=== PATIENT | female | born 1930 | race Caucasian/White ===

== ENCOUNTER 2016-09-03 00:30 | Emergency (ER) | payer MEDICARE, BC ==
[2016-09-03 00:40] VITALS: BP 158/54
--- NOTE | 2016-09-03 00:44 | EDM.PDOC ---
ED HPI GENERAL MEDICAL PROBLEM - General Chief Complaint: Gastrointestinal Problem Stated Complaint: [facility] Time Seen by Provider: 09/03/16 00:34 Source of Information: Reports: Patient History Limitations: Reports: No Limitations - History of Present Illness INITIAL COMMENTS - FREE TEXT/NARRATIVE: 86-year-old female brought to the ED per ambulance. She resides at [facility]. She does receive minimal help from nursing and per nursing staff. Chief complaint is rectal pain with rectal bleeding with bowel movement suture usually twice daily. Lately she's been having more diarrhea which seems to have flared up things. She also complains of pain burning hot prickly pain in both feet that is gradually getting worse over the last several months compatible with peripheral neuropathy. States the pain at present on the perianal areas keeping her awake as well as the leg pain. She states that all bowel movements are painful and often drip splint to the toilet afterwards. Of note her med list suggest that she is on MiraLAX powder daily to maintain bowel function. Perhaps is getting too much of this and is contributing to diarrhea. Onset: Unknown/Unsure (Problem some been going on for many months.) Duration: Week(s):, Waxing/Waning Location: Reports: Other (Perianal area.) Quality: Reports: Burning, Sharp, Stabbing, Throbbing Severity: Moderate Improves with: Reports: None (She reports she's been putting salve on the area for months and without any relief.) Worsens with: Reports: Other Context: Denies: Activity, Exercise, Lifting, Sick Contact, Trauma, Other Associated Symptoms: Denies: No Other Symptoms, Confusion, Chest Pain, Cough, cough w sputum, Diaphoresis, Fever/Chills, Headaches, Loss of Appetite, Malaise , Nausea/Vomiting, Rash, Seizure, Shortness of Breath, Syncope, Weakness Treatments 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: Reports: Other (see below) (None.) Rectal Pain Score (Numeric/FACES): 7 - Related Data Allergies Allergy/AdvReac Type Severity Reaction Status Date / Time niacin Allergy Hives Verified 09/03/16 00:40 Home Meds: Home Meds Atenolol 50 mg PO BID 01/01/15 [History] Folic Acid 1 mg PO DAILY 01/01/15 [History] Isosorbide Mononitrate [Isosorbide Mononitrate ER] 30 mg PO DAILY 01/01/15 [ History] Methotrexate 20 mg PO WEEKLY 01/01/15 [History] Nitroglycerin [Nitrostat] 0.4 mg PO ASDIRECTED PRN 01/01/15 [History] Losartan/Hydrochlorothiazide [Losartan-HCTZ 100-12.5 MG] 1 tab PO DAILY [History] Triamterene/Hydrochlorothiazid [Dyazide 37.5-25] 1 cap PO DAILY 01/13/16 [ History] Pravastatin [Pravachol] 20 mg PO BEDTIME #30 tablet 04/13/16 [Rx] Gabapentin [Neurontin] 100 mg PO BEDTIME #30 cap 09/03/16 [Rx] Hydrocortisone [Hydrocortisone 2.5% Crm] 1 dose TOP TID 09/03/16 [History] Hydrocortisone [Proctozone-HC 2.5% Crm] 1 dose RECTAL TID 09/03/16 [History] Pantoprazole Sodium [Protonix] 40 mg PO DAILY 09/03/16 [History] Polyethylene Glycol 3350 [MiraLAX] 17 gm PO BID PRN 09/03/16 [History] Terbinafine [LamISIL AT] 36 gm TP DAILY #1 tube 09/03/16 [Rx] Past Medical History HEENT History: Reports: Impaired Vision Other HEENT History: wears glasses Cardiovascular History: Reports: High Cholesterol, Hypertension Respiratory History: Reports: SOB Gastrointestinal History: Reports: Hemorrhoids 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: Musculoskeletal History: Reports: RA Other Musculoskeletal History: spondylosis Psychiatric History: Reports: Depression - Past Surgical History Female Surgical History: Reports: Section, Hysterectomy Social & Family History - Family History Family Medical History: Noncontributory Cardiac: Reports: [place] - Tobacco Use Smoking Status *Q: Former Smoker Years of Tobacco use: 60 Packs/Tins Daily: 0.5 Used Tobacco, but Quit: No Month Tobacco Last Used: 1979 Second Hand Smoke Exposure: No - Caffeine Use Caffeine Use: Reports: Coffee, Soda Other Caffeine Use: but states very little of it Caffeine Use Comment: drinks tea a couple times or less a week - Recreational Drug Use Recreational Drug Use: No - Living Situation & Occupation Living situation: Reports: , Alone Occupation: Retired ED ROS GENERAL - Review of Systems Review Of Systems: See Below Constitutional: Reports: Weakness, Fatigue, Decreased Appetite. Denies: Fever, Chills, Malaise, Weight Loss HEENT: Reports: Glasses, Other (Vision is poor) Respiratory: Denies: Shortness of Breath, Wheezing, Pleuritic Chest Pain Cardiovascular: Reports: Blood Pressure Problem, Dyspnea on Exertion. Denies: Chest Pain, Claudication, Lightheadedness, Orthopnea (Chronic hypertension well controlled with medication), Palpitations Endocrine: Reports: Fatigue GI/Abdominal: Reports: Abdominal Pain (Feels bloated with a lot of extra gas and cramping.), Diarrhea (Usually 2-3 times per day.), Hematochezia : Reports: Frequency (Both urge and stress components), Incontinence Musculoskeletal: Reports: Neck Pain, Shoulder Pain, Back Pain, Leg Pain, Foot Pain Skin: Reports: Other (Skin breakdown in the marah-anal area and between the nuchal clefts.) Neurological: Reports: Paresthesia (Burning pain in both feet particular a worse at night. Gradually getting worse.) Psychiatric: Reports: Anxiety ED EXAM, GI/ABD - Physical Exam Exam: See Below Exam Limited By: No Limitations General Appearance: Alert, WD/WN, Anxious, Mild Distress Cardiovascular: Regular Rate, Rhythm, No Edema, No Gallop, No Murmur, No Rub. No: Normal Peripheral Pulses GI/Abdominal: Soft, Non-Tender, No Organomegaly, Hyperactive Bowel Sounds, Tympanic Bowel Sounds (Tympany in all 4 quadrants compatible with little extra air on board.) Back Exam: Normal Inspection, Vertebral Tenderness (Lumbar spine). No: Full Range of Motion, CVA Tenderness (L), CVA Tenderness (R) Extremities: Normal Inspection, Normal Range of Motion, Non-Tender, No Pedal Edema Neurological: Alert, Oriented, CN II-XII Intact, Normal Cognition, Normal Gait, Other Psychiatric: Anxious (Mild) Skin Exam: Warm, Dry, Other (The rash is confined to the perianal area. She has breakdown of the skin superficially across each other in the mid nuchal cleft. Areas erythematous but not infected. This is a contact dermatitis from a combination of urine feces and likely soaps being applied to the area. May also be due to other creams being applied to this area as she may be developing an allergy to the stabilizing agents in the steroid creams. The perianal tissue itself shows an old hemorrhoidal tag at the 12:00 to 6 o'clock position. There is an anal fissure at the 6 o'clock position that is very tenderness touch. There is no signs of perianal abscess formation. Most of her pain I believe is coming from the skin breakdown in the perianal area.) Course - Vital Signs Last Recorded V/S: Last Vital Signs Temp 36.6 C 09/03/16 00:35 Pulse 61 09/03/16 00:35 Resp 20 09/03/16 00:35 BP 158/54 H 09/03/16 00:35 Pulse Ox 100 09/03/16 00:35 - Orders/Labs/Meds Orders: Active Orders 24 hr Category Date Time Status Jonnie Carbajal [Tucks] Med 09/03/16 00:54 Active 1 pad TOP ASDIRECTED PRN Medication Orders Jonnie Carbajal (Tucks) 1 pad TOP ASDIRECTED PRN PRN Reason: anal pain Last Admin: 09/03/16 01:24 Dose: 1 pad Meds: Medications Generic Name Dose Route Start Last Admin Trade Name Freq PRN Reason Stop Dose Admin Jonnie Carbajal 1 pad 09/03/16 00:54 09/03/16 01:24 Tucks TOP 1 pad ASDIRECTED PRN Administration anal pain Discontinued Medications Generic Name Dose Route Start Last Admin Trade Name Freq PRN Reason Stop Dose Admin Gabapentin 100 mg 09/03/16 00:53 09/03/16 01:16 Neurontin PO 09/03/16 00:54 100 mg ONETIME ONE Administration Lidocaine HCl 10 ml 09/03/16 00:52 09/03/16 01:02 Xylocaine 2% Jelly MUCMEM 09/03/16 00:53 10 ml ONETIME ONE Administration Lidocaine HCl Confirm 09/03/16 01:02 09/03/16 01:08 Xylocaine 2% Jelly Administered 09/03/16 01:03 Not Given Dose 10 ml .ROUTE .STK-MED ONE Oxycodone/Acetaminophen 1 tab 09/03/16 00:53 09/03/16 01:03 Percocet 325-5 Mg PO 09/03/16 00:54 1 tab ONETIME ONE Administration - Radiology Interpretation Free Text/Narrative:: 86-year-old female presents to the ED at 1:00 in the morning due to perianal pain and burning pain in both of her feet. She reports perianal pain is been going on for a lengthy period of time and often has blood per rectum with bowel movements. She tends to be on the diarrhea side and is on MiraLAX powder perhaps too much or needs to take it on alternating days. Examination reveals contact dermatitis of the perianal tissue involving [facility] up the nuchal cleft with superficial skin ulceration and breakdown. This is a combination of urine and her depends needs to be changed more often. Also advised no soaps to this area at all just water to cleanse her to prevent further contact breakdown of the skin. If soap is required suggest Doppler Ivory hypoallergenic soaps only. Recommend Lamisil cream to be applied to the perianal tissues she'll use nifedipine ointment 0.2% into the anal canal twice daily for the next 20 days to allow the anal fissure to heal. Also prescribed gabapentin 100 mg about an hour before bedtime every night to help with her peripheral neuropathy pain in her feet and improve her sleep habit. 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 Hemorrhoidal tag has been present for many months and years. Reported bleeding per rectum with diarrhea stools the last several days. Examination reveals an anal fissure at the 6 o'clock position. This needs to be treated with nifedipine 0.2% ointment into the anal canal twice daily for the next 20 days to allow this area to heal. Should be done first thing in the morning or after first bowel movement and then at bedtime. The perianal tissues are very inflamed and raw and skin is breaking down in the nuchal cleft on both sides. This is from being right to long. It is important that the perianal tissues be protected with a barrier cream such as camoseptine usually once daily at bedtime should suffice. No soaps should be utilized to this area unless absolutely necessary to cleanse the area and if needed should only be Dove or Ivory hypoallergenic soaps. Hydrocortisone creams that are being applied to this area should be discontinued. Suggest Lamisil cream to the area once daily in the morning to help soothe the skin and reduce the inflammation and clear up low-grade candidiasis. The second problem identified was performed around 3 involving her feet primarily at bedtime. Suggest use of Neurontin 100 mg about an hour before going to bed nightly to reduce the pain in the feet so that she might be able to sleep better. Suggest cutting back on her MiraLAX powder to 17 g every other day to prevent diarrhea from occurring. - My Orders Last 24 Hours: My Active Orders 09/03/16 00:54 Jonnie Carbajal [Razia] 1 pad TOP ASDIRECTED PRN - Assessment/Plan Last 24 Hours: My Active Orders 09/03/16 00:54 Jonnie Carbajal [Razia] 1 pad TOP ASDIRECTED PRN
[2016-09-03] MEDS ORDERED: Lidocaine 2% Jelly 10 ML Urojet MUCMEM ONE (00:52)
[2016-09-03] MEDS ORDERED: Acetaminophen/oxyCODONE 325-5 MG Tab PO ONE (00:53)
[2016-09-03] MEDS ORDERED: Gabapentin 100 MG Cap PO ONE (00:53)
[2016-09-03] MEDS ORDERED: Witch Hazel Medicated Pads 100/Jar TOP PRN (00:54)
[2016-09-03] MEDS ORDERED: Lidocaine 2% Jelly 10 ML Urojet ONE (01:02)
== END 2016-09-03 02:00 | disposition home or self-care (01) ==
LOC: JD.ED 00:30
DX: K60.2 Anal fissure, unspecified (principal); L24.0 Irritant contact dermatitis due to detergents; G60.3 Idiopathic progressive neuropathy; I10 Essential (primary) hypertension; E78.00 Pure hypercholesterolemia, unspecified; F32.9 Major depressive disorder, single episode, unspecified; Z90.710 Acquired absence of both cervix and uterus; Z87.891 Personal history of nicotine dependence; Z79.899 Other long term (current) drug therapy; Z88.8 Allergy status to other drugs, medicaments and biological substances
CPT/HCPCS: 99284; A9270; 99283

== ENCOUNTER 2017-08-03 11:57 | Emergency (ER) | payer MEDICARE, BC ==
[2017-08-03 12:13] VITALS: BP 129/61
--- NOTE | 2017-08-03 12:43 | EDM.PDOC ---
ED HPI GENERAL MEDICAL PROBLEM - General Chief Complaint: Gastrointestinal Problem Stated Complaint: VOMITING AND DIARRHEA/WEAKNESS Time Seen by Provider: 08/03/17 12:30 Source of Information: Reports: Patient - History of Present Illness INITIAL COMMENTS - FREE TEXT/NARRATIVE: Patient is brought here today by her son for evaluation of diarrhea and an episode of vomiting. This apparently started around 1 AM, persisted until about 3 AM. Patient states at that time she was able to fall asleep and slept until around 10:30 or 11 this morning. She states that when she awoke she felt significantly better. She did eat toast and some imelda clemencia without difficulty. It was recommended by the nurse at [facility]'s point that she be evaluated in the emergency room. Patient states that she has had no further episodes of vomiting or diarrhea since awakening. She denies any pain whatsoever. She states that overall she is feeling well. - Related Data Allergies Allergy/AdvReac Type Severity Reaction Status Date / Time niacin Allergy Hives Verified 08/03/17 12:13 Home Meds: Home Meds Atenolol 50 mg PO BID 01/01/15 [History] Folic Acid 1 mg PO DAILY 01/01/15 [History] Isosorbide Mononitrate [Isosorbide Mononitrate ER] 30 mg PO DAILY 01/01/15 [ History] Methotrexate 20 mg PO WEEKLY 01/01/15 [History] Nitroglycerin [Nitrostat] 0.4 mg PO ASDIRECTED PRN 01/01/15 [History] Losartan/Hydrochlorothiazide [Losartan-HCTZ 100-12.5 MG] 1 tab PO DAILY [History] Triamterene/Hydrochlorothiazid [Dyazide 37.5-25] 1 cap PO DAILY 01/13/16 [ History] Pravastatin [Pravachol] 20 mg PO BEDTIME #30 tablet 04/13/16 [Rx] Gabapentin [Neurontin] 100 mg PO BEDTIME #30 cap 09/03/16 [Rx] Hydrocortisone [Hydrocortisone 2.5% Crm] 1 dose TOP TID 09/03/16 [History] Hydrocortisone [Proctozone-HC 2.5% Crm] 1 dose RECTAL TID 09/03/16 [History] Pantoprazole Sodium [Protonix] 40 mg PO DAILY 09/03/16 [History] Polyethylene Glycol 3350 [MiraLAX] 17 gm PO BID PRN 09/03/16 [History] Terbinafine [LamISIL AT] 36 gm TP DAILY #1 tube 09/03/16 [Rx] Past Medical History HEENT History: Reports: Impaired Vision Other HEENT History: wears glasses Cardiovascular History: Reports: High Cholesterol, Hypertension Respiratory History: Reports: SOB Gastrointestinal History: Reports: Hemorrhoids 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: Musculoskeletal History: Reports: RA Other Musculoskeletal History: spondylosis Psychiatric History: Reports: Depression - Past Surgical History Female Surgical History: Reports: Section, Hysterectomy Social & Family History - Family History Family Medical History: Noncontributory Cardiac: Reports: [place] - Tobacco Use Smoking Status *Q: Former Smoker Used Tobacco, but Quit: Yes Month/Year Tobacco Last Used: 1989 - Caffeine Use Caffeine Use: Reports: Coffee, Soda Other Caffeine Use: but states very little of it Caffeine Use Comment: drinks tea a couple times or less a week - Recreational Drug Use Recreational Drug Use: No - Living Situation & Occupation Living situation: Reports: , Alone Occupation: Retired ED ROS GENERAL - Review of Systems Review Of Systems: See Below Constitutional: Denies: Fever, Chills, Malaise, Weakness, Fatigue, Decreased Appetite HEENT: Reports: No Symptoms Respiratory: Reports: No Symptoms Cardiovascular: Reports: No Symptoms GI/Abdominal: Reports: Diarrhea, Nausea, Vomiting. Denies: Abdominal Pain, Decreased Appetite : Reports: No Symptoms Musculoskeletal: Reports: No Symptoms Skin: Reports: No Symptoms Neurological: Reports: No Symptoms ED EXAM, GI/ABD - Physical Exam Exam: See Below Exam Limited By: No Limitations General Appearance: Alert, WD/WN, No Apparent Distress Ears: Normal External Exam, Normal Canal, Normal TMs Throat/Mouth: Normal Inspection, Normal Oropharynx Head: Atraumatic, Normocephalic Neck: Normal Inspection, Supple, Non-Tender Respiratory/Chest: No Respiratory Distress, Lungs Clear Cardiovascular: Regular Rate, Rhythm, No Murmur GI/Abdominal Exam: Normal Bowel Sounds, Soft, Non-Tender. No: Guarding, Rebound Neurological: Alert, Oriented, Normal Cognition, Other Psychiatric: Normal Affect, Normal Mood Skin Exam: Warm, Dry, Intact Course - Vital Signs Last Recorded V/S: Last Vital Signs Temp 98.2 F 08/03/17 12:09 Pulse 60 08/03/17 12:09 Resp 16 08/03/17 12:09 BP 129/61 08/03/17 12:09 Pulse Ox 98 08/03/17 12:09 - Orders/Labs/Meds Meds: Medications Discontinued Medications Generic Name Dose Route Start Last Admin Trade Name Jackie PRN Reason Stop Dose Admin Loperamide HCl 2 mg 08/03/17 12:42 08/03/17 13:13 Imodium PO 08/03/17 12:43 2 mg ONETIME ONE Administration - Re-Assessments/Exams Free Text/Narrative Re-Assessment/Exam: Exam in the emergency room was completely normal. She is well in appearance and has no abdominal tenderness whatsoever. She did eat a piece of toast and drink water without difficulty here in the emergency room. Patient was given 2 mg loperamide. May repeat this if needed, though caution rebound constipation. Patient states that she is feeling better, declines lab work a full workup as symptoms significantly improved. Blood pressures had reportedly been low this morning but are within normal limits here in the clinic. She is drinking fluids well. Moist mucous membranes. Will discharge home on a bland diet and have her increase fluid intake. She'll follow up with primary PCP if symptoms not completely resolved over the next 24-48 hours. Return to the emergency room if needed. 08/03/17 13:26 Departure - Departure Time of Disposition: 13:21 Disposition: Home, Self-Care 01 Condition: Good Clinical Impression: Diarrhea - Discharge Information Instructions: Food Choices to Help Relieve Diarrhea, Adult, Diarrhea, Adult, [id number] Referrals: Robson Cardoza Jr, MD [Primary Care Provider] - Forms: ED Department Discharge Additional Instructions: You were evaluated in the emergency room for diarrhea and vomiting. Exam was normal and as you are feeling better and eating and drinking labwork was not performed. I recommend that you take it easy today and tomorrow. Continue to drink lots of fluids. I recommend bland diet, no sugar/spice/dairy until symptoms completely gone for 24 hours. If not completely better in the next 1-2 days then I recommend that you follow up with your primary provider. If any worsening, you may certainly return to the emergency room.
[2017-08-03] MEDS: Loperamide 2 MG Cap PO ONE (13:13)
== END 2017-08-03 13:45 | disposition home or self-care (01) ==
LOC: JD.ED 11:57
DX: R19.7 Diarrhea, unspecified (principal); E78.00 Pure hypercholesterolemia, unspecified; I10 Essential (primary) hypertension; F32.9 Major depressive disorder, single episode, unspecified; Z87.891 Personal history of nicotine dependence; Z88.5 Allergy status to narcotic agent; Z79.899 Other long term (current) drug therapy
CPT/HCPCS: 99284; A9270

== ENCOUNTER 2018-05-28 14:28 | Emergency (ER) | payer MEDICARE, BC ==
[2018-05-28 14:38] VITALS: BP 142/62
--- NOTE | 2018-05-28 15:16 | EDM.PDOC ---
ED HPI GENERAL MEDICAL PROBLEM - General Chief Complaint: Gastrointestinal Problem Stated Complaint: [facility] Time Seen by Provider: 05/28/18 14:34 Source of Information: Reports: Patient, RN Notes Reviewed History Limitations: Reports: No Limitations - History of Present Illness INITIAL COMMENTS - FREE TEXT/NARRATIVE: Patient is an 88-year-old female who presents to the ED today via [facility] for the evaluation of blood per rectum. The patient states that she has hemorrhoids and these have been bleeding since yesterday. Patient notes this to be bright red to maroon in color. The patient notes that she does take iron pills or her stool is normally black as well. She notes that her hemorrhoids normally leave a little bleeding on her pads but this has increased over the last day. She states that she had a normal BM this morning. She notes that a nurse did look at her stools and became worried that she may be bleeding more than she thinks she is. She denies any headache, dizziness/ weakness, chest pain, shortness of breath, abdominal pain or cramping. She denies any other issues with blood pressures. She is not on any blood thinners. Her primary care provider is Robson Cardoza. She is a resident at [facility]. She also notes that she has a small amount of diarrhea on Tuesday, and she took some Pepto bismol for this. - Related Data Allergies Allergy/AdvReac Type Severity Reaction Status Date / Time niacin Allergy Hives Verified 05/28/18 14:38 Home Meds: Home Meds Atenolol 50 mg PO BID 01/01/15 [History] Folic Acid 1 mg PO DAILY 01/01/15 [History] Isosorbide Mononitrate [Isosorbide Mononitrate ER] 30 mg PO DAILY 01/01/15 [ History] Nitroglycerin [Nitrostat] 0.4 mg PO ASDIRECTED PRN 01/01/15 [History] Losartan/Hydrochlorothiazide [Losartan-HCTZ 100-12.5 MG] 1 tab PO DAILY [History] Triamterene/Hydrochlorothiazid [Dyazide 37.5-25] 1 cap PO DAILY 01/13/16 [ History] Gabapentin [Neurontin] 100 mg PO BEDTIME #30 cap 09/03/16 [Rx] Hydrocortisone [Proctozone-HC 2.5% Crm] 1 dose RECTAL TID 09/03/16 [History] Pantoprazole Sodium [Protonix] 40 mg PO DAILY 09/03/16 [History] Benzonatate [Tessalon Perle] 200 mg PO ASDIRECTED PRN 11/10/17 [History] Bismuth Subsalicylate [Pepto Bismol] 2 tab PO Q8H PRN 11/10/17 [History] Menthol/Zinc Oxide [Calmoseptine] 1 gm TOP BID 11/10/17 [History] Simethicone [Gas Relief] 80 mg PO BID 11/10/17 [History] Simvastatin [Zocor] 40 mg PO BEDTIME 11/10/17 [History] Terbinafine [LamISIL AT] 1 percent TP DAILY 11/10/17 [History] Triamcinolone Acetonide [Kenalog 0.1% Crm] 1 dose PO ASDIRECTED PRN 11/10/17 [ History] Past Medical History HEENT History: Reports: Impaired Vision Other HEENT History: wears glasses Cardiovascular History: Reports: Blood Clots/VTE/DVT, High Cholesterol, Hypertension Respiratory History: Reports: SOB Gastrointestinal History: Reports: Hemorrhoids 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: Musculoskeletal History: Reports: RA Other Musculoskeletal History: spondylosis Psychiatric History: Reports: Depression Hematologic History: Reports: Anemia, Iron Deficiency Dermatologic History: Reports: Other (See Below) Other Dermatologic History: hemorrhoids, rashes - Infectious Disease History Infectious Disease History: Reports: Chicken Pox, Measles, Mumps - Past Surgical History GI Surgical History: Reports: Appendectomy Female Surgical History: Reports: Section, Hysterectomy Social & Family History - Family History Family Medical History: Noncontributory Cardiac: Reports: [place] - Tobacco Use Smoking Status *Q: Former Smoker Used Tobacco, but Quit: Yes Month/Year Tobacco Last Used: 10 - Caffeine Use Caffeine Use: Reports: Soda Other Caffeine Use: but states very little of it Caffeine Use Comment: drinks tea a couple times or less a week - Recreational Drug Use Recreational Drug Use: No - Living Situation & Occupation Living situation: Reports: , Alone Occupation: Retired ED ROS GENERAL - Review of Systems Review Of Systems: See Below Constitutional: Reports: No Symptoms HEENT: Reports: No Symptoms Respiratory: Reports: No Symptoms Cardiovascular: Reports: No Symptoms Endocrine: Reports: No Symptoms GI/Abdominal: Reports: Black Stool (taking iron supplements, and did use pepto on tuesday for diarrhea.), Bloody Stool. Denies: Constipation, Diarrhea, Nausea , Vomiting : Reports: No Symptoms Musculoskeletal: Reports: No Symptoms Skin: Reports: No Symptoms Neurological: Denies: Confusion, Dizziness, Headache, Syncope Psychiatric: Reports: No Symptoms Hematologic/Lymphatic: Reports: Anemia. Denies: Easy Bleeding, Easy Bruising Immunologic: Reports: No Symptoms ED EXAM, GI/ABD - Physical Exam Exam: See Below Exam Limited By: No Limitations General Appearance: Alert, WD/WN, No Apparent Distress Eyes: Bilateral: Normal Appearance Ears: Normal External Exam Nose: Normal Inspection Throat/Mouth: Normal Inspection, Normal Lips, Normal Teeth, Normal Gums, Normal Oropharynx, Normal Voice, No Airway Compromise Head: Atraumatic, Normocephalic Neck: Normal Inspection Respiratory/Chest: No Respiratory Distress, Lungs Clear, Normal Breath Sounds, No Accessory Muscle Use, Chest Non-Tender Cardiovascular: Normal Peripheral Pulses, Regular Rate, Rhythm, No Murmur GI/Abdominal Exam: Normal Bowel Sounds, Soft, Non-Tender, No Distention, No Mass Rectal (Female) Exam: Normal Exam, Heme + Stool, Hemorrhoids (external, with red blood visible around rectum.) Back Exam: Normal Inspection, Full Range of Motion Extremities: Normal Inspection, Normal Capillary Refill Neurological: Alert, Oriented, Normal Cognition, No Motor/Sensory Deficits Psychiatric: Normal Affect, Normal Mood Skin Exam: Warm, Dry, Intact, Normal Color, No Rash Course - Vital Signs Last Recorded V/S: Last Vital Signs Temp 96.7 F 05/28/18 14:35 Pulse 64 05/28/18 14:35 Resp 18 05/28/18 14:35 BP 142/62 H 05/28/18 14:35 Pulse Ox 95 05/28/18 14:35 - Orders/Labs/Meds Orders: Active Orders 24 hr Category Date Time Status TYPE AND SCREEN [BBK] Stat Lab 05/28/18 15:23 Received Labs: Laboratory Tests 05/28/18 05/28/18 05/28/18 Range/Units 15:23 15:23 15:23 WBC 5.70 (3.98-10.04) K/mm3 RBC 3.32 L (3.98-5.22) M/mm3 Hgb 10.6 L (11.2-15.7) gm/L Hct 33.3 L (34.1-44.9) % MCV 100.3 H (79.4-94.8) fl MCH 31.9 (25.6-32.2) pg MCHC 31.8 L (32.2-35.5) g/dl RDW Std Deviation 51.1 H (36.4-46.3) fL Plt Count 140 L (182-369) K/mm3 MPV 11.3 (9.4-12.3) fl Neutrophils % (Manual) 79 H (40-60) % Band Neutrophils % 0 (0-10) % Lymphocytes % (Manual) 17 L (20-40) % Atypical Lymphs % 0 % Monocytes % (Manual) 3 (2-10) % Eosinophils % (Manual) 1 (0.7-5.8) % Basophils % (Manual) 0 L (0.1-1.2) Platelet Estimate Decreased Plt Morphology Comment Normal Polychromasia 1+ slight Anisocytosis 1+ slight Macrocytosis 1+ slight RBC Morph Comment Not Reportable PT 11.2 (9.5-12.1) SECONDS INR 1.03 APTT 30 (24-31) SECONDS Sodium 138 (136-145) mEq/L Potassium 5.0 (3.5-5.1) mEq/L Chloride 104 (98-107) mEq/L Carbon Dioxide 25 (21-32) mEq/L Anion Gap 14.0 (5-15) BUN 43 H (7-18) mg/dL Creatinine 2.3 H (0.55-1.02) mg/dL Est Cr Clr Drug Dosing 12.38 mL/min Estimated GFR (MDRD) 20 (>60) mL/min BUN/Creatinine Ratio 18.7 H (14-18) Glucose 100 (83-115) mg/dL Calcium 9.2 (8.5-10.1) mg/dL Total Bilirubin 0.3 (0.2-1.0) mg/dL AST 20 (15-37) U/L ALT 18 (14-59) U/L Alkaline Phosphatase 140 H (46-116) U/L Total Protein 7.4 (6.4-8.2) g/dl Albumin 3.3 L (3.4-5.0) g/dl Globulin 4.1 gm/dL Albumin/Globulin Ratio 0.8 L (1-2) - Re-Assessments/Exams Free Text/Narrative Re-Assessment/Exam: 05/28/18 15:17 Patient presents to the ED for the evaluation of bleeding per rectum. There is obvious blood at the rectum. Have ordered a CBC, CMP, PT, PTT, INR, and a type and screen for further evaluation of this. I believe this may be a lower GI bleed in etiology. There was a little bit too much blood to suspect bleeding from hemorrhoids. However she is not actively bleeding per rectum at this ED visit. 05/28/18 17:05 Patient's labs have returned and her hemoglobin is at 10.7, this is low but review of her old records show that she was even more anemic at 7.9 in December; with a similar presentation. She was safely discharged home at that time with no further workup besides a clinic follow-up. I did ask the patient how aggressive she would like to be with the possibility of a lower GI bleed. She states she would rather not have surgery if needed. At this time I feel it is safe to discharge her home with general recommendations and that she follow up with her primary care doctor midweek for a recheck of her hemoglobin and the possibility of blood in the stools. The patient is hemodynamically stable at this time. Departure - Departure Time of Disposition: 17:07 Disposition: Home, Self-Care 01 Condition: Fair Clinical Impression: Rectal bleeding Hemorrhoid Qualifiers: Hemorrhoid type: unspecified Qualified Code(s): K64.9 - Unspecified hemorrhoids - Discharge Information *PRESCRIPTION DRUG MONITORING PROGRAM REVIEWED*: No *COPY OF PRESCRIPTION DRUG MONITORING REPORT IN PATIENT RUTH: No Instructions: Rectal Bleeding, [id number], Gastrointestinal Bleeding, Easy-to -Read, High-Fiber Diet Referrals: Robson Cardoza Jr, MD [Primary Care Provider] - Forms: ED Department Discharge Additional Instructions: You have been evaluated in the ED tonight for your rectal bleeding. Your labs were essentially within normal limits. Her hemoglobin concentration was a tad decreased, but this may be due to your chronic anemia. Please continue all medications you have been taking as previously directed. Recommend that you follow up with your primary care provider, Dr. Cardoza, sometime this week for a recheck of your CBC and to see if there is any more blood in your stool. Worrisome symptoms would be increased bleeding per rectum, lightheadedness, dizziness, low blood pressure, etc. Please return to the ED if your symptoms change or worsen. - My Orders Last 24 Hours: My Active Orders 05/28/18 15:23 TYPE AND SCREEN [BBK] Stat - Assessment/Plan Last 24 Hours: My Active Orders 05/28/18 15:23 TYPE AND SCREEN [BBK] Stat
== END 2018-05-28 18:11 | disposition home or self-care (01) ==
LOC: JD.ED 14:28
DX: K64.9 Unspecified hemorrhoids (principal); I10 Essential (primary) hypertension; E78.00 Pure hypercholesterolemia, unspecified; F32.9 Major depressive disorder, single episode, unspecified; Z87.891 Personal history of nicotine dependence; Z79.899 Other long term (current) drug therapy; Z88.8 Allergy status to other drugs, medicaments and biological substances
CPT/HCPCS: 36415; 80053; 85007; 85027; 85610; 85730; 86850; 86900; 86901; 99283

== ENCOUNTER 2019-04-13 10:04 | Emergency (ER) | payer MEDICARE, BC ==
[2019-04-13 10:16] VITALS: PULSE 86
[2019-04-13] MEDS ORDERED: Sodium Chloride 0.9% 1,000 ML IV STA (10:21)
[2019-04-13] MEDS ORDERED: Ondansetron 4 MG/2 ML SDV IVPUSH ONE (10:21)
[2019-04-13] MEDS ORDERED: Sodium Chloride 0.9% 10 ML Syringe FLUSH PRN (10:21)
[2019-04-13] MEDS ORDERED: Aspirin 81 MG Tab.Chew PO ONE (12:58)
--- NOTE | 2019-04-13 13:05 | EDM.PDOC ---
ED HPI GENERAL MEDICAL PROBLEM - General Chief Complaint: Neurological Problem Stated Complaint: [facility] Time Seen by Provider: 04/13/19 10:15 Source of Information: Reports: Patient, Family History Limitations: Reports: No Limitations - History of Present Illness INITIAL COMMENTS - FREE TEXT/NARRATIVE: The patient presents with her daughter for confusion, generalized weakness and some nausea and vomiting. The patient was seen by Dr Cardoza yesterday and all her labs looked good. She says a couple days ago she did have some chest pain but none now. She does not have a fever, chills, cough, congestion, runny nose , or abdominal pain. She has no appetite. She did vomit one time. She has no dysuria or diarrhea. She has never had an MA before. She has a history of A- fib in 2014. She is not on blood thinners now. Onset: Gradual Duration: Day(s): Location: Reports: Chest Quality: Reports: Sharp Severity: Moderate Improves with: Reports: None Worsens with: Reports: None Associated Symptoms: Reports: Chest Pain, Nausea/Vomiting. Denies: Cough, Fever /Chills, Headaches, Shortness of Breath - Related Data Allergies Allergy/AdvReac Type Severity Reaction Status Date / Time niacin Allergy Hives Verified 04/13/19 10:16 Home Meds: Home Meds Folic Acid 1 mg PO DAILY 01/01/15 [History] Isosorbide Mononitrate [Isosorbide Mononitrate ER] 30 mg PO DAILY 01/01/15 [ History] Nitroglycerin [Nitrostat] 0.4 mg PO ASDIRECTED PRN 01/01/15 [History] atenoloL [Atenolol] 50 mg PO BID 01/01/15 [History] Losartan/Hydrochlorothiazide [Losartan-HCTZ 100-12.5 MG] 1 tab PO DAILY [History] Triamterene/Hydrochlorothiazid [Dyazide 37.5-25] 1 cap PO DAILY 01/13/16 [ History] Gabapentin [Neurontin] 100 mg PO BEDTIME #30 cap 09/03/16 [Rx] Pantoprazole Sodium [Protonix] 40 mg PO DAILY 09/03/16 [History] Simvastatin [Zocor] 40 mg PO BEDTIME 11/10/17 [History] Loratadine 10 mg PO DAILY PRN 04/13/19 [History] Venlafaxine [Effexor] 75 mg PO BID 04/13/19 [History] Past Medical History HEENT History: Reports: Impaired Vision Other HEENT History: wears glasses Cardiovascular History: Reports: Afib, Angina, Blood Clots/VTE/DVT, CAD, High Cholesterol, Hypertension Respiratory History: Reports: SOB Gastrointestinal History: Reports: GI Bleed, 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: Musculoskeletal History: Reports: Osteoarthritis, RA Other Musculoskeletal History: spondylosis Psychiatric History: Reports: Depression Endocrine/Metabolic History: Reports: Osteopenia Hematologic History: Reports: Anemia, Iron Deficiency Dermatologic History: Reports: Other (See Below) Other Dermatologic History: hemorrhoids, rashes - Infectious Disease History Infectious Disease History: Reports: Chicken Pox, Measles, Mumps - Past Surgical History GI Surgical History: Reports: Appendectomy, Cholecystectomy Female Surgical History: Reports: Section, Hysterectomy Social & Family History - Family History Family Medical History: Noncontributory Cardiac: Reports: [place] - Tobacco Use Smoking Status *Q: Never Smoker - Caffeine Use Caffeine Use: Reports: None Other Caffeine Use: but states very little of it Caffeine Use Comment: drinks tea a couple times or less a week - Recreational Drug Use Recreational Drug Use: No - Living Situation & Occupation Living situation: Reports: , Alone Occupation: Retired ED ROS GENERAL - Review of Systems Review Of Systems: See Below Constitutional: Reports: Weakness HEENT: Reports: No Symptoms Respiratory: Reports: No Symptoms Cardiovascular: Reports: Chest Pain Endocrine: Reports: No Symptoms GI/Abdominal: Reports: Nausea, Vomiting. Denies: Abdominal Pain : Reports: No Symptoms Musculoskeletal: Reports: No Symptoms - Physical Exam Exam: See Below Exam Limited By: No Limitations General Appearance: Alert, No Apparent Distress Ears: Normal External Exam Throat/Mouth: Normal Inspection Head Exam: Atraumatic, Normocephalic Neck: Normal Inspection Respiratory/Chest: No Respiratory Distress, Lungs Clear, Normal Breath Sounds Cardiovascular: Regular Rate, Rhythm, No Edema, No Murmur GI/Abdominal: Soft, Non-Tender, No Organomegaly, No Mass EKG INTERPRETATION EKG Date: 04/13/19 Time: 10:33 Rhythm: A-Fib Rate (Beats/Min): 86 [place]: Normal QRS: Normal ST-T: Normal QT: Normal EKG Interpretation Comments: Q waves in the anterior leads Course - Vital Signs Last Recorded V/S: Last Vital Signs Temp 98 F 04/13/19 10:13 Pulse 86 04/13/19 10:13 Resp 16 04/13/19 10:13 BP 174/81 H 04/13/19 10:13 Pulse Ox 94 L 04/13/19 10:13 - Orders/Labs/Meds Orders: Active Orders 24 hr Category Date Time Status EKG Documentation Completion [RC] STAT Care 04/13/19 10:21 Active Peripheral IV Care [RC] . DIRECTED Care 04/13/19 10:22 Active CXR [Chest 1V Frontal] [CR] Stat Exams 04/13/19 11:07 Taken Sodium Chloride 0.9% [Saline Flush] Med 04/13/19 10:21 Active 10 ml FLUSH ASDIRECTED PRN ED Antiemetic Medication Reflex [OM.PC] Stat Oth 04/13/19 10:22 Ordered Peripheral IV Insertion Adult [OM.PC] Stat Oth 04/13/19 10:21 Ordered Medication Orders Sodium Chloride (Saline Flush) 10 ml FLUSH ASDIRECTED PRN PRN Reason: Keep Vein Open Last Admin: 04/13/19 10:35 Dose: 10 ml Labs: Laboratory Tests 04/13/19 04/13/19 04/13/19 Range/Units 10:40 10:49 10:49 WBC 5.74 (3.98-10.04) K/mm3 RBC 3.56 L (3.98-5.22) M/mm3 Hgb 10.4 L (11.2-15.7) gm/dl Hct 34.3 (34.1-44.9) % MCV 96.3 H D (79.4-94.8) fl MCH 29.2 (25.6-32.2) pg MCHC 30.3 L (32.2-35.5) g/dl RDW Std Deviation 50.4 H (36.4-46.3) fL Plt Count 164 L (182-369) K/mm3 MPV 10.0 (9.4-12.3) fl Neut % (Auto) 71.6 H (34.0-71.1) % Lymph % (Auto) 18.3 L (19.3-51.7) % [place] % (Auto) 9.1 (4.7-12.5) % Eos % (Auto) 0.7 (0.7-5.8) Baso % (Auto) 0.3 (0.1-1.2) % Neut # (Auto) 4.11 (1.56-6.13) K/mm3 Lymph # (Auto) 1.05 L (1.18-3.74) K/mm3 [place] # (Auto) 0.52 H (0.24-0.36) K/mm3 Eos # (Auto) 0.04 (0.04-0.36) K/mm3 Baso # (Auto) 0.02 (0.01-0.08) K/mm3 Sodium 142 (136-145) mEq/L Potassium 3.3 L D (3.5-5.1) mEq/L Chloride 103 (98-107) mEq/L Carbon Dioxide 29 (21-32) mEq/L Anion Gap 13.3 (5-15) BUN 21 H (7-18) mg/dL Creatinine 1.2 H (0.55-1.02) mg/dL Est Cr Clr Drug Dosing TNP Estimated GFR (MDRD) 42 (>60) mL/min BUN/Creatinine Ratio 17.5 (14-18) Glucose 102 (83-115) mg/dL Calcium 8.8 (8.5-10.1) mg/dL Total Bilirubin 0.5 (0.2-1.0) mg/dL AST 20 (15-37) U/L ALT 17 (14-59) U/L Alkaline Phosphatase 90 (46-116) U/L Troponin I 0.071 H* (0.00-0.056) ng/mL Total Protein 7.3 (6.4-8.2) g/dl Albumin 3.5 (3.4-5.0) g/dl Globulin 3.8 gm/dL Albumin/Globulin Ratio 0.9 L (1-2) Urine Color Yellow (Yellow) Urine Appearance Clear (Clear) Urine pH 7.0 (5.0-8.0) Ur Specific [place] > or = 1.030 (1.005-1.030) Urine Protein 2+ H (Negative) Urine Glucose (UA) Negative (Negative) Urine Ketones 2+ H (Negative) Urine Occult Blood 1+ H (Negative) Urine Nitrite Negative (Negative) Urine Bilirubin Negative (Negative) Urine Urobilinogen 0.2 (0.2-1.0) Ur Leukocyte Esterase Negative (Negative) Urine RBC 0-5 (0-5) /hpf Urine WBC 5-10 H (0-5) /hpf Ur Epithelial Cells 0-5 (0-5) /hpf Urine Bacteria Rare (FEW) /hpf Urine Mucus Rare (FEW) /hpf 04/13/19 Range/Units 14:00 WBC (3.98-10.04) K/mm3 RBC (3.98-5.22) M/mm3 Hgb (11.2-15.7) gm/dl Hct (34.1-44.9) % MCV (79.4-94.8) fl MCH (25.6-32.2) pg MCHC (32.2-35.5) g/dl RDW Std Deviation (36.4-46.3) fL Plt Count (182-369) K/mm3 MPV (9.4-12.3) fl Neut % (Auto) (34.0-71.1) % Lymph % (Auto) (19.3-51.7) % [place] % (Auto) (4.7-12.5) % Eos % (Auto) (0.7-5.8) Baso % (Auto) (0.1-1.2) % Neut # (Auto) (1.56-6.13) K/mm3 Lymph # (Auto) (1.18-3.74) K/mm3 [place] # (Auto) (0.24-0.36) K/mm3 Eos # (Auto) (0.04-0.36) K/mm3 Baso # (Auto) (0.01-0.08) K/mm3 Sodium (136-145) mEq/L Potassium (3.5-5.1) mEq/L Chloride (98-107) mEq/L Carbon Dioxide (21-32) mEq/L Anion Gap (5-15) BUN (7-18) mg/dL Creatinine (0.55-1.02) mg/dL Est Cr Clr Drug Dosing Estimated GFR (MDRD) (>60) mL/min BUN/Creatinine Ratio (14-18) Glucose (83-115) mg/dL Calcium (8.5-10.1) mg/dL Total Bilirubin (0.2-1.0) mg/dL AST (15-37) U/L ALT (14-59) U/L Alkaline Phosphatase (46-116) U/L Troponin I 0.126 H* (0.00-0.056) ng/mL Total Protein (6.4-8.2) g/dl Albumin (3.4-5.0) g/dl Globulin gm/dL Albumin/Globulin Ratio (1-2) Urine Color (Yellow) Urine Appearance (Clear) Urine pH (5.0-8.0) Ur Specific [place] (1.005-1.030) Urine Protein (Negative) Urine Glucose (UA) (Negative) Urine Ketones (Negative) Urine Occult Blood (Negative) Urine Nitrite (Negative) Urine Bilirubin (Negative) Urine Urobilinogen (0.2-1.0) Ur Leukocyte Esterase (Negative) Urine RBC (0-5) /hpf Urine WBC (0-5) /hpf Ur Epithelial Cells (0-5) /hpf Urine Bacteria (FEW) /hpf Urine Mucus (FEW) /hpf Meds: Medications Generic Name Dose Route Start Last Admin Trade Name Freq PRN Reason Stop Dose Admin Sodium Chloride 10 ml 04/13/19 10:21 04/13/19 10:35 Saline Flush FLUSH 10 ml ASDIRECTED PRN Administration Keep Vein Open Discontinued Medications Generic Name Dose Route Start Last Admin Trade Name Freq PRN Reason Stop Dose Admin Aspirin 324 mg 04/13/19 12:58 04/13/19 13:13 Aspirin PO 04/13/19 12:59 324 mg ONETIME ONE Administration Sodium Chloride 1,000 mls @ 1,000 mls/hr 04/13/19 10:21 04/13/19 10:34 Normal Saline IV 04/13/19 11:20 1,000 mls/hr .BOLUS STA Administration Ondansetron HCl 4 mg 04/13/19 10:21 04/13/19 10:35 Zofran IVPUSH 04/13/19 10:22 4 mg ONETIME ONE Administration - Re-Assessments/Exams Free Text/Narrative Re-Assessment/Exam: 04/13/19 14:48 I ordered an NV NS 1L bolus, zofran 4mg IV, labs, UA and an EKG. Her EKG shows atrial fibrillation. She was seen here in 2015 for A-fib but she has never been in it since. Her CXR looks good. Her Hgb was low at 10.4. Her K was low at 3.3. Her creatinine was slightly elevated at 1.2. Her troponin is elevated at 0.017. I ordered her aspirin 324mg PO. I am concerned she may have had an MA. I called [facility] in [place] and talked with the dowel pin man Dr Esparza and he wanted a repeat troponin. I did one and it was elevated at 0.126. I called [facility] again and I am waiting for them to call me back. 04/13/19 15:04 Dr Stephen at [facility] called me back and he accepted the patient. I gave the patient a heparin bolus and drip. 04/13/19 15:07 Departure - Departure Time of Disposition: 15:10 Disposition: DC/Tfer to Acute Hospital 02 Condition: Poor Clinical Impression: Non-STEMI (non-ST elevated myocardial infarction) - Discharge Information Referrals: Robson Cardoza Jr, MD [Primary Care Provider] - Forms: ED Department Discharge Sepsis Event Note - Evaluation Sepsis Screening Result: No Definite Risk - Focused Exam Vital Signs: Vital Signs Temp Pulse Resp BP Pulse Ox 04/13/19 10:13 98 F 86 16 174/81 H 94 L Date Exam was Performed: 04/13/19 Time Exam was Performed: 15:04 - My Orders Last 24 Hours: My Active Orders 04/13/19 10:21 EKG Documentation Completion [RC] STAT Sodium Chloride 0.9% [Saline Flush] 10 ml FLUSH ASDIRECTED PRN Peripheral IV Insertion Adult [OM.PC] Stat 04/13/19 10:22 Peripheral IV Care [RC] . DIRECTED ED Antiemetic Medication Reflex [OM.PC] Stat 04/13/19 11:07 CXR [Chest 1V Frontal] [CR] Stat - Assessment/Plan Last 24 Hours: My Active Orders 04/13/19 10:21 EKG Documentation Completion [RC] STAT Sodium Chloride 0.9% [Saline Flush] 10 ml FLUSH ASDIRECTED PRN Peripheral IV Insertion Adult [OM.PC] Stat 04/13/19 10:22 Peripheral IV Care [RC] . DIRECTED ED Antiemetic Medication Reflex [OM.PC] Stat 04/13/19 11:07 CXR [Chest 1V Frontal] [CR] Stat
[2019-04-13] MEDS ORDERED: Heparin Sodium 5,000 Units/ML Vial IVPUSH ONE (15:05)
[2019-04-13] MEDS ORDERED: Heparin Sodium/D5W 25,000 UNITS/500 ML BAG IV SCH (15:15)
[2019-04-13 15:51] VITALS: BP 174/72
--- NOTE | 2019-04-14 08:30 | CR ---
Chest: Portable view of the chest was obtained. Comparison: Prior chest x-ray of 01/12/16. Heart size within normal limits for portable technique. Atherosclerotic change and mild tortuosity of the thoracic aorta is seen. Lungs are clear with no acute parenchymal change. Scoliosis and degenerative change are partially visualized within the lumbar spine. Surgical clips are seen from prior cholecystectomy. Impression: 1. Findings as noted above. 2. Nothing acute is identified. Diagnostic code #2 This report was dictated in [place] Standard Time
== END 2019-04-13 15:35 ==
LOC: JD.ED 10:04
DX: I21.4 Non-ST elevation (NSTEMI) myocardial infarction (principal); I10 Essential (primary) hypertension; E78.00 Pure hypercholesterolemia, unspecified; F32.9 Major depressive disorder, single episode, unspecified; Z88.8 Allergy status to other drugs, medicaments and biological substances; Z79.899 Other long term (current) drug therapy
CPT/HCPCS: 36415; 71045; 80053; 81001; 84484; 85025; 93005; 96361; 96365; 96375; 99285; A9270; J1644; J2405; J7030; 93010; 99284

== ENCOUNTER 2019-05-27 11:31 | Inpatient (IN) | payer MEDICARE, BC, OTHER ==
[2019-05-27] MEDS ORDERED: Sodium Chloride 0.9% 10 ML Syringe FLUSH PRN (12:01)
[2019-05-27] MEDS ORDERED: cefTRIAXone 2 GM in Sodium Chloride 0.9% 100 ML IV ONE (13:44)
[2019-05-27] MEDS ORDERED: Furosemide 40 MG/4 ML VIAL IVPUSH ONE (14:07)
--- NOTE | 2019-05-27 14:09 | EDM.PDOC ---
ED HPI GENERAL MEDICAL PROBLEM - General Chief Complaint: Respiratory Problem Stated Complaint: [facility] Time Seen by Provider: 05/27/19 11:48 Source of Information: Reports: Patient, RN Notes Reviewed - History of Present Illness INITIAL COMMENTS - FREE TEXT/NARRATIVE: 89 year old female comes in with hx of chest pain during the night continuing this morning. Upon EMS arrival her sats were only 77 %. With O2 her sats came up into the 90's and her "chest pain went away." She does have hx of Htn, CAD. She lives at [facility]. She denies chest pain at time of my exam. No abd pain, nausea or vomiting. She has occasional cough but does not feel like she has been coughing any more than usual. also not aware of fever or chills. Chest Pain Score (Numeric/FACES): 1 - Related Data Allergies Allergy/AdvReac Type Severity Reaction Status Date / Time niacin Allergy Hives Verified 05/27/19 13:05 Home Meds: Home Meds Folic Acid 1 mg PO DAILY 01/01/15 [History] Isosorbide Mononitrate [Isosorbide Mononitrate ER] 30 mg PO DAILY 01/01/15 [ History] Nitroglycerin [Nitrostat] 0.4 mg PO ASDIRECTED PRN 01/01/15 [History] atenoloL [Atenolol] 50 mg PO BID 01/01/15 [History] Gabapentin [Neurontin] 100 mg PO BEDTIME #30 cap 09/03/16 [Rx] Pantoprazole Sodium [Protonix] 40 mg PO DAILY 09/03/16 [History] Simvastatin [Zocor] 40 mg PO BEDTIME 11/10/17 [History] Venlafaxine [Effexor] 75 mg PO BID 04/13/19 [History] Acetaminophen [Tylenol] 325 mg PO Q4H PRN 05/27/19 [History] Acetaminophen/Diphenhydramine [Tylenol Pm Ex-Strength Caplet] 1 tab PO BEDTIME 05/27/19 [History] Aspirin [Aspirin EC] 325 mg PO DAILY 05/27/19 [History] Bismuth Subsalicylate [Pepto Bismol] 1 applic PO ASDIRECTED PRN 05/27/19 [ History] Calcium Carbonate [Antacid] 1 tab PO ASDIRECTED PRN 05/27/19 [History] Hydrocortisone [Hydrocortisone 2.5% Crm] 1 applic TOP QID PRN 05/27/19 [History] Losartan [Cozaar] 50 mg PO DAILY 05/27/19 [History] Menthol/Zinc Oxide [Calmoseptine Ointment Packet] 1 applic TOP BID PRN 05/27/19 [History] Mupirocin Oint [Bactroban Oint] 1 applic TOP BID PRN 05/27/19 [History] Simethicone 80 mg PO BID PRN 05/27/19 [History] Past Medical History HEENT History: Reports: Impaired Vision Other HEENT History: wears glasses Cardiovascular History: Reports: Afib, Angina, Blood Clots/VTE/DVT, CAD, High Cholesterol, Hypertension, NV Respiratory History: Reports: SOB Gastrointestinal History: Reports: GI Bleed, Hemorrhoids, Other (See Below) Other Gastrointestinal History: colitis [employer] History: Reports: Musculoskeletal History: Reports: Osteoarthritis, RA Other Musculoskeletal History: spondylosis, generalized weakness Psychiatric History: Reports: Depression Endocrine/Metabolic History: Reports: Osteopenia Hematologic History: Reports: Anemia, Iron Deficiency Dermatologic History: Reports: Other (See Below) Other Dermatologic History: hemorrhoids, rashes - Infectious Disease History Infectious Disease History: Reports: Chicken Pox, Measles, Mumps - Past Surgical History GI Surgical History: Reports: Appendectomy, Cholecystectomy Female Surgical History: Reports: Section, Hysterectomy Social & Family History - Family History Family Medical History: Noncontributory Cardiac: Reports: NV - Tobacco Use Smoking Status *Q: Former Smoker Used Tobacco, but Quit: Yes Month/Year Tobacco Last Used: 10 years ago - Caffeine Use Caffeine Use: Reports: Coffee Other Caffeine Use: but states very little of it Caffeine Use Comment: drinks tea a couple times or less a week - Recreational Drug Use Recreational Drug Use: No - Living Situation & Occupation Living situation: Reports: , Alone Occupation: Retired ED ROS GENERAL - Review of Systems Review Of Systems: See Below Constitutional: Denies: Fever, Chills HEENT: Denies: Sinus Problem, Throat Pain Respiratory: Reports: Shortness of Breath, Cough. Denies: Wheezing, Sputum Cardiovascular: Reports: Chest Pain (gone), Lightheadedness GI/Abdominal: Denies: Abdominal Pain, Hematemesis, Hematochezia, Melena, Nausea , Vomiting Musculoskeletal: Denies: Shoulder Pain, Arm Pain Skin: Reports: Pallor. Denies: Diaphoresis Neurological: Reports: Dizziness, Weakness (generalized) ED EXAM, GENERAL - Physical Exam Exam: See Below General Appearance: Alert, No Apparent Distress Eye Exam: Bilateral Eye: PERRL Throat/Mouth: Normal Inspection, Normal Oropharynx Neck: Supple, Other (no JVD) Respiratory/Chest: Respiratory Distress (mild tachypnea), Rales, Rhonchi Cardiovascular: Regular Rate, Rhythm GI/Abdominal: Soft, Non-Tender. No: Guarding, Other (trace brn stool, very mildly heme pos. ) Extremities: Pedal Edema (very mild bilat) Neurological: Alert, Oriented, No Motor/Sensory Deficits Skin Exam: Warm, Dry, Pallor EKG INTERPRETATION EKG Date: 05/27/19 Rhythm: NSR [place]: Normal P-Wave: Present QRS: Normal ST-T: Normal Course - Vital Signs Last Recorded V/S: Last Vital Signs Temp 97 F 05/27/19 11:33 Pulse 76 05/27/19 11:33 Resp 18 05/27/19 11:33 BP 166/73 H 05/27/19 11:33 Pulse Ox 93 L 05/27/19 11:33 - Orders/Labs/Meds Orders: Active Orders 24 hr Category Date Time Status EKG 12 Lead [EKG Documentation Completion] [RC] STAT Care 05/27/19 11:42 Active EKG 12 Lead [EKG Documentation Completion] [RC] STAT Care 05/27/19 12:01 Inactive Hemoccult [Fecal Occult Blood Collection] [RC] Care 05/27/19 13:56 Active ASDIRECTED Oxygen Therapy [RC] ASDIRECTED Care 05/27/19 12:02 Active Peripheral IV Care [RC] . DIRECTED Care 05/27/19 12:02 Active Chest 1V Frontal [CR] Stat Exams 05/27/19 12:01 Taken CULTURE BLOOD [BC] Stat Lab 05/27/19 12:58 Received Sodium Chloride 0.9% [Saline Flush] Med 05/27/19 12:01 Active 10 ml FLUSH ASDIRECTED PRN cefTRIAXone [Rocephin] 2 gm Med 05/27/19 13:44 Active Sodium Chloride 0.9% [Normal Saline] 100 ml IV ONETIME Peripheral IV Insertion Adult [OM.PC] Stat Oth 05/27/19 12:02 Ordered Medication Orders Ceftriaxone Sodium 2 gm/ (Sodium Chloride) 100 mls @ 200 mls/hr IV ONETIME ONE Stop: 05/27/19 14:13 Last Admin: 05/27/19 14:03 Dose: 200 mls/hr Sodium Chloride (Saline Flush) 10 ml FLUSH ASDIRECTED PRN PRN Reason: Keep Vein Open Last Admin: 05/27/19 12:21 Dose: 10 ml Labs: Laboratory Tests 05/27/19 05/27/19 05/27/19 Range/Units 12:02 12:58 12:58 WBC 7.65 (3.98-10.04) K/mm3 RBC 2.81 L (3.98-5.22) M/mm3 Hgb 7.5 L D (11.2-15.7) gm/dl Hct 26.7 L (34.1-44.9) % MCV 95.0 H (79.4-94.8) fl MCH 26.7 (25.6-32.2) pg MCHC 28.1 L (32.2-35.5) g/dl RDW Std Deviation 50.3 H (36.4-46.3) fL Plt Count 217 (182-369) K/mm3 MPV 10.4 (9.4-12.3) fl Neut % (Auto) 79.1 H (34.0-71.1) % Lymph % (Auto) 12.5 L (19.3-51.7) % Hardy % (Auto) 7.1 (4.7-12.5) % Eos % (Auto) 0.9 (0.7-5.8) Baso % (Auto) 0.3 (0.1-1.2) % Neut # (Auto) 6.05 (1.56-6.13) K/mm3 Lymph # (Auto) 0.96 L (1.18-3.74) K/mm3 Hardy # (Auto) 0.54 H (0.24-0.36) K/mm3 Eos # (Auto) 0.07 (0.04-0.36) K/mm3 Baso # (Auto) 0.02 (0.01-0.08) K/mm3 Manual Slide Review Abnormal smear Sodium 144 (136-145) mEq/L Potassium 3.4 L (3.5-5.1) mEq/L Chloride 104 (98-107) mEq/L Carbon Dioxide 32 (21-32) mEq/L Anion Gap 11.4 (5-15) BUN 25 H (7-18) mg/dL Creatinine 1.3 H (0.55-1.02) mg/dL Est Cr Clr Drug Dosing 21.49 mL/min Estimated GFR (MDRD) 39 (>60) mL/min BUN/Creatinine Ratio 19.2 H (14-18) Glucose 115 (83-115) mg/dL Lactic Acid (0.4-2.0) mmol/L Calcium 8.7 (8.5-10.1) mg/dL Total Bilirubin 0.4 (0.2-1.0) mg/dL AST 16 (15-37) U/L ALT 15 (14-59) U/L Alkaline Phosphatase 95 (46-116) U/L Troponin I 0.025 (0.00-0.056) ng/mL NT-Pro-B Natriuret Pep 7487 H (0-450) pg/mL Total Protein 6.8 (6.4-8.2) g/dl Albumin 3.4 (3.4-5.0) g/dl Globulin 3.4 gm/dL Albumin/Globulin Ratio 1.0 (1-2) 05/26/20 Range/Units 12:58 WBC (3.98-10.04) K/mm3 RBC (3.98-5.22) M/mm3 Hgb (11.2-15.7) gm/dl Hct (34.1-44.9) % MCV (79.4-94.8) fl MCH (25.6-32.2) pg MCHC (32.2-35.5) g/dl RDW Std Deviation (36.4-46.3) fL Plt Count (182-369) K/mm3 MPV (9.4-12.3) fl Neut % (Auto) (34.0-71.1) % Lymph % (Auto) (19.3-51.7) % Hardy % (Auto) (4.7-12.5) % Eos % (Auto) (0.7-5.8) Baso % (Auto) (0.1-1.2) % Neut # (Auto) (1.56-6.13) K/mm3 Lymph # (Auto) (1.18-3.74) K/mm3 Hardy # (Auto) (0.24-0.36) K/mm3 Eos # (Auto) (0.04-0.36) K/mm3 Baso # (Auto) (0.01-0.08) K/mm3 Manual Slide Review Sodium (136-145) mEq/L Potassium (3.5-5.1) mEq/L Chloride (98-107) mEq/L Carbon Dioxide (21-32) mEq/L Anion Gap (5-15) BUN (7-18) mg/dL Creatinine (0.55-1.02) mg/dL Est Cr Clr Drug Dosing mL/min Estimated GFR (MDRD) (>60) mL/min BUN/Creatinine Ratio (14-18) Glucose (83-115) mg/dL Lactic Acid 0.6 (0.4-2.0) mmol/L Calcium (8.5-10.1) mg/dL Total Bilirubin (0.2-1.0) mg/dL AST (15-37) U/L ALT (14-59) U/L Alkaline Phosphatase (46-116) U/L Troponin I (0.00-0.056) ng/mL NT-Pro-B Natriuret Pep (0-450) pg/mL Total Protein (6.4-8.2) g/dl Albumin (3.4-5.0) g/dl Globulin gm/dL Albumin/Globulin Ratio (1-2) Meds: Medications Generic Name Dose Route Start Last Admin Trade Name Freq PRN Reason Stop Dose Admin Ceftriaxone Sodium 2 gm/ 100 mls @ 200 mls/hr 05/27/19 13:44 05/27/19 14:03 Sodium Chloride IV 05/27/19 14:13 200 mls/hr ONETIME ONE Administration Sodium Chloride 10 ml 05/27/19 12:01 05/27/19 12:21 Saline Flush FLUSH 10 ml ASDIRECTED PRN Administration Keep Vein Open - Re-Assessments/Exams Free Text/Narrative Re-Assessment/Exam: 05/27/19 14:17 CXR shows cardiomegally, bilat pul anson, infiltrate more visible RLL but also present to some degree LLL. BNP elevated. There was initial concern for pneumonia but with no fever, no elevated wbc, not actively coughing in the ED CHF the more favored pulmonary problem and anemia with hgb 7.5 her more major problem. Troponin .025. She does have known underlying heart disease so likely was having true anginal chest pain during the night with her hypoxia. 2 unts PRBC ordered. Lasix 40 mg IV ordered. Patient will be admitted for further eval and treatment. Departure - Departure Time of Disposition: 14:00 Disposition: Admitted As Inpatient 67 Condition: Serious Clinical Impression: Hypoxia Anemia Qualifiers: Anemia type: unspecified type Qualified Code(s): D64.9 - Anemia, unspecified CHF (congestive heart failure) Qualifiers: Heart failure type: combined systolic and diastolic Heart failure chronicity: acute Qualified Code(s): I50.41 - Acute combined systolic (congestive) and diastolic (congestive) heart failure - Discharge Information Referrals: Robson Cardoza Jr, MD [Primary Care Provider] - Sepsis Event Note - Evaluation Sepsis Screening Result: No Definite Risk - Focused Exam Vital Signs: Vital Signs Temp Pulse Resp BP Pulse Ox Pulse Ox 05/27/19 11:33 97 F 76 18 166/73 H 77 L 93 L Date Exam was Performed: 05/27/19 Time Exam was Performed: 14:04 ED Communication - Discussed Case With (1) Discussed Case With (1): Admitting Provider (Dr Maria, decision to admit at about 14:00.) - My Orders Last 24 Hours: My Active Orders 05/27/19 11:42 EKG 12 Lead [EKG Documentation Completion] [RC] STAT 05/27/19 12:01 EKG 12 Lead [EKG Documentation Completion] [RC] STAT Chest 1V Frontal [CR] Stat Sodium Chloride 0.9% [Saline Flush] 10 ml FLUSH ASDIRECTED PRN 05/27/19 12:02 Oxygen Therapy [RC] ASDIRECTED Peripheral IV Care [RC] . DIRECTED Peripheral IV Insertion Adult [OM.PC] Stat 05/27/19 12:58 CULTURE BLOOD [BC] Stat 05/27/19 13:44 cefTRIAXone [Rocephin] 2 gm Sodium Chloride 0.9% [Normal Saline] 100 ml IV ONETIME 05/27/19 13:56 Hemoccult [Fecal Occult Blood Collection] [RC] ASDIRECTED - Assessment/Plan Last 24 Hours: My Active Orders 05/27/19 11:42 EKG 12 Lead [EKG Documentation Completion] [RC] STAT 05/27/19 12:01 EKG 12 Lead [EKG Documentation Completion] [RC] STAT Chest 1V Frontal [CR] Stat Sodium Chloride 0.9% [Saline Flush] 10 ml FLUSH ASDIRECTED PRN 05/27/19 12:02 Oxygen Therapy [RC] ASDIRECTED Peripheral IV Care [RC] . DIRECTED Peripheral IV Insertion Adult [OM.PC] Stat 05/27/19 12:58 CULTURE BLOOD [BC] Stat 05/27/19 13:44 cefTRIAXone [Rocephin] 2 gm Sodium Chloride 0.9% [Normal Saline] 100 ml IV ONETIME 05/27/19 13:56 Hemoccult [Fecal Occult Blood Collection] [RC] ASDIRECTED
[2019-05-27] MEDS ORDERED: Sodium Chloride 0.9% 250 ML IV SCH (16:30)
[2019-05-27] MEDS ORDERED: Albuterol 0.083% 2.5 MG/3 ML Neb Soln NEB PRN (17:38)
[2019-05-27] MEDS ORDERED: Albuterol/Ipratropium 3.0-0.5 MG/3 ML Neb Soln NEB PRN (17:38)
[2019-05-27] MEDS ORDERED: Nitroglycerin 0.4 MG Tab.SL SL PRN (17:40)
--- NOTE | 2019-05-27 18:01 | PCM.HP.2 ---
H&P History of Present Illness - General Date of Service: 05/27/19 Admit Problem/Dx: Admission Diagnosis/Problem Admission Diagnosis/Problem Heart failure - History of Present Illness Initial Comments - Free Text/Narative: 89-year-old female with history of myocardial infarction 4 to 5 months ago treated medically, generalized weakness, anemia (progressive )with pancytopenia , juvenile seronegative polyarthritis, polyarthralgia rheumatica, history of colitis, history of GI bleed, paroxysmal atrial fibrillation, exertional angina , hyponatremia, coronary artery disease, depression presented to the emergency room with right lower chest pain. When EMS arrived she had oxygen saturations as 77% and when she was placed on oxygen her pain went away. Pain was similar to the last time she had an DC. She lives at [facility]. She states that she has had a cough but no fever, chills, night sweats, orthopnea, or PND. Patient is a poor historian. Pain occurred acutely this morning. Patient is currently without any chest pain. Initial labs in the emergency department: WBC 7.65, hemoglobin 7.5, platelet count 217, Sodium 144, potassium 3.4, BUN 25, creatinine 1.3, proBNP 7487, troponin I 0.025, lactic acid 0.6. Chest x-ray showed symmetric lower lobe consolidation most likely atelectasis and small pleural effusions. Patient was given 1 unit packed red blood cells and 40 mg IV Lasix. Emergency room physician performed a rectal exam which showed brown stool and a weakly guaiac positive stool. Patient states that she has never had a colonoscopy. She does admit to hemorrhoids and occasionally has bright red blood in the toilet. Last time was last week. She states that she has had bright red blood for approximately 3 years off and on. She does have a history of a GI bleed. Chest Pain Score (Numeric/FACES): 1 - Related Data Allergies/Adverse Reactions: Allergies Allergy/AdvReac Type Severity Reaction Status Date / Time niacin Allergy Hives Verified 05/27/19 13:05 Home Medications: Home Meds Folic Acid 1 mg PO DAILY 01/01/15 [History] Isosorbide Mononitrate [Isosorbide Mononitrate ER] 30 mg PO DAILY 01/01/15 [ History] Nitroglycerin [Nitrostat] 0.4 mg PO ASDIRECTED PRN 01/01/15 [History] atenoloL [Atenolol] 50 mg PO BID 01/01/15 [History] Gabapentin [Neurontin] 100 mg PO BEDTIME #30 cap 09/03/16 [Rx] Pantoprazole Sodium [Protonix] 40 mg PO DAILY 09/03/16 [History] Simvastatin [Zocor] 40 mg PO BEDTIME 11/10/17 [History] Venlafaxine [Effexor] 75 mg PO BID 04/13/19 [History] Acetaminophen [Tylenol] 325 mg PO Q4H PRN 05/27/19 [History] Acetaminophen/Diphenhydramine [Tylenol Pm Ex-Strength Caplet] 1 tab PO BEDTIME 05/27/19 [History] Aspirin [Aspirin EC] 325 mg PO DAILY 05/27/19 [History] Bismuth Subsalicylate [Pepto Bismol] 262 mg PO Q8H PRN 05/27/19 [History] Calcium Carbonate [Antacid] 1 tab PO Q2H PRN 05/27/19 [History] Hydrocortisone [Proctozone-HC 2.5% Crm] 1 dose RECTAL QID PRN 05/27/19 [History] Losartan [Cozaar] 50 mg PO DAILY 05/27/19 [History] Menthol/Zinc Oxide [Calmoseptine Ointment Packet] 1 applic TOP BID PRN 05/27/19 [History] Mupirocin Oint [Bactroban Oint] 1 applic TOP BID PRN 05/27/19 [History] Simethicone 80 mg PO BID PRN 05/27/19 [History] Past Medical History HEENT History: Reports: Impaired Vision Other HEENT History: wears glasses Cardiovascular History: Reports: Afib, Angina, Blood Clots/VTE/DVT, CAD, High Cholesterol, Hypertension, DC Respiratory History: Reports: SOB Gastrointestinal History: Reports: GI Bleed, Hemorrhoids, Other (See Below) Other Gastrointestinal History: colitis [employer] History: Reports: Musculoskeletal History: Reports: Osteoarthritis, RA Other Musculoskeletal History: spondylosis, generalized weakness Psychiatric History: Reports: Depression Endocrine/Metabolic History: Reports: Osteopenia Hematologic History: Reports: Anemia, Iron Deficiency Dermatologic History: Reports: Other (See Below) Other Dermatologic History: hemorrhoids, rashes - Infectious Disease History Infectious Disease History: Reports: Chicken Pox, Measles, Mumps - Past Surgical History HEENT Surgical History: Reports: None Cardiovascular Surgical History: Reports: None Respiratory Surgical History: Reports: None GI Surgical History: Reports: Appendectomy, Cholecystectomy Female Surgical History: Reports: Section, Hysterectomy Endocrine Surgical History: Reports: None Musculoskeletal Surgical History: Reports: None Social & Family History - Family History Family Medical History: Noncontributory Cardiac: Reports: DC - Tobacco Use Smoking Status *Q: Former Smoker Years of Tobacco use: 60 Packs/Tins Daily: 1 Used Tobacco, but Quit: Yes Month/Year Tobacco Last Used: 05/2009 Second Hand Smoke Exposure: No - Caffeine Use Caffeine Use: Reports: None Other Caffeine Use: but states very little of it Caffeine Use Comment: drinks tea a couple times or less a week - Recreational Drug Use Recreational Drug Use: No - Living Situation & Occupation Living situation: Reports: , Alone Occupation: Retired H&P Review of Systems - Review of Systems: Review Of Systems: Comprehensive ROS is negative, except as noted in HPI. Exam - Exam Exam: See Below - Vital Signs Vital Signs: Last Vital Signs Temp 98.1 F 05/27/19 16:12 Pulse 67 05/27/19 16:12 Resp 20 05/27/19 16:12 BP 134/65 05/27/19 16:12 Pulse Ox 96 05/27/19 15:18 Weight: 152 lb 6.4 oz - Exam Quality Assessment: Supplemental Oxygen General: Alert, Oriented, 4 HEENT: Conjunctiva Clear, Hearing Intact, Mucosa Moist & [place] Neck: Supple, Trachea Midline, 2 Lungs: Decreased Breath Sounds, Rales Cardiovascular: Regular Rate, Regular Rhythm GI/Abdominal Exam: Normal Bowel Sounds, Soft, Non-Tender, No Organomegaly, No Distention, No Abnormal Bruit, No Mass Back Exam: Normal Inspection, Full Range of Motion, NT Extremities: Normal Inspection, Normal Range of Motion, Non-Tender, Normal Capillary Refill, Pedal Edema Skin: Warm, Dry, Intact Neurological: Cranial Nerves Intact Psychiatric: Alert, Normal Affect, Normal Mood - Patient Data Lab Results Last 24 hrs: Laboratory Results - last 24 hr 05/27/19 05/27/19 05/27/19 Range/Units 12:02 12:58 12:58 WBC 7.65 (3.98-10.04) K/mm3 RBC 2.81 L (3.98-5.22) M/mm3 Hgb 7.5 L D (11.2-15.7) gm/dl Hct 26.7 L (34.1-44.9) % MCV 95.0 H (79.4-94.8) fl MCH 26.7 (25.6-32.2) pg MCHC 28.1 L (32.2-35.5) g/dl RDW Std Deviation 50.3 H (36.4-46.3) fL Plt Count 217 (182-369) K/mm3 MPV 10.4 (9.4-12.3) fl Neut % (Auto) 79.1 H (34.0-71.1) % Lymph % (Auto) 12.5 L (19.3-51.7) % [place] % (Auto) 7.1 (4.7-12.5) % Eos % (Auto) 0.9 (0.7-5.8) Baso % (Auto) 0.3 (0.1-1.2) % Neut # (Auto) 6.05 (1.56-6.13) K/mm3 Lymph # (Auto) 0.96 L (1.18-3.74) K/mm3 [place] # (Auto) 0.54 H (0.24-0.36) K/mm3 Eos # (Auto) 0.07 (0.04-0.36) K/mm3 Baso # (Auto) 0.02 (0.01-0.08) K/mm3 Manual Slide Review Abnormal smear Sodium 144 (136-145) mEq/L Potassium 3.4 L (3.5-5.1) mEq/L Chloride 104 (98-107) mEq/L Carbon Dioxide 32 (21-32) mEq/L Anion Gap 11.4 (5-15) BUN 25 H (7-18) mg/dL Creatinine 1.3 H (0.55-1.02) mg/dL Est Cr Clr Drug Dosing 21.49 mL/min Estimated GFR (MDRD) 39 (>60) mL/min BUN/Creatinine Ratio 19.2 H (14-18) Glucose 115 (83-115) mg/dL Lactic Acid (0.4-2.0) mmol/L Calcium 8.7 (8.5-10.1) mg/dL Total Bilirubin 0.4 (0.2-1.0) mg/dL AST 16 (15-37) U/L ALT 15 (14-59) U/L Alkaline Phosphatase 95 (46-116) U/L Troponin I 0.025 (0.00-0.056) ng/mL NT-Pro-B Natriuret Pep 7487 H (0-450) pg/mL Total Protein 6.8 (6.4-8.2) g/dl Albumin 3.4 (3.4-5.0) g/dl Globulin 3.4 gm/dL Albumin/Globulin Ratio 1.0 (1-2) Blood Type Gel Antibody Screen Crossmatch 05/27/19 05/27/19 Range/Units 12:58 12:58 WBC (3.98-10.04) K/mm3 RBC (3.98-5.22) M/mm3 Hgb (11.2-15.7) gm/dl Hct (34.1-44.9) % MCV (79.4-94.8) fl MCH (25.6-32.2) pg MCHC (32.2-35.5) g/dl RDW Std Deviation (36.4-46.3) fL Plt Count (182-369) K/mm3 MPV (9.4-12.3) fl Neut % (Auto) (34.0-71.1) % Lymph % (Auto) (19.3-51.7) % [place] % (Auto) (4.7-12.5) % Eos % (Auto) (0.7-5.8) Baso % (Auto) (0.1-1.2) % Neut # (Auto) (1.56-6.13) K/mm3 Lymph # (Auto) (1.18-3.74) K/mm3 [place] # (Auto) (0.24-0.36) K/mm3 Eos # (Auto) (0.04-0.36) K/mm3 Baso # (Auto) (0.01-0.08) K/mm3 Manual Slide Review Sodium (136-145) mEq/L Potassium (3.5-5.1) mEq/L Chloride (98-107) mEq/L Carbon Dioxide (21-32) mEq/L Anion Gap (5-15) BUN (7-18) mg/dL Creatinine (0.55-1.02) mg/dL Est Cr Clr Drug Dosing mL/min Estimated GFR (MDRD) (>60) mL/min BUN/Creatinine Ratio (14-18) Glucose (83-115) mg/dL Lactic Acid 0.6 (0.4-2.0) mmol/L Calcium (8.5-10.1) mg/dL Total Bilirubin (0.2-1.0) mg/dL AST (15-37) U/L ALT (14-59) U/L Alkaline Phosphatase (46-116) U/L Troponin I (0.00-0.056) ng/mL NT-Pro-B Natriuret Pep (0-450) pg/mL Total Protein (6.4-8.2) g/dl Albumin (3.4-5.0) g/dl Globulin gm/dL Albumin/Globulin Ratio (1-2) Blood Type O POSITIVE Gel Antibody Screen Negative Crossmatch See Detail Result Diagrams: 05/27/19 12:58 05/27/19 12:58 EKG INTERPRETATION EKG Date: 05/27/19 Rhythm: NSR Rate (Beats/Min): 72 [place]: Normal P-Wave: Present QRS: Normal IA/PQ Interval: First-degree AV block with PACs Comparison: NA - No Prior EKG Sepsis Event Note - Evaluation Sepsis Screening Result: No Definite Risk - Focused Exam Vital Signs: Vital Signs Temp Temp Pulse Resp BP Pulse Ox Pulse Ox 05/27/19 16:12 98.1 F 67 20 134/65 05/27/19 15:53 98.3 F 18 155/54 H 05/27/19 15:18 88 16 147/88 H 96 05/27/19 12:02 90 L 05/27/19 11:33 97 F 76 18 166/73 H 77 L 93 L Date Exam was Performed: 05/27/19 Time Exam was Performed: 21:12 Problem List Initiated/Reviewed/Updated: Yes Orders Last 24hrs: Active Orders 24 hr Category Date Time Status Patient Status [ADT] Stat ADT 05/27/19 14:36 Active Antiembolic Devices [RC] PER UNIT ROUTINE Care 05/27/19 17:40 Ordered Daily Weight [Height and Weight] [RC] DAILY Care 05/27/19 17:46 Ordered EKG 12 Lead [EKG Documentation Completion] [RC] STAT Care 05/27/19 11:42 Active EKG 12 Lead [EKG Documentation Completion] [RC] STAT Care 05/27/19 12:01 Inactive Hemoccult [Fecal Occult Blood Collection] [RC] Care 05/27/19 13:56 Active ASDIRECTED Influenza Vaccine Charge [RC] .DISCHARGE Care 05/27/19 15:17 Active Intake and Output Strict [RC] ASDIRECTED Care 05/27/19 17:46 Ordered Oxygen Therapy [RC] .PRN Care 05/27/19 12:02 Active Oxygen Therapy [RC] PRN Care 05/27/19 17:38 Ordered Peripheral IV Care [RC] . DIRECTED Care 05/27/19 12:02 Active RT Aerosol Therapy [RC] ASDIRECTED Care 05/27/19 17:40 Ordered Up With Assistance [RC] ASDIRECTED Care 05/27/19 17:38 Ordered VTE/DVT Education [RC] PER UNIT ROUTINE Care 05/27/19 17:38 Ordered Vital Signs [RC] ASDIRECTED Care 05/27/19 17:38 Ordered Heart Healthy Diet [DIET] Diet 05/27/19 Dinner Active Chest 1V Frontal [CR] Stat Exams 05/27/19 12:01 Taken CBC WITH AUTO DIFF [HEME] AM Lab 05/28/19 05:11 Ordered CBC WITH AUTO DIFF [HEME] AM Lab 05/29/19 05:11 Ordered CBC WITH AUTO DIFF [HEME] AM Lab 05/30/19 05:11 Ordered COMPREHENSIVE METABOLIC PN,CMP [CHEM] AM Lab 05/28/19 05:11 Ordered COMPREHENSIVE METABOLIC PN,CMP [CHEM] AM Lab 05/29/19 05:11 Ordered COMPREHENSIVE METABOLIC PN,CMP [CHEM] AM Lab 05/30/19 05:11 Ordered CULTURE BLOOD [BC] Stat Lab 05/27/19 12:58 Received MAGNESIUM [CHEM] AM Lab 05/28/19 05:11 Ordered MAGNESIUM [CHEM] AM Lab 05/29/19 05:11 Ordered MAGNESIUM [CHEM] AM Lab 05/30/19 05:11 Ordered METH-RESIST S.AUR,MRSA BY PCR [MOLEC] Routine Lab 05/27/19 16:00 Received PACKED CELLS [RED BLOOD CELLS LP] [BBK] Stat Lab 05/27/19 12:58 Results TYPE AND SCREEN [BBK] Stat Lab 05/27/19 12:58 Results Acetaminophen [Tylenol] Med 05/27/19 17:38 Ordered 650 mg PO Q4H PRN Albuterol [Proventil Neb Soln] Med 05/27/19 17:38 Ordered 2.5 mg NEB Q2H PRN Albuterol/Ipratropium [DuoNeb 3.0-0.5 MG/3 ML] Med 05/27/19 17:38 Ordered 3 ml NEB Q4H PRN Folic Acid Med 05/28/19 09:00 Ordered 1 mg PO DAILY Furosemide [Lasix] Med 05/28/19 06:00 Ordered 40 mg IVPUSH BIDDIURETIC Gabapentin [Neurontin] Med 05/27/19 21:00 Ordered 100 mg PO BEDTIME Isosorbide Mononitrate [Imdur] Med 05/28/19 09:00 Ordered 30 mg PO DAILY Losartan Med 05/28/19 09:00 Ordered 50 mg PO DAILY Nitroglycerin [Nitrostat] Med 05/27/19 17:40 Ordered 0.4 mg SL ASDIRECTED PRN Pantoprazole [ProTONIX IV] Med 05/27/19 17:45 Ordered 40 mg IVPUSH Q12H Simvastatin [Zocor] Med 05/27/19 21:00 Ordered 40 mg PO BEDTIME Sodium Chloride 0.9% [Normal Saline] 250 ml Med 05/27/19 16:30 Active IV ASDIRECTED Sodium Chloride 0.9% [Saline Flush] Med 05/27/19 12:01 Active 10 ml FLUSH ASDIRECTED PRN Venlafaxine Med 05/27/19 21:00 Ordered 75 mg PO BID atenoloL [Tenormin] Med 05/28/19 09:00 Ordered 50 mg PO DAILY Peripheral IV Insertion Adult [OM.PC] Stat Oth 05/27/19 12:02 Ordered Sequential Compression Device [OM.PC] Per Unit Routine Oth 05/27/19 17:38 Ordered Transfuse PRBC [Transfuse Red Blood Cells] [COMM] Stat Oth 05/27/19 14:09 Ordered Resuscitation Status Routine Resus Stat 05/27/19 16:32 Ordered Medication Orders Acetaminophen (Tylenol) 650 mg PO Q4H PRN PRN Reason: Pain (Mild 1-3)/fever Albuterol (Proventil Neb Soln) 2.5 mg NEB Q2H PRN PRN Reason: Shortness Of Breath/wheezing Albuterol/Ipratropium (Duoneb 3.0-0.5 Mg/3 Ml) 3 ml NEB Q4H PRN PRN Reason: Shortness Of Breath/wheezing Atenolol (Tenormin) 50 mg PO DAILY KOMAL Folic Acid (Folic Acid) 1 mg PO DAILY KOMAL Furosemide (Lasix) 40 mg IVPUSH BIDDIURETIC KOMAL Gabapentin (Neurontin) 100 mg PO BEDTIME KOMAL Sodium Chloride (Normal Saline) 250 mls @ 100 mls/hr IV ASDIRECTED KOMAL Isosorbide Mononitrate (Imdur) 30 mg PO DAILY KOMAL Nitroglycerin (Nitrostat) 0.4 mg SL ASDIRECTED PRN PRN Reason: Chest Pain Non-Formulary Medication (Losartan) 50 mg PO DAILY KOMAL Non-Formulary Medication (Venlafaxine) 75 mg PO BID KOMAL Pantoprazole Sodium (Protonix Iv) 40 mg IVPUSH Q12H KOMAL Simvastatin (Zocor) 40 mg PO BEDTIME KOMAL Sodium Chloride (Saline Flush) 10 ml FLUSH ASDIRECTED PRN PRN Reason: Keep Vein Open Last Admin: 05/27/19 12:21 Dose: 10 ml Assessment/Plan Comment:: Assessment 89-awud-jor-year-old female with history of coronary artery disease with new onset CHF * Significant anemia with hemoglobin of 7.5 * Troponin negative at 0.025 * proBNP 7487 * Chest x-ray with pleural effusions and atelectasis * No fever, white count, lactic acidosis or anion gap * On atenolol and isosorbide mononitrate Anemia, likely blood loss * History of GI bleed * History of anemia, progressive, with pancytopenia (currently normal white count and platelets) * guaiac positive stool * Confirms bright red blood per rectum, last episode 1 week ago * On full dose aspirin * Pantoprazole 40 mg p.o. daily-home dose Paroxysmal atrial fibrillation * Currently in sinus rhythm * Aspirin for stroke prophylaxis * Atenolol 50 mg twice daily-home dose History of seronegative arthritis, colitis, depression, generalized weakness, polymyalgia rheumatica Plan * Admit to medical floor on telemetry * Gentle diuresis; furosemide 40 mg IV twice daily * Pantoprazole 40 mg IV twice daily * 1 unit packed red blood cells * Follow hemoglobin * Decrease atenolol to 50 mg daily for CHF exacerbation. She would likely benefit to switch over to metoprolol succinate or carvedilol * Fluid restriction to 1500 mL/day * Strict I's and O's and daily weights * Echocardiogram * Have patient follow with surgery as outpatient after recovery from CHF. * VTE prophylaxis with SCDs. Anticoagulation contraindicated because of GI bleed * CODE STATUS: DNR/DNI - Mortality Measure Prognosis:: Poor
[2019-05-27] MEDS: Pantoprazole 40 MG Vial IVPUSH SCH (18:55)
[2019-05-27] MEDS ORDERED: Atenolol 50 MG Tab PO SCH (21:00)
[2019-05-27] MEDS: Gabapentin 100 MG Cap PO SCH (21:30)
[2019-05-27] MEDS: Simvastatin 40 MG Tab PO SCH (21:31)
[2019-05-27] MEDS: Venlafaxine 37.5 MG Tab PO SCH (21:31)
[2019-05-28] MEDS: Pantoprazole 40 MG Vial IVPUSH SCH (06:25)
[2019-05-28] MEDS: Furosemide 40 MG/4 ML VIAL IVPUSH SCH ×2 (06:26→13:19)
--- NOTE | 2019-05-28 07:34 | CR ---
Chest: Portable view of the chest was obtained. Comparison: Prior chest x-ray of 04/13/19. Small bilateral pleural effusions. Slight increased density within both lower lungs. Lungs otherwise are clear. Heart size at the upper limits of normal. Bony structures are grossly intact. Impression: 1. Small bilateral pleural effusions. 2. Increased density within both lung bases, difficult to exclude bibasilar pneumonia. Please correlate with the patient's symptoms. Diagnostic code #3 This report was dictated in MDT I agree with preliminary report from [email or web address], finalized on 05/27/19, 3:11 PM Central Time
[2019-05-28] MEDS ORDERED: Magnesium Sulfate/Water 4 GM in Premix Bag 1 BAG IV ONE (07:54)
[2019-05-28] MEDS: Magnesium Oxide 400 MG Tab PO SCH ×2 (08:33→20:16)
[2019-05-28] MEDS: Potassium Chloride 10 MEQ in Premix Bag 1 BAG IV SCH ×4 (08:33→13:10)
[2019-05-28] MEDS: Folic Acid 1 MG Tab PO SCH (08:33)
[2019-05-28] MEDS: Losartan 25 MG Tab PO SCH (08:33)
[2019-05-28] MEDS: Atenolol 50 MG Tab PO SCH (08:34)
[2019-05-28] MEDS: Venlafaxine 37.5 MG Tab PO SCH ×2 (08:34→20:15)
[2019-05-28] MEDS: Isosorbide Mononitrate 30 MG Tab.ER PO SCH (08:34)
[2019-05-28] MEDS ORDERED: Potassium Chloride 20 MEQ Tab.ER PO ONE ×2 (08:57→14:00)
[2019-05-28] MEDS ORDERED: Pantoprazole 40 MG Tab.CR PO SCH (10:50)
--- NOTE | 2019-05-28 14:16 | PCM.PN ---
- General Info Date of Service: 05/28/19 Admission Dx/Problem (Free Text): Admission Diagnosis/Problem Admission Diagnosis/Problem Heart failure Subjective Update: She is feeling better with less shortness of breath. She denies any fever or chills. - Review of Systems General: Reports: No Symptoms HEENT: Reports: No Symptoms Pulmonary: Reports: Shortness of Breath, Cough Cardiovascular: Reports: No Symptoms Gastrointestinal: Reports: No Symptoms Musculoskeletal: Reports: No Symptoms Neurological: Reports: No Symptoms - Patient Data Vitals - Most Recent: Last Vital Signs Temp 97.5 F 05/28/19 12:08 Pulse 78 05/28/19 12:08 Resp 20 05/28/19 12:08 BP 157/58 H 05/28/19 12:08 Pulse Ox 96 05/28/19 12:08 Weight - Most Recent: 150 lb 3.2 oz I&O - Last 24 Hours: Intake & Output 05/27/19 05/28/19 05/28/19 22:59 06:59 14:59 Intake Total 77 300 120 Output Total 1000 1700 Balance 77 -700 -1580 Lab Results Last 24 Hours: Laboratory Results - last 24 hr 05/27/19 05/27/19 05/28/19 Range/Units 12:58 16:00 05:45 WBC 8.79 (3.98-10.04) K/mm3 RBC 3.28 L (3.98-5.22) M/mm3 Hgb 9.0 L D (11.2-15.7) gm/dl Hct 30.6 L (34.1-44.9) % MCV 93.3 (79.4-94.8) fl MCH 27.4 (25.6-32.2) pg MCHC 29.4 L (32.2-35.5) g/dl RDW Std Deviation 50.3 H (36.4-46.3) fL Plt Count 193 (182-369) K/mm3 MPV 11.1 (9.4-12.3) fl Neut % (Auto) 72.9 H (34.0-71.1) % Lymph % (Auto) 15.9 L (19.3-51.7) % [place] % (Auto) 8.5 (4.7-12.5) % Eos % (Auto) 2.3 (0.7-5.8) Baso % (Auto) 0.3 (0.1-1.2) % Neut # (Auto) 6.40 H (1.56-6.13) K/mm3 Lymph # (Auto) 1.40 (1.18-3.74) K/mm3 [place] # (Auto) 0.75 H (0.24-0.36) K/mm3 Eos # (Auto) 0.20 (0.04-0.36) K/mm3 Baso # (Auto) 0.03 (0.01-0.08) K/mm3 Manual Slide Review Abnormal smear Sodium (136-145) mEq/L Potassium (3.5-5.1) mEq/L Chloride (98-107) mEq/L Carbon Dioxide (21-32) mEq/L Anion Gap (5-15) BUN (7-18) mg/dL Creatinine (0.55-1.02) mg/dL Est Cr Clr Drug Dosing mL/min Estimated GFR (MDRD) (>60) mL/min BUN/Creatinine Ratio (14-18) Glucose (83-115) mg/dL Calcium (8.5-10.1) mg/dL Magnesium (1.8-2.4) mg/dl Total Bilirubin (0.2-1.0) mg/dL AST (15-37) U/L ALT (14-59) U/L Alkaline Phosphatase (46-116) U/L Total Protein (6.4-8.2) g/dl Albumin (3.4-5.0) g/dl Globulin gm/dL Albumin/Globulin Ratio (1-2) MRSA (PCR) Negative Blood Type O POSITIVE Gel Antibody Screen Negative Crossmatch See Detail 05/28/19 Range/Units 05:45 WBC (3.98-10.04) K/mm3 RBC (3.98-5.22) M/mm3 Hgb (11.2-15.7) gm/dl Hct (34.1-44.9) % MCV (79.4-94.8) fl MCH (25.6-32.2) pg MCHC (32.2-35.5) g/dl RDW Std Deviation (36.4-46.3) fL Plt Count (182-369) K/mm3 MPV (9.4-12.3) fl Neut % (Auto) (34.0-71.1) % Lymph % (Auto) (19.3-51.7) % [place] % (Auto) (4.7-12.5) % Eos % (Auto) (0.7-5.8) Baso % (Auto) (0.1-1.2) % Neut # (Auto) (1.56-6.13) K/mm3 Lymph # (Auto) (1.18-3.74) K/mm3 [place] # (Auto) (0.24-0.36) K/mm3 Eos # (Auto) (0.04-0.36) K/mm3 Baso # (Auto) (0.01-0.08) K/mm3 Manual Slide Review Sodium 144 (136-145) mEq/L Potassium 2.9 L (3.5-5.1) mEq/L Chloride 102 (98-107) mEq/L Carbon Dioxide 34 H (21-32) mEq/L Anion Gap 10.9 (5-15) BUN 23 H (7-18) mg/dL Creatinine 1.3 H (0.55-1.02) mg/dL Est Cr Clr Drug Dosing 21.49 mL/min Estimated GFR (MDRD) 39 (>60) mL/min BUN/Creatinine Ratio 17.7 (14-18) Glucose 91 (83-115) mg/dL Calcium 8.7 (8.5-10.1) mg/dL Magnesium 1.4 L (1.8-2.4) mg/dl Total Bilirubin 0.5 (0.2-1.0) mg/dL AST 15 (15-37) U/L ALT 12 L (14-59) U/L Alkaline Phosphatase 89 (46-116) U/L Total Protein 6.9 (6.4-8.2) g/dl Albumin 3.4 (3.4-5.0) g/dl Globulin 3.5 gm/dL Albumin/Globulin Ratio 1.0 (1-2) MRSA (PCR) Blood Type Gel Antibody Screen Crossmatch Jaime Results Last 24 Hours: Microbiology 05/27/19 12:58 Aerobic Blood Culture - Preliminary Blood NO GROWTH AFTER 1 DAY Anaerobic Blood Culture - Preliminary NO GROWTH AFTER 1 DAY Med Orders - Current: Current Medications Acetaminophen (Tylenol) 650 mg PO Q4H PRN PRN Reason: Pain (Mild 1-3)/fever Albuterol (Proventil Neb Soln) 2.5 mg NEB Q2H PRN PRN Reason: Shortness Of Breath/wheezing Albuterol/Ipratropium (Duoneb 3.0-0.5 Mg/3 Ml) 3 ml NEB Q4H PRN PRN Reason: Shortness Of Breath/wheezing Atenolol (Tenormin) 50 mg PO DAILY [facility] Last Admin: 05/28/19 08:34 Dose: 50 mg Folic Acid (Folic Acid) 1 mg PO DAILY [facility] Last Admin: 05/28/19 08:33 Dose: 1 mg Furosemide (Lasix) 40 mg IVPUSH BIDDIURETIC [facility] Last Admin: 05/28/19 13:19 Dose: 40 mg Gabapentin (Neurontin) 100 mg PO BEDTIME [facility] Last Admin: 05/27/19 21:30 Dose: 100 mg Sodium Chloride (Normal Saline) 250 mls @ 100 mls/hr IV ASDIRECTED [facility] Last Admin: 05/28/19 08:33 Dose: 100 mls/hr Isosorbide Mononitrate (Imdur) 30 mg PO DAILY [facility] Last Admin: 05/28/19 08:34 Dose: 30 mg Losartan Potassium (Cozaar) 50 mg PO DAILY [facility] Last Admin: 05/28/19 08:33 Dose: 50 mg Magnesium Oxide (Magnesium Oxide) 400 mg PO BID [facility] Last Admin: 05/28/19 08:33 Dose: 400 mg Nitroglycerin (Nitrostat) 0.4 mg SL ASDIRECTED PRN PRN Reason: Chest Pain Pantoprazole Sodium (Protonix) 40 mg PO Q12H [facility] Last Admin: 05/28/19 11:03 Dose: 40 mg Simvastatin (Zocor) 40 mg PO BEDTIME [facility] Last Admin: 05/27/19 21:31 Dose: 40 mg Sodium Chloride (Saline Flush) 10 ml FLUSH ASDIRECTED PRN PRN Reason: Keep Vein Open Last Admin: 05/27/19 12:21 Dose: 10 ml Venlafaxine HCl (Effexor) 75 mg PO BID [facility] Last Admin: 05/28/19 08:34 Dose: 75 mg Discontinued Medications Atenolol (Tenormin) 50 mg PO BID [facility] Furosemide (Lasix) 40 mg IVPUSH NOW ONE Stop: 05/27/19 14:08 Last Admin: 05/27/19 14:28 Dose: 40 mg Ceftriaxone Sodium 2 gm/ (Sodium Chloride) 100 mls @ 200 mls/hr IV ONETIME ONE Stop: 05/27/19 14:13 Last Admin: 05/27/19 14:03 Dose: 200 mls/hr Potassium Chloride 10 meq/ (Premix) 100 mls @ 100 mls/hr IV Q1H [facility] Stop: 05/28/19 11:59 Last Admin: 05/28/19 13:10 Dose: 100 mls/hr Magnesium Sulfate 4 gm/ Premix 50 mls @ 12.5 mls/hr IV ONETIME ONE Stop: 05/28/19 11:53 Last Admin: 05/28/19 08:32 Dose: 12.5 mls/hr Influenza Virus Vaccine (Pharmacy To Dose - Influenza Vaccine) 1 each IM ONETIME ONE Stop: 05/27/19 15:18 Influenza Virus Vaccine (Fluzone High-Dose Syringe) 180 mcg IM .ONCE ONE Stop: 05/27/19 15:31 Pantoprazole Sodium (Protonix Iv) 40 mg IVPUSH Q12H [facility] Last Admin: 05/28/19 06:25 Dose: 40 mg Potassium Chloride (Klor-Con M20) 40 meq PO ONETIME ONE Stop: 05/28/19 14:01 Last Admin: 05/28/19 13:19 Dose: 40 meq Potassium Chloride (Klor-Con M20) 20 meq PO ONETIME ONE Stop: 05/28/19 08:58 Last Admin: 05/28/19 09:10 Dose: 20 meq - Exam Quality Assessment: Supplemental Oxygen General: Alert HEENT: Pupils Equal, Mucous Membr. Moist/[place] Neck: Supple Lungs: Rales. No: Normal Respiratory Effort (Increased respiratory rate without use of sensory muscles) Cardiovascular: Regular Rate, Regular Rhythm GI/Abdominal Exam: Normal Bowel Sounds, Soft, Non-Tender, No Distention Extremities: Normal Inspection, Normal Range of Motion, No Pedal Edema, Pedal Edema (1-2+) Skin: Warm, Dry, Intact Psy/Mental Status: Alert, Normal Affect, Normal Mood Sepsis Event Note - Evaluation Sepsis Screening Result: No Definite Risk - Focused Exam Vital Signs: Vital Signs Temp Pulse Resp BP Pulse Ox Pulse Ox 05/28/19 12:08 97.5 F 78 20 157/58 H 96 05/28/19 12:06 80 95 05/28/19 10:51 91 L 05/28/19 08:34 84 157/71 H 05/28/19 08:33 157/71 H 05/28/19 08:03 84 94 L 05/28/19 08:01 87 91 L 05/28/19 07:59 97.7 F 89 22 H 157/71 H 85 L 05/28/19 06:25 142/98 H 05/28/19 03:30 98.2 F 73 18 171/73 H 91 L Date Exam was Performed: 05/28/19 Time Exam was Performed: 14:10 - Problem List Review Problem List Initiated/Reviewed/Updated: Yes - My Orders Last 24 Hours: My Active Orders 05/27/19 15:17 Influenza Vaccine Charge [RC] .DISCHARGE 05/27/19 16:30 Sodium Chloride 0.9% [Normal Saline] 250 ml IV ASDIRECTED 05/27/19 16:32 Resuscitation Status Routine 05/27/19 17:38 Oxygen Therapy [RC] PRN Up With Assistance [RC] ASDIRECTED VTE/DVT Education [RC] PER UNIT ROUTINE Vital Signs [RC] ASDIRECTED Acetaminophen [Tylenol] 650 mg PO Q4H PRN Albuterol [Proventil Neb Soln] 2.5 mg NEB Q2H PRN Albuterol/Ipratropium [DuoNeb 3.0-0.5 MG/3 ML] 3 ml NEB Q4H PRN Sequential Compression Device [OM.PC] Per Unit Routine 05/27/19 17:40 Antiembolic Devices [RC] PER UNIT ROUTINE RT Aerosol Therapy [RC] ASDIRECTED Nitroglycerin [Nitrostat] 0.4 mg SL ASDIRECTED PRN 05/27/19 17:46 Daily Weight [Height and Weight] [RC] 04 Intake and Output Strict [RC] ASDIRECTED 05/27/19 21:00 Gabapentin [Neurontin] 100 mg PO BEDTIME Simvastatin [Zocor] 40 mg PO BEDTIME Venlafaxine [Effexor] 75 mg PO BID 05/27/19 Dinner Heart Healthy Diet [DIET] 05/28/19 06:00 Furosemide [Lasix] 40 mg IVPUSH BIDDIURETIC 05/28/19 09:00 Folic Acid 1 mg PO DAILY Isosorbide Mononitrate [Imdur] 30 mg PO DAILY Losartan [Cozaar] 50 mg PO DAILY Magnesium Oxide 400 mg PO BID atenoloL [Tenormin] 50 mg PO DAILY 05/28/19 09:58 EKG Documentation Completion [RC] ASDIRECTED EKG 12 Lead [EK] Routine 05/28/19 10:50 Pantoprazole [ProTONIX] 40 mg PO Q12H 05/28/19 Breakfast Fluid Restriction [DIET] 05/29/19 05:11 CBC WITH AUTO DIFF [HEME] AM COMPREHENSIVE METABOLIC PN,CMP [CHEM] AM MAGNESIUM [CHEM] AM 05/30/19 05:11 CBC WITH AUTO DIFF [HEME] AM COMPREHENSIVE METABOLIC PN,CMP [CHEM] AM MAGNESIUM [CHEM] AM - Plan Plan:: Assessment [id number]-year-old female with history of coronary artery disease with new onset CHF * Hemoglobin of 7.5-->9.0 (1 unit PRBC) * Admission troponin negative at 0.025 * Admission proBNP 7487 * Chest x-ray with pleural effusions and atelectasis * No fever, white count, lactic acidosis or anion gap * On atenolol and isosorbide mononitrate * Fluid restriction to 1500 mL/day * Strict I's and O's and daily weights Anemia, likely blood loss * History of GI bleed * History of anemia, progressive, with pancytopenia (currently normal white count and platelets) * Guaiac positive stool * Confirms bright red blood per rectum, last episode 1 week ago * On full dose aspirin * Pantoprazole 40 mg p.o. BID Paroxysmal atrial fibrillation * Currently in sinus rhythm * Aspirin for stroke prophylaxis * Atenolol 50 mg daily-decreased from home dose History of seronegative arthritis, colitis, depression, generalized weakness, polymyalgia rheumatica Plan * Admit to medical floor on telemetry * FiO2 to keep SpO2 > 90% * Gentle diuresis; furosemide 40 mg IV twice daily * Pantoprazole 40 mg IV twice daily * Follow hemoglobin * Decrease atenolol to 50 mg daily for CHF exacerbation. She would likely benefit to switch over to metoprolol succinate or carvedilol * Fluid restriction to 1500 mL/day * Strict I's and O's and daily weights * Echocardiogram * Have patient follow with surgery as outpatient after recovery from CHF. * VTE prophylaxis with SCDs. Anticoagulation contraindicated because of GI bleed * CODE STATUS: DNR/DNI
[2019-05-28] MEDS: Gabapentin 100 MG Cap PO SCH (20:16)
[2019-05-28] MEDS: Simvastatin 40 MG Tab PO SCH (20:16)
[2019-05-28] MEDS: Pantoprazole 40 MG Tab.CR PO SCH (20:16)
[2019-05-29] MEDS: Furosemide 40 MG/4 ML VIAL IVPUSH SCH ×2 (06:55→13:29)
--- NOTE | 2019-05-29 08:41 | PCM.PN ---
- General Info Date of Service: 05/29/19 Admission Dx/Problem (Free Text): Admission Diagnosis/Problem Admission Diagnosis/Problem Heart failure Subjective Update: Leigha Gaspar reports she feels good and wants to go home. She is still on 1L O2. We discussed how we are attempting to wean oxygen and are hopeful she will discharge tomorrow. Functional Status: Reports: Pain Controlled, Tolerating Diet, Ambulating, Urinating. Denies: New Symptoms - Review of Systems General: Reports: No Symptoms. Denies: Fever, Weakness, Fatigue, Malaise, Chills HEENT: Reports: No Symptoms. Denies: Headaches, Sore Throat Pulmonary: Reports: No Symptoms. Denies: Shortness of Breath, Pleuritic Chest Pain, Cough, Sputum Cardiovascular: Reports: Edema. Denies: Chest Pain, Palpitations, Dyspnea on Exertion Gastrointestinal: Reports: No Symptoms. Denies: Abdominal Pain, Constipation, Diarrhea, Nausea, Vomiting Genitourinary: Reports: Frequency (2/2 diuresis ). Denies: Pain Musculoskeletal: Reports: No Symptoms Skin: Reports: No Symptoms. Denies: Cyanosis Neurological: Reports: No Symptoms. Denies: Confusion Psychiatric: Reports: No Symptoms - Patient Data Vitals - Most Recent: Last Vital Signs Temp 97.2 F 05/29/19 04:53 Pulse 103 H 05/29/19 04:53 Resp 16 05/29/19 04:53 BP 156/90 H 05/29/19 04:53 Pulse Ox 97 05/29/19 04:53 Weight - Most Recent: 145 lb 6.4 oz I&O - Last 24 Hours: Intake & Output 05/28/19 05/29/19 05/29/19 22:59 06:59 14:59 Intake Total 200 200 Output Total 650 700 Balance -450 -500 Lab Results Last 24 Hours: Laboratory Results - last 24 hr 05/27/19 05/28/19 05/29/19 Range/Units 12:58 05:45 05:36 WBC 7.54 (3.98-10.04) K/mm3 RBC 3.36 L (3.98-5.22) M/mm3 Hgb 9.1 L (11.2-15.7) gm/dl Hct 31.1 L (34.1-44.9) % MCV 92.6 (79.4-94.8) fl MCH 27.1 (25.6-32.2) pg MCHC 29.3 L (32.2-35.5) g/dl RDW Std Deviation 48.8 H (36.4-46.3) fL Plt Count 191 (182-369) K/mm3 MPV 11.2 (9.4-12.3) fl Neut % (Auto) 67.7 (34.0-71.1) % Lymph % (Auto) 17.4 L (19.3-51.7) % [place] % (Auto) 11.4 (4.7-12.5) % Eos % (Auto) 3.1 (0.7-5.8) Baso % (Auto) 0.3 (0.1-1.2) % Neut # (Auto) 5.11 (1.56-6.13) K/mm3 Lymph # (Auto) 1.31 (1.18-3.74) K/mm3 [place] # (Auto) 0.86 H (0.24-0.36) K/mm3 Eos # (Auto) 0.23 (0.04-0.36) K/mm3 Baso # (Auto) 0.02 (0.01-0.08) K/mm3 Manual Slide Review Abnormal smear Abnormal smear Sodium (136-145) mEq/L Potassium (3.5-5.1) mEq/L Chloride (98-107) mEq/L Carbon Dioxide (21-32) mEq/L Anion Gap (5-15) BUN (7-18) mg/dL Creatinine (0.55-1.02) mg/dL Est Cr Clr Drug Dosing mL/min Estimated GFR (MDRD) (>60) mL/min BUN/Creatinine Ratio (14-18) Glucose (83-115) mg/dL Calcium (8.5-10.1) mg/dL Magnesium (1.8-2.4) mg/dl Total Bilirubin (0.2-1.0) mg/dL AST (15-37) U/L ALT (14-59) U/L Alkaline Phosphatase (46-116) U/L Total Protein (6.4-8.2) g/dl Albumin (3.4-5.0) g/dl Globulin gm/dL Albumin/Globulin Ratio (1-2) Blood Type O POSITIVE Gel Antibody Screen Negative Crossmatch See Detail 05/29/19 Range/Units 05:36 WBC (3.98-10.04) K/mm3 RBC (3.98-5.22) M/mm3 Hgb (11.2-15.7) gm/dl Hct (34.1-44.9) % MCV (79.4-94.8) fl MCH (25.6-32.2) pg MCHC (32.2-35.5) g/dl RDW Std Deviation (36.4-46.3) fL Plt Count (182-369) K/mm3 MPV (9.4-12.3) fl Neut % (Auto) (34.0-71.1) % Lymph % (Auto) (19.3-51.7) % [place] % (Auto) (4.7-12.5) % Eos % (Auto) (0.7-5.8) Baso % (Auto) (0.1-1.2) % Neut # (Auto) (1.56-6.13) K/mm3 Lymph # (Auto) (1.18-3.74) K/mm3 [place] # (Auto) (0.24-0.36) K/mm3 Eos # (Auto) (0.04-0.36) K/mm3 Baso # (Auto) (0.01-0.08) K/mm3 Manual Slide Review Sodium 139 (136-145) mEq/L Potassium 3.6 (3.5-5.1) mEq/L Chloride 98 (98-107) mEq/L Carbon Dioxide 33 H (21-32) mEq/L Anion Gap 11.6 (5-15) BUN 21 H (7-18) mg/dL Creatinine 1.3 H (0.55-1.02) mg/dL Est Cr Clr Drug Dosing 21.49 mL/min Estimated GFR (MDRD) 39 (>60) mL/min BUN/Creatinine Ratio 16.2 (14-18) Glucose 91 (83-115) mg/dL Calcium 8.8 (8.5-10.1) mg/dL Magnesium 2.1 (1.8-2.4) mg/dl Total Bilirubin 0.6 (0.2-1.0) mg/dL AST 18 (15-37) U/L ALT 12 L (14-59) U/L Alkaline Phosphatase 94 (46-116) U/L Total Protein 6.8 (6.4-8.2) g/dl Albumin 3.4 (3.4-5.0) g/dl Globulin 3.4 gm/dL Albumin/Globulin Ratio 1.0 (1-2) Blood Type Gel Antibody Screen Crossmatch Jaime Results Last 24 Hours: Microbiology 05/27/19 12:58 Aerobic Blood Culture - Preliminary Blood NO GROWTH AFTER 1 DAY Anaerobic Blood Culture - Preliminary NO GROWTH AFTER 1 DAY Med Orders - Current: Current Medications Acetaminophen (Tylenol) 650 mg PO Q4H PRN PRN Reason: Pain (Mild 1-3)/fever Albuterol (Proventil Neb Soln) 2.5 mg NEB Q2H PRN PRN Reason: Shortness Of Breath/wheezing Albuterol/Ipratropium (Duoneb 3.0-0.5 Mg/3 Ml) 3 ml NEB Q4H PRN PRN Reason: Shortness Of Breath/wheezing Last Admin: 05/28/19 19:52 Dose: 3 ml Atenolol (Tenormin) 50 mg PO DAILY [facility] Last Admin: 05/28/19 08:34 Dose: 50 mg Folic Acid (Folic Acid) 1 mg PO DAILY [facility] Last Admin: 05/28/19 08:33 Dose: 1 mg Furosemide (Lasix) 40 mg IVPUSH BIDDIURETIC [facility] Last Admin: 05/29/19 06:55 Dose: 40 mg Gabapentin (Neurontin) 100 mg PO BEDTIME [facility] Last Admin: 05/28/19 20:16 Dose: 100 mg Isosorbide Mononitrate (Imdur) 30 mg PO DAILY [facility] Last Admin: 05/28/19 08:34 Dose: 30 mg Losartan Potassium (Cozaar) 50 mg PO DAILY [facility] Last Admin: 05/28/19 08:33 Dose: 50 mg Magnesium Oxide (Magnesium Oxide) 400 mg PO BID [facility] Last Admin: 05/28/19 20:16 Dose: 400 mg Nitroglycerin (Nitrostat) 0.4 mg SL ASDIRECTED PRN PRN Reason: Chest Pain Pantoprazole Sodium (Protonix) 40 mg PO Q12H [facility] Last Admin: 05/28/19 20:16 Dose: 40 mg Simvastatin (Zocor) 40 mg PO BEDTIME [facility] Last Admin: 05/28/19 20:16 Dose: 40 mg Sodium Chloride (Saline Flush) 10 ml FLUSH ASDIRECTED PRN PRN Reason: Keep Vein Open Last Admin: 05/27/19 12:21 Dose: 10 ml Venlafaxine HCl (Effexor) 75 mg PO BID [facility] Last Admin: 05/28/19 20:15 Dose: 75 mg Discontinued Medications Atenolol (Tenormin) 50 mg PO BID [facility] Furosemide (Lasix) 40 mg IVPUSH NOW ONE Stop: 05/27/19 14:08 Last Admin: 05/27/19 14:28 Dose: 40 mg Ceftriaxone Sodium 2 gm/ (Sodium Chloride) 100 mls @ 200 mls/hr IV ONETIME ONE Stop: 05/27/19 14:13 Last Admin: 05/27/19 14:03 Dose: 200 mls/hr Sodium Chloride (Normal Saline) 250 mls @ 100 mls/hr IV ASDIRECTED [facility] Last Admin: 05/28/19 08:33 Dose: 100 mls/hr Potassium Chloride 10 meq/ (Premix) 100 mls @ 100 mls/hr IV Q1H [facility] Stop: 05/28/19 11:59 Last Admin: 05/28/19 13:10 Dose: 100 mls/hr Magnesium Sulfate 4 gm/ Premix 50 mls @ 12.5 mls/hr IV ONETIME ONE Stop: 05/28/19 11:53 Last Admin: 05/28/19 08:32 Dose: 12.5 mls/hr Influenza Virus Vaccine (Pharmacy To Dose - Influenza Vaccine) 1 each IM ONETIME ONE Stop: 05/27/19 15:18 Pantoprazole Sodium (Protonix Iv) 40 mg IVPUSH Q12H [facility] Last Admin: 05/28/19 06:25 Dose: 40 mg Pantoprazole Sodium (Protonix) 40 mg PO Q12H [facility] Last Admin: 05/28/19 11:03 Dose: 40 mg Potassium Chloride (Klor-Con M20) 40 meq PO ONETIME ONE Stop: 05/28/19 14:01 Last Admin: 05/28/19 13:19 Dose: 40 meq Potassium Chloride (Klor-Con M20) 20 meq PO ONETIME ONE Stop: 05/28/19 08:58 Last Admin: 05/28/19 09:10 Dose: 20 meq - Exam Quality Assessment: Supplemental Oxygen (1L), DVT Prophylaxis General: Alert, Oriented, Cooperative HEENT: Pupils Equal, Pupils Reactive, Mucous Membr. Moist/[place] Neck: Supple, Trachea Midline Lungs: Clear to Auscultation, Normal Respiratory Effort Cardiovascular: Regular Rate, Regular Rhythm GI/Abdominal Exam: Normal Bowel Sounds, Soft, Non-Tender, No Distention (Female) Exam: Deferred Back Exam: Normal Inspection, Full Range of Motion Extremities: Normal Inspection, Normal Range of Motion, Non-Tender, Normal Capillary Refill, Pedal Edema (trace ) Skin: Warm, Dry, Intact Neurological: No New Focal Deficit Psy/Mental Status: Alert, Normal Affect, Normal Mood Sepsis Event Note - Evaluation Sepsis Screening Result: No Definite Risk - Focused Exam Vital Signs: Vital Signs Temp Pulse Resp BP Pulse Ox 05/29/19 04:53 97.2 F 103 H 16 156/90 H 97 Date Exam was Performed: 05/29/19 Time Exam was Performed: 13:58 - Problem List & Annotations (1) CHF (congestive heart failure) SNOMED Code(s): 34011190 Code(s): I50.9 - HEART FAILURE, UNSPECIFIED Status: Acute Priority: High Current Visit: Yes Qualifiers: Heart failure type: combined systolic and diastolic Heart failure chronicity: acute Qualified Code(s): I50.41 - Acute combined systolic ( congestive) and diastolic (congestive) heart failure (2) Hypoxia SNOMED Code(s): 551035651 Code(s): R09.02 - HYPOXEMIA Status: Acute Priority: High Current Visit : Yes (3) Anemia SNOMED Code(s): 704811206 Code(s): D64.9 - ANEMIA, UNSPECIFIED Status: Acute Priority: High Current Visit: Yes Qualifiers: Anemia type: unspecified type Qualified Code(s): D64.9 - Anemia, unspecified (4) Chronic kidney disease SNOMED Code(s): 010701370 Code(s): N18.9 - CHRONIC KIDNEY DISEASE, UNSPECIFIED Status: Chronic Priority: Medium Current Visit: No Qualifiers: Chronic kidney disease stage: stage 3 (moderate) Qualified Code(s): N18.3 - Chronic kidney disease, stage 3 (moderate) (5) Hemorrhoids SNOMED Code(s): 02187829 Code(s): K64.9 - UNSPECIFIED HEMORRHOIDS Status: Chronic Priority: Medium Current Visit: No Qualifiers: Hemorrhoid type: unspecified Qualified Code(s): K64.9 - Unspecified hemorrhoids (6) Hypokalemia SNOMED Code(s): 22187514 Code(s): E87.6 - HYPOKALEMIA Status: Resolved Priority: High Current Visit: Yes (7) Hypomagnesemia SNOMED Code(s): 988996042 Code(s): E83.42 - HYPOMAGNESEMIA Status: Resolved Priority: High Current Visit: Yes (8) Elevated brain natriuretic peptide (BNP) level SNOMED Code(s): 382298538, 882855965 Code(s): R79.89 - OTHER SPECIFIED ABNORMAL FINDINGS OF BLOOD CHEMISTRY Status: Acute Priority: High Current Visit: Yes (9) Paroxysmal A-fib SNOMED Code(s): 889134911 Code(s): I48.0 - PAROXYSMAL ATRIAL FIBRILLATION Status: Chronic Priority : Medium Current Visit: No (10) Arthritis SNOMED Code(s): 4330568 Code(s): M19.90 - UNSPECIFIED OSTEOARTHRITIS, UNSPECIFIED SITE Status: Chronic Priority: Low Current Visit: No (11) Generalized weakness SNOMED Code(s): 61650374 Code(s): R53.1 - WEAKNESS Status: Chronic Priority: Medium Current Visit: No (12) History of colitis SNOMED Code(s): 750485989 Code(s): Z87.19 - PERSONAL HISTORY OF OTHER DISEASES OF THE DIGESTIVE SYSTEM Status: Chronic Priority: Medium Current Visit: No (13) H/O polymyalgia rheumatica SNOMED Code(s): 044934908 Code(s): Z87.39 - PERSONAL HISTORY OF DISEASES OF THE MS SYS AND CONN TISS Status: Chronic Priority: Medium Current Visit: No - Problem List Review Problem List Initiated/Reviewed/Updated: Yes - Plan Plan:: Assessment 36-ctfa-cyn-year-old female with history of coronary artery disease with new onset CHF * Hemoglobin of 7.5-->9.0 (1 unit PRBC)-->9.1 * Admission troponin negative at 0.025 * Admission proBNP 7487 * Chest x-ray with pleural effusions and atelectasis * No fever, white count, lactic acidosis or anion gap * On atenolol and isosorbide mononitrate * Fluid restriction to 1500 mL/day * Strict I's and O's and daily weights * Echocardiogram obtained 05/28/19 * 1. LVEF, by visual estimation, is 55-60% * 2. Mild concentric left ventricular hypertrophy * 3. Pseudonormal (Grade 2) pattern of LV diastolic filling * 4. Normal right ventricular systolic function * 5. There is moderate aortic valve sclerosis without stenosis * 6. Mild aortic valve regurgitation * 7. Mild to moderate mitral valve regurgiation * 8. Moderate tricuspid valve regurgitation * 9. The right ventricular systolic pressure is moderately elevated at 57.0 mmHg * 10. No regional wall motion abnormalities. Anemia, likely blood loss * History of GI bleed * History of anemia, progressive, with pancytopenia (currently normal white count and platelets) * Guaiac positive stool in ED * Confirms bright red blood per rectum, last episode 1 week ago * On full dose aspirin - hold * Pantoprazole 40 mg p.o. BID * No hematochezia or melena here * Hgb trend: 7.5 (given 1 unit) 9.0-->9.1 Paroxysmal atrial fibrillation * Currently in sinus rhythm * Aspirin for stroke prophylaxis * Atenolol 50 mg daily-decreased from home dose History of seronegative arthritis, colitis, depression, generalized weakness, polymyalgia rheumatica Plan * Admit to medical floor on telemetry * FiO2 to keep SpO2 > 90% * Gentle diuresis; furosemide 40 mg IV twice daily * Pantoprazole 40 mg IV twice daily * Follow hemoglobin * Decrease atenolol to 50 mg daily for CHF exacerbation. She would likely benefit to switch over to metoprolol succinate or carvedilol * Fluid restriction to 1500 mL/day * Strict I's and O's and daily weights * Have patient follow with surgery as outpatient after recovery from CHF for GI bleed. * VTE prophylaxis with SCDs. Anticoagulation contraindicated because of GI bleed * CODE STATUS: DNR/DNI
[2019-05-29] MEDS: Losartan 25 MG Tab PO SCH (09:08)
[2019-05-29] MEDS: Folic Acid 1 MG Tab PO SCH (09:09)
[2019-05-29] MEDS: Venlafaxine 37.5 MG Tab PO SCH ×2 (09:09→20:39)
[2019-05-29] MEDS: Pantoprazole 40 MG Tab.CR PO SCH ×2 (09:10→20:40)
[2019-05-29] MEDS: Magnesium Oxide 400 MG Tab PO SCH ×2 (09:10→20:39)
[2019-05-29] MEDS: Isosorbide Mononitrate 30 MG Tab.ER PO SCH (09:10)
[2019-05-29] MEDS: Atenolol 50 MG Tab PO SCH (09:11)
[2019-05-29] MEDS ORDERED: Magnesium Hydroxide 400 MG/5 ML Susp 30 ML Cup PO ONE (10:00)
[2019-05-29] MEDS: Simvastatin 40 MG Tab PO SCH (20:39)
[2019-05-29] MEDS: Gabapentin 100 MG Cap PO SCH (20:39)
[2019-05-29] MEDS ORDERED: Sodium Chloride 0.9% 500 ML IV ONE (21:01)
[2019-05-29] MEDS ORDERED: Diltiazem 50 MG/10 ML SDV IVPUSH ONE ×2 (21:02→22:01)
[2019-05-29] MEDS ORDERED: Sodium Chloride 0.9% 1,000 ML ONE (21:06)
--- NOTE | 2019-05-29 21:15 | PCM.SN ---
- Free Text/Narrative Note: Notified by nursing that patient was having heart rates in the 130s and systolic blood pressure in the 90s. Patient is asymptomatic without chest pain worsening shortness of breath. Telemetry shows heart rate in the 130s with irregular rhythm. EKG showed atrial fibrillation with a ventricular rate of 130. Voltage criteria for left ventricular hypertrophy. Bolus of 500 mL normal saline given. Chemistries: Sodium 138, potassium 3.9, chloride 95, bicarbonate 38, BUN 28, creatinine 1.6, estimated GFR 30, magnesium 2.3. Patient appears to be volume contracted. I will hold her furosemide dose in the morning and reevaluate at that time. Patient will be placed on a Cardizem drip in the ICU.
[2019-05-29] MEDS: Sodium Chloride 0.9% 1,000 ML IV SCH (21:30)
[2019-05-29] MEDS: Diltiazem 100 MG in Sodium Chloride 0.9% 100 ML IV SCH (21:51)
[2019-05-29] MEDS ORDERED: Sodium Chloride 0.9% 1,000 ML IV SCH (22:00)
[2019-05-29] MEDS ORDERED: Ondansetron 4 MG/2 ML SDV ONE (23:50)
[2019-05-29] MEDS: Ondansetron 4 MG/2 ML SDV IVPUSH PRN (23:52)
[2019-05-30] MEDS: Sodium Chloride 0.9% 1,000 ML IV SCH ×2 (02:39→22:56)
[2019-05-30] MEDS: Diltiazem 100 MG in Sodium Chloride 0.9% 100 ML IV SCH (06:31)
[2019-05-30] MEDS: Atenolol 50 MG Tab PO SCH (08:11)
[2019-05-30] MEDS: Magnesium Oxide 400 MG Tab PO SCH ×2 (08:23→20:16)
[2019-05-30] MEDS: Metoprolol Tartrate 50 MG Tab PO SCH ×2 (08:25→20:17)
[2019-05-30] MEDS: Pantoprazole 40 MG Tab.CR PO SCH ×2 (08:26→20:17)
[2019-05-30] MEDS: Folic Acid 1 MG Tab PO SCH (08:26)
[2019-05-30] MEDS: Venlafaxine 37.5 MG Tab PO SCH ×2 (08:26→20:16)
[2019-05-30] MEDS: Losartan 25 MG Tab PO SCH (09:14)
[2019-05-30] MEDS: Isosorbide Mononitrate 30 MG Tab.ER PO SCH (11:33)
[2019-05-30] MEDS: Gabapentin 100 MG Cap PO SCH (20:16)
[2019-05-30] MEDS: Simvastatin 40 MG Tab PO SCH (20:17)
--- NOTE | 2019-05-31 03:31 | PCM.PN ---
- General Info Date of Service: 05/30/19 Admission Dx/Problem (Free Text): Admission Diagnosis/Problem Admission Diagnosis/Problem Heart failure Subjective Update: Pt had an uneventful night. Cardizem drip at 10, but wean off today. On 2L NC. Lasix held. - Patient Data Vitals - Most Recent: Last Vital Signs Temp 97.5 F 05/31/19 00:00 Pulse 90 05/30/19 20:17 Resp 18 05/31/19 00:00 BP 120/66 05/31/19 00:00 Pulse Ox 94 L 05/31/19 00:00 Weight - Most Recent: 144 lb 1.6 oz I&O - Last 24 Hours: Intake & Output 05/30/19 05/30/19 05/31/19 14:59 22:59 06:59 Intake Total 1040 Output Total 200 100 Balance -200 940 Lab Results Last 24 Hours: Laboratory Results - last 24 hr 05/27/19 05/30/19 05/30/19 Range/Units 12:58 05:10 05:10 WBC 8.94 (3.98-10.04) K/mm3 RBC 3.29 L (3.98-5.22) M/mm3 Hgb 8.9 L (11.2-15.7) gm/dl Hct 31.0 L (34.1-44.9) % MCV 94.2 (79.4-94.8) fl MCH 27.1 (25.6-32.2) pg MCHC 28.7 L (32.2-35.5) g/dl RDW Std Deviation 49.9 H (36.4-46.3) fL Plt Count 212 (182-369) K/mm3 MPV 11.2 (9.4-12.3) fl Neut % (Auto) 71.6 H (34.0-71.1) % Lymph % (Auto) 14.3 L (19.3-51.7) % [place] % (Auto) 12.4 (4.7-12.5) % Eos % (Auto) 1.5 (0.7-5.8) Baso % (Auto) 0.1 (0.1-1.2) % Neut # (Auto) 6.40 H (1.56-6.13) K/mm3 Lymph # (Auto) 1.28 (1.18-3.74) K/mm3 [place] # (Auto) 1.11 H (0.24-0.36) K/mm3 Eos # (Auto) 0.13 (0.04-0.36) K/mm3 Baso # (Auto) 0.01 (0.01-0.08) K/mm3 Manual Slide Review Abnormal smear Sodium 142 (136-145) mEq/L Potassium 3.9 (3.5-5.1) mEq/L Chloride 100 (98-107) mEq/L Carbon Dioxide 35 H (21-32) mEq/L Anion Gap 10.9 (5-15) BUN 28 H (7-18) mg/dL Creatinine 1.5 H (0.55-1.02) mg/dL Est Cr Clr Drug Dosing 18.62 mL/min Estimated GFR (MDRD) 33 (>60) mL/min BUN/Creatinine Ratio 18.7 H (14-18) Glucose 106 (83-115) mg/dL Calcium 8.4 L (8.5-10.1) mg/dL Magnesium 2.2 (1.8-2.4) mg/dl Total Bilirubin 0.4 (0.2-1.0) mg/dL AST 15 (15-37) U/L ALT 12 L (14-59) U/L Alkaline Phosphatase 87 (46-116) U/L Total Protein 6.6 (6.4-8.2) g/dl Albumin 3.2 L (3.4-5.0) g/dl Globulin 3.4 gm/dL Albumin/Globulin Ratio 0.9 L (1-2) Crossmatch See Detail Jaime Results Last 24 Hours: Microbiology 05/27/19 12:58 Aerobic Blood Culture - Preliminary Blood NO GROWTH AFTER 3 DAYS Anaerobic Blood Culture - Preliminary NO GROWTH AFTER 3 DAYS Med Orders - Current: Current Medications Acetaminophen (Tylenol) 650 mg PO Q4H PRN PRN Reason: Pain (Mild 1-3)/fever Albuterol (Proventil Neb Soln) 2.5 mg NEB Q2H PRN PRN Reason: Shortness Of Breath/wheezing Albuterol/Ipratropium (Duoneb 3.0-0.5 Mg/3 Ml) 3 ml NEB Q4H PRN PRN Reason: Shortness Of Breath/wheezing Last Admin: 05/28/19 19:52 Dose: 3 ml Atenolol (Tenormin) 50 mg PO DAILY [facility] Last Admin: 05/30/19 08:11 Dose: Not Given Folic Acid (Folic Acid) 1 mg PO DAILY [facility] Last Admin: 05/30/19 08:26 Dose: 1 mg Gabapentin (Neurontin) 100 mg PO BEDTIME [facility] Last Admin: 05/30/19 20:16 Dose: 100 mg Diltiazem HCl 100 mg/ Sodium (Chloride) 100 mls @ 5 mls/hr IV TITRATE [facility]; Protocol Last Titration: 05/30/19 09:00 Dose: 0 mg/hr, 0 mls/hr Sodium Chloride (Normal Saline) 1,000 mls @ 30 mls/hr IV ASDIRECTED [facility] Last Admin: 05/30/19 22:56 Dose: 30 mls/hr Isosorbide Mononitrate (Imdur) 30 mg PO DAILY [facility] Last Admin: 05/30/19 11:33 Dose: Not Given Losartan Potassium (Cozaar) 50 mg PO DAILY [facility] Last Admin: 05/30/19 09:14 Dose: Not Given Magnesium Oxide (Magnesium Oxide) 400 mg PO BID [facility] Last Admin: 05/30/19 20:16 Dose: 400 mg Metoprolol Tartrate (Lopressor) 50 mg PO Q12H [facility] Last Admin: 05/30/19 20:17 Dose: 50 mg Nitroglycerin (Nitrostat) 0.4 mg SL ASDIRECTED PRN PRN Reason: Chest Pain Ondansetron HCl (Zofran) 4 mg IVPUSH Q4H PRN PRN Reason: Nausea/Vomiting Last Admin: 05/29/19 23:52 Dose: 4 mg Pantoprazole Sodium (Protonix) 40 mg PO Q12H [facility] Last Admin: 05/30/19 20:17 Dose: 40 mg Simvastatin (Zocor) 40 mg PO BEDTIME [facility] Last Admin: 05/30/19 20:17 Dose: 40 mg Sodium Chloride (Saline Flush) 10 ml FLUSH ASDIRECTED PRN PRN Reason: Keep Vein Open Last Admin: 05/27/19 12:21 Dose: 10 ml Venlafaxine HCl (Effexor) 75 mg PO BID [facility] Last Admin: 05/30/19 20:16 Dose: 75 mg Discontinued Medications Atenolol (Tenormin) 50 mg PO BID [facility] Diltiazem HCl (Cardizem) 10 mg IVPUSH ONETIME ONE Stop: 05/29/19 21:03 Last Admin: 05/29/19 21:47 Dose: Not Given Diltiazem HCl (Cardizem) 5 mg IVPUSH ONETIME ONE Stop: 05/29/19 22:02 Last Admin: 05/29/19 22:05 Dose: 5 mg Furosemide (Lasix) 40 mg IVPUSH NOW ONE Stop: 05/27/19 14:08 Last Admin: 05/27/19 14:28 Dose: 40 mg Furosemide (Lasix) 40 mg IVPUSH BIDDIURETIC [facility] Last Admin: 05/29/19 13:29 Dose: 40 mg Ceftriaxone Sodium 2 gm/ (Sodium Chloride) 100 mls @ 200 mls/hr IV ONETIME ONE Stop: 05/27/19 14:13 Last Admin: 05/27/19 14:03 Dose: 200 mls/hr Sodium Chloride (Normal Saline) 250 mls @ 100 mls/hr IV ASDIRECTED [facility] Last Admin: 05/28/19 08:33 Dose: 100 mls/hr Potassium Chloride 10 meq/ (Premix) 100 mls @ 100 mls/hr IV Q1H [facility] Stop: 05/28/19 11:59 Last Admin: 05/28/19 13:10 Dose: 100 mls/hr Magnesium Sulfate 4 gm/ Premix 50 mls @ 12.5 mls/hr IV ONETIME ONE Stop: 05/28/19 11:53 Last Admin: 05/28/19 08:32 Dose: 12.5 mls/hr Sodium Chloride (Normal Saline) 500 mls @ 999 mls/hr IV ONETIME ONE Stop: 05/29/19 21:31 Last Admin: 05/29/19 21:19 Dose: 999 mls/hr Sodium Chloride (Normal Saline) Confirm Administered Dose 1,000 mls @ as directed .ROUTE .STK-MED ONE Stop: 05/29/19 21:07 Last Admin: 05/29/19 21:23 Dose: Not Given Sodium Chloride (Normal Saline) 1,000 mls @ 50 mls/hr IV ASDIRECTED [facility] Last Infusion: 05/29/19 22:00 Dose: 75 mls/hr Influenza Virus Vaccine (Pharmacy To Dose - Influenza Vaccine) 1 each IM ONETIME ONE Stop: 05/27/19 15:18 Magnesium Hydroxide (Milk Of Magnesia) 30 ml PO Q4H ONE Stop: 05/29/19 10:01 Last Admin: 05/29/19 10:50 Dose: 30 ml Ondansetron HCl (Zofran) Confirm Administered Dose 4 mg .ROUTE .STK-MED ONE Stop: 05/29/19 23:51 Last Admin: 05/29/19 23:57 Dose: Not Given Pantoprazole Sodium (Protonix Iv) 40 mg IVPUSH Q12H [facility] Last Admin: 05/28/19 06:25 Dose: 40 mg Pantoprazole Sodium (Protonix) 40 mg PO Q12H [facility] Last Admin: 05/28/19 11:03 Dose: 40 mg Potassium Chloride (Klor-Con M20) 40 meq PO ONETIME ONE Stop: 05/28/19 14:01 Last Admin: 05/28/19 13:19 Dose: 40 meq Potassium Chloride (Klor-Con M20) 20 meq PO ONETIME ONE Stop: 05/28/19 08:58 Last Admin: 05/28/19 09:10 Dose: 20 meq - Exam Quality Assessment: Supplemental Oxygen General: Alert, Oriented HEENT: Pupils Equal, Mucous Membr. Moist/[place] Neck: Supple Lungs: Normal Respiratory Effort, Rales (bibasilar) Cardiovascular: Irregular Rhythm. No: Regular Rate (irregular rate) GI/Abdominal Exam: Normal Bowel Sounds, Soft, No Distention Extremities: Normal Inspection, Normal Range of Motion, No Pedal Edema Skin: Warm, Dry, Intact Neurological: No New Focal Deficit Psy/Mental Status: Alert, Normal Affect, Normal Mood Sepsis Event Note - Evaluation Sepsis Screening Result: No Definite Risk - Focused Exam Vital Signs: Vital Signs Temp Pulse Resp BP BP BP Pulse Ox 05/31/19 00:00 97.5 F 18 120/66 94 L 05/30/19 20:17 90 125/79 05/30/19 20:00 98.5 F 18 125/79 99 05/30/19 16:09 93 L 05/30/19 16:00 98.6 F 20 121/83 91 L Date Exam was Performed: 05/31/19 Time Exam was Performed: 03:25 - Problem List Review Problem List Initiated/Reviewed/Updated: Yes - My Orders Last 24 Hours: My Active Orders 05/30/19 09:00 Metoprolol Tartrate [Lopressor] 50 mg PO Q12H - Plan Plan:: Assessment 47-pgdv-gg[age]-year-old female with history of coronary artery disease with new onset CHF * Hemoglobin of 7.5-->9.0 (1 unit PRBC)-->9.1 * Admission troponin negative at 0.025 * Admission proBNP 7487 * Chest x-ray with pleural effusions and atelectasis * No fever, white count, lactic acidosis or anion gap * On atenolol and isosorbide mononitrate * Fluid restriction to 1500 mL/day * Strict I's and O's and daily weights * Echocardiogram obtained 05/28/19 * 1. LVEF, by visual estimation, is 55-60% * 2. Mild concentric left ventricular hypertrophy * 3. Pseudonormal (Grade 2) pattern of LV diastolic filling * 4. Normal right ventricular systolic function * 5. There is moderate aortic valve sclerosis without stenosis * 6. Mild aortic valve regurgitation * 7. Mild to moderate mitral valve regurgiation * 8. Moderate tricuspid valve regurgitation * 9. The right ventricular systolic pressure is moderately elevated at 57.0 mmHg * 10. No regional wall motion abnormalities. Anemia, likely blood loss * History of GI bleed * History of anemia, progressive, with pancytopenia (currently normal white count and platelets) * Guaiac positive stool in ED * Confirms bright red blood per rectum, last episode 1 week ago * On full dose aspirin - hold * Pantoprazole 40 mg p.o. BID * No hematochezia or melena as inpatient * Hgb trend: 7.5 (given 1 unit) 9.0-->9.1-->8.9 Paroxysmal atrial fibrillation * Currently a fib * Switch to metoprolol tartrate 50 mg bid History of seronegative arthritis, colitis, depression, generalized weakness, polymyalgia rheumatica Plan * Admit to medical floor on telemetry * FiO2 to keep SpO2 > 90% * Hold lasix for now. Likely will need cautious diuresis * Pantoprazole 40 mg IV twice daily * Follow hemoglobin * Switch atenolol to metoprolol tartrate 50 mg BID for CHF exacerbation. She would likely benefit to switch over to metoprolol succinate when stable * Fluid restriction to 1500 mL/day * Strict I's and O's and daily weights * Have patient follow with surgery as outpatient after recovery from CHF for GI bleed. * VTE prophylaxis with SCDs. Anticoagulation contraindicated because of GI bleed * CODE STATUS: DNR/DNI
[2019-05-31] MEDS ORDERED: Furosemide 20 MG Tab PO ONE (09:01)
[2019-05-31] MEDS: Venlafaxine 37.5 MG Tab PO SCH ×2 (09:59→21:01)
[2019-05-31] MEDS: Isosorbide Mononitrate 30 MG Tab.ER PO SCH (09:59)
[2019-05-31] MEDS: Losartan 25 MG Tab PO SCH (09:59)
[2019-05-31] MEDS: Folic Acid 1 MG Tab PO SCH (09:59)
[2019-05-31] MEDS: Magnesium Oxide 400 MG Tab PO SCH ×2 (09:59→20:59)
[2019-05-31] MEDS: Pantoprazole 40 MG Tab.CR PO SCH ×2 (09:59→21:03)
[2019-05-31] MEDS: Metoprolol Tartrate 50 MG Tab PO SCH ×2 (09:59→21:01)
--- NOTE | 2019-05-31 11:32 | PCM.PN ---
- General Info Date of Service: 05/31/19 Admission Dx/Problem (Free Text): Admission Diagnosis/Problem Admission Diagnosis/Problem Heart failure Heart failure and Atrial fibrillation She is currently on fluid restrictions and discussed the possibility of going on Lasix She is currently wearing oxygen She is on droplet precautions due to exposure of someone with known positive COVID Discussed adding an NT BNP onto this mornings labs Discussed increasing dose of metoprolol if heart rate doesn't decrease after an hour of receiving medications Discussed doing a clock drawing test for memory/dementia Looking at discharging to [facility] pending the quarantine parodical [place] Functional Status: Reports: Pain Controlled - Review of Systems General: Reports: No Symptoms HEENT: Reports: No Symptoms Pulmonary: Reports: No Symptoms Cardiovascular: Reports: No Symptoms Gastrointestinal: Reports: No Symptoms Genitourinary: Reports: No Symptoms Musculoskeletal: Reports: No Symptoms Skin: Reports: No Symptoms Neurological: Reports: No Symptoms Psychiatric: Reports: No Symptoms - Patient Data Vitals - Most Recent: Last Vital Signs Temp 97.6 F 05/31/19 08:00 Pulse 114 H 05/31/19 09:59 Resp 20 05/31/19 08:00 BP 118/102 H 05/31/19 09:59 Pulse Ox 96 05/31/19 08:00 Weight - Most Recent: 67.812 kg I&O - Last 24 Hours: Intake & Output 05/30/19 05/31/19 05/31/19 22:59 06:59 14:59 Intake Total 1040 1316 Output Total 100 120 200 Balance 940 1196 -200 Lab Results Last 24 Hours: Laboratory Results - last 24 hr 05/27/19 05/31/19 05/31/19 Range/Units 12:58 06:00 06:00 WBC 8.99 (3.98-10.04) K/mm3 RBC 3.50 L (3.98-5.22) M/mm3 Hgb 9.5 L (11.2-15.7) gm/dl Hct 33.7 L (34.1-44.9) % MCV 96.3 H (79.4-94.8) fl MCH 27.1 (25.6-32.2) pg MCHC 28.2 L (32.2-35.5) g/dl RDW Std Deviation 51.6 H (36.4-46.3) fL Plt Count 234 (182-369) K/mm3 MPV 10.8 (9.4-12.3) fl Neut % (Auto) 62.8 (34.0-71.1) % Lymph % (Auto) 22.6 (19.3-51.7) % [place] % (Auto) 11.9 (4.7-12.5) % Eos % (Auto) 2.4 (0.7-5.8) Baso % (Auto) 0.2 (0.1-1.2) % Neut # (Auto) 5.64 (1.56-6.13) K/mm3 Lymph # (Auto) 2.03 (1.18-3.74) K/mm3 [place] # (Auto) 1.07 H (0.24-0.36) K/mm3 Eos # (Auto) 0.22 (0.04-0.36) K/mm3 Baso # (Auto) 0.02 (0.01-0.08) K/mm3 Manual Slide Review Abnormal smear PT (9.7-12.0) SECONDS INR Sodium 139 (136-145) mEq/L Potassium 4.1 (3.5-5.1) mEq/L Chloride 99 (98-107) mEq/L Carbon Dioxide 35 H (21-32) mEq/L Anion Gap 9.1 (5-15) BUN 31 H (7-18) mg/dL Creatinine 1.5 H (0.55-1.02) mg/dL Est Cr Clr Drug Dosing 18.62 mL/min Estimated GFR (MDRD) 33 (>60) mL/min BUN/Creatinine Ratio 20.7 H (14-18) Glucose 112 (83-115) mg/dL Calcium 9.0 (8.5-10.1) mg/dL Magnesium 2.4 (1.8-2.4) mg/dl Total Bilirubin 0.3 (0.2-1.0) mg/dL AST 13 L (15-37) U/L ALT 13 L (14-59) U/L Alkaline Phosphatase 94 (46-116) U/L NT-Pro-B Natriuret Pep (0-450) pg/mL Total Protein 7.0 (6.4-8.2) g/dl Albumin 3.3 L (3.4-5.0) g/dl Globulin 3.7 gm/dL Albumin/Globulin Ratio 0.9 L (1-2) Crossmatch See Detail 05/31/19 05/31/19 Range/Units 06:00 06:00 WBC (3.98-10.04) K/mm3 RBC (3.98-5.22) M/mm3 Hgb (11.2-15.7) gm/dl Hct (34.1-44.9) % MCV (79.4-94.8) fl MCH (25.6-32.2) pg MCHC (32.2-35.5) g/dl RDW Std Deviation (36.4-46.3) fL Plt Count (182-369) K/mm3 MPV (9.4-12.3) fl Neut % (Auto) (34.0-71.1) % Lymph % (Auto) (19.3-51.7) % [place] % (Auto) (4.7-12.5) % Eos % (Auto) (0.7-5.8) Baso % (Auto) (0.1-1.2) % Neut # (Auto) (1.56-6.13) K/mm3 Lymph # (Auto) (1.18-3.74) K/mm3 [place] # (Auto) (0.24-0.36) K/mm3 Eos # (Auto) (0.04-0.36) K/mm3 Baso # (Auto) (0.01-0.08) K/mm3 Manual Slide Review PT 10.9 (9.7-12.0) SECONDS INR 1.00 Sodium (136-145) mEq/L Potassium (3.5-5.1) mEq/L Chloride (98-107) mEq/L Carbon Dioxide (21-32) mEq/L Anion Gap (5-15) BUN (7-18) mg/dL Creatinine (0.55-1.02) mg/dL Est Cr Clr Drug Dosing mL/min Estimated GFR (MDRD) (>60) mL/min BUN/Creatinine Ratio (14-18) Glucose (83-115) mg/dL Calcium (8.5-10.1) mg/dL Magnesium (1.8-2.4) mg/dl Total Bilirubin (0.2-1.0) mg/dL AST (15-37) U/L ALT (14-59) U/L Alkaline Phosphatase (46-116) U/L NT-Pro-B Natriuret Pep 6529 H (0-450) pg/mL Total Protein (6.4-8.2) g/dl Albumin (3.4-5.0) g/dl Globulin gm/dL Albumin/Globulin Ratio (1-2) Crossmatch Jaime Results Last 24 Hours: Microbiology 05/27/19 12:58 Aerobic Blood Culture - Preliminary Blood NO GROWTH AFTER 3 DAYS Anaerobic Blood Culture - Preliminary NO GROWTH AFTER 3 DAYS Med Orders - Current: Current Medications Acetaminophen (Tylenol) 650 mg PO Q4H PRN PRN Reason: Pain (Mild 1-3)/fever Albuterol (Proventil Neb Soln) 2.5 mg NEB Q2H PRN PRN Reason: Shortness Of Breath/wheezing Albuterol/Ipratropium (Duoneb 3.0-0.5 Mg/3 Ml) 3 ml NEB Q4H PRN PRN Reason: Shortness Of Breath/wheezing Last Admin: 05/28/19 19:52 Dose: 3 ml Folic Acid (Folic Acid) 1 mg PO DAILY [facility] Last Admin: 05/31/19 09:59 Dose: 1 mg Gabapentin (Neurontin) 100 mg PO BEDTIME [facility] Last Admin: 05/30/19 20:16 Dose: 100 mg Diltiazem HCl 100 mg/ Sodium (Chloride) 100 mls @ 5 mls/hr IV TITRATE [facility]; Protocol Last Titration: 05/30/19 09:00 Dose: 0 mg/hr, 0 mls/hr Isosorbide Mononitrate (Imdur) 30 mg PO DAILY [facility] Last Admin: 05/31/19 09:59 Dose: 30 mg Losartan Potassium (Cozaar) 50 mg PO DAILY [facility] Last Admin: 05/31/19 09:59 Dose: 50 mg Magnesium Oxide (Magnesium Oxide) 400 mg PO BID [facility] Last Admin: 05/31/19 09:59 Dose: 400 mg Metoprolol Tartrate (Lopressor) 50 mg PO Q12H [facility] Last Admin: 05/31/19 09:59 Dose: 50 mg Nitroglycerin (Nitrostat) 0.4 mg SL ASDIRECTED PRN PRN Reason: Chest Pain Ondansetron HCl (Zofran) 4 mg IVPUSH Q4H PRN PRN Reason: Nausea/Vomiting Last Admin: 05/29/19 23:52 Dose: 4 mg Pantoprazole Sodium (Protonix) 40 mg PO Q12H [facility] Last Admin: 05/31/19 09:59 Dose: 40 mg Simvastatin (Zocor) 40 mg PO BEDTIME [facility] Last Admin: 05/30/19 20:17 Dose: 40 mg Sodium Chloride (Saline Flush) 10 ml FLUSH ASDIRECTED PRN PRN Reason: Keep Vein Open Last Admin: 05/27/19 12:21 Dose: 10 ml Venlafaxine HCl (Effexor) 75 mg PO BID [facility] Last Admin: 05/31/19 09:59 Dose: 75 mg Discontinued Medications Atenolol (Tenormin) 50 mg PO BID KOMAL Atenolol (Tenormin) 50 mg PO DAILY [facility] Last Admin: 05/30/19 08:11 Dose: Not Given Diltiazem HCl (Cardizem) 10 mg IVPUSH ONETIME ONE Stop: 05/29/19 21:03 Last Admin: 05/29/19 21:47 Dose: Not Given Diltiazem HCl (Cardizem) 5 mg IVPUSH ONETIME ONE Stop: 05/29/19 22:02 Last Admin: 05/29/19 22:05 Dose: 5 mg Furosemide (Lasix) 40 mg IVPUSH NOW ONE Stop: 05/27/19 14:08 Last Admin: 05/27/19 14:28 Dose: 40 mg Furosemide (Lasix) 40 mg IVPUSH BIDDIURETIC [facility] Last Admin: 05/29/19 13:29 Dose: 40 mg Furosemide (Lasix) 20 mg PO ONETIME ONE Stop: 05/31/19 09:02 Last Admin: 05/31/19 10:00 Dose: 20 mg Ceftriaxone Sodium 2 gm/ (Sodium Chloride) 100 mls @ 200 mls/hr IV ONETIME ONE Stop: 05/27/19 14:13 Last Admin: 05/27/19 14:03 Dose: 200 mls/hr Sodium Chloride (Normal Saline) 250 mls @ 100 mls/hr IV ASDIRECTED [facility] Last Admin: 05/28/19 08:33 Dose: 100 mls/hr Potassium Chloride 10 meq/ (Premix) 100 mls @ 100 mls/hr IV Q1H [facility] Stop: 05/28/19 11:59 Last Admin: 05/28/19 13:10 Dose: 100 mls/hr Magnesium Sulfate 4 gm/ Premix 50 mls @ 12.5 mls/hr IV ONETIME ONE Stop: 05/28/19 11:53 Last Admin: 05/28/19 08:32 Dose: 12.5 mls/hr Sodium Chloride (Normal Saline) 500 mls @ 999 mls/hr IV ONETIME ONE Stop: 05/29/19 21:31 Last Admin: 05/29/19 21:19 Dose: 999 mls/hr Sodium Chloride (Normal Saline) Confirm Administered Dose 1,000 mls @ as directed .ROUTE .STK-MED ONE Stop: 05/29/19 21:07 Last Admin: 05/29/19 21:23 Dose: Not Given Sodium Chloride (Normal Saline) 1,000 mls @ 50 mls/hr IV ASDIRECTED [facility] Last Infusion: 05/29/19 22:00 Dose: 75 mls/hr Sodium Chloride (Normal Saline) 1,000 mls @ 30 mls/hr IV ASDIRECTED [facility] Last Admin: 05/30/19 22:56 Dose: 30 mls/hr Influenza Virus Vaccine (Pharmacy To Dose - Influenza Vaccine) 1 each IM ONETIME ONE Stop: 05/27/19 15:18 Magnesium Hydroxide (Milk Of Magnesia) 30 ml PO Q4H ONE Stop: 05/29/19 10:01 Last Admin: 05/29/19 10:50 Dose: 30 ml Ondansetron HCl (Zofran) Confirm Administered Dose 4 mg .ROUTE .STK-MED ONE Stop: 05/29/19 23:51 Last Admin: 05/29/19 23:57 Dose: Not Given Pantoprazole Sodium (Protonix Iv) 40 mg IVPUSH Q12H [facility] Last Admin: 05/28/19 06:25 Dose: 40 mg Pantoprazole Sodium (Protonix) 40 mg PO Q12H [facility] Last Admin: 05/28/19 11:03 Dose: 40 mg Potassium Chloride (Klor-Con M20) 40 meq PO ONETIME ONE Stop: 05/28/19 14:01 Last Admin: 05/28/19 13:19 Dose: 40 meq Potassium Chloride (Klor-Con M20) 20 meq PO ONETIME ONE Stop: 05/28/19 08:58 Last Admin: 05/28/19 09:10 Dose: 20 meq - Exam Quality Assessment: Supplemental Oxygen General: Alert, Oriented HEENT: Pupils Equal, Pupils Reactive, EOMI, Mucous Membr. Moist/[place] Neck: Supple Lungs: Clear to Auscultation, Normal Respiratory Effort Cardiovascular: Irregular Rhythm, Other (irregular rate) GI/Abdominal Exam: Normal Bowel Sounds, Soft, Non-Tender, No Organomegaly, No Distention, No Abnormal Bruit, No Mass, Pelvis Stable (Female) Exam: Normal External Exam, Normal Speculum Exam, Normal Bimanual Exam Back Exam: Normal Inspection, Full Range of Motion Extremities: Normal Inspection, Normal Range of Motion, Non-Tender, No Pedal Edema, Normal Capillary Refill Skin: Warm, Dry, Intact Neurological: No New Focal Deficit Psy/Mental Status: Alert, Normal Affect, Normal Mood Sepsis Event Note - Evaluation Sepsis Screening Result: No Definite Risk - Focused Exam Vital Signs: Vital Signs Temp Pulse Resp BP BP BP BP 05/31/19 09:59 114 H 118/102 H 05/31/19 08:00 97.6 F 20 121/79 05/31/19 03:50 97.6 F 18 116/89 05/31/19 00:00 97.5 F 18 120/66 Pulse Ox 05/31/19 09:59 05/31/19 08:00 96 05/31/19 03:50 94 L 05/31/19 00:00 94 L Date Exam was Performed: 05/31/19 Time Exam was Performed: 11:25 - Problem List & Annotations (1) CHF (congestive heart failure) SNOMED Code(s): 35035126 Code(s): I50.9 - HEART FAILURE, UNSPECIFIED Status: Acute Priority: High Current Visit: Yes Qualifiers: 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 no increased work of breathing. will give lasix 20 mg and door to door lead generation response. cont beta maria esther a nd monitor afib and rvr currently in 90s. (2) Atrial fibrillation with rapid ventricular response SNOMED Code(s): 817569436492685 Code(s): I48.91 - UNSPECIFIED ATRIAL FIBRILLATION Status: Acute Priority : Medium Current Visit: No Onset Date: 05/29/19 Annotation/Comment:: no conversion and likely will be rate controlled . no anticoag for now given rectal bleeding , will complete chads vasc. score. - Problem List Review Problem List Initiated/Reviewed/Updated: Yes - My Orders Last 24 Hours: My Active Orders 05/31/19 09:01 Admission Status [Patient Status] [ADT] Routine - Assessment Assessment:: Heart failure and Atrial fibrillation rate control still tenous and increasing beta maria esther nad starting lasix She is currently on fluid restrictions She is currently wearing oxygen. cont o2 until sats stable She is on droplet precautions due to exposure of someone with known positive COVID Discussed adding an NT BNP onto this mornings labs Discussed increasing dose of metoprolol if heart rate doesn't decrease after an hour of receiving medications Discussed doing a clock drawing test for memory/dementia/ and a formal screen . Looking at discharging to [facility] pending the quarantine parodical from the [facility]. anemia stable and no desire of patient and to have colonoscopy and will recheck hemmoccult . nose bleed this a.m. now controlled . monitor nt bnp and i/s and hgn - Plan Plan:: Assessment [id number]-year-old female with history of coronary artery disease with new onset CHF * Hemoglobin of 7.5-->9.0 (1 unit PRBC)-->9.1 * Admission troponin negative at 0.025 * Admission proBNP 7487 * Chest x-ray with pleural effusions and atelectasis * No fever, white count, lactic acidosis or anion gap * On atenolol and isosorbide mononitrate * Fluid restriction to 1500 mL/day * Strict I's and O's and daily weights * Echocardiogram obtained 05/28/19 * 1. LVEF, by visual estimation, is 55-60% * 2. Mild concentric left ventricular hypertrophy * 3. Pseudonormal (Grade 2) pattern of LV diastolic filling * 4. Normal right ventricular systolic function * 5. There is moderate aortic valve sclerosis without stenosis * 6. Mild aortic valve regurgitation * 7. Mild to moderate mitral valve regurgiation * 8. Moderate tricuspid valve regurgitation * 9. The right ventricular systolic pressure is moderately elevated at 57.0 mmHg * 10. No regional wall motion abnormalities. Anemia, likely blood loss * History of GI bleed * History of anemia, progressive, with pancytopenia (currently normal white count and platelets) * Guaiac positive stool in ED * Confirms bright red blood per rectum, last episode 1 week ago * On full dose aspirin - hold * Pantoprazole 40 mg p.o. BID * No hematochezia or melena as inpatient * Hgb trend: 7.5 (given 1 unit) 9.0-->9.1-->8.9 Paroxysmal atrial fibrillation * Currently a fib * Switch to metoprolol tartrate 50 mg bid History of seronegative arthritis, colitis, depression, generalized weakness, polymyalgia rheumatica Plan * Admit to medical floor on telemetry * FiO2 to keep SpO2 > 90% * Hold lasix for now. Likely will need cautious diuresis * Pantoprazole 40 mg IV twice daily * Follow hemoglobin * Switch atenolol to metoprolol tartrate 50 mg BID for CHF exacerbation. She would likely benefit to switch over to metoprolol succinate when stable * Fluid restriction to 1500 mL/day * Strict I's and O's and daily weights * Have patient follow with surgery as outpatient after recovery from CHF for GI bleed. * VTE prophylaxis with SCDs. Anticoagulation contraindicated because of GI bleed * CODE STATUS: DNR/DNI Progress note 05/31/2019 Heart failure and Atrial fibrillation She is currently on fluid restrictions and discussed the possibility of going on Lasix She is currently wearing oxygen She is on droplet precautions due to exposure of someone with known positive COVID Discussed adding an NT BNP onto this mornings labs Discussed increasing dose of metoprolol if heart rate doesn't decrease after an hour of receiving medications Discussed doing a clock drawing test for memory/dementia Looking at discharging to [facility] pending the quarantine parodical from the [facility]
[2019-05-31] MEDS ORDERED: Metoprolol Tartrate 50 MG Tab PO ONE (11:54)
[2019-05-31] MEDS: Simvastatin 40 MG Tab PO SCH (21:00)
[2019-05-31] MEDS: Gabapentin 100 MG Cap PO SCH (21:00)
[2019-06-01] MEDS: Acetaminophen 325 MG Tab PO PRN (00:10)
[2019-06-01] MEDS: Isosorbide Mononitrate 30 MG Tab.ER PO SCH (08:31)
[2019-06-01] MEDS: Metoprolol Tartrate 50 MG Tab PO SCH ×2 (08:32→20:08)
[2019-06-01] MEDS: Pantoprazole 40 MG Tab.CR PO SCH ×2 (08:32→20:08)
[2019-06-01] MEDS: Folic Acid 1 MG Tab PO SCH (08:32)
[2019-06-01] MEDS: Losartan 25 MG Tab PO SCH (08:33)
[2019-06-01] MEDS: Venlafaxine 37.5 MG Tab PO SCH ×2 (08:33→20:07)
[2019-06-01] MEDS: Magnesium Oxide 400 MG Tab PO SCH (08:33)
[2019-06-01] MEDS: Ondansetron 4 MG/2 ML SDV IVPUSH PRN (09:53)
[2019-06-01] MEDS ORDERED: Diatrizoate Meglumine/Diatrizoate Sodium 37% 120 ML Bottle PO ONE (11:15)
--- NOTE | 2019-06-01 11:57 | CT ---
CT abdomen and pelvis Technique: Multiple axial sections were obtained from above the dome of the diaphragm inferiorly through the pubic symphysis. Oral contrast has been given. No intravenous contrast was utilized. Comparison: No prior abdominal imaging is available. Findings: Small right-sided pleural effusion and minimal left-sided pleural effusion is seen. Heart is enlarged. Cyst is noted within the left lobe of the liver measuring 2.5 cm. No additional abnormality is seen within the liver. Spleen appears within normal limits. Adrenal glands show no nodule. Pancreas shows no discrete abnormality. Aorta shows atherosclerotic change without aneurysm. Atherosclerotic change continues into the iliac vessels. No retroperitoneal adenopathy or mesenteric abnormalities are seen. No pelvic mass or adenopathy is seen. No free fluid or inflammatory change is seen. No bowel dilatation is appreciated. Appendix not visualized with certainty. Diffuse degenerative change is noted within the spine and within the sacroiliac joints. Bony structures are osteopenic. Scoliosis is noted within the spine. Previous surgery is noted at L4-5 with posterior laminectomy and trans-pedicle screws. Impression: 1. Small bilateral pleural effusions which is slightly larger on the right side. 2. Liver cyst. 3. Degenerative change within the spine with previous lumbar spine surgery. 4. Nothing acute is appreciated on CT study of the abdomen and pelvis. Diagnostic code #2 This report was dictated in MDT
--- NOTE | 2019-06-01 12:26 | PCM.PN ---
- General Info Date of Service: 06/01/19 Admission Dx/Problem (Free Text): Admission Diagnosis/Problem Admission Diagnosis/Problem Heart failure 05/31/2019 Heart failure and Atrial fibrillation She is currently on fluid restrictions and discussed the possibility of going on Lasix She is currently wearing oxygen She is on droplet precautions due to exposure of someone with known positive COVID Discussed adding an NT BNP onto this mornings labs Discussed increasing dose of metoprolol if heart rate doesn't decrease after an hour of receiving medications Discussed doing a clock drawing test for memory/dementia Looking at discharging to [facility] pending the quarantine parodical from the state 06/01/2019 She did well through the night She didn't want to eat breakfast this morning because she wanted to sleep in Her last BM was 2 days ago She is wearing glasses She is wearing O2 She had some nausea this morning when she was up moving around and going to the bathroom but did not vomit Denies any tenderness while palpitating abdomen Denies any dizziness Denies any chest pain She had an EKG done Discussed an abdominal CT Discussed getting labs done She is having a meeting with family today about placement after hospital since exposure to COVID has made it difficult for her to return to [facility] Subjective Update: She did well through the night She didn't want to eat breakfast this morning because she wanted to sleep in Her last BM was 2 days ago She is wearing glasses She is wearing O2 She had some nausea this morning when she was up moving around and going to the bathroom but did not vomit Denies any tenderness while palpitating abdomen Denies any dizziness Denies any chest pain She had an EKG done Discussed an abdominal CT Discussed getting labs done She is having a meeting with family today about placement after hospital since exposure to COVID has made it difficult for her to return to [facility] Functional Status: Reports: Pain Controlled - Review of Systems General: Reports: No Symptoms HEENT: Reports: Glasses Pulmonary: Reports: No Symptoms Cardiovascular: Reports: No Symptoms Gastrointestinal: Reports: Nausea Genitourinary: Reports: No Symptoms Musculoskeletal: Reports: No Symptoms Skin: Reports: No Symptoms Neurological: Reports: No Symptoms Psychiatric: Reports: No Symptoms - Patient Data Vitals - Most Recent: Last Vital Signs Temp 97.5 F 06/01/19 08:30 Pulse 126 H 06/01/19 08:32 Resp 20 06/01/19 08:30 BP 111/54 L 06/01/19 08:33 Pulse Ox 98 06/01/19 08:30 Weight - Most Recent: 68.039 kg I&O - Last 24 Hours: Intake & Output 05/31/19 06/01/19 06/01/19 22:59 06:59 14:59 Intake Total 60 420 Output Total 150 Balance 60 270 Lab Results Last 24 Hours: Laboratory Results - last 24 hr 06/01/19 Range/Units 10:02 WBC 8.02 (3.98-10.04) K/mm3 RBC 3.22 L (3.98-5.22) M/mm3 Hgb 8.8 L (11.2-15.7) gm/dl Hct 30.9 L (34.1-44.9) % MCV 96.0 H (79.4-94.8) fl MCH 27.3 (25.6-32.2) pg MCHC 28.5 L (32.2-35.5) g/dl RDW Std Deviation 51.4 H (36.4-46.3) fL Plt Count 231 (182-369) K/mm3 MPV 10.8 (9.4-12.3) fl Neut % (Auto) 64.1 (34.0-71.1) % Lymph % (Auto) 22.3 (19.3-51.7) % [place] % (Auto) 10.6 (4.7-12.5) % Eos % (Auto) 2.5 (0.7-5.8) Baso % (Auto) 0.4 (0.1-1.2) % Neut # (Auto) 5.14 (1.56-6.13) K/mm3 Lymph # (Auto) 1.79 (1.18-3.74) K/mm3 [place] # (Auto) 0.85 H (0.24-0.36) K/mm3 Eos # (Auto) 0.20 (0.04-0.36) K/mm3 Baso # (Auto) 0.03 (0.01-0.08) K/mm3 Manual Slide Review Abnormal smear Jaime Results Last 24 Hours: Microbiology 05/27/19 12:58 Aerobic Blood Culture - Preliminary Blood NO GROWTH AFTER 4 DAYS Anaerobic Blood Culture - Preliminary NO GROWTH AFTER 4 DAYS Med Orders - Current: Current Medications Acetaminophen (Tylenol) 650 mg PO Q4H PRN PRN Reason: Pain (Mild 1-3)/fever Last Admin: 06/01/19 00:10 Dose: 650 mg Albuterol (Proventil Neb Soln) 2.5 mg NEB Q2H PRN PRN Reason: Shortness Of Breath/wheezing Albuterol/Ipratropium (Duoneb 3.0-0.5 Mg/3 Ml) 3 ml NEB Q4H PRN PRN Reason: Shortness Of Breath/wheezing Last Admin: 05/28/19 19:52 Dose: 3 ml Folic Acid (Folic Acid) 1 mg PO DAILY [facility] Last Admin: 06/01/19 08:32 Dose: 1 mg Gabapentin (Neurontin) 100 mg PO BEDTIME [facility] Last Admin: 05/31/19 21:00 Dose: 100 mg Isosorbide Mononitrate (Imdur) 30 mg PO DAILY [facility] Last Admin: 06/01/19 08:31 Dose: 30 mg Losartan Potassium (Cozaar) 50 mg PO DAILY [facility] Last Admin: 06/01/19 08:33 Dose: 50 mg Magnesium Oxide (Magnesium Oxide) 400 mg PO BID [facility] Last Admin: 06/01/19 08:33 Dose: 400 mg Metoprolol Tartrate (Lopressor) 50 mg PO Q12H [facility] Last Admin: 06/01/19 08:32 Dose: 50 mg Nitroglycerin (Nitrostat) 0.4 mg SL ASDIRECTED PRN PRN Reason: Chest Pain Ondansetron HCl (Zofran) 4 mg IVPUSH Q4H PRN PRN Reason: Nausea/Vomiting Last Admin: 06/01/19 09:53 Dose: 4 mg Pantoprazole Sodium (Protonix) 40 mg PO Q12H [facility] Last Admin: 06/01/19 08:32 Dose: 40 mg Simvastatin (Zocor) 40 mg PO BEDTIME [facility] Last Admin: 05/31/19 21:00 Dose: 40 mg Sodium Chloride (Saline Flush) 10 ml FLUSH ASDIRECTED PRN PRN Reason: Keep Vein Open Last Admin: 05/27/19 12:21 Dose: 10 ml Venlafaxine HCl (Effexor) 75 mg PO BID [facility] Last Admin: 06/01/19 08:33 Dose: 75 mg Discontinued Medications Atenolol (Tenormin) 50 mg PO BID [facility] Atenolol (Tenormin) 50 mg PO DAILY [facility] Last Admin: 05/30/19 08:11 Dose: Not Given Diltiazem HCl (Cardizem) 10 mg IVPUSH ONETIME ONE Stop: 05/29/19 21:03 Last Admin: 05/29/19 21:47 Dose: Not Given Diltiazem HCl (Cardizem) 5 mg IVPUSH ONETIME ONE Stop: 05/29/19 22:02 Last Admin: 05/29/19 22:05 Dose: 5 mg Furosemide (Lasix) 40 mg IVPUSH NOW ONE Stop: 05/27/19 14:08 Last Admin: 05/27/19 14:28 Dose: 40 mg Furosemide (Lasix) 40 mg IVPUSH BIDDIURETIC [facility] Last Admin: 05/29/19 13:29 Dose: 40 mg Furosemide (Lasix) 20 mg PO ONETIME ONE Stop: 05/31/19 09:02 Last Admin: 05/31/19 10:00 Dose: 20 mg Ceftriaxone Sodium 2 gm/ (Sodium Chloride) 100 mls @ 200 mls/hr IV ONETIME ONE Stop: 05/27/19 14:13 Last Admin: 05/27/19 14:03 Dose: 200 mls/hr Sodium Chloride (Normal Saline) 250 mls @ 100 mls/hr IV ASDIRECTED [facility] Last Admin: 05/28/19 08:33 Dose: 100 mls/hr Potassium Chloride 10 meq/ (Premix) 100 mls @ 100 mls/hr IV Q1H [facility] Stop: 05/28/19 11:59 Last Admin: 05/28/19 13:10 Dose: 100 mls/hr Magnesium Sulfate 4 gm/ Premix 50 mls @ 12.5 mls/hr IV ONETIME ONE Stop: 05/28/19 11:53 Last Admin: 05/28/19 08:32 Dose: 12.5 mls/hr Sodium Chloride (Normal Saline) 500 mls @ 999 mls/hr IV ONETIME ONE Stop: 05/29/19 21:31 Last Admin: 05/29/19 21:19 Dose: 999 mls/hr Sodium Chloride (Normal Saline) Confirm Administered Dose 1,000 mls @ as directed .ROUTE .STK-MED ONE Stop: 05/29/19 21:07 Last Admin: 05/29/19 21:23 Dose: Not Given Diltiazem HCl 100 mg/ Sodium (Chloride) 100 mls @ 5 mls/hr IV TITRATE KOMAL; Protocol Last Titration: 05/30/19 09:00 Dose: 0 mg/hr, 0 mls/hr Sodium Chloride (Normal Saline) 1,000 mls @ 50 mls/hr IV ASDIRECTED [facility] Last Infusion: 05/29/19 22:00 Dose: 75 mls/hr Sodium Chloride (Normal Saline) 1,000 mls @ 30 mls/hr IV ASDIRECTED [facility] Last Admin: 05/30/19 22:56 Dose: 30 mls/hr Influenza Virus Vaccine (Pharmacy To Dose - Influenza Vaccine) 1 each IM ONETIME ONE Stop: 05/27/19 15:18 Magnesium Hydroxide (Milk Of Magnesia) 30 ml PO Q4H ONE Stop: 05/29/19 10:01 Last Admin: 05/29/19 10:50 Dose: 30 ml Metoprolol Tartrate (Lopressor) 50 mg PO ONETIME ONE Stop: 05/31/19 11:55 Last Admin: 05/31/19 12:19 Dose: 50 mg Ondansetron HCl (Zofran) Confirm Administered Dose 4 mg .ROUTE .STK-MED ONE Stop: 05/29/19 23:51 Last Admin: 05/29/19 23:57 Dose: Not Given Pantoprazole Sodium (Protonix Iv) 40 mg IVPUSH Q12H [facility] Last Admin: 05/28/19 06:25 Dose: 40 mg Pantoprazole Sodium (Protonix) 40 mg PO Q12H [facility] Last Admin: 05/28/19 11:03 Dose: 40 mg Potassium Chloride (Klor-Con M20) 40 meq PO ONETIME ONE Stop: 05/28/19 14:01 Last Admin: 05/28/19 13:19 Dose: 40 meq Potassium Chloride (Klor-Con M20) 20 meq PO ONETIME ONE Stop: 05/28/19 08:58 Last Admin: 05/28/19 09:10 Dose: 20 meq - Exam Quality Assessment: Supplemental Oxygen General: Alert, Oriented HEENT: Pupils Equal, Pupils Reactive, EOMI, Mucous Membr. Moist/[place] Neck: Supple Lungs: Clear to Auscultation, Normal Respiratory Effort Cardiovascular: Irregular Rhythm (irregular rate) GI/Abdominal Exam: Normal Bowel Sounds, Soft, Non-Tender, No Organomegaly, No Distention, No Abnormal Bruit, No Mass, Pelvis Stable (Female) Exam: Normal External Exam, Normal Speculum Exam, Normal Bimanual Exam Back Exam: Normal Inspection, Full Range of Motion Extremities: Normal Inspection, Normal Range of Motion, Non-Tender, No Pedal Edema, Normal Capillary Refill Skin: Warm, Dry, Intact Wound/Incisions: Healing Well Neurological: No New Focal Deficit Psy/Mental Status: Alert, Normal Affect, Normal Mood Sepsis Event Note - Evaluation Sepsis Screening Result: No Definite Risk - Focused Exam Vital Signs: Vital Signs Temp Temp Pulse Resp BP BP Pulse Ox 06/01/19 08:33 111/54 L 06/01/19 08:32 126 H 111/54 L 06/01/19 08:31 111/54 L 06/01/19 08:30 97.5 F 126 H 20 111/54 L 98 06/01/19 08:15 06/01/19 04:00 97.8 F 16 103/76 94 L 05/31/19 23:00 97.3 F 76 18 108/82 94 L Pulse Ox 06/01/19 08:33 06/01/19 08:32 06/01/19 08:31 06/01/19 08:30 06/01/19 08:15 93 L 06/01/19 04:00 05/31/19 23:00 Date Exam was Performed: 06/01/19 Time Exam was Performed: 12:20 - Problem List & Annotations (1) CHF (congestive heart failure) SNOMED Code(s): 46358450 Code(s): I50.9 - HEART FAILURE, UNSPECIFIED Status: Acute Priority: High Current Visit: Yes Qualifiers: 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 no increased work of breathing. will give lasix 20 mg and health communications specialist response. cont beta maria esther a nd monitor afib and rvr currently in 90s. (2) Atrial fibrillation with rapid ventricular response SNOMED Code(s): 748192938341340 Code(s): I48.91 - UNSPECIFIED ATRIAL FIBRILLATION Status: Acute Priority : Medium Current Visit: No Onset Date: 05/29/19 Annotation/Comment:: no conversion and likely will be rate controlled . no anticoag for now given rectal bleeding , will complete chads vasc. score. (3) Dementia SNOMED Code(s): 67427918 Code(s): F03.90 - UNSPECIFIED DEMENTIA WITHOUT BEHAVIORAL DISTURBANCE Status: Acute Current Visit: Yes (4) CHF (congestive heart failure), NYHA class II SNOMED Code(s): 730260772, 509305954 Code(s): I50.9 - HEART FAILURE, UNSPECIFIED Status: Acute Priority: High Current Visit: Yes Onset Date: 05/30/19 Qualifiers: Congestive heart failure type: combined Congestive heart failure chronicity : acute on chronic Qualified Code(s): I50.43 - Acute on chronic combined systolic (congestive) and diastolic (congestive) heart failure (5) Mitral and aortic valve regurgitation SNOMED Code(s): 737120552 Code(s): I08.0 - RHEUMATIC DISORDERS OF BOTH MITRAL AND AORTIC VALVES Status: Acute Priority: Medium Current Visit: Yes Onset Date: 05/30/19 (6) GI bleeding SNOMED Code(s): 77264998 Code(s): K92.2 - GASTROINTESTINAL HEMORRHAGE, UNSPECIFIED Status: Acute Priority: High Current Visit: Yes Onset Date: 05/29/19 Qualifiers: GI bleed type/associated pathology: unspecified gastrointestinal hemorrhage type Qualified Code(s): K92.2 - Gastrointestinal hemorrhage, unspecified Annotation/Comment:: on anticoagulation for afib/ hgn 6 (7) Anticoagulation adequate SNOMED Code(s): 350756744, 194739788 Code(s): Z79.01 - USP (CURRENT) USE OF ANTICOAGULANTS Status: Acute Priority: Medium Current Visit: Yes Onset Date: 05/30/19 (8) CAD (coronary artery disease) SNOMED Code(s): 30682593 Code(s): I25.10 - ATHSCL HEART DISEASE OF [place] CORONARY ARTERY W/O ANG PCTRS Status: Acute Priority: Medium Current Visit: Yes Onset Date: Qualifiers: Coronary Disease-Associated Artery/Lesion type: [place] artery Annotation/Comment:: anemia and chf with abnormal chest xray on admission / tranfused one unit prbcs because extent of cad unknown and hgn 7 - Problem List Review Problem List Initiated/Reviewed/Updated: Yes - My Orders Last 24 Hours: My Active Orders 05/31/19 11:53 Antiembolic Devices [RC] PER UNIT ROUTINE NADEEN Hose [Antiembolic Hose] [OM.PC] Routine 05/31/19 14:16 Consult to Speech Language Pathology [HEALTH UNDERWRITER Evaluation and Treatment] [CONS] Routine 06/01/19 14:30 TROPONIN I [CHEM] Routine - Assessment Assessment:: 05/31/2019 Heart failure and Atrial fibrillation rate control still tenous and increasing beta maria esther nad starting lasix She is currently on fluid restrictions She is currently wearing oxygen. cont o2 until sats stable She is on droplet precautions due to exposure of someone with known positive COVID Discussed adding an NT BNP onto this mornings labs Discussed increasing dose of metoprolol if heart rate doesn't decrease after an hour of receiving medications Discussed doing a clock drawing test for memory/dementia/ and a formal screen . Looking at discharging to [facility] pending the quarantine parodical from the [facility]. anemia stable and no desire of patient and to have colonoscopy and will recheck hemmoccult . nose bleed this a.m. now controlled . monitor nt bnp and i/s and hgn 06/01/2019 She did well through the night She didn't want to eat breakfast this morning because she wanted to sleep in Her last BM was 2 days ago She is wearing glasses She is wearing O2 She had some nausea this morning when she was up moving around and going to the bathroom but did not vomit Denies any tenderness while palpitating abdomen Denies any dizziness Denies any chest pain She had an EKG done Discussed an abdominal CT Discussed getting labs done She is having a meeting with family today about placement after hospital since exposure to COVID has made it difficult for her to return to [facility] - Plan Plan:: Assessment [id number]os[age]-year-old female with history of coronary artery disease with new onset CHF * Hemoglobin of 7.5-->9.0 (1 unit PRBC)-->9.1 * Admission troponin negative at 0.025 * Admission proBNP 7487 * Chest x-ray with pleural effusions and atelectasis * No fever, white count, lactic acidosis or anion gap * On atenolol and isosorbide mononitrate * Fluid restriction to 1500 mL/day * Strict I's and O's and daily weights * Echocardiogram obtained 05/28/19 * 1. LVEF, by visual estimation, is 55-60% * 2. Mild concentric left ventricular hypertrophy * 3. Pseudonormal (Grade 2) pattern of LV diastolic filling * 4. Normal right ventricular systolic function * 5. There is moderate aortic valve sclerosis without stenosis * 6. Mild aortic valve regurgitation * 7. Mild to moderate mitral valve regurgiation * 8. Moderate tricuspid valve regurgitation * 9. The right ventricular systolic pressure is moderately elevated at 57.0 mmHg * 10. No regional wall motion abnormalities. Anemia, likely blood loss * History of GI bleed * History of anemia, progressive, with pancytopenia (currently normal white count and platelets) * Guaiac positive stool in ED * Confirms bright red blood per rectum, last episode 1 week ago * On full dose aspirin - hold * Pantoprazole 40 mg p.o. BID * No hematochezia or melena as inpatient * Hgb trend: 7.5 (given 1 unit) 9.0-->9.1-->8.9 Paroxysmal atrial fibrillation * Currently a fib * Switch to metoprolol tartrate 50 mg bid History of seronegative arthritis, colitis, depression, generalized weakness, polymyalgia rheumatica Plan * Admit to medical floor on telemetry * FiO2 to keep SpO2 > 90% * Hold lasix for now. Likely will need cautious diuresis * Pantoprazole 40 mg IV twice daily * Follow hemoglobin * Switch atenolol to metoprolol tartrate 50 mg BID for CHF exacerbation. She would likely benefit to switch over to metoprolol succinate when stable * Fluid restriction to 1500 mL/day * Strict I's and O's and daily weights * Have patient follow with surgery as outpatient after recovery from CHF for GI bleed. * VTE prophylaxis with SCDs. Anticoagulation contraindicated because of GI bleed * CODE STATUS: DNR/DNI 05/31/2019 Heart failure and Atrial fibrillation She is currently on fluid restrictions and discussed the possibility of going on Lasix She is currently wearing oxygen She is on droplet precautions due to exposure of someone with known positive COVID Discussed adding an NT BNP onto this mornings labs Discussed increasing dose of metoprolol if heart rate doesn't decrease after an hour of receiving medications Discussed doing a clock drawing test for memory/dementia Looking at discharging to [facility] pending the quarantine parodical from the state 06/01/2019 She did well through the night She didn't want to eat breakfast this morning because she wanted to sleep in Her last BM was 2 days ago She is wearing glasses She is wearing O2 She had some nausea this morning when she was up moving around and going to the bathroom but did not vomit Denies any tenderness while palpitating abdomen Denies any dizziness Denies any chest pain She had an EKG done Discussed an abdominal CT Discussed getting labs done She is having a meeting with family today about placement after hospital since exposure to COVID has made it difficult for her to return to [facility]
[2019-06-01] MEDS ORDERED: Sodium Chloride 0.9% 500 ML IV ONE (13:06)
[2019-06-01] MEDS ORDERED: Furosemide 40 MG/4 ML VIAL IVPUSH ONE (16:00)
[2019-06-01] MEDS: Aspirin 81 MG Tab.EC PO SCH (19:28)
[2019-06-01] MEDS: Simvastatin 40 MG Tab PO SCH (20:08)
[2019-06-01] MEDS: Gabapentin 100 MG Cap PO SCH (20:08)
[2019-06-02] MEDS: Metoprolol Tartrate 50 MG Tab PO SCH ×4 (01:52→20:56)
[2019-06-02] MEDS: Folic Acid 1 MG Tab PO SCH (08:13)
[2019-06-02] MEDS: Losartan 25 MG Tab PO SCH (08:13)
[2019-06-02] MEDS: Isosorbide Mononitrate 30 MG Tab.ER PO SCH (08:13)
[2019-06-02] MEDS: Venlafaxine 37.5 MG Tab PO SCH ×2 (08:14→20:57)
[2019-06-02] MEDS: Pantoprazole 40 MG Tab.CR PO SCH ×2 (08:14→20:57)
[2019-06-02] MEDS ORDERED: Sodium Chloride 0.65% Nasal Spray 45 ML Bottle NAS PRN (09:25)
[2019-06-02] MEDS: Aspirin 81 MG Tab.EC PO SCH (09:42)
--- NOTE | 2019-06-02 11:36 | PCM.PN ---
- General Info Date of Service: 06/02/19 Admission Dx/Problem (Free Text): Admission Diagnosis/Problem Admission Diagnosis/Problem Heart failure 05/31/2019 Heart failure and Atrial fibrillation She is currently on fluid restrictions and discussed the possibility of going on Lasix She is currently wearing oxygen She is on droplet precautions due to exposure of someone with known positive COVID Discussed adding an NT BNP onto this mornings labs Discussed increasing dose of metoprolol if heart rate doesn't decrease after an hour of receiving medications Discussed doing a clock drawing test for memory/dementia Looking at discharging to [facility] pending the quarantine parodical from the state 06/01/2019 She did well through the night She didn't want to eat breakfast this morning because she wanted to sleep in Her last BM was 2 days ago She is wearing glasses She is wearing O2 She had some nausea this morning when she was up moving around and going to the bathroom but did not vomit Denies any tenderness while palpitating abdomen Denies any dizziness Denies any chest pain She had an EKG done Discussed an abdominal CT Discussed getting labs done She is having a meeting with family today about placement after hospital since exposure to COVID has made it difficult for her to return to [facility] 06/02/2019 She did well through the night. SHE HAS NO CHEST PAIN/ARRYTHMIA OTHER THAN AFIB AND RVR. INCREASED BETA MARIA ESTHER AND DOING WELL. SERIAL TROPONINS ALL MILDLY ELAVATED .17-.32 AND BNP REPEATED AND PENDING. TRANSFUSED 1 UNIT OF PRBCS AND GIVEN LASIX AND HEART RATE 80S AND B.P 120-130 THIS AM. COG EVAL SHOWS MODERATE GENERALIZED IMPAIRMENT AND STARTED ARICEPT IN LOW DOSE TONIGHT She had a shower this morning She is wearing glasses She is wearing O2 at 2L and discussed weaning her down so she can be possibly discharged without oxygen if she is stable States that her appetite is good but she doesn't like the food here Denies any tenderness while palpitating abdomen Denies any dizziness Denies any chest pain She is having a meeting with family yesterday about placement after hospital since exposure to COVID has made it difficult for her to return to [facility] and they are going to try and have her admitted into one of the nursing homes Subjective Update: She did well through the night She had a shower this morning She is wearing glasses She is wearing O2 at 2L and discussed weaning her down so she can be possibly discharged without oxygen if she is stable States that her appetite is good but she doesn't like the food here Denies any tenderness while palpitating abdomen Denies any dizziness Denies any chest pain She is having a meeting with family yesterday about placement after hospital since exposure to COVID has made it difficult for her to return to [facility] and they are going to try and have her admitted into one of the nursing homes Functional Status: Reports: Pain Controlled - Review of Systems General: Reports: No Symptoms HEENT: Reports: No Symptoms, Glasses Pulmonary: Reports: No Symptoms Cardiovascular: Reports: No Symptoms Gastrointestinal: Reports: No Symptoms Genitourinary: Reports: No Symptoms Musculoskeletal: Reports: No Symptoms Skin: Reports: No Symptoms Neurological: Reports: No Symptoms Psychiatric: Reports: No Symptoms - Patient Data Vitals - Most Recent: Last Vital Signs Temp 97.5 F 06/02/19 08:12 Pulse 112 H 06/02/19 08:15 Resp 16 06/02/19 08:12 BP 125/96 H 06/02/19 08:15 Pulse Ox 93 L 06/02/19 08:12 Weight - Most Recent: 68.084 kg I&O - Last 24 Hours: Intake & Output 06/01/19 06/02/19 06/02/19 22:59 06:59 14:59 Intake Total 940 300 Output Total 250 Balance 940 50 Lab Results Last 24 Hours: Laboratory Results - last 24 hr 05/27/19 06/01/19 06/01/19 Range/Units 12:58 10:02 14:25 WBC (3.98-10.04) K/mm3 RBC (3.98-5.22) M/mm3 Hgb (11.2-15.7) gm/dl Hct (34.1-44.9) % MCV (79.4-94.8) fl MCH (25.6-32.2) pg MCHC (32.2-35.5) g/dl RDW Std Deviation (36.4-46.3) fL Plt Count (182-369) K/mm3 MPV (9.4-12.3) fl Neut % (Auto) (34.0-71.1) % Lymph % (Auto) (19.3-51.7) % Maury % (Auto) (4.7-12.5) % Eos % (Auto) (0.7-5.8) Baso % (Auto) (0.1-1.2) % Neut # (Auto) (1.56-6.13) K/mm3 Lymph # (Auto) (1.18-3.74) K/mm3 Maury # (Auto) (0.24-0.36) K/mm3 Eos # (Auto) (0.04-0.36) K/mm3 Baso # (Auto) (0.01-0.08) K/mm3 Manual Slide Review Sodium (136-145) mEq/L Potassium (3.5-5.1) mEq/L Chloride (98-107) mEq/L Carbon Dioxide (21-32) mEq/L Anion Gap (5-15) BUN (7-18) mg/dL Creatinine (0.55-1.02) mg/dL Est Cr Clr Drug Dosing mL/min Estimated GFR (MDRD) (>60) mL/min BUN/Creatinine Ratio (14-18) Glucose (83-115) mg/dL Calcium (8.5-10.1) mg/dL Magnesium (1.8-2.4) mg/dl Troponin I 0.343 H* (0.00-0.056) ng/mL Blood Type O POSITIVE Gel Antibody Screen Negative Crossmatch See Detail See Detail 06/01/19 06/02/19 06/02/19 Range/Units 18:28 05:41 05:41 WBC 7.70 (3.98-10.04) K/mm3 RBC 3.81 L (3.98-5.22) M/mm3 Hgb 10.5 L D (11.2-15.7) gm/dl Hct 36.0 (34.1-44.9) % MCV 94.5 (79.4-94.8) fl MCH 27.6 (25.6-32.2) pg MCHC 29.2 L (32.2-35.5) g/dl RDW Std Deviation 53.3 H (36.4-46.3) fL Plt Count 214 (182-369) K/mm3 MPV 11.4 (9.4-12.3) fl Neut % (Auto) 72.0 H (34.0-71.1) % Lymph % (Auto) 16.5 L (19.3-51.7) % Maury % (Auto) 9.1 (4.7-12.5) % Eos % (Auto) 1.9 (0.7-5.8) Baso % (Auto) 0.4 (0.1-1.2) % Neut # (Auto) 5.54 (1.56-6.13) K/mm3 Lymph # (Auto) 1.27 (1.18-3.74) K/mm3 Maury # (Auto) 0.70 H (0.24-0.36) K/mm3 Eos # (Auto) 0.15 (0.04-0.36) K/mm3 Baso # (Auto) 0.03 (0.01-0.08) K/mm3 Manual Slide Review Abnormal smear Sodium 140 (136-145) mEq/L Potassium 4.4 (3.5-5.1) mEq/L Chloride 99 (98-107) mEq/L Carbon Dioxide 35 H (21-32) mEq/L Anion Gap 10.4 (5-15) BUN 40 H (7-18) mg/dL Creatinine 1.7 H (0.55-1.02) mg/dL Est Cr Clr Drug Dosing 16.43 mL/min Estimated GFR (MDRD) 28 (>60) mL/min BUN/Creatinine Ratio 23.5 H (14-18) Glucose 112 (83-115) mg/dL Calcium 9.3 (8.5-10.1) mg/dL Magnesium 2.3 (1.8-2.4) mg/dl Troponin I 0.342 H* 0.175 H* (0.00-0.056) ng/mL Blood Type Gel Antibody Screen Crossmatch Jaime Results Last 24 Hours: Microbiology 06/01/19 19:20 Stool Occult Blood (JAIME) - Final Stool / Feces 05/27/19 12:58 Aerobic Blood Culture - Preliminary Blood NO GROWTH AFTER 5 DAYS Anaerobic Blood Culture - Preliminary NO GROWTH AFTER 5 DAYS Med Orders - Current: Current Medications Acetaminophen (Tylenol) 650 mg PO Q4H PRN PRN Reason: Pain (Mild 1-3)/fever Last Admin: 06/01/19 00:10 Dose: 650 mg Albuterol (Proventil Neb Soln) 2.5 mg NEB Q2H PRN PRN Reason: Shortness Of Breath/wheezing Albuterol/Ipratropium (Duoneb 3.0-0.5 Mg/3 Ml) 3 ml NEB Q4H PRN PRN Reason: Shortness Of Breath/wheezing Last Admin: 05/28/19 19:52 Dose: 3 ml Aspirin (Halfprin) 81 mg PO DAILY [facility] Last Admin: 06/02/19 09:42 Dose: 81 mg Folic Acid (Folic Acid) 1 mg PO DAILY [facility] Last Admin: 06/02/19 08:13 Dose: 1 mg Gabapentin (Neurontin) 100 mg PO BEDTIME [facility] Last Admin: 06/01/19 20:08 Dose: 100 mg Isosorbide Mononitrate (Imdur) 30 mg PO DAILY [facility] Last Admin: 06/02/19 08:13 Dose: 30 mg Losartan Potassium (Cozaar) 50 mg PO DAILY [facility] Last Admin: 06/02/19 08:13 Dose: 50 mg Metoprolol Tartrate (Lopressor) 50 mg PO Q6H [facility] Last Admin: 06/02/19 08:15 Dose: 50 mg Nitroglycerin (Nitrostat) 0.4 mg SL ASDIRECTED PRN PRN Reason: Chest Pain Ondansetron HCl (Zofran) 4 mg IVPUSH Q4H PRN PRN Reason: Nausea/Vomiting Last Admin: 06/01/19 09:53 Dose: 4 mg Pantoprazole Sodium (Protonix) 40 mg PO Q12H [facility] Last Admin: 06/02/19 08:14 Dose: 40 mg Simvastatin (Zocor) 40 mg PO BEDTIME [facility] Last Admin: 06/01/19 20:08 Dose: 40 mg Sodium Chloride (Saline Flush) 10 ml FLUSH ASDIRECTED PRN PRN Reason: Keep Vein Open Last Admin: 05/27/19 12:21 Dose: 10 ml Sodium Chloride (Calvert Nasal [place]) 0 ml SYD QID PRN PRN Reason: nasal dryness. Venlafaxine HCl (Effexor) 75 mg PO BID [facility] Last Admin: 06/02/19 08:14 Dose: 75 mg Discontinued Medications Atenolol (Tenormin) 50 mg PO BID [facility] Atenolol (Tenormin) 50 mg PO DAILY [facility] Last Admin: 05/30/19 08:11 Dose: Not Given Diatrizoate Meglum/Diatrizoate Sod (Gastrografin 37%) 45 ml PO ONETIME ONE Stop: 06/01/19 11:16 Last Admin: 06/01/19 11:19 Dose: 45 ml Diltiazem HCl (Cardizem) 10 mg IVPUSH ONETIME ONE Stop: 05/29/19 21:03 Last Admin: 05/29/19 21:47 Dose: Not Given Diltiazem HCl (Cardizem) 5 mg IVPUSH ONETIME ONE Stop: 05/29/19 22:02 Last Admin: 05/29/19 22:05 Dose: 5 mg Furosemide (Lasix) 40 mg IVPUSH NOW ONE Stop: 05/27/19 14:08 Last Admin: 05/27/19 14:28 Dose: 40 mg Furosemide (Lasix) 40 mg IVPUSH BIDDIURETIC [facility] Last Admin: 05/29/19 13:29 Dose: 40 mg Furosemide (Lasix) 20 mg PO ONETIME ONE Stop: 05/31/19 09:02 Last Admin: 05/31/19 10:00 Dose: 20 mg Furosemide (Lasix) 40 mg IVPUSH NOW ONE Stop: 06/01/19 16:01 Last Admin: 06/01/19 18:21 Dose: 40 mg Ceftriaxone Sodium 2 gm/ (Sodium Chloride) 100 mls @ 200 mls/hr IV ONETIME ONE Stop: 05/27/19 14:13 Last Admin: 05/27/19 14:03 Dose: 200 mls/hr Sodium Chloride (Normal Saline) 250 mls @ 100 mls/hr IV ASDIRECTED [facility] Last Admin: 05/28/19 08:33 Dose: 100 mls/hr Potassium Chloride 10 meq/ (Premix) 100 mls @ 100 mls/hr IV Q1H [facility] Stop: 05/28/19 11:59 Last Admin: 05/28/19 13:10 Dose: 100 mls/hr Magnesium Sulfate 4 gm/ Premix 50 mls @ 12.5 mls/hr IV ONETIME ONE Stop: 05/28/19 11:53 Last Admin: 05/28/19 08:32 Dose: 12.5 mls/hr Sodium Chloride (Normal Saline) 500 mls @ 999 mls/hr IV ONETIME ONE Stop: 05/29/19 21:31 Last Admin: 03/24/20 21:19 Dose: 999 mls/hr Sodium Chloride (Normal Saline) Confirm Administered Dose 1,000 mls @ as directed .ROUTE .STK-MED ONE Stop: 05/29/19 21:07 Last Admin: 05/29/19 21:23 Dose: Not Given Diltiazem HCl 100 mg/ Sodium (Chloride) 100 mls @ 5 mls/hr IV TITRATE KOMAL; Protocol Last Titration: 05/30/19 09:00 Dose: 0 mg/hr, 0 mls/hr Sodium Chloride (Normal Saline) 1,000 mls @ 50 mls/hr IV ASDIRECTED KOMAL Last Infusion: 05/29/19 22:00 Dose: 75 mls/hr Sodium Chloride (Normal Saline) 1,000 mls @ 30 mls/hr IV ASDIRECTED [facility] Last Admin: 05/30/19 22:56 Dose: 30 mls/hr Sodium Chloride (Normal Saline) 500 mls @ 25 mls/hr IV ASDIRECTED ONE Stop: 06/02/19 09:05 Last Admin: 06/01/19 15:23 Dose: 25 mls/hr Influenza Virus Vaccine (Pharmacy To Dose - Influenza Vaccine) 1 each IM ONETIME ONE Stop: 05/27/19 15:18 Magnesium Hydroxide (Milk Of Magnesia) 30 ml PO Q4H ONE Stop: 05/29/19 10:01 Last Admin: 05/29/19 10:50 Dose: 30 ml Magnesium Oxide (Magnesium Oxide) 400 mg PO BID [facility] Last Admin: 06/01/19 08:33 Dose: 400 mg Metoprolol Tartrate (Lopressor) 50 mg PO Q12H [facility] Last Admin: 06/01/19 08:32 Dose: 50 mg Metoprolol Tartrate (Lopressor) 50 mg PO ONETIME ONE Stop: 05/31/19 11:55 Last Admin: 05/31/19 12:19 Dose: 50 mg Ondansetron HCl (Zofran) Confirm Administered Dose 4 mg .ROUTE .STK-MED ONE Stop: 05/29/19 23:51 Last Admin: 05/29/19 23:57 Dose: Not Given Pantoprazole Sodium (Protonix Iv) 40 mg IVPUSH Q12H [facility] Last Admin: 05/28/19 06:25 Dose: 40 mg Pantoprazole Sodium (Protonix) 40 mg PO Q12H [facility] Last Admin: 05/28/19 11:03 Dose: 40 mg Potassium Chloride (Klor-Con M20) 40 meq PO ONETIME ONE Stop: 05/28/19 14:01 Last Admin: 05/28/19 13:19 Dose: 40 meq Potassium Chloride (Klor-Con M20) 20 meq PO ONETIME ONE Stop: 05/28/19 08:58 Last Admin: 05/28/19 09:10 Dose: 20 meq - Exam Quality Assessment: Supplemental Oxygen General: Alert, Oriented HEENT: Pupils Equal, Pupils Reactive, EOMI, Mucous Membr. Moist/Shopiere Neck: Supple Lungs: Clear to Auscultation, Normal Respiratory Effort Cardiovascular: Irregular Rhythm, Other (irregular rate) GI/Abdominal Exam: Normal Bowel Sounds, Soft, Non-Tender, No Organomegaly, No Distention, No Abnormal Bruit, No Mass, Pelvis Stable (Female) Exam: Normal External Exam, Normal Speculum Exam, Normal Bimanual Exam Back Exam: Normal Inspection, Full Range of Motion Extremities: Normal Inspection, Normal Range of Motion, Non-Tender, No Pedal Edema, Normal Capillary Refill Skin: Warm, Dry, Intact Wound/Incisions: Healing Well Neurological: No New Focal Deficit Psy/Mental Status: Alert, Normal Affect, Normal Mood Sepsis Event Note - Evaluation Sepsis Screening Result: No Definite Risk - Focused Exam Vital Signs: Vital Signs Temp Pulse Pulse Resp BP Pulse Ox Pulse Ox 06/02/19 08:15 112 H 125/96 H 06/02/19 08:13 125/96 H 06/02/19 08:12 97.5 F 16 125/94 H 93 L 06/02/19 08:06 92 L 06/02/19 08:00 112 H 06/02/19 01:57 110/69 06/02/19 01:52 125 H 110/69 06/01/19 23:58 98.2 F 20 113/53 L 96 Date Exam was Performed: 06/02/19 Time Exam was Performed: 11:30 - Problem List & Annotations (1) CHF (congestive heart failure) SNOMED Code(s): 54189178 Code(s): I50.9 - HEART FAILURE, UNSPECIFIED Status: Acute Priority: High Current Visit: Yes Qualifiers: 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 no increased work of breathing. will give lasix 20 mg and c.o.d. audit clerk response. cont beta maria esther a nd monitor afib and rvr currently in 90s. (2) Atrial fibrillation with rapid ventricular response SNOMED Code(s): 496348736388569 Code(s): I48.91 - UNSPECIFIED ATRIAL FIBRILLATION Status: Acute Priority : Medium Current Visit: No Onset Date: 05/29/19 Annotation/Comment:: no conversion and likely will be rate controlled . no anticoag for now given rectal bleeding , will complete chads vasc. score. 06/02/19 REPEAT HGN 10.5 AFTER TRANSFUSION AND REPEAT HEMMOCCULT POS. BUT HAS SMALL NOSE BLEED LAST NIGHT . CONT BABY ASA. MONITOR HEMMOCCULTS AND HGN - Problem List Review Problem List Initiated/Reviewed/Updated: Yes - My Orders Last 24 Hours: My Active Orders 06/01/19 20:00 Metoprolol Tartrate [Lopressor] 50 mg PO Q6H 06/02/19 09:25 Sodium Chloride 0.65% [Calvert Nasal [place]] 0 ml SYD QID PRN 06/02/19 11:27 PRO B-TYPE NATRIUR PEPT,BNPPRO [CHEM] Routine 06/02/19 21:00 Donepezil [Aricept] 2.5 mg PO BEDTIME - Assessment Assessment:: 05/31/2019 Heart failure and Atrial fibrillation rate control still tenous and increasing beta maria esther nad starting lasix She is currently on fluid restrictions She is currently wearing oxygen. cont o2 until sats stable She is on droplet precautions due to exposure of someone with known positive COVID Discussed adding an NT BNP onto this mornings labs Discussed increasing dose of metoprolol if heart rate doesn't decrease after an hour of receiving medications Discussed doing a clock drawing test for memory/dementia/ and a formal screen . Looking at discharging to [facility] pending the quarantine parodical from the state. anemia stable and no desire of patient and to have colonoscopy and will recheck hemmoccult . nose bleed this a.m. now controlled . monitor nt bnp and i/s and hgn 06/01/2019 She did well through the night She didn't want to eat breakfast this morning because she wanted to sleep in Her last BM was 2 days ago She is wearing glasses She is wearing O2 She had some nausea this morning when she was up moving around and going to the bathroom but did not vomit Denies any tenderness while palpitating abdomen Denies any dizziness Denies any chest pain She had an EKG done Discussed an abdominal CT Discussed getting labs done She is having a meeting with family today about placement after hospital since exposure to COVID has made it difficult for her to return to [facility] 06/02/2019 She did well through the night She had a shower this morning She is wearing glasses She is wearing O2 at 2L and discussed weaning her down so she can be possibly discharged without oxygen if she is stable States that her appetite is good but she doesn't like the food here Denies any tenderness while palpitating abdomen Denies any dizziness Denies any chest pain She is having a meeting with family yesterday about placement after hospital since exposure to COVID has made it difficult for her to return to [facility] and they are going to try and have her admitted into one of the nursing homes - Plan Plan:: Assessment [id number]-year-old female with history of coronary artery disease with new onset CHF * Hemoglobin of 7.5-->9.0 (1 unit PRBC)-->9.1 * Admission troponin negative at 0.025 * Admission proBNP 7487 * Chest x-ray with pleural effusions and atelectasis * No fever, white count, lactic acidosis or anion gap * On atenolol and isosorbide mononitrate * Fluid restriction to 1500 mL/day * Strict I's and O's and daily weights * Echocardiogram obtained 05/28/19 * 1. LVEF, by visual estimation, is 55-60% * 2. Mild concentric left ventricular hypertrophy * 3. Pseudonormal (Grade 2) pattern of LV diastolic filling * 4. Normal right ventricular systolic function * 5. There is moderate aortic valve sclerosis without stenosis * 6. Mild aortic valve regurgitation * 7. Mild to moderate mitral valve regurgiation * 8. Moderate tricuspid valve regurgitation * 9. The right ventricular systolic pressure is moderately elevated at 57.0 mmHg * 10. No regional wall motion abnormalities. Anemia, likely blood loss * History of GI bleed * History of anemia, progressive, with pancytopenia (currently normal white count and platelets) * Guaiac positive stool in ED * Confirms bright red blood per rectum, last episode 1 week ago * On full dose aspirin - hold * Pantoprazole 40 mg p.o. BID * No hematochezia or melena as inpatient * Hgb trend: 7.5 (given 1 unit) 9.0-->9.1-->8.9 Paroxysmal atrial fibrillation * Currently a fib * Switch to metoprolol tartrate 50 mg bid History of seronegative arthritis, colitis, depression, generalized weakness, polymyalgia rheumatica Plan * Admit to medical floor on telemetry * FiO2 to keep SpO2 > 90% * Hold lasix for now. Likely will need cautious diuresis * Pantoprazole 40 mg IV twice daily * Follow hemoglobin * Switch atenolol to metoprolol tartrate 50 mg BID for CHF exacerbation. She would likely benefit to switch over to metoprolol succinate when stable * Fluid restriction to 1500 mL/day * Strict I's and O's and daily weights * Have patient follow with surgery as outpatient after recovery from CHF for GI bleed. * VTE prophylaxis with SCDs. Anticoagulation contraindicated because of GI bleed * CODE STATUS: DNR/DNI 05/31/2019 Heart failure and Atrial fibrillation She is currently on fluid restrictions and discussed the possibility of going on Lasix She is currently wearing oxygen She is on droplet precautions due to exposure of someone with known positive COVID Discussed adding an NT BNP onto this mornings labs Discussed increasing dose of metoprolol if heart rate doesn't decrease after an hour of receiving medications Discussed doing a clock drawing test for memory/dementia Looking at discharging to [facility] pending the quarantine parodical from the state 06/01/2019 She did well through the night She didn't want to eat breakfast this morning because she wanted to sleep in Her last BM was 2 days ago She is wearing glasses She is wearing O2 She had some nausea this morning when she was up moving around and going to the bathroom but did not vomit Denies any tenderness while palpitating abdomen Denies any dizziness Denies any chest pain She had an EKG done Discussed an abdominal CT Discussed getting labs done She is having a meeting with family today about placement after hospital since exposure to COVID has made it difficult for her to return to [facility] 06/02/2019 She did well through the night She had a shower this morning She is wearing glasses She is wearing O2 at 2L and discussed weaning her down so she can be possibly discharged without oxygen if she is stable States that her appetite is good but she doesn't like the food here Denies any tenderness while palpitating abdomen Denies any dizziness Denies any chest pain She is having a meeting with family yesterday about placement after hospital since exposure to COVID has made it difficult for her to return to [facility] and they are going to try and have her admitted into one of the nursing homes
[2019-06-02] MEDS: Donepezil 10 MG Tab PO SCH (20:56)
[2019-06-02] MEDS: Simvastatin 40 MG Tab PO SCH (20:57)
[2019-06-02] MEDS: Gabapentin 100 MG Cap PO SCH (20:57)
[2019-06-03] MEDS: Metoprolol Tartrate 50 MG Tab PO SCH ×4 (01:56→20:35)
[2019-06-03] MEDS: Pantoprazole 40 MG Tab.CR PO SCH ×2 (08:11→20:33)
[2019-06-03] MEDS: Losartan 25 MG Tab PO SCH (08:14)
[2019-06-03] MEDS: Folic Acid 1 MG Tab PO SCH (08:15)
[2019-06-03] MEDS: Aspirin 81 MG Tab.EC PO SCH (08:16)
[2019-06-03] MEDS: Venlafaxine 37.5 MG Tab PO SCH ×2 (08:16→20:33)
[2019-06-03] MEDS: Isosorbide Mononitrate 30 MG Tab.ER PO SCH (08:16)
[2019-06-03] MEDS ORDERED: Furosemide 40 MG/4 ML VIAL IVPUSH ONE (10:26)
[2019-06-03] MEDS: Gabapentin 100 MG Cap PO SCH (20:34)
[2019-06-03] MEDS: Simvastatin 40 MG Tab PO SCH (20:34)
[2019-06-03] MEDS: Donepezil 10 MG Tab PO SCH (20:35)
[2019-06-04] MEDS: Metoprolol Tartrate 50 MG Tab PO SCH ×4 (02:35→21:48)
[2019-06-04] MEDS: Losartan 25 MG Tab PO SCH (08:30)
[2019-06-04] MEDS: Aspirin 81 MG Tab.EC PO SCH (08:32)
[2019-06-04] MEDS: Isosorbide Mononitrate 30 MG Tab.ER PO SCH (08:32)
[2019-06-04] MEDS: Folic Acid 1 MG Tab PO SCH (08:32)
[2019-06-04] MEDS: Pantoprazole 40 MG Tab.CR PO SCH ×2 (08:32→21:48)
[2019-06-04] MEDS: Furosemide 40 MG Tab PO SCH (08:32)
[2019-06-04] MEDS: Venlafaxine 37.5 MG Tab PO SCH ×2 (08:33→21:48)
--- NOTE | 2019-06-04 20:08 | PCM.PN ---
- General Info Date of Service: 06/04/19 Admission Dx/Problem (Free Text): Admission Diagnosis/Problem Admission Diagnosis/Problem Heart failure 05/31/2019 Heart failure and Atrial fibrillation She is currently on fluid restrictions and discussed the possibility of going on Lasix She is currently wearing oxygen She is on droplet precautions due to exposure of someone with known positive COVID Discussed adding an NT BNP onto this mornings labs Discussed increasing dose of metoprolol if heart rate doesn't decrease after an hour of receiving medications Discussed doing a clock drawing test for memory/dementia Looking at discharging to [facility] pending the quarantine parodical from the state 06/01/2019 She did well through the night She didn't want to eat breakfast this morning because she wanted to sleep in Her last BM was 2 days ago She is wearing glasses She is wearing O2 She had some nausea this morning when she was up moving around and going to the bathroom but did not vomit Denies any tenderness while palpitating abdomen Denies any dizziness Denies any chest pain She had an EKG done Discussed an abdominal CT Discussed getting labs done She is having a meeting with family today about placement after hospital since exposure to COVID has made it difficult for her to return to [facility] 06/02/2019 She did well through the night. SHE HAS NO CHEST PAIN/ARRYTHMIA OTHER THAN AFIB AND RVR. INCREASED BETA MARIA ESTHER AND DOING WELL. SERIAL TROPONINS ALL MILDLY ELAVATED .17-.32 AND BNP REPEATED AND PENDING. TRANSFUSED 1 UNIT OF PRBCS AND GIVEN LASIX AND HEART RATE 80S AND B.P 120-130 THIS AM. COG EVAL SHOWS MODERATE GENERALIZED IMPAIRMENT AND STARTED ARICEPT IN LOW DOSE TONIGHT She had a shower this morning She is wearing glasses She is wearing O2 at 2L and discussed weaning her down so she can be possibly discharged without oxygen if she is stable States that her appetite is good but she doesn't like the food here Denies any tenderness while palpitating abdomen Denies any dizziness Denies any chest pain She is having a meeting with family yesterday about placement after hospital since exposure to COVID has made it difficult for her to return to [facility] and they are going to try and have her admitted into one of the nursing homes 06/03/2019 She did well through the night States that she is feeling good She is wearing glasses She is wearing O2 at 1L and discussed weaning her down so she can be possibly discharged without oxygen if she is stable She was wearing 02 at 2L previously and started to wean yesterday and was even able to no wear the oxygen for a little while Her swelling is unchanged today Her heart failure test is up a bit Her heart rate is down a bit Denies any tenderness while palpitating abdomen Denies any dizziness Denies any chest pain Discussed trying to get her up and moving and to walk around more Discussed getting physical therapy and occupational therapy consults Discussed starting daily Lasix dose of 40 MG for swelling and heart failure She had a meeting with family Tuesday about placement after hospital since exposure to COVID has made it difficult for her to return to [facility] and they are going to try and have her admitted into one of the nursing homes So far it looks as if she will be discharging to [facility] but Daughter has stated that she would like to see her go to [facility] if possible, but more information will be found out on Tuesday06/04/2019 She did well through the night States that she is feeling good She is wearing glasses She is wearing O2 at 1L and discussed weaning her down so she can be possibly discharged without oxygen if she is stable and she has been trialing room air as tolerated States that she ate a good breakfast this morning Denies any tenderness while palpitating abdomen Denies any dizziness Denies any chest pain Nursing states that they were able to walk her up and down the cortés yesterday and she did well Nursing states that her urinary frequency has increased with starting Lasix Continue trying to get her up and moving and to walk around more She had a meeting with family Tuesday about placement after hospital since exposure to COVID has made it difficult for her to return to [facility] and they are going to try and have her admitted into one of the nursing homes Discharging is pending due to nursing homes being apprehensive about her being exposed to COVID and not having multiple tests done to prove that she is not infected Subjective Update: She did well through the night States that she is feeling good She is wearing glasses She is wearing O2 at 1L and discussed weaning her down so she can be possibly discharged without oxygen if she is stable and she has been trialing room air as tolerated States that she ate a good breakfast this morning Denies any tenderness while palpitating abdomen Denies any dizziness Denies any chest pain Nursing states that they were able to walk her up and down the cortés yesterday and she did well Nursing states that her urinary frequency has increased with starting Lasix Continue trying to get her up and moving and to walk around more She had a meeting with family Tuesday about placement after hospital since exposure to COVID has made it difficult for her to return to [facility] and they are going to try and have her admitted into one of the nursing homes Discharging is pending due to nursing homes being apprehensive about her being exposed to COVID and not having multiple tests done to prove that she is not infected Functional Status: Reports: Pain Controlled - Review of Systems General: Reports: No Symptoms HEENT: Reports: No Symptoms, Glasses Pulmonary: Reports: No Symptoms Cardiovascular: Reports: No Symptoms Gastrointestinal: Reports: No Symptoms Genitourinary: Reports: No Symptoms Musculoskeletal: Reports: No Symptoms Skin: Reports: No Symptoms Neurological: Reports: No Symptoms Psychiatric: Reports: No Symptoms - Patient Data Vitals - Most Recent: Last Vital Signs Temp 98.1 F 06/04/19 02:36 Pulse 99 06/04/19 08:31 Resp 13 06/04/19 02:36 BP 124/77 06/04/19 08:32 Pulse Ox 93 L 06/04/19 02:37 Weight - Most Recent: 67.222 kg I&O - Last 24 Hours: Intake & Output 06/03/19 06/04/19 06/04/19 22:59 06:59 14:59 Intake Total 540 300 Output Total 500 675 Balance 40 -375 Lab Results Last 24 Hours: Laboratory Results - last 24 hr 06/04/19 06/04/19 Range/Units 06:00 06:00 WBC 7.68 (3.98-10.04) K/mm3 RBC 3.46 L (3.98-5.22) M/mm3 Hgb 9.9 L (11.2-15.7) gm/dl Hct 32.2 L (34.1-44.9) % MCV 93.1 (79.4-94.8) fl MCH 28.6 (25.6-32.2) pg MCHC 30.7 L (32.2-35.5) g/dl RDW Std Deviation 51.5 H (36.4-46.3) fL Plt Count 182 (182-369) K/mm3 MPV 12.0 (9.4-12.3) fl Neut % (Auto) 64.0 (34.0-71.1) % Lymph % (Auto) 23.2 (19.3-51.7) % Meigs % (Auto) 9.5 (4.7-12.5) % Eos % (Auto) 2.9 (0.7-5.8) Baso % (Auto) 0.4 (0.1-1.2) % Neut # (Auto) 4.92 (1.56-6.13) K/mm3 Lymph # (Auto) 1.78 (1.18-3.74) K/mm3 Meigs # (Auto) 0.73 H (0.24-0.36) K/mm3 Eos # (Auto) 0.22 (0.04-0.36) K/mm3 Baso # (Auto) 0.03 (0.01-0.08) K/mm3 Sodium 140 (136-145) mEq/L Potassium 3.9 (3.5-5.1) mEq/L Chloride 97 L (98-107) mEq/L Carbon Dioxide 34 H (21-32) mEq/L Anion Gap 12.9 (5-15) BUN 46 H (7-18) mg/dL Creatinine 1.6 H (0.55-1.02) mg/dL Est Cr Clr Drug Dosing 17.46 mL/min Estimated GFR (MDRD) 30 (>60) mL/min BUN/Creatinine Ratio 28.8 H (14-18) Glucose 183 H (83-115) mg/dL Calcium 9.0 (8.5-10.1) mg/dL Magnesium 2.2 (1.8-2.4) mg/dl Jaime Results Last 24 Hours: Microbiology 05/27/19 12:58 Aerobic Blood Culture - Final Blood NO GROWTH AFTER 7 DAYS Anaerobic Blood Culture - Final NO GROWTH AFTER 7 DAYS Med Orders - Current: Current Medications Acetaminophen (Tylenol) 650 mg PO Q4H PRN PRN Reason: Pain (Mild 1-3)/fever Last Admin: 06/01/19 00:10 Dose: 650 mg Albuterol (Proventil Neb Soln) 2.5 mg NEB Q2H PRN PRN Reason: Shortness Of Breath/wheezing Albuterol/Ipratropium (Duoneb 3.0-0.5 Mg/3 Ml) 3 ml NEB Q4H PRN PRN Reason: Shortness Of Breath/wheezing Last Admin: 05/28/19 19:52 Dose: 3 ml Aspirin (Halfprin) 81 mg PO DAILY [facility] Last Admin: 06/04/19 08:32 Dose: 81 mg Donepezil HCl (Aricept) 2.5 mg PO BEDTIME [facility] Last Admin: 06/03/19 20:35 Dose: 2.5 mg Folic Acid (Folic Acid) 1 mg PO DAILY [facility] Last Admin: 06/04/19 08:32 Dose: 1 mg Furosemide (Lasix) 40 mg PO DAILY [facility] Last Admin: 06/04/19 08:32 Dose: 40 mg Gabapentin (Neurontin) 100 mg PO BEDTIME [facility] Last Admin: 06/03/19 20:34 Dose: 100 mg Isosorbide Mononitrate (Imdur) 30 mg PO DAILY [facility] Last Admin: 06/04/19 08:32 Dose: 30 mg Losartan Potassium (Cozaar) 50 mg PO DAILY [facility] Last Admin: 06/04/19 08:30 Dose: 50 mg Metoprolol Tartrate (Lopressor) 50 mg PO Q6H [facility] Last Admin: 06/04/19 08:31 Dose: 50 mg Nitroglycerin (Nitrostat) 0.4 mg SL ASDIRECTED PRN PRN Reason: Chest Pain Ondansetron HCl (Zofran) 4 mg IVPUSH Q4H PRN PRN Reason: Nausea/Vomiting Last Admin: 06/01/19 09:53 Dose: 4 mg Pantoprazole Sodium (Protonix) 40 mg PO Q12H [facility] Last Admin: 06/04/19 08:32 Dose: 40 mg Simvastatin (Zocor) 40 mg PO BEDTIME [facility] Last Admin: 06/03/19 20:34 Dose: 40 mg Sodium Chloride (Saline Flush) 10 ml FLUSH ASDIRECTED PRN PRN Reason: Keep Vein Open Last Admin: 05/27/19 12:21 Dose: 10 ml Sodium Chloride ([place] Nasal [place]) 0 ml SYD QID PRN PRN Reason: nasal dryness. Venlafaxine HCl (Effexor) 75 mg PO BID [facility] Last Admin: 06/04/19 08:33 Dose: 75 mg Discontinued Medications Atenolol (Tenormin) 50 mg PO BID [facility] Atenolol (Tenormin) 50 mg PO DAILY [facility] Last Admin: 05/30/19 08:11 Dose: Not Given Diatrizoate Meglum/Diatrizoate Sod (Gastrografin 37%) 45 ml PO ONETIME ONE Stop: 06/01/19 11:16 Last Admin: 06/01/19 11:19 Dose: 45 ml Diltiazem HCl (Cardizem) 10 mg IVPUSH ONETIME ONE Stop: 05/29/19 21:03 Last Admin: 05/29/19 21:47 Dose: Not Given Diltiazem HCl (Cardizem) 5 mg IVPUSH ONETIME ONE Stop: 05/29/19 22:02 Last Admin: 05/29/19 22:05 Dose: 5 mg Furosemide (Lasix) 40 mg IVPUSH NOW ONE Stop: 05/27/19 14:08 Last Admin: 05/27/19 14:28 Dose: 40 mg Furosemide (Lasix) 40 mg IVPUSH BIDDIURETIC [facility] Last Admin: 05/29/19 13:29 Dose: 40 mg Furosemide (Lasix) 20 mg PO ONETIME ONE Stop: 05/31/19 09:02 Last Admin: 05/31/19 10:00 Dose: 20 mg Furosemide (Lasix) 40 mg IVPUSH NOW ONE Stop: 06/01/19 16:01 Last Admin: 06/01/19 18:21 Dose: 40 mg Furosemide (Lasix) 40 mg IVPUSH NOW ONE Stop: 06/03/19 10:27 Last Admin: 06/03/19 10:56 Dose: 40 mg Ceftriaxone Sodium 2 gm/ (Sodium Chloride) 100 mls @ 200 mls/hr IV ONETIME ONE Stop: 05/27/19 14:13 Last Admin: 05/27/19 14:03 Dose: 200 mls/hr Sodium Chloride (Normal Saline) 250 mls @ 100 mls/hr IV ASDIRECTED [facility] Last Admin: 05/28/19 08:33 Dose: 100 mls/hr Potassium Chloride 10 meq/ (Premix) 100 mls @ 100 mls/hr IV Q1H [facility] Stop: 05/28/19 11:59 Last Admin: 05/28/19 13:10 Dose: 100 mls/hr Magnesium Sulfate 4 gm/ Premix 50 mls @ 12.5 mls/hr IV ONETIME ONE Stop: 05/28/19 11:53 Last Admin: 05/28/19 08:32 Dose: 12.5 mls/hr Sodium Chloride (Normal Saline) 500 mls @ 999 mls/hr IV ONETIME ONE Stop: 05/29/19 21:31 Last Admin: 05/29/19 21:19 Dose: 999 mls/hr Sodium Chloride (Normal Saline) Confirm Administered Dose 1,000 mls @ as directed .ROUTE .STK-MED ONE Stop: 05/29/19 21:07 Last Admin: 05/29/19 21:23 Dose: Not Given Diltiazem HCl 100 mg/ Sodium (Chloride) 100 mls @ 5 mls/hr IV TITRATE [facility]; Protocol Last Titration: 05/30/19 09:00 Dose: 0 mg/hr, 0 mls/hr Sodium Chloride (Normal Saline) 1,000 mls @ 50 mls/hr IV ASDIRECTED [facility] Last Infusion: 05/29/19 22:00 Dose: 75 mls/hr Sodium Chloride (Normal Saline) 1,000 mls @ 30 mls/hr IV ASDIRECTED [facility] Last Admin: 05/30/19 22:56 Dose: 30 mls/hr Sodium Chloride (Normal Saline) 500 mls @ 25 mls/hr IV ASDIRECTED ONE Stop: 06/02/19 09:05 Last Admin: 06/01/19 15:23 Dose: 25 mls/hr Influenza Virus Vaccine (Pharmacy To Dose - Influenza Vaccine) 1 each IM ONETIME ONE Stop: 05/27/19 15:18 Magnesium Hydroxide (Milk Of Magnesia) 30 ml PO Q4H ONE Stop: 05/29/19 10:01 Last Admin: 05/29/19 10:50 Dose: 30 ml Magnesium Oxide (Magnesium Oxide) 400 mg PO BID [facility] Last Admin: 06/01/19 08:33 Dose: 400 mg Metoprolol Tartrate (Lopressor) 50 mg PO Q12H [facility] Last Admin: 06/01/19 08:32 Dose: 50 mg Metoprolol Tartrate (Lopressor) 50 mg PO ONETIME ONE Stop: 05/31/19 11:55 Last Admin: 05/31/19 12:19 Dose: 50 mg Ondansetron HCl (Zofran) Confirm Administered Dose 4 mg .ROUTE .STK-MED ONE Stop: 05/29/19 23:51 Last Admin: 05/29/19 23:57 Dose: Not Given Pantoprazole Sodium (Protonix Iv) 40 mg IVPUSH Q12H [facility] Last Admin: 05/28/19 06:25 Dose: 40 mg Pantoprazole Sodium (Protonix) 40 mg PO Q12H [facility] Last Admin: 05/28/19 11:03 Dose: 40 mg Potassium Chloride (Klor-Con M20) 40 meq PO ONETIME ONE Stop: 05/28/19 14:01 Last Admin: 05/28/19 13:19 Dose: 40 meq Potassium Chloride (Klor-Con M20) 20 meq PO ONETIME ONE Stop: 05/28/19 08:58 Last Admin: 05/28/19 09:10 Dose: 20 meq - Exam Quality Assessment: Supplemental Oxygen General: Alert, Oriented HEENT: Pupils Equal, Pupils Reactive, EOMI, Mucous Membr. Moist/[place] Neck: Supple Lungs: Clear to Auscultation, Normal Respiratory Effort Cardiovascular: Regular Rate, Regular Rhythm GI/Abdominal Exam: Normal Bowel Sounds, Soft, Non-Tender, No Organomegaly, No Distention, No Abnormal Bruit, No Mass, Pelvis Stable (Female) Exam: Normal External Exam, Normal Speculum Exam, Normal Bimanual Exam Back Exam: Normal Inspection, Full Range of Motion Extremities: Normal Inspection, Normal Range of Motion, Non-Tender, No Pedal Edema, Normal Capillary Refill Skin: Warm, Dry, Intact Neurological: No New Focal Deficit Psy/Mental Status: Alert, Normal Affect, Normal Mood Sepsis Event Note - Evaluation Sepsis Screening Result: No Definite Risk - Focused Exam Vital Signs: Vital Signs Temp Pulse Resp BP Pulse Ox 06/04/19 08:32 124/77 06/04/19 08:31 99 124/77 06/04/19 08:30 124/77 06/04/19 02:37 83 93 L 06/04/19 02:36 98.1 F 123 H 13 114/89 89 L 06/04/19 02:35 105 H 114/89 Date Exam was Performed: 06/04/19 Time Exam was Performed: 20:08 - Problem List & Annotations (1) CHF (congestive heart failure) SNOMED Code(s): 80261519 Code(s): I50.9 - HEART FAILURE, UNSPECIFIED Status: Acute Priority: High Current Visit: Yes Qualifiers: 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 no increased work of breathing. will give lasix [address] response. cont beta maria esther a nd monitor afib and rvr currently in 90s. (2) Atrial fibrillation with rapid ventricular response SNOMED Code(s): 963900855078276 Code(s): I48.91 - UNSPECIFIED ATRIAL FIBRILLATION Status: Acute Priority : Medium Current Visit: No Onset Date: 05/29/19 Annotation/Comment:: no conversion and likely will be rate controlled . no anticoag for now given rectal bleeding , will complete chads vasc. score. 06/02/19 REPEAT HGN 10.5 AFTER TRANSFUSION AND REPEAT HEMMOCCULT POS. BUT HAS SMALL NOSE BLEED LAST NIGHT . CONT BABY ASA. MONITOR HEMMOCCULTS AND HGN - Problem List Review Problem List Initiated/Reviewed/Updated: Yes - Assessment Assessment:: 05/31/2019 Heart failure and Atrial fibrillation rate control still tenous and increasing beta maria esther nad starting lasix She is currently on fluid restrictions She is currently wearing oxygen. cont o2 until sats stable She is on droplet precautions due to exposure of someone with known positive COVID Discussed adding an NT BNP onto this mornings labs Discussed increasing dose of metoprolol if heart rate doesn't decrease after an hour of receiving medications Discussed doing a clock drawing test for memory/dementia/ and a formal screen . Looking at discharging to [facility] pending the quarantine parodical from the state. anemia stable and no desire of patient and to have colonoscopy and will recheck hemmoccult . nose bleed this a.m. now controlled . monitor nt bnp and i/s and hgn 06/01/2019 She did well through the night She didn't want to eat breakfast this morning because she wanted to sleep in Her last BM was 2 days ago She is wearing glasses She is wearing O2 She had some nausea this morning when she was up moving around and going to the bathroom but did not vomit Denies any tenderness while palpitating abdomen Denies any dizziness Denies any chest pain She had an EKG done Discussed an abdominal CT Discussed getting labs done She is having a meeting with family today about placement after hospital since exposure to COVID has made it difficult for her to return to [facility] 06/02/2019 She did well through the night She had a shower this morning She is wearing glasses She is wearing O2 at 2L and discussed weaning her down so she can be possibly discharged without oxygen if she is stable States that her appetite is good but she doesn't like the food here Denies any tenderness while palpitating abdomen Denies any dizziness Denies any chest pain She is having a meeting with family yesterday about placement after hospital since exposure to COVID has made it difficult for her to return to [facility] and they are going to try and have her admitted into one of the nursing homes 06/03/2019 She did well through the night States that she is feeling good She is wearing glasses She is wearing O2 at 1L and discussed weaning her down so she can be possibly discharged without oxygen if she is stable She was wearing 02 at 2L previously and started to wean yesterday and was even able to no wear the oxygen for a little while Her swelling is unchanged today Her heart failure test is up a bit Her heart rate is down a bit Denies any tenderness while palpitating abdomen Denies any dizziness Denies any chest pain Discussed trying to get her up and moving and to walk around more Discussed getting physical therapy and occupational therapy consults Discussed starting daily Lasix dose of 40 MG for swelling and heart failure She had a meeting with family Tuesday about placement after hospital since exposure to COVID has made it difficult for her to return to [facility] and they are going to try and have her admitted into one of the nursing homes So far it looks as if she will be discharging to [facility] but Daughter has stated that she would like to see her go to [facility] if possible, but more information will be found out on Tuesday06/04/2019 She did well through the night States that she is feeling good She is wearing glasses She is wearing O2 at 1L and discussed weaning her down so she can be possibly discharged without oxygen if she is stable and she has been trialing room air as tolerated States that she ate a good breakfast this morning Denies any tenderness while palpitating abdomen Denies any dizziness Denies any chest pain Nursing states that they were able to walk her up and down the cortés yesterday and she did well Nursing states that her urinary frequency has increased with starting Lasix Continue trying to get her up and moving and to walk around more She had a meeting with family Tuesday about placement after hospital since exposure to COVID has made it difficult for her to return to [facility] and they are going to try and have her admitted into one of the nursing homes Discharging is pending due to nursing homes being apprehensive about her being exposed to COVID and not having multiple tests done to prove that she is not infected - Plan Plan:: Assessment [id number]-year-old female with history of coronary artery disease with new onset CHF * Hemoglobin of 7.5-->9.0 (1 unit PRBC)-->9.1 * Admission troponin negative at 0.025 * Admission proBNP 7487 * Chest x-ray with pleural effusions and atelectasis * No fever, white count, lactic acidosis or anion gap * On atenolol and isosorbide mononitrate * Fluid restriction to 1500 mL/day * Strict I's and O's and daily weights * Echocardiogram obtained 05/28/19 * 1. LVEF, by visual estimation, is 55-60% * 2. Mild concentric left ventricular hypertrophy * 3. Pseudonormal (Grade 2) pattern of LV diastolic filling * 4. Normal right ventricular systolic function * 5. There is moderate aortic valve sclerosis without stenosis * 6. Mild aortic valve regurgitation * 7. Mild to moderate mitral valve regurgiation * 8. Moderate tricuspid valve regurgitation * 9. The right ventricular systolic pressure is moderately elevated at 57.0 mmHg * 10. No regional wall motion abnormalities. Anemia, likely blood loss * History of GI bleed * History of anemia, progressive, with pancytopenia (currently normal white count and platelets) * Guaiac positive stool in ED * Confirms bright red blood per rectum, last episode 1 week ago * On full dose aspirin - hold * Pantoprazole 40 mg p.o. BID * No hematochezia or melena as inpatient * Hgb trend: 7.5 (given 1 unit) 9.0-->9.1-->8.9 Paroxysmal atrial fibrillation * Currently a fib * Switch to metoprolol tartrate 50 mg bid History of seronegative arthritis, colitis, depression, generalized weakness, polymyalgia rheumatica Plan * Admit to medical floor on telemetry * FiO2 to keep SpO2 > 90% * Hold lasix for now. Likely will need cautious diuresis * Pantoprazole 40 mg IV twice daily * Follow hemoglobin * Switch atenolol to metoprolol tartrate 50 mg BID for CHF exacerbation. She would likely benefit to switch over to metoprolol succinate when stable * Fluid restriction to 1500 mL/day * Strict I's and O's and daily weights * Have patient follow with surgery as outpatient after recovery from CHF for GI bleed. * VTE prophylaxis with SCDs. Anticoagulation contraindicated because of GI bleed * CODE STATUS: DNR/DNI 05/31/2019 Heart failure and Atrial fibrillation She is currently on fluid restrictions and discussed the possibility of going on Lasix She is currently wearing oxygen She is on droplet precautions due to exposure of someone with known positive COVID Discussed adding an NT BNP onto this mornings labs Discussed increasing dose of metoprolol if heart rate doesn't decrease after an hour of receiving medications Discussed doing a clock drawing test for memory/dementia Looking at discharging to [facility] pending the quarantine parodical from the state 06/01/2019 She did well through the night She didn't want to eat breakfast this morning because she wanted to sleep in Her last BM was 2 days ago She is wearing glasses She is wearing O2 She had some nausea this morning when she was up moving around and going to the bathroom but did not vomit Denies any tenderness while palpitating abdomen Denies any dizziness Denies any chest pain She had an EKG done Discussed an abdominal CT Discussed getting labs done She is having a meeting with family today about placement after hospital since exposure to COVID has made it difficult for her to return to [facility] 06/02/2019 She did well through the night She had a shower this morning She is wearing glasses She is wearing O2 at 2L and discussed weaning her down so she can be possibly discharged without oxygen if she is stable States that her appetite is good but she doesn't like the food here Denies any tenderness while palpitating abdomen Denies any dizziness Denies any chest pain She is having a meeting with family yesterday about placement after hospital since exposure to COVID has made it difficult for her to return to [facility] and they are going to try and have her admitted into one of the nursing homes 06/03/2019 She did well through the night States that she is feeling good She is wearing glasses She is wearing O2 at 1L and discussed weaning her down so she can be possibly discharged without oxygen if she is stable She was wearing 02 at 2L previously and started to wean yesterday and was even able to no wear the oxygen for a little while Her swelling is unchanged today Her heart failure test is up a bit Her heart rate is down a bit Denies any tenderness while palpitating abdomen Denies any dizziness Denies any chest pain Discussed trying to get her up and moving and to walk around more Discussed getting physical therapy and occupational therapy consults Discussed starting daily Lasix dose of 40 MG for swelling and heart failure She had a meeting with family Tuesday about placement after hospital since exposure to COVID has made it difficult for her to return to [facility] and they are going to try and have her admitted into one of the nursing homes So far it looks as if she will be discharging to [facility] but Daughter has stated that she would like to see her go to [facility] if possible, but more information will be found out on Tuesday06/04/2019 She did well through the night States that she is feeling good She is wearing glasses She is wearing O2 at 1L and discussed weaning her down so she can be possibly discharged without oxygen if she is stable and she has been trialing room air as tolerated States that she ate a good breakfast this morning Denies any tenderness while palpitating abdomen Denies any dizziness Denies any chest pain Nursing states that they were able to walk her up and down the cortés yesterday and she did well Nursing states that her urinary frequency has increased with starting Lasix Continue trying to get her up and moving and to walk around more She had a meeting with family Tuesday about placement after hospital since exposure to COVID has made it difficult for her to return to [facility] and they are going to try and have her admitted into one of the nursing homes Discharging is pending due to nursing homes being apprehensive about her being exposed to COVID and not having multiple tests done to prove that she is not infected
--- NOTE | 2019-06-04 20:08 | PCM.PN ---
- General Info Date of Service: 06/03/19 Admission Dx/Problem (Free Text): Admission Diagnosis/Problem Admission Diagnosis/Problem Heart failure 05/31/2019 Heart failure and Atrial fibrillation She is currently on fluid restrictions and discussed the possibility of going on Lasix She is currently wearing oxygen She is on droplet precautions due to exposure of someone with known positive COVID Discussed adding an NT BNP onto this mornings labs Discussed increasing dose of metoprolol if heart rate doesn't decrease after an hour of receiving medications Discussed doing a clock drawing test for memory/dementia Looking at discharging to [facility] pending the quarantine parodical from the state 06/01/2019 She did well through the night She didn't want to eat breakfast this morning because she wanted to sleep in Her last BM was 2 days ago She is wearing glasses She is wearing O2 She had some nausea this morning when she was up moving around and going to the bathroom but did not vomit Denies any tenderness while palpitating abdomen Denies any dizziness Denies any chest pain She had an EKG done Discussed an abdominal CT Discussed getting labs done She is having a meeting with family today about placement after hospital since exposure to COVID has made it difficult for her to return to [facility] 06/02/2019 She did well through the night. SHE HAS NO CHEST PAIN/ARRYTHMIA OTHER THAN AFIB AND RVR. INCREASED BETA MARIA ESTHER AND DOING WELL. SERIAL TROPONINS ALL MILDLY ELAVATED .17-.32 AND BNP REPEATED AND PENDING. TRANSFUSED 1 UNIT OF PRBCS AND GIVEN LASIX AND HEART RATE 80S AND B.P 120-130 THIS AM. COG EVAL SHOWS MODERATE GENERALIZED IMPAIRMENT AND STARTED ARICEPT IN LOW DOSE TONIGHT She had a shower this morning She is wearing glasses She is wearing O2 at 2L and discussed weaning her down so she can be possibly discharged without oxygen if she is stable States that her appetite is good but she doesn't like the food here Denies any tenderness while palpitating abdomen Denies any dizziness Denies any chest pain She had a meeting with family yesterday about placement after hospital since exposure to COVID has made it difficult for her to return to [facility] and they are going to try and have her admitted into one of the nursing homes 06/03/2019 She did well through the night States that she is feeling good She is wearing glasses She is wearing O2 at 1L and discussed weaning her down so she can be possibly discharged without oxygen if she is stable She was wearing 02 at 2L previously and started to wean yesterday and was even able to no wear the oxygen for a little while Her swelling is unchanged today Her heart failure test is up a bit Her heart rate is down a bit Denies any tenderness while palpitating abdomen Denies any dizziness Denies any chest pain Discussed trying to get her up and moving and to walk around more Discussed getting physical therapy and occupational therapy consults Discussed starting daily Lasix dose of 40 MG for swelling and heart failure She had a meeting with family Tuesday about placement after hospital since exposure to COVID has made it difficult for her to return to [facility] and they are going to try and have her admitted into one of the [facility] So far it looks as if she will be discharging to [facility] but Daughter has stated that she would like to see her go to [facility] if possible, but more information will be found out on Tuesday Subjective Update: She did well through the night States that she is feeling good She is wearing glasses She is wearing O2 at 1L and discussed weaning her down so she can be possibly discharged without oxygen if she is stable She was wearing 02 at 2L previously and started to wean yesterday and was even able to no wear the oxygen for a little while Her swelling is unchanged today Her heart failure test is up a bit Her heart rate is down a bit Denies any tenderness while palpitating abdomen Denies any dizziness Denies any chest pain Discussed trying to get her up and moving and to walk around more Discussed getting physical therapy and occupational therapy consults Discussed starting daily Lasix dose of 40 MG for swelling and heart failure She had a meeting with family Tuesday about placement after hospital since exposure to COVID has made it difficult for her to return to [facility] and they are going to try and have her [facility] So far it looks as if she will be discharging to [facility] but Daughter has stated that she would like to see her go to [facility] if possible, but more information will be found out on Tuesday Functional Status: Reports: Pain Controlled - Review of Systems General: Reports: No Symptoms HEENT: Reports: No Symptoms, Glasses Pulmonary: Reports: No Symptoms Cardiovascular: Reports: No Symptoms Gastrointestinal: Reports: No Symptoms Genitourinary: Reports: No Symptoms Musculoskeletal: Reports: No Symptoms Skin: Reports: No Symptoms Neurological: Reports: No Symptoms Psychiatric: Reports: No Symptoms - Patient Data Vitals - Most Recent: Last Vital Signs Temp 97.7 F 06/03/19 08:11 Pulse 105 H 06/03/19 08:15 Resp 16 06/03/19 08:11 BP 111/63 06/03/19 08:16 Pulse Ox 94 L 06/03/19 08:11 Weight - Most Recent: 67.993 kg I&O - Last 24 Hours: Intake & Output 06/02/19 06/03/19 06/03/19 22:59 06:59 14:59 Intake Total 420 300 Output Total 775 Balance 420 -475 Lab Results Last 24 Hours: Laboratory Results - last 24 hr 06/02/19 06/03/19 06/03/19 Range/Units 11:40 07:15 07:15 WBC 7.38 (3.98-10.04) K/mm3 RBC 3.59 L (3.98-5.22) M/mm3 Hgb 10.0 L (11.2-15.7) gm/dl Hct 33.9 L (34.1-44.9) % MCV 94.4 (79.4-94.8) fl MCH 27.9 (25.6-32.2) pg MCHC 29.5 L (32.2-35.5) g/dl RDW Std Deviation 51.4 H (36.4-46.3) fL Plt Count 191 (182-369) K/mm3 MPV 11.5 (9.4-12.3) fl Neut % (Auto) 61.2 (34.0-71.1) % Lymph % (Auto) 25.3 (19.3-51.7) % Clarke % (Auto) 10.7 (4.7-12.5) % Eos % (Auto) 2.0 (0.7-5.8) Baso % (Auto) 0.5 (0.1-1.2) % Neut # (Auto) 4.51 (1.56-6.13) K/mm3 Lymph # (Auto) 1.87 (1.18-3.74) K/mm3 Clarke # (Auto) 0.79 H (0.24-0.36) K/mm3 Eos # (Auto) 0.15 (0.04-0.36) K/mm3 Baso # (Auto) 0.04 (0.01-0.08) K/mm3 Sodium 140 (136-145) mEq/L Potassium 4.5 (3.5-5.1) mEq/L Chloride 97 L (98-107) mEq/L Carbon Dioxide 37 H (21-32) mEq/L Anion Gap 10.5 (5-15) BUN 44 H (7-18) mg/dL Creatinine 1.7 H (0.55-1.02) mg/dL Est Cr Clr Drug Dosing 16.43 mL/min Estimated GFR (MDRD) 28 (>60) mL/min BUN/Creatinine Ratio 25.9 H (14-18) Glucose 97 (83-115) mg/dL Calcium 9.2 (8.5-10.1) mg/dL Magnesium 2.2 (1.8-2.4) mg/dl NT-Pro-B Natriuret Pep 9704 H (0-450) pg/mL Jaime Results Last 24 Hours: Microbiology 05/27/19 12:58 Aerobic Blood Culture - Preliminary Blood NO GROWTH AFTER 6 DAYS Anaerobic Blood Culture - Preliminary NO GROWTH AFTER 6 DAYS Med Orders - Current: Current Medications Acetaminophen (Tylenol) 650 mg PO Q4H PRN PRN Reason: Pain (Mild 1-3)/fever Last Admin: 06/01/19 00:10 Dose: 650 mg Albuterol (Proventil Neb Soln) 2.5 mg NEB Q2H PRN PRN Reason: Shortness Of Breath/wheezing Albuterol/Ipratropium (Duoneb 3.0-0.5 Mg/3 Ml) 3 ml NEB Q4H PRN PRN Reason: Shortness Of Breath/wheezing Last Admin: 05/28/19 19:52 Dose: 3 ml Aspirin (Halfprin) 81 mg PO DAILY [facility] Last Admin: 06/03/19 08:16 Dose: 81 mg Donepezil HCl (Aricept) 2.5 mg PO BEDTIME [facility] Last Admin: 06/02/19 20:56 Dose: 2.5 mg Folic Acid (Folic Acid) 1 mg PO DAILY [facility] Last Admin: 06/03/19 08:15 Dose: 1 mg Furosemide (Lasix) 40 mg PO DAILY [facility] Gabapentin (Neurontin) 100 mg PO BEDTIME [facility] Last Admin: 06/02/19 20:57 Dose: 100 mg Isosorbide Mononitrate (Imdur) 30 mg PO DAILY [facility] Last Admin: 06/03/19 08:16 Dose: 30 mg Losartan Potassium (Cozaar) 50 mg PO DAILY [facility] Last Admin: 06/03/19 08:14 Dose: 50 mg Metoprolol Tartrate (Lopressor) 50 mg PO Q6H [facility] Last Admin: 06/03/19 08:15 Dose: 50 mg Nitroglycerin (Nitrostat) 0.4 mg SL ASDIRECTED PRN PRN Reason: Chest Pain Ondansetron HCl (Zofran) 4 mg IVPUSH Q4H PRN PRN Reason: Nausea/Vomiting Last Admin: 06/01/19 09:53 Dose: 4 mg Pantoprazole Sodium (Protonix) 40 mg PO Q12H [facility] Last Admin: 06/03/19 08:11 Dose: 40 mg Simvastatin (Zocor) 40 mg PO BEDTIME [facility] Last Admin: 06/02/19 20:57 Dose: 40 mg Sodium Chloride (Saline Flush) 10 ml FLUSH ASDIRECTED PRN PRN Reason: Keep Vein Open Last Admin: 05/27/19 12:21 Dose: 10 ml Sodium Chloride ([place] Nasal [place]) 0 ml SYD QID PRN PRN Reason: nasal dryness. Venlafaxine HCl (Effexor) 75 mg PO BID [facility] Last Admin: 06/03/19 08:16 Dose: 75 mg Discontinued Medications Atenolol (Tenormin) 50 mg PO BID [facility] Atenolol (Tenormin) 50 mg PO DAILY [facility] Last Admin: 05/30/19 08:11 Dose: Not Given Diatrizoate Meglum/Diatrizoate Sod (Gastrografin 37%) 45 ml PO ONETIME ONE Stop: 06/01/19 11:16 Last Admin: 06/01/19 11:19 Dose: 45 ml Diltiazem HCl (Cardizem) 10 mg IVPUSH ONETIME ONE Stop: 05/29/19 21:03 Last Admin: 05/29/19 21:47 Dose: Not Given Diltiazem HCl (Cardizem) 5 mg IVPUSH ONETIME ONE Stop: 05/29/19 22:02 Last Admin: 05/29/19 22:05 Dose: 5 mg Furosemide (Lasix) 40 mg IVPUSH NOW ONE Stop: 05/27/19 14:08 Last Admin: 05/27/19 14:28 Dose: 40 mg Furosemide (Lasix) 40 mg IVPUSH BIDDIURETIC KOMAL Last Admin: 05/29/19 13:29 Dose: 40 mg Furosemide (Lasix) 20 mg PO ONETIME ONE Stop: 05/31/19 09:02 Last Admin: 05/31/19 10:00 Dose: 20 mg Furosemide (Lasix) 40 mg IVPUSH NOW ONE Stop: 06/01/19 16:01 Last Admin: 06/01/19 18:21 Dose: 40 mg Furosemide (Lasix) 40 mg IVPUSH NOW ONE Stop: 06/03/19 10:27 Ceftriaxone Sodium 2 gm/ (Sodium Chloride) 100 mls @ 200 mls/hr IV ONETIME ONE Stop: 05/27/19 14:13 Last Admin: 05/27/19 14:03 Dose: 200 mls/hr Sodium Chloride (Normal Saline) 250 mls @ 100 mls/hr IV ASDIRECTED KOMAL Last Admin: 05/28/19 08:33 Dose: 100 mls/hr Potassium Chloride 10 meq/ (Premix) 100 mls @ 100 mls/hr IV Q1H KOMAL Stop: 05/28/19 11:59 Last Admin: 05/28/19 13:10 Dose: 100 mls/hr Magnesium Sulfate 4 gm/ Premix 50 mls @ 12.5 mls/hr IV ONETIME ONE Stop: 05/28/19 11:53 Last Admin: 05/28/19 08:32 Dose: 12.5 mls/hr Sodium Chloride (Normal Saline) 500 mls @ 999 mls/hr IV ONETIME ONE Stop: 05/29/19 21:31 Last Admin: 05/29/19 21:19 Dose: 999 mls/hr Sodium Chloride (Normal Saline) Confirm Administered Dose 1,000 mls @ as directed .ROUTE .STK-MED ONE Stop: 05/29/19 21:07 Last Admin: 05/29/19 21:23 Dose: Not Given Diltiazem HCl 100 mg/ Sodium (Chloride) 100 mls @ 5 mls/hr IV TITRATE KOMAL; Protocol Last Titration: 05/30/19 09:00 Dose: 0 mg/hr, 0 mls/hr Sodium Chloride (Normal Saline) 1,000 mls @ 50 mls/hr IV ASDIRECTED [facility] Last Infusion: 05/29/19 22:00 Dose: 75 mls/hr Sodium Chloride (Normal Saline) 1,000 mls @ 30 mls/hr IV ASDIRECTED [facility] Last Admin: 05/30/19 22:56 Dose: 30 mls/hr Sodium Chloride (Normal Saline) 500 mls @ 25 mls/hr IV ASDIRECTED ONE Stop: 06/02/19 09:05 Last Admin: 06/01/19 15:23 Dose: 25 mls/hr Influenza Virus Vaccine (Pharmacy To Dose - Influenza Vaccine) 1 each IM ONETIME ONE Stop: 05/27/19 15:18 Magnesium Hydroxide (Milk Of Magnesia) 30 ml PO Q4H ONE Stop: 05/29/19 10:01 Last Admin: 05/29/19 10:50 Dose: 30 ml Magnesium Oxide (Magnesium Oxide) 400 mg PO BID [facility] Last Admin: 06/01/19 08:33 Dose: 400 mg Metoprolol Tartrate (Lopressor) 50 mg PO Q12H [facility] Last Admin: 06/01/19 08:32 Dose: 50 mg Metoprolol Tartrate (Lopressor) 50 mg PO ONETIME ONE Stop: 05/31/19 11:55 Last Admin: 05/31/19 12:19 Dose: 50 mg Ondansetron HCl (Zofran) Confirm Administered Dose 4 mg .ROUTE .STK-MED ONE Stop: 05/29/19 23:51 Last Admin: 05/29/19 23:57 Dose: Not Given Pantoprazole Sodium (Protonix Iv) 40 mg IVPUSH Q12H [facility] Last Admin: 05/28/19 06:25 Dose: 40 mg Pantoprazole Sodium (Protonix) 40 mg PO Q12H [facility] Last Admin: 05/28/19 11:03 Dose: 40 mg Potassium Chloride (Klor-Con M20) 40 meq PO ONETIME ONE Stop: 05/28/19 14:01 Last Admin: 05/28/19 13:19 Dose: 40 meq Potassium Chloride (Klor-Con M20) 20 meq PO ONETIME ONE Stop: 05/28/19 08:58 Last Admin: 05/28/19 09:10 Dose: 20 meq - Exam Quality Assessment: Supplemental Oxygen General: Alert, Oriented HEENT: Pupils Equal, Pupils Reactive, EOMI, Mucous Membr. Moist/[place] Neck: Supple Lungs: Clear to Auscultation, Normal Respiratory Effort Cardiovascular: Irregular Rhythm, Other (irregular rate) GI/Abdominal Exam: Normal Bowel Sounds, Soft, Non-Tender, No Organomegaly, No Distention, No Abnormal Bruit, No Mass, Pelvis Stable (Female) Exam: Normal External Exam, Normal Speculum Exam, Normal Bimanual Exam Back Exam: Normal Inspection, Full Range of Motion Extremities: Normal Inspection, Normal Range of Motion, Non-Tender, No Pedal Edema, Normal Capillary Refill Skin: Warm, Dry, Intact Neurological: No New Focal Deficit Psy/Mental Status: Alert, Normal Affect, Normal Mood Sepsis Event Note - Evaluation Sepsis Screening Result: No Definite Risk - Focused Exam Vital Signs: Vital Signs Temp Pulse Resp BP Pulse Ox 06/03/19 08:16 111/63 06/03/19 08:15 105 H 111/63 06/03/19 08:14 111/63 06/03/19 08:11 97.7 F 105 H 16 111/63 94 L 06/03/19 01:56 98 111/71 06/03/19 01:55 98 94 L 06/03/19 01:54 98.1 F 118 H 12 111/71 93 L Date Exam was Performed: 06/04/19 Time Exam was Performed: 20:03 - Problem List & Annotations (1) CHF (congestive heart failure) SNOMED Code(s): 00734261 Code(s): I50.9 - HEART FAILURE, UNSPECIFIED Status: Acute Priority: High Current Visit: Yes Qualifiers: 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 no increased work of breathing. will give lasix 20 mg and miniature set builder response. cont beta maria esther a nd monitor afib and rvr currently in 90s. (2) Atrial fibrillation with rapid ventricular response SNOMED Code(s): 206582222523407 Code(s): I48.91 - UNSPECIFIED ATRIAL FIBRILLATION Status: Acute Priority : Medium Current Visit: No Onset Date: 05/29/19 Annotation/Comment:: no conversion and likely will be rate controlled . no anticoag for now given rectal bleeding , will complete chads vasc. score. 06/02/19 REPEAT HGN 10.5 AFTER TRANSFUSION AND REPEAT HEMMOCCULT POS. BUT HAS SMALL NOSE BLEED LAST NIGHT . CONT BABY ASA. MONITOR HEMMOCCULTS AND HGN (3) Anemia SNOMED Code(s): 651295131 Code(s): D64.9 - ANEMIA, UNSPECIFIED Status: Acute Priority: High Current Visit: Yes Onset Date: 06/04/19 Qualifiers: Anemia type: unspecified type Qualified Code(s): D64.9 - Anemia, unspecified Annotation/Comment:: heme pos stool and on baby asa/ anticoag stopped on admission . on ppi (4) Anticoagulation adequate SNOMED Code(s): 601300012, 489082636 Code(s): Z79.01 - LONGTERM (CURRENT) USE OF ANTICOAGULANTS Status: Acute Priority: Medium Current Visit: Yes Onset Date: 05/30/19 (5) CAD (coronary artery disease) SNOMED Code(s): 54237151 Code(s): I25.10 - ATHSCL HEART DISEASE OF [place] CORONARY ARTERY W/O ANG PCTRS Status: Acute Priority: Medium Current Visit: Yes Onset Date: Qualifiers: Coronary Disease-Associated Artery/Lesion type: [place] artery [place] vs. transplanted heart: [place] heart Associated angina: without angina Qualified Code(s): I25.10 - Atherosclerotic heart disease of [place] coronary artery without angina pectoris Annotation/Comment:: anemia and chf with abnormal chest xray on admission / tranfused one unit prbcs because extent of cad unknown and hgn 7 (6) CHF (congestive heart failure), NYHA class II SNOMED Code(s): 375888677, 354266070 Code(s): I50.9 - HEART FAILURE, UNSPECIFIED Status: Acute Priority: High Current Visit: Yes Onset Date: 05/30/19 Qualifiers: Congestive heart failure type: combined Congestive heart failure chronicity : acute on chronic Qualified Code(s): I50.43 - Acute on chronic combined systolic (congestive) and diastolic (congestive) heart failure Annotation/Comment:: 06/04/19 restarted lasix / would be good candidate for entresto mcfp. weight up 4-5 lbs but doing better/ o2 weaned off and stable urine output and appetite (7) Dementia SNOMED Code(s): 76779713 Code(s): F03.90 - UNSPECIFIED DEMENTIA WITHOUT BEHAVIORAL DISTURBANCE Status: Acute Priority: Low Current Visit: Yes Onset Date: 06/03/19 Qualifiers: Dementia type: Alzheimer's disease Annotation/Comment:: started low dose donazepil (8) GI bleeding SNOMED Code(s): 66091134 Code(s): K92.2 - GASTROINTESTINAL HEMORRHAGE, UNSPECIFIED Status: Acute Priority: High Current Visit: Yes Onset Date: 05/29/19 Qualifiers: GI bleed type/associated pathology: unspecified gastrointestinal hemorrhage type Qualified Code(s): K92.2 - Gastrointestinal hemorrhage, unspecified Annotation/Comment:: on anticoagulation for afib/ hgn 6 - Problem List Review Problem List Initiated/Reviewed/Updated: Yes - Assessment Assessment:: 05/31/2019 Heart failure and Atrial fibrillation rate control still tenuous and increasing beta maria esther and starting Lasix She is currently on fluid restrictions She is currently wearing oxygen. continue o2 until stats stable She is on droplet precautions due to exposure of someone with known positive COVID Discussed adding an NT BNP onto this mornings labs Discussed increasing dose of metoprolol if heart rate doesn't decrease after an hour of receiving medications Discussed doing a clock drawing test for memory/dementia/and a formal screen Looking at discharging to [facility] pending the quarantine parodical from the state Anemia stable and no desire of patient and to have colonoscopy and will recheck Hemoccult Nose bleed this AM now controlled Monitor NT BNP and i/s and HGN 06/01/2019 She did well through the night She didn't want to eat breakfast this morning because she wanted to sleep in Her last BM was 2 days ago She is wearing glasses She is wearing O2 She had some nausea this morning when she was up moving around and going to the bathroom but did not vomit Denies any tenderness while palpitating abdomen Denies any dizziness Denies any chest pain She had an EKG done Discussed an abdominal CT Discussed getting labs done She is having a meeting with family today about placement after hospital since exposure to COVID has made it difficult for her to return to [facility] 06/02/2019 She did well through the night She had a shower this morning She is wearing glasses She is wearing O2 at 2L and discussed weaning her down so she can be possibly discharged without oxygen if she is stable States that her appetite is good but she doesn't like the food here Denies any tenderness while palpitating abdomen Denies any dizziness Denies any chest pain She is having a meeting with family yesterday about placement after hospital since exposure to COVID has made it difficult for her to return to [facility] and they are going to try and have her admitted into one of the nursing homes 06/03/2019 She did well through the night States that she is feeling good She is wearing glasses She is wearing O2 at 1L and discussed weaning her down so she can be possibly discharged without oxygen if she is stable She was wearing 02 at 2L previously and started to wean yesterday and was even able to no wear the oxygen for a little while Her swelling is unchanged today Her heart failure test is up a bit Her heart rate is down a bit Denies any tenderness while palpitating abdomen Denies any dizziness Denies any chest pain Discussed trying to get her up and moving and to walk around more Discussed getting physical therapy and occupational therapy consults Discussed starting daily Lasix dose of 40 MG for swelling and heart failure She had a meeting with family Tuesday about placement after hospital since exposure to COVID has made it difficult for her to return to [facility] and they are going to try and have her admitted into one of the nursing [facility] So far it looks as if she will be discharging to [facility] but Daughter has stated that she would like to see her go to [facility] if possible, but more information will be found out on Tuesday - Plan Plan:: Assessment [id number]-year-old female with history of coronary artery disease with new onset CHF * Hemoglobin of 7.5-->9.0 (1 unit PRBC)-->9.1 * Admission troponin negative at 0.025 * Admission proBNP 7487 * Chest x-ray with pleural effusions and atelectasis * No fever, white count, lactic acidosis or anion gap * On atenolol and isosorbide mononitrate * Fluid restriction to 1500 mL/day * Strict I's and O's and daily weights * Echocardiogram obtained 05/28/19 * 1. LVEF, by visual estimation, is 55-60% * 2. Mild concentric left ventricular hypertrophy * 3. Pseudonormal (Grade 2) pattern of LV diastolic filling * 4. Normal right ventricular systolic function * 5. There is moderate aortic valve sclerosis without stenosis * 6. Mild aortic valve regurgitation * 7. Mild to moderate mitral valve regurgiation * 8. Moderate tricuspid valve regurgitation * 9. The right ventricular systolic pressure is moderately elevated at 57.0 mmHg * 10. No regional wall motion abnormalities. Anemia, likely blood loss * History of GI bleed * History of anemia, progressive, with pancytopenia (currently normal white count and platelets) * Guaiac positive stool in ED * Confirms bright red blood per rectum, last episode 1 week ago * On full dose aspirin - hold * Pantoprazole 40 mg p.o. BID * No hematochezia or melena as inpatient * Hgb trend: 7.5 (given 1 unit) 9.0-->9.1-->8.9 Paroxysmal atrial fibrillation * Currently a fib * Switch to metoprolol tartrate 50 mg bid History of seronegative arthritis, colitis, depression, generalized weakness, polymyalgia rheumatica Plan * Admit to medical floor on telemetry * FiO2 to keep SpO2 > 90% * Hold lasix for now. Likely will need cautious diuresis * Pantoprazole 40 mg IV twice daily * Follow hemoglobin * Switch atenolol to metoprolol tartrate 50 mg BID for CHF exacerbation. She would likely benefit to switch over to metoprolol succinate when stable * Fluid restriction to 1500 mL/day * Strict I's and O's and daily weights * Have patient follow with surgery as outpatient after recovery from CHF for GI bleed. * VTE prophylaxis with SCDs. Anticoagulation contraindicated because of GI bleed * CODE STATUS: DNR/DNI 05/31/2019 Heart failure and Atrial fibrillation She is currently on fluid restrictions and discussed the possibility of going on Lasix She is currently wearing oxygen She is on droplet precautions due to exposure of someone with known positive COVID Discussed adding an NT BNP onto this mornings labs Discussed increasing dose of metoprolol if heart rate doesn't decrease after an hour of receiving medications Discussed doing a clock drawing test for memory/dementia Looking at discharging to [facility] pending the quarantine parodical from the state 06/01/2019 She did well through the night She didn't want to eat breakfast this morning because she wanted to sleep in Her last BM was 2 days ago She is wearing glasses She is wearing O2 She had some nausea this morning when she was up moving around and going to the bathroom but did not vomit Denies any tenderness while palpitating abdomen Denies any dizziness Denies any chest pain She had an EKG done Discussed an abdominal CT Discussed getting labs done She is having a meeting with family today about placement after hospital since exposure to COVID has made it difficult for her to return to [facility] 06/02/2019 She did well through the night She had a shower this morning She is wearing glasses She is wearing O2 at 2L and discussed weaning her down so she can be possibly discharged without oxygen if she is stable States that her appetite is good but she doesn't like the food here Denies any tenderness while palpitating abdomen Denies any dizziness Denies any chest pain She is having a meeting with family yesterday about placement after hospital since exposure to COVID has made it difficult for her to return to [facility] and they are going to try and have her admitted into one of the nursing homes 06/03/2019 She did well through the night States that she is feeling good She is wearing glasses She is wearing O2 at 1L and discussed weaning her down so she can be possibly discharged without oxygen if she is stable She was wearing 02 at 2L previously and started to wean yesterday and was even able to no wear the oxygen for a little while Her swelling is unchanged today Her heart failure test is up a bit Her heart rate is down a bit Denies any tenderness while palpitating abdomen Denies any dizziness Denies any chest pain Discussed trying to get her up and moving and to walk around more Discussed getting physical therapy and occupational therapy consults Discussed starting daily Lasix dose of 40 MG for swelling and heart failure She had a meeting with family Tuesday about placement after hospital since exposure to COVID has made it difficult for her to return to [facility] and they are going to try and have her admitted into one of the nursing homes So far it looks as if she will be discharging to [facility] but Daughter has stated that she would like to see her go to [facility] if possible, but more information will be found out on Tuesday
[2019-06-04] MEDS: Simvastatin 40 MG Tab PO SCH (21:48)
[2019-06-04] MEDS: Donepezil 10 MG Tab PO SCH (21:48)
[2019-06-04] MEDS: Gabapentin 100 MG Cap PO SCH (21:48)
[2019-06-05] MEDS: Metoprolol Tartrate 50 MG Tab PO SCH ×2 (02:46→09:01)
[2019-06-05] MEDS: Losartan 25 MG Tab PO SCH (09:00)
[2019-06-05] MEDS: Venlafaxine 37.5 MG Tab PO SCH ×2 (09:02→21:45)
[2019-06-05] MEDS: Furosemide 40 MG Tab PO SCH (09:03)
[2019-06-05] MEDS: Aspirin 81 MG Tab.EC PO SCH (09:03)
[2019-06-05] MEDS: Folic Acid 1 MG Tab PO SCH (09:04)
[2019-06-05] MEDS: Pantoprazole 40 MG Tab.CR PO SCH ×2 (09:04→21:46)
[2019-06-05] MEDS: Isosorbide Mononitrate 30 MG Tab.ER PO SCH (09:04)
[2019-06-05] MEDS ORDERED: Metoprolol Tartrate 5 MG/5 ML SDV IV PRN (11:32)
[2019-06-05] MEDS ORDERED: Metoprolol Succinate 50 MG Tab.ER PO SCH (12:00)
--- NOTE | 2019-06-05 12:21 | PCM.PN ---
- General Info Date of Service: 06/05/19 Admission Dx/Problem (Free Text): Admission Diagnosis/Problem Admission Diagnosis/Problem Heart failure 05/31/2019 Heart failure and Atrial fibrillation She is currently on fluid restrictions and discussed the possibility of going on Lasix She is currently wearing oxygen She is on droplet precautions due to exposure of someone with known positive COVID Discussed adding an NT BNP onto this mornings labs Discussed increasing dose of metoprolol if heart rate doesn't decrease after an hour of receiving medications Discussed doing a clock drawing test for memory/dementia Looking at discharging to [facility] pending the quarantine parodical from the state 06/01/2019 She did well through the night She didn't want to eat breakfast this morning because she wanted to sleep in Her last BM was 2 days ago She is wearing glasses She is wearing O2 She had some nausea this morning when she was up moving around and going to the bathroom but did not vomit Denies any tenderness while palpitating abdomen Denies any dizziness Denies any chest pain She had an EKG done Discussed an abdominal CT Discussed getting labs done She is having a meeting with family today about placement after hospital since exposure to COVID has made it difficult for her to return to [facility] 06/02/2019 She did well through the night. SHE HAS NO CHEST PAIN/ARRYTHMIA OTHER THAN AFIB AND RVR. INCREASED BETA LEENA AND DOING WELL. SERIAL TROPONINS ALL MILDLY ELAVATED .17-.32 AND BNP REPEATED AND PENDING. TRANSFUSED 1 UNIT OF PRBCS AND GIVEN LASIX AND HEART RATE 80S AND B.P 120-130 THIS AM. COG EVAL SHOWS MODERATE GENERALIZED IMPAIRMENT AND STARTED ARICEPT IN LOW DOSE TONIGHT She had a shower this morning She is wearing glasses She is wearing O2 at 2L and discussed weaning her down so she can be possibly discharged without oxygen if she is stable States that her appetite is good but she doesn't like the food here Denies any tenderness while palpitating abdomen Denies any dizziness Denies any chest pain She is having a meeting with family yesterday about placement after hospital since exposure to COVID has made it difficult for her to return to [facility] and they are going to try and have her admitted into one of the nursing homes 06/03/2019 She did well through the night States that she is feeling good She is wearing glasses She is wearing O2 at 1L and discussed weaning her down so she can be possibly discharged without oxygen if she is stable She was wearing 02 at 2L previously and started to wean yesterday and was even able to no wear the oxygen for a little while Her swelling is unchanged today Her heart failure test is up a bit Her heart rate is down a bit Denies any tenderness while palpitating abdomen Denies any dizziness Denies any chest pain Discussed trying to get her up and moving and to walk around more Discussed getting physical therapy and occupational therapy consults Discussed starting daily Lasix dose of 40 MG for swelling and heart failure She had a meeting with family Tuesday about placement after hospital since exposure to COVID has made it difficult for her to return to [facility] and they are going to try and have her admitted into one of the nursing homes So far it looks as if she will be discharging to [facility] but Daughter has stated that she would like to see her go to [facility] if possible, but more information will be found out on Tuesday06/04/2019 She did well through the night States that she is feeling good She is wearing glasses She is wearing O2 at 1L and discussed weaning her down so she can be possibly discharged without oxygen if she is stable and she has been trialing room air as tolerated States that she ate a good breakfast this morning Denies any tenderness while palpitating abdomen Denies any dizziness Denies any chest pain Nursing states that they were able to walk her up and down the cortés yesterday and she did well Nursing states that her urinary frequency has increased with starting Lasix Continue trying to get her up and moving and to walk around more She had a meeting with family Tuesday about placement after hospital since exposure to COVID has made it difficult for her to return to [facility] and they are going to try and have her admitted into one of the nursing homes Discharging is pending due to nursing homes being apprehensive about her being exposed to COVID and not having multiple tests done to prove that she is not infected 06/05/2019 She did well through the night States that she is feeling good She is wearing glasses She is wearing O2 at 1L and discussed weaning her down so she can be possibly discharged without oxygen if she is stable and she has been trialing room air as tolerated States that she ate a good breakfast this morning Denies any tenderness while palpitating abdomen, dizziness, or chest pain She is walking with walker and x1 assist as tolerated Continue trying to get her up and moving and to walk around more She had a meeting with family Tuesday about placement after hospital since exposure to COVID has made it difficult for her to return to [facility] and they are going to try and have her admitted into one of the nursing homes Discharging is pending due to nursing homes being apprehensive about her being exposed to COVID and not having multiple tests done to prove that she is not infected Discussed getting lab done today of NT BNP and CBC Subjective Update: She did well through the night States that she is feeling good She is wearing glasses She is wearing O2 at 1L and discussed weaning her down so she can be possibly discharged without oxygen if she is stable and she has been trialing room air as tolerated States that she ate a good breakfast this morning Denies any tenderness while palpitating abdomen, dizziness, or chest pain She is walking with walker and x1 assist as tolerated Continue trying to get her up and moving and to walk around more She had a meeting with family Tuesday about placement after hospital since exposure to COVID has made it difficult for her to return to [facility] and they are going to try and have her admitted into one of the nursing homes Discharging is pending due to nursing homes being apprehensive about her being exposed to COVID and not having multiple tests done to prove that she is not infected Discussed getting lab done today of NT BNP and CBC Functional Status: Reports: Pain Controlled - Review of Systems General: Reports: Weakness (generalized) HEENT: Reports: No Symptoms, Glasses Pulmonary: Reports: No Symptoms Cardiovascular: Reports: No Symptoms Gastrointestinal: Reports: No Symptoms Genitourinary: Reports: No Symptoms Musculoskeletal: Reports: No Symptoms Skin: Reports: No Symptoms Neurological: Reports: No Symptoms Psychiatric: Reports: No Symptoms - Patient Data Vitals - Most Recent: Last Vital Signs Temp 98.4 F 06/05/19 08:29 Pulse 60 06/05/19 09:01 Resp 20 06/05/19 08:29 BP 111/54 L 06/05/19 09:04 Pulse Ox 93 L 06/05/19 08:29 Weight - Most Recent: 69.037 kg I&O - Last 24 Hours: Intake & Output 06/04/19 06/05/19 06/05/19 22:59 06:59 14:59 Intake Total 500 300 Output Total 800 400 Balance -300 -100 Lab Results Last 24 Hours: Laboratory Results - last 24 hr 06/04/19 06/05/19 06/05/19 Range/Units 10:48 05:36 05:36 WBC 8.16 (3.98-10.04) K/mm3 RBC 3.52 L (3.98-5.22) M/mm3 Hgb 9.6 L (11.2-15.7) gm/dl Hct 33.4 L (34.1-44.9) % MCV 94.9 H (79.4-94.8) fl MCH 27.3 (25.6-32.2) pg MCHC 28.7 L (32.2-35.5) g/dl RDW Std Deviation 51.6 H (36.4-46.3) fL Plt Count 199 (182-369) K/mm3 MPV 12.3 (9.4-12.3) fl Neut % (Auto) 59.3 (34.0-71.1) % Lymph % (Auto) 25.9 (19.3-51.7) % [place] % (Auto) 10.7 (4.7-12.5) % Eos % (Auto) 3.4 (0.7-5.8) Baso % (Auto) 0.6 (0.1-1.2) % Neut # (Auto) 4.84 (1.56-6.13) K/mm3 Lymph # (Auto) 2.11 (1.18-3.74) K/mm3 [place] # (Auto) 0.87 H (0.24-0.36) K/mm3 Eos # (Auto) 0.28 (0.04-0.36) K/mm3 Baso # (Auto) 0.05 (0.01-0.08) K/mm3 Manual Slide Review Abnormal smear Sodium 139 (136-145) mEq/L Potassium 3.9 (3.5-5.1) mEq/L Chloride 98 (98-107) mEq/L Carbon Dioxide 36 H (21-32) mEq/L Anion Gap 8.9 (5-15) BUN 43 H (7-18) mg/dL Creatinine 1.5 H (0.55-1.02) mg/dL Est Cr Clr Drug Dosing 18.62 mL/min Estimated GFR (MDRD) 33 (>60) mL/min BUN/Creatinine Ratio 28.7 H (14-18) Glucose 95 (83-115) mg/dL Calcium 9.2 (8.5-10.1) mg/dL Magnesium 2.1 (1.8-2.4) mg/dl NT-Pro-B Natriuret Pep 5837 H (0-450) pg/mL Med Orders - Current: Current Medications Acetaminophen (Tylenol) 650 mg PO Q4H PRN PRN Reason: Pain (Mild 1-3)/fever Last Admin: 06/01/19 00:10 Dose: 650 mg Albuterol (Proventil Neb Soln) 2.5 mg NEB Q2H PRN PRN Reason: Shortness Of Breath/wheezing Albuterol/Ipratropium (Duoneb 3.0-0.5 Mg/3 Ml) 3 ml NEB Q4H PRN PRN Reason: Shortness Of Breath/wheezing Last Admin: 05/28/19 19:52 Dose: 3 ml Aspirin (Halfprin) 81 mg PO DAILY [facility] Last Admin: 06/05/19 09:03 Dose: 81 mg Donepezil HCl (Aricept) 2.5 mg PO BEDTIME [facility] Last Admin: 06/04/19 21:48 Dose: 2.5 mg Folic Acid (Folic Acid) 1 mg PO DAILY [facility] Last Admin: 06/05/19 09:04 Dose: 1 mg Furosemide (Lasix) 40 mg PO DAILY [facility] Last Admin: 06/05/19 09:03 Dose: 40 mg Gabapentin (Neurontin) 100 mg PO BEDTIME [facility] Last Admin: 06/04/19 21:48 Dose: 100 mg Isosorbide Mononitrate (Imdur) 30 mg PO DAILY [facility] Last Admin: 06/05/19 09:04 Dose: 30 mg Losartan Potassium (Cozaar) 50 mg PO DAILY [facility] Last Admin: 06/05/19 09:00 Dose: 50 mg Metoprolol Tartrate (Lopressor) 50 mg PO Q6H [facility] Last Admin: 06/05/19 09:01 Dose: 50 mg Nitroglycerin (Nitrostat) 0.4 mg SL ASDIRECTED PRN PRN Reason: Chest Pain Ondansetron HCl (Zofran) 4 mg IVPUSH Q4H PRN PRN Reason: Nausea/Vomiting Last Admin: 06/01/19 09:53 Dose: 4 mg Pantoprazole Sodium (Protonix) 40 mg PO Q12H [facility] Last Admin: 06/05/19 09:04 Dose: 40 mg Simvastatin (Zocor) 40 mg PO BEDTIME [facility] Last Admin: 06/04/19 21:48 Dose: 40 mg Sodium Chloride (Saline Flush) 10 ml FLUSH ASDIRECTED PRN PRN Reason: Keep Vein Open Last Admin: 05/27/19 12:21 Dose: 10 ml Sodium Chloride ([place] Nasal [place]) 0 ml SYD QID PRN PRN Reason: nasal dryness. Venlafaxine HCl (Effexor) 75 mg PO BID [facility] Last Admin: 06/05/19 09:02 Dose: 75 mg Discontinued Medications Atenolol (Tenormin) 50 mg PO BID [facility] Atenolol (Tenormin) 50 mg PO DAILY [facility] Last Admin: 05/30/19 08:11 Dose: Not Given Diatrizoate Meglum/Diatrizoate Sod (Gastrografin 37%) 45 ml PO ONETIME ONE Stop: 06/01/19 11:16 Last Admin: 06/01/19 11:19 Dose: 45 ml Diltiazem HCl (Cardizem) 10 mg IVPUSH ONETIME ONE Stop: 05/29/19 21:03 Last Admin: 05/29/19 21:47 Dose: Not Given Diltiazem HCl (Cardizem) 5 mg IVPUSH ONETIME ONE Stop: 05/29/19 22:02 Last Admin: 05/29/19 22:05 Dose: 5 mg Furosemide (Lasix) 40 mg IVPUSH NOW ONE Stop: 05/27/19 14:08 Last Admin: 05/27/19 14:28 Dose: 40 mg Furosemide (Lasix) 40 mg IVPUSH BIDDIURETIC [facility] Last Admin: 05/29/19 13:29 Dose: 40 mg Furosemide (Lasix) 20 mg PO ONETIME ONE Stop: 05/31/19 09:02 Last Admin: 05/31/19 10:00 Dose: 20 mg Furosemide (Lasix) 40 mg IVPUSH NOW ONE Stop: 06/01/19 16:01 Last Admin: 06/01/19 18:21 Dose: 40 mg Furosemide (Lasix) 40 mg IVPUSH NOW ONE Stop: 06/03/19 10:27 Last Admin: 06/03/19 10:56 Dose: 40 mg Ceftriaxone Sodium 2 gm/ (Sodium Chloride) 100 mls @ 200 mls/hr IV ONETIME ONE Stop: 05/27/19 14:13 Last Admin: 05/27/19 14:03 Dose: 200 mls/hr Sodium Chloride (Normal Saline) 250 mls @ 100 mls/hr IV ASDIRECTED KOMAL Last Admin: 05/28/19 08:33 Dose: 100 mls/hr Potassium Chloride 10 meq/ (Premix) 100 mls @ 100 mls/hr IV Q1H KOMAL Stop: 05/28/19 11:59 Last Admin: 05/28/19 13:10 Dose: 100 mls/hr Magnesium Sulfate 4 gm/ Premix 50 mls @ 12.5 mls/hr IV ONETIME ONE Stop: 05/28/19 11:53 Last Admin: 05/28/19 08:32 Dose: 12.5 mls/hr Sodium Chloride (Normal Saline) 500 mls @ 999 mls/hr IV ONETIME ONE Stop: 05/29/19 21:31 Last Admin: 05/29/19 21:19 Dose: 999 mls/hr Sodium Chloride (Normal Saline) Confirm Administered Dose 1,000 mls @ as directed .ROUTE .STK-MED ONE Stop: 05/29/19 21:07 Last Admin: 05/29/19 21:23 Dose: Not Given Diltiazem HCl 100 mg/ Sodium (Chloride) 100 mls @ 5 mls/hr IV TITRATE KOMAL; Protocol Last Titration: 05/30/19 09:00 Dose: 0 mg/hr, 0 mls/hr Sodium Chloride (Normal Saline) 1,000 mls @ 50 mls/hr IV ASDIRECTED KOMAL Last Infusion: 05/29/19 22:00 Dose: 75 mls/hr Sodium Chloride (Normal Saline) 1,000 mls @ 30 mls/hr IV ASDIRECTED KOMAL Last Admin: 05/30/19 22:56 Dose: 30 mls/hr Sodium Chloride (Normal Saline) 500 mls @ 25 mls/hr IV ASDIRECTED ONE Stop: 06/02/19 09:05 Last Admin: 06/01/19 15:23 Dose: 25 mls/hr Influenza Virus Vaccine (Pharmacy To Dose - Influenza Vaccine) 1 each IM ONETIME ONE Stop: 05/27/19 15:18 Magnesium Hydroxide (Milk Of Magnesia) 30 ml PO Q4H ONE Stop: 05/29/19 10:01 Last Admin: 05/29/19 10:50 Dose: 30 ml Magnesium Oxide (Magnesium Oxide) 400 mg PO BID [facility] Last Admin: 06/01/19 08:33 Dose: 400 mg Metoprolol Tartrate (Lopressor) 50 mg PO Q12H [facility] Last Admin: 06/01/19 08:32 Dose: 50 mg Metoprolol Tartrate (Lopressor) 50 mg PO ONETIME ONE Stop: 05/31/19 11:55 Last Admin: 05/31/19 12:19 Dose: 50 mg Ondansetron HCl (Zofran) Confirm Administered Dose 4 mg .ROUTE .STK-MED ONE Stop: 05/29/19 23:51 Last Admin: 05/29/19 23:57 Dose: Not Given Pantoprazole Sodium (Protonix Iv) 40 mg IVPUSH Q12H [facility] Last Admin: 05/28/19 06:25 Dose: 40 mg Pantoprazole Sodium (Protonix) 40 mg PO Q12H [facility] Last Admin: 05/28/19 11:03 Dose: 40 mg Potassium Chloride (Klor-Con M20) 40 meq PO ONETIME ONE Stop: 05/28/19 14:01 Last Admin: 05/28/19 13:19 Dose: 40 meq Potassium Chloride (Klor-Con M20) 20 meq PO ONETIME ONE Stop: 05/28/19 08:58 Last Admin: 05/28/19 09:10 Dose: 20 meq - Exam Quality Assessment: Supplemental Oxygen General: Alert, Oriented HEENT: Pupils Equal, Pupils Reactive, EOMI, Mucous Membr. Moist/[place] Neck: Supple Lungs: Clear to Auscultation, Normal Respiratory Effort Cardiovascular: Irregular Rhythm, Murmurs (grade 3 over 6 systolic), Other ( irregular rate) GI/Abdominal Exam: Normal Bowel Sounds, Soft, Non-Tender, No Organomegaly, No Distention, No Abnormal Bruit, No Mass, Pelvis Stable (Female) Exam: Normal External Exam, Normal Speculum Exam, Normal Bimanual Exam Back Exam: Normal Inspection, Full Range of Motion Extremities: Normal Inspection, Normal Range of Motion, Non-Tender, No Pedal Edema, Normal Capillary Refill Skin: Warm, Dry, Intact Neurological: No New Focal Deficit Psy/Mental Status: Alert, Normal Affect, Normal Mood Sepsis Event Note - Evaluation Sepsis Screening Result: No Definite Risk - Focused Exam Vital Signs: Vital Signs Temp Pulse Resp BP Pulse Ox 06/05/19 09:04 111/54 L 06/05/19 09:01 60 111/59 L 06/05/19 09:00 111/59 L 06/05/19 08:29 98.4 F 60 20 111/59 L 93 L 06/05/19 02:49 97.3 F 16 120/89 92 L 06/05/19 02:46 113 H 120/89 Date Exam was Performed: 06/05/19 Time Exam was Performed: 12:20 - Problem List & Annotations (1) CHF (congestive heart failure) SNOMED Code(s): 89808687 Code(s): I50.9 - HEART FAILURE, UNSPECIFIED Status: Acute Priority: High Current Visit: Yes Qualifiers: 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 no increased work of breathing. 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 cont beta leena a nd monitor afib and rvr currently in 90s. (2) Atrial fibrillation with rapid ventricular response SNOMED Code(s): 005496145949515 Code(s): I48.91 - UNSPECIFIED ATRIAL FIBRILLATION Status: Acute Priority : Medium Current Visit: No Onset Date: 05/29/19 Annotation/Comment:: no conversion and likely will be rate controlled . no anticoag for now given rectal bleeding , will complete chads vasc. score. 06/02/19 REPEAT HGN 10.5 AFTER TRANSFUSION AND REPEAT HEMMOCCULT POS. BUT HAS SMALL NOSE BLEED LAST NIGHT . CONT BABY ASA. MONITOR HEMMOCCULTS AND HGN - Problem List Review Problem List Initiated/Reviewed/Updated: Yes - My Orders Last 24 Hours: My Active Orders 06/05/19 12:08 PRO B-TYPE NATRIUR PEPT,BNPPRO [CHEM] Routine - Assessment Assessment:: 05/31/2019 Heart failure and Atrial fibrillation rate control still tenous and increasing beta leena nad starting lasix She is currently on fluid restrictions She is currently wearing oxygen. cont o2 until sats stable She is on droplet precautions due to exposure of someone with known positive COVID Discussed adding an NT BNP onto this mornings labs Discussed increasing dose of metoprolol if heart rate doesn't decrease after an hour of receiving medications Discussed doing a clock drawing test for memory/dementia/ and a formal screen . Looking at discharging to [facility] pending the quarantine parodical from the state. anemia stable and no desire of patient and to have colonoscopy and will recheck hemmoccult . nose bleed this a.m. now controlled . monitor nt bnp and i/s and hgn 06/01/2019 She did well through the night She didn't want to eat breakfast this morning because she wanted to sleep in Her last BM was 2 days ago She is wearing glasses She is wearing O2 She had some nausea this morning when she was up moving around and going to the bathroom but did not vomit Denies any tenderness while palpitating abdomen Denies any dizziness Denies any chest pain She had an EKG done Discussed an abdominal CT Discussed getting labs done She is having a meeting with family today about placement after hospital since exposure to COVID has made it difficult for her to return to [facility] 06/02/2019 She did well through the night She had a shower this morning She is wearing glasses She is wearing O2 at 2L and discussed weaning her down so she can be possibly discharged without oxygen if she is stable States that her appetite is good but she doesn't like the food here Denies any tenderness while palpitating abdomen Denies any dizziness Denies any chest pain She is having a meeting with family yesterday about placement after hospital since exposure to COVID has made it difficult for her to return to [facility] and they are going to try and have her admitted into one of the nursing homes 06/03/2019 She did well through the night States that she is feeling good She is wearing glasses She is wearing O2 at 1L and discussed weaning her down so she can be possibly discharged without oxygen if she is stable She was wearing 02 at 2L previously and started to wean yesterday and was even able to no wear the oxygen for a little while Her swelling is unchanged today Her heart failure test is up a bit Her heart rate is down a bit Denies any tenderness while palpitating abdomen Denies any dizziness Denies any chest pain Discussed trying to get her up and moving and to walk around more Discussed getting physical therapy and occupational therapy consults Discussed starting daily Lasix dose of 40 MG for swelling and heart failure She had a meeting with family Tuesday about placement after hospital since exposure to COVID has made it difficult for her to return to [facility] and they are going to try and have her admitted into one of the nursing homes So far it looks as if she will be discharging to [facility] but Daughter has stated that she would like to see her go to [facility] if possible, but more information will be found out on Tuesday06/04/2019 She did well through the night States that she is feeling good She is wearing glasses She is wearing O2 at 1L and discussed weaning her down so she can be possibly discharged without oxygen if she is stable and she has been trialing room air as tolerated States that she ate a good breakfast this morning Denies any tenderness while palpitating abdomen Denies any dizziness Denies any chest pain Nursing states that they were able to walk her up and down the cortés yesterday and she did well Nursing states that her urinary frequency has increased with starting Lasix Continue trying to get her up and moving and to walk around more She had a meeting with family Tuesday about placement after hospital since exposure to COVID has made it difficult for her to return to [facility] and they are going to try and have her admitted into one of the nursing homes Discharging is pending due to nursing homes being apprehensive about her being exposed to COVID and not having multiple tests done to prove that she is not infected 06/05/2019 She did well through the night States that she is feeling good She is wearing glasses She is wearing O2 at 1L and discussed weaning her down so she can be possibly discharged without oxygen if she is stable and she has been trialing room air as tolerated States that she ate a good breakfast this morning Denies any tenderness while palpitating abdomen, dizziness, or chest pain She is walking with walker and x1 assist as tolerated Continue trying to get her up and moving and to walk around more She had a meeting with family Tuesday about placement after hospital since exposure to COVID has made it difficult for her to return to [facility] and they are going to try and have her admitted into one of the nursing homes Discharging is pending due to nursing homes being apprehensive about her being exposed to COVID and not having multiple tests done to prove that she is not infected Discussed getting lab done today of NT BNP and CBC - Plan Plan:: Assessment 54-y[age]-year-old female with history of coronary artery disease with new onset CHF * Hemoglobin of 7.5-->9.0 (1 unit PRBC)-->9.1 * Admission troponin negative at 0.025 * Admission proBNP 7487 * Chest x-ray with pleural effusions and atelectasis * No fever, white count, lactic acidosis or anion gap * On atenolol and isosorbide mononitrate * Fluid restriction to 1500 mL/day * Strict I's and O's and daily weights * Echocardiogram obtained 05/28/19 * 1. LVEF, by visual estimation, is 55-60% * 2. Mild concentric left ventricular hypertrophy * 3. Pseudonormal (Grade 2) pattern of LV diastolic filling * 4. Normal right ventricular systolic function * 5. There is moderate aortic valve sclerosis without stenosis * 6. Mild aortic valve regurgitation * 7. Mild to moderate mitral valve regurgiation * 8. Moderate tricuspid valve regurgitation * 9. The right ventricular systolic pressure is moderately elevated at 57.0 mmHg * 10. No regional wall motion abnormalities. Anemia, likely blood loss * History of GI bleed * History of anemia, progressive, with pancytopenia (currently normal white count and platelets) * Guaiac positive stool in ED * Confirms bright red blood per rectum, last episode 1 week ago * On full dose aspirin - hold * Pantoprazole 40 mg p.o. BID * No hematochezia or melena as inpatient * Hgb trend: 7.5 (given 1 unit) 9.0-->9.1-->8.9 Paroxysmal atrial fibrillation * Currently a fib * Switch to metoprolol tartrate 50 mg bid History of seronegative arthritis, colitis, depression, generalized weakness, polymyalgia rheumatica Plan * Admit to medical floor on telemetry * FiO2 to keep SpO2 > 90% * Hold lasix for now. Likely will need cautious diuresis * Pantoprazole 40 mg IV twice daily * Follow hemoglobin * Switch atenolol to metoprolol tartrate 50 mg BID for CHF exacerbation. She would likely benefit to switch over to metoprolol succinate when stable * Fluid restriction to 1500 mL/day * Strict I's and O's and daily weights * Have patient follow with surgery as outpatient after recovery from CHF for GI bleed. * VTE prophylaxis with SCDs. Anticoagulation contraindicated because of GI bleed * CODE STATUS: DNR/DNI 05/31/2019 Heart failure and Atrial fibrillation She is currently on fluid restrictions and discussed the possibility of going on Lasix She is currently wearing oxygen She is on droplet precautions due to exposure of someone with known positive COVID Discussed adding an NT BNP onto this mornings labs Discussed increasing dose of metoprolol if heart rate doesn't decrease after an hour of receiving medications Discussed doing a clock drawing test for memory/dementia Looking at discharging to [facility] pending the quarantine parodical from the state 06/01/2019 She did well through the night She didn't want to eat breakfast this morning because she wanted to sleep in Her last BM was 2 days ago She is wearing glasses She is wearing O2 She had some nausea this morning when she was up moving around and going to the bathroom but did not vomit Denies any tenderness while palpitating abdomen Denies any dizziness Denies any chest pain She had an EKG done Discussed an abdominal CT Discussed getting labs done She is having a meeting with family today about placement after hospital since exposure to COVID has made it difficult for her to return to [facility] 06/02/2019 She did well through the night She had a shower this morning She is wearing glasses She is wearing O2 at 2L and discussed weaning her down so she can be possibly discharged without oxygen if she is stable States that her appetite is good but she doesn't like the food here Denies any tenderness while palpitating abdomen Denies any dizziness Denies any chest pain She is having a meeting with family yesterday about placement after hospital since exposure to COVID has made it difficult for her to return to [facility] and they are going to try and have her admitted into one of the nursing homes 06/03/2019 She did well through the night States that she is feeling good She is wearing glasses She is wearing O2 at 1L and discussed weaning her down so she can be possibly discharged without oxygen if she is stable She was wearing 02 at 2L previously and started to wean yesterday and was even able to no wear the oxygen for a little while Her swelling is unchanged today Her heart failure test is up a bit Her heart rate is down a bit Denies any tenderness while palpitating abdomen Denies any dizziness Denies any chest pain Discussed trying to get her up and moving and to walk around more Discussed getting physical therapy and occupational therapy consults Discussed starting daily Lasix dose of 40 MG for swelling and heart failure She had a meeting with family Tuesday about placement after hospital since exposure to COVID has made it difficult for her to return to [facility] and they are going to try and have her admitted into one of the nursing homes So far it looks as if she will be discharging to [facility] but Daughter has stated that she would like to see her go to [facility] if possible, but more information will be found out on Tuesday06/04/2019 She did well through the night States that she is feeling good She is wearing glasses She is wearing O2 at 1L and discussed weaning her down so she can be possibly discharged without oxygen if she is stable and she has been trialing room air as tolerated States that she ate a good breakfast this morning Denies any tenderness while palpitating abdomen Denies any dizziness Denies any chest pain Nursing states that they were able to walk her up and down the cortés yesterday and she did well Nursing states that her urinary frequency has increased with starting Lasix Continue trying to get her up and moving and to walk around more She had a meeting with family Tuesday about placement after hospital since exposure to COVID has made it difficult for her to return to [facility] and they are going to try and have her admitted into one of the nursing homes Discharging is pending due to nursing homes being apprehensive about her being exposed to COVID and not having multiple tests done to prove that she is not infected 06/05/2019 She did well through the night States that she is feeling good She is wearing glasses She is wearing O2 at 1L and discussed weaning her down so she can be possibly discharged without oxygen if she is stable and she has been trialing room air as tolerated States that she ate a good breakfast this morning Denies any tenderness while palpitating abdomen, dizziness, or chest pain She is walking with walker and x1 assist as tolerated Continue trying to get her up and moving and to walk around more She had a meeting with family Tuesday about placement after hospital since exposure to COVID has made it difficult for her to return to [facility] and they are going to try and have her admitted into one of the nursing homes Discharging is pending due to nursing homes being apprehensive about her being exposed to COVID and not having multiple tests done to prove that she is not infected Discussed getting lab done today of NT BNP and CBC
[2019-06-05] MEDS: Metoprolol Succinate 50 MG Tab.ER PO SCH (14:13)
[2019-06-05] MEDS: Acetaminophen 325 MG Tab PO PRN (21:44)
[2019-06-05] MEDS: Donepezil 10 MG Tab PO SCH (21:45)
[2019-06-05] MEDS: Gabapentin 100 MG Cap PO SCH (21:46)
[2019-06-05] MEDS: Simvastatin 40 MG Tab PO SCH (21:46)
[2019-06-05] MEDS: Ondansetron 4 MG/2 ML SDV IVPUSH PRN (21:50)
[2019-06-06] MEDS: Isosorbide Mononitrate 30 MG Tab.ER PO SCH (08:53)
[2019-06-06] MEDS: Losartan 25 MG Tab PO SCH (08:55)
[2019-06-06] MEDS: Aspirin 81 MG Tab.EC PO SCH (08:56)
[2019-06-06] MEDS: Pantoprazole 40 MG Tab.CR PO SCH ×2 (08:56→20:36)
[2019-06-06] MEDS: Metoprolol Succinate 50 MG Tab.ER PO SCH (08:56)
[2019-06-06] MEDS: Venlafaxine 37.5 MG Tab PO SCH ×2 (08:56→20:36)
[2019-06-06] MEDS: Furosemide 40 MG Tab PO SCH (08:56)
[2019-06-06] MEDS: Folic Acid 1 MG Tab PO SCH (08:56)
[2019-06-06] MEDS: Simvastatin 40 MG Tab PO SCH (20:36)
[2019-06-06] MEDS: Donepezil 10 MG Tab PO SCH (20:37)
[2019-06-06] MEDS: Gabapentin 100 MG Cap PO SCH (20:38)
[2019-06-07] MEDS: Venlafaxine 37.5 MG Tab PO SCH ×2 (08:54→20:16)
[2019-06-07] MEDS: Metoprolol Succinate 50 MG Tab.ER PO SCH (08:54)
[2019-06-07] MEDS: Furosemide 40 MG Tab PO SCH (08:55)
[2019-06-07] MEDS: Isosorbide Mononitrate 30 MG Tab.ER PO SCH (08:55)
[2019-06-07] MEDS: Pantoprazole 40 MG Tab.CR PO SCH ×2 (08:56→20:14)
[2019-06-07] MEDS: Folic Acid 1 MG Tab PO SCH (08:56)
[2019-06-07] MEDS: Losartan 25 MG Tab PO SCH (08:56)
[2019-06-07] MEDS: Aspirin 81 MG Tab.EC PO SCH (08:57)
--- NOTE | 2019-06-07 15:42 | PCM.PN ---
- General Info Date of Service: 06/07/19 Subjective Update: BM 06/05 Tolerating diet Slept OK Still on 1L NC - Patient Data Vitals - Most Recent: Last Vital Signs Temp 97.7 F 06/07/19 14:05 Pulse 92 06/07/19 14:05 Resp 20 06/07/19 14:05 BP 101/56 L 06/07/19 14:05 Pulse Ox 97 06/07/19 14:05 Weight - Most Recent: 67.993 kg - Exam Quality Assessment: Supplemental Oxygen General: Alert, Oriented, Cooperative, No Acute Distress HEENT: Pupils Equal, Pupils Reactive, EOMI Neck: Supple, Trachea Midline, No JVD Lungs: Decreased Breath Sounds. No: Crackles, Rales, Rhonchi, Wheezing Cardiovascular: Regular Rate, Regular Rhythm. No: Murmurs, Gallops, Rubs Skin: Warm, Dry Neurological: No New Focal Deficit Psy/Mental Status: Alert, Normal Affect Sepsis Event Note - Evaluation Sepsis Screening Result: No Definite Risk - Focused Exam Vital Signs: Vital Signs Temp Temp Pulse Pulse Resp BP BP 06/07/19 14:05 97.7 F 92 20 101/56 L 06/07/19 08:56 112/85 06/07/19 08:55 112/85 06/07/19 08:54 101 H 112/85 06/07/19 08:52 98.5 F 101 H 20 112/85 06/07/19 04:14 96 112/71 Pulse Ox 06/07/19 14:05 97 06/07/19 08:56 06/07/19 08:55 06/07/19 08:54 06/07/19 08:52 94 L 06/07/19 04:14 90 L Date Exam was Performed: 06/08/19 Time Exam was Performed: 12:56 - Problem List & Annotations (1) Acute hypoxemic respiratory failure SNOMED Code(s): 507402689 Code(s): J96.01 - ACUTE RESPIRATORY FAILURE WITH HYPOXIA Status: Acute Current Visit: Yes (2) Leukocytosis SNOMED Code(s): 161880813, 677918551 Code(s): D72.829 - ELEVATED WHITE BLOOD CELL COUNT, UNSPECIFIED Status: Acute Current Visit: Yes (3) Metabolic alkalosis SNOMED Code(s): 3516201 Code(s): E87.3 - ALKALOSIS Status: Acute Current Visit: Yes (4) Acute kidney injury SNOMED Code(s): 22171224, 29757639 Code(s): N17.9 - ACUTE KIDNEY FAILURE, UNSPECIFIED Status: Acute Current Visit: Yes (5) Anemia SNOMED Code(s): 014044024 Code(s): D64.9 - ANEMIA, UNSPECIFIED Status: Acute Priority: High Current Visit: Yes Onset Date: 06/04/19 Qualifiers: Anemia type: unspecified type Qualified Code(s): D64.9 - Anemia, unspecified Annotation/Comment:: heme pos stool and on baby asa/ anticoag stopped on admission . on ppi (6) Anticoagulation adequate SNOMED Code(s): 150294676, 092509783 Code(s): Z79.01 - USP (CURRENT) USE OF ANTICOAGULANTS Status: Acute Priority: Medium Current Visit: Yes Onset Date: 05/30/19 (7) CAD (coronary artery disease) SNOMED Code(s): 47902939 Code(s): I25.10 - ATHSCL HEART DISEASE OF [place] CORONARY ARTERY W/O ANG PCTRS Status: Acute Priority: Medium Current Visit: Yes Onset Date: Qualifiers: Coronary Disease-Associated Artery/Lesion type: [place] artery [place] vs. transplanted heart: [place] heart Associated angina: without angina Qualified Code(s): I25.10 - Atherosclerotic heart disease of [place] coronary artery without angina pectoris Annotation/Comment:: anemia and chf with abnormal chest xray on admission / tranfused one unit prbcs because extent of cad unknown and hgn 7 (8) CHF (congestive heart failure) SNOMED Code(s): 57925785 Code(s): I50.9 - HEART FAILURE, UNSPECIFIED Status: Acute Priority: High Current Visit: Yes Qualifiers: 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 no increased work of breathing. will give lasix 20 mg and babysitter response. cont beta maria esther a nd monitor afib and rvr currently in 90s. (9) Dementia SNOMED Code(s): 58513230 Code(s): F03.90 - UNSPECIFIED DEMENTIA WITHOUT BEHAVIORAL DISTURBANCE Status: Acute Priority: Low Current Visit: Yes Onset Date: 06/03/19 Qualifiers: Dementia type: Alzheimer's disease Annotation/Comment:: started low dose donazepil (10) GI bleeding SNOMED Code(s): 85272572 Code(s): K92.2 - GASTROINTESTINAL HEMORRHAGE, UNSPECIFIED Status: Acute Priority: High Current Visit: Yes Onset Date: 05/29/19 Qualifiers: GI bleed type/associated pathology: unspecified gastrointestinal hemorrhage type Qualified Code(s): K92.2 - Gastrointestinal hemorrhage, unspecified Annotation/Comment:: on anticoagulation for afib/ hgn 6 (11) Atrial fibrillation with rapid ventricular response SNOMED Code(s): 173386361756281 Code(s): I48.91 - UNSPECIFIED ATRIAL FIBRILLATION Status: Acute Priority : Medium Current Visit: No Onset Date: 05/29/19 Annotation/Comment:: no conversion and likely will be rate controlled . no anticoag for now given rectal bleeding , will complete chads vasc. score. 06/02/19 REPEAT HGN 10.5 AFTER TRANSFUSION AND REPEAT HEMMOCCULT POS. BUT HAS SMALL NOSE BLEED LAST NIGHT . CONT BABY ASA. 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 Qualified Code(s): G60.3 - Idiopathic progressive neuropathy (15) Chronic kidney disease SNOMED Code(s): 661522728 Code(s): N18.9 - CHRONIC KIDNEY DISEASE, UNSPECIFIED Status: Chronic Priority: Medium Current Visit: No Qualifiers: Chronic kidney disease stage: stage 3 (moderate) Qualified Code(s): N18.3 - Chronic kidney disease, stage 3 (moderate) (16) Paroxysmal A-fib SNOMED Code(s): 123910859 Code(s): I48.0 - PAROXYSMAL ATRIAL FIBRILLATION Status: Chronic Priority : Medium Current Visit: No - Problem List Review Problem List Initiated/Reviewed/Updated: Yes - Plan Plan:: Assessment [id number]-year-old female with history of coronary artery disease with new onset CHF * Hemoglobin of 7.5-->9.0 (1 unit PRBC)-->9.1 * Admission troponin negative at 0.025 * Admission proBNP 7487 * Chest x-ray with pleural effusions and atelectasis * No fever, white count, lactic acidosis or anion gap * On atenolol and isosorbide mononitrate * Fluid restriction to 1500 mL/day * Strict I's and O's and daily weights * Echocardiogram obtained 05/28/19 * 1. LVEF, by visual estimation, is 55-60% * 2. Mild concentric left ventricular hypertrophy * 3. Pseudonormal (Grade 2) pattern of LV diastolic filling * 4. Normal right ventricular systolic function * 5. There is moderate aortic valve sclerosis without stenosis * 6. Mild aortic valve regurgitation * 7. Mild to moderate mitral valve regurgiation * 8. Moderate tricuspid valve regurgitation * 9. The right ventricular systolic pressure is moderately elevated at 57.0 mmHg * 10. No regional wall motion abnormalities. Anemia, likely blood loss * History of GI bleed * History of anemia, progressive, with pancytopenia (currently normal white count and platelets) * Guaiac positive stool in ED * Confirms bright red blood per rectum, last episode 1 week ago * On full dose aspirin - hold * Pantoprazole 40 mg p.o. BID * No hematochezia or melena as inpatient * Hgb trend: 7.5 (given 1 unit) 9.0-->9.1-->8.9 Paroxysmal atrial fibrillation * Currently a fib * Switch to metoprolol tartrate 50 mg bid History of seronegative arthritis, colitis, depression, generalized weakness, polymyalgia rheumatica Plan * Admit to medical floor on telemetry * FiO2 to keep SpO2 > 90% * Hold lasix for now. Likely will need cautious diuresis * Pantoprazole 40 mg IV twice daily * Follow hemoglobin * Switch atenolol to metoprolol tartrate 50 mg BID for CHF exacerbation. She would likely benefit to switch over to metoprolol succinate when stable * Fluid restriction to 1500 mL/day * Strict I's and O's and daily weights * Have patient follow with surgery as outpatient after recovery from CHF for GI bleed. * VTE prophylaxis with SCDs. Anticoagulation contraindicated because of GI bleed * CODE STATUS: DNR/DNI 05/31/2019 Heart failure and Atrial fibrillation She is currently on fluid restrictions and discussed the possibility of going on Lasix She is currently wearing oxygen She is on droplet precautions due to exposure of someone with known positive COVID Discussed adding an NT BNP onto this mornings labs Discussed increasing dose of metoprolol if heart rate doesn't decrease after an hour of receiving medications Discussed doing a clock drawing test for memory/dementia Looking at discharging to [facility] pending the quarantine parodical from the state 06/01/2019 She did well through the night She didn't want to eat breakfast this morning because she wanted to sleep in Her last BM was 2 days ago She is wearing glasses She is wearing O2 She had some nausea this morning when she was up moving around and going to the bathroom but did not vomit Denies any tenderness while palpitating abdomen Denies any dizziness Denies any chest pain She had an EKG done Discussed an abdominal CT Discussed getting labs done She is having a meeting with family today about placement after hospital since exposure to COVID has made it difficult for her to return to [facility] 06/02/2019 She did well through the night She had a shower this morning She is wearing glasses She is wearing O2 at 2L and discussed weaning her down so she can be possibly discharged without oxygen if she is stable States that her appetite is good but she doesn't like the food here Denies any tenderness while palpitating abdomen Denies any dizziness Denies any chest pain She is having a meeting with family yesterday about placement after hospital since exposure to COVID has made it difficult for her to return to [facility] and they are going to try and have her admitted into one of the nursing homes 06/03/2019 She did well through the night States that she is feeling good She is wearing glasses She is wearing O2 at 1L and discussed weaning her down so she can be possibly discharged without oxygen if she is stable She was wearing 02 at 2L previously and started to wean yesterday and was even able to no wear the oxygen for a little while Her swelling is unchanged today Her heart failure test is up a bit Her heart rate is down a bit Denies any tenderness while palpitating abdomen Denies any dizziness Denies any chest pain Discussed trying to get her up and moving and to walk around more Discussed getting physical therapy and occupational therapy consults Discussed starting daily Lasix dose of 40 MG for swelling and heart failure She had a meeting with family Tuesday about placement after hospital since exposure to COVID has made it difficult for her to return to [facility] and they are going to try and have her admitted into one of the nursing homes So far it looks as if she will be discharging to [facility] but Daughter has stated that she would like to see her go to [facility] if possible, but more information will be found out on Tuesday06/04/2019 She did well through the night States that she is feeling good She is wearing glasses She is wearing O2 at 1L and discussed weaning her down so she can be possibly discharged without oxygen if she is stable and she has been trialing room air as tolerated States that she ate a good breakfast this morning Denies any tenderness while palpitating abdomen Denies any dizziness Denies any chest pain Nursing states that they were able to walk her up and down the cortés yesterday and she did well Nursing states that her urinary frequency has increased with starting Lasix Continue trying to get her up and moving and to walk around more She had a meeting with family Tuesday about placement after hospital since exposure to COVID has made it difficult for her to return to [facility] and they are going to try and have her admitted into one of the nursing homes Discharging is pending due to nursing homes being apprehensive about her being exposed to COVID and not having multiple tests done to prove that she is not infected 06/05/2019 She did well through the night States that she is feeling good She is wearing glasses She is wearing O2 at 1L and discussed weaning her down so she can be possibly discharged without oxygen if she is stable and she has been trialing room air as tolerated States that she ate a good breakfast this morning Denies any tenderness while palpitating abdomen, dizziness, or chest pain She is walking with walker and x1 assist as tolerated Continue trying to get her up and moving and to walk around more She had a meeting with family Tuesday about placement after hospital since exposure to COVID has made it difficult for her to return to [facility] and they are going to try and have her admitted into one of the nursing homes Discharging is pending due to nursing homes being apprehensive about her being exposed to COVID and not having multiple tests done to prove that she is not infected Discussed getting lab done today of NT BNP and CBC 06/07/2019 - Current weight 149lb, down from 152 yesterday - COVID test sent out, pending result to be able to place patient - Patient recommending SNF with PT/OT - Unable to wean off NC, will continue 1L - BM 06/05 - Monitor urine output - Increase on creatinine to 2.2 - Dietary recommending Ensure and high protein jello, only eating 50% of Ensure - Heart rate trend 102-135x' - Tmax 97.5, WBC count up from 8.16 to 16.6 - GFR down from 33 to 21 - BP trend 98-134/56-88 - O2 Sat > 93% on 1L NC
[2019-06-07] MEDS: Gabapentin 100 MG Cap PO SCH (20:14)
[2019-06-07] MEDS: Donepezil 10 MG Tab PO SCH (20:14)
[2019-06-07] MEDS: Simvastatin 40 MG Tab PO SCH (20:16)
[2019-06-08] MEDS: Metoprolol Succinate 50 MG Tab.ER PO SCH (08:45)
[2019-06-08] MEDS: Aspirin 81 MG Tab.EC PO SCH (08:46)
[2019-06-08] MEDS: Furosemide 40 MG Tab PO SCH (08:46)
[2019-06-08] MEDS: Isosorbide Mononitrate 30 MG Tab.ER PO SCH (08:46)
[2019-06-08] MEDS: Losartan 25 MG Tab PO SCH (08:46)
[2019-06-08] MEDS: Venlafaxine 37.5 MG Tab PO SCH ×2 (08:46→21:01)
[2019-06-08] MEDS: Folic Acid 1 MG Tab PO SCH (08:46)
[2019-06-08] MEDS: Pantoprazole 40 MG Tab.CR PO SCH ×2 (08:46→21:00)
--- NOTE | 2019-06-08 13:26 | PCM.PN ---
- General Info Date of Service: 06/06/19 Admission Dx/Problem (Free Text): Admission Diagnosis/Problem Admission Diagnosis/Problem Heart failure 05/31/2019 Heart failure and Atrial fibrillation She is currently on fluid restrictions and discussed the possibility of going on Lasix She is currently wearing oxygen She is on droplet precautions due to exposure of someone with known positive COVID Discussed adding an NT BNP onto this mornings labs Discussed increasing dose of metoprolol if heart rate doesn't decrease after an hour of receiving medications Discussed doing a clock drawing test for memory/dementia Looking at discharging to [facility] pending the quarantine parodical from the state 06/01/2019 She did well through the night She didn't want to eat breakfast this morning because she wanted to sleep in Her last BM was 2 days ago She is wearing glasses She is wearing O2 She had some nausea this morning when she was up moving around and going to the bathroom but did not vomit Denies any tenderness while palpitating abdomen Denies any dizziness Denies any chest pain She had an EKG done Discussed an abdominal CT Discussed getting labs done She is having a meeting with family today about placement after hospital since exposure to COVID has made it difficult for her to return to [facility] 06/02/2019 She did well through the night. SHE HAS NO CHEST PAIN/ARRYTHMIA OTHER THAN AFIB AND RVR. INCREASED BETA MARIA ESTHER AND DOING WELL. SERIAL TROPONINS ALL MILDLY ELAVATED .17-.32 AND BNP REPEATED AND PENDING. TRANSFUSED 1 UNIT OF PRBCS AND GIVEN LASIX AND HEART RATE 80S AND B.P 120-130 THIS AM. COG EVAL SHOWS MODERATE GENERALIZED IMPAIRMENT AND STARTED ARICEPT IN LOW DOSE TONIGHT She had a shower this morning She is wearing glasses She is wearing O2 at 2L and discussed weaning her down so she can be possibly discharged without oxygen if she is stable States that her appetite is good but she doesn't like the food here Denies any tenderness while palpitating abdomen Denies any dizziness Denies any chest pain She is having a meeting with family yesterday about placement after hospital since exposure to COVID has made it difficult for her to return to [facility] and they are going to try and have her admitted into one of the nursing homes 06/03/2019 She did well through the night States that she is feeling good She is wearing glasses She is wearing O2 at 1L and discussed weaning her down so she can be possibly discharged without oxygen if she is stable She was wearing 02 at 2L previously and started to wean yesterday and was even able to no wear the oxygen for a little while Her swelling is unchanged today Her heart failure test is up a bit Her heart rate is down a bit Denies any tenderness while palpitating abdomen Denies any dizziness Denies any chest pain Discussed trying to get her up and moving and to walk around more Discussed getting physical therapy and occupational therapy consults Discussed starting daily Lasix dose of 40 MG for swelling and heart failure She had a meeting with family Tuesday about placement after hospital since exposure to COVID has made it difficult for her to return to [facility] and they are going to try and have her admitted into one of the nursing homes So far it looks as if she will be discharging to [facility] but Daughter has stated that she would like to see her go to [facility] if possible, but more information will be found out on Tuesday06/04/2019 She did well through the night States that she is feeling good She is wearing glasses She is wearing O2 at 1L and discussed weaning her down so she can be possibly discharged without oxygen if she is stable and she has been trialing room air as tolerated States that she ate a good breakfast this morning Denies any tenderness while palpitating abdomen Denies any dizziness Denies any chest pain Nursing states that they were able to walk her up and down the cortés yesterday and she did well Nursing states that her urinary frequency has increased with starting Lasix Continue trying to get her up and moving and to walk around more She had a meeting with family Tuesday about placement after hospital since exposure to COVID has made it difficult for her to return to [facility] and they are going to try and have her admitted into one of the nursing homes Discharging is pending due to nursing homes being apprehensive about her being exposed to COVID and not having multiple tests done to prove that she is not infected 06/05/2019 She did well through the night States that she is feeling good She is wearing glasses She is wearing O2 at 1L and discussed weaning her down so she can be possibly discharged without oxygen if she is stable and she has been trialing room air as tolerated States that she ate a good breakfast this morning Denies any tenderness while palpitating abdomen, dizziness, or chest pain She is walking with walker and x1 assist as tolerated Continue trying to get her up and moving and to walk around more She had a meeting with family Tuesday about placement after hospital since exposure to COVID has made it difficult for her to return to [facility] and they are going to try and have her admitted into one of the nursing homes Discharging is pending due to nursing homes being apprehensive about her being exposed to COVID and not having multiple tests done to prove that she is not infected Discussed getting lab done today of NT BNP and CBC 06/06/2019 She is up in her chair this morning watching TV She did well through the night States that she is feeling good She is wearing glasses She is wearing O2 at 1L and discussed weaning her down so she can be possibly discharged without oxygen if she is stable and she has been trialing room air as tolerated She had a nose bleed last night and used saline for her nose States that she has been eating good She is still having a fast heart rate and still in atrial fibrillation Denies any tenderness while palpitating abdomen, dizziness, or chest pain She is walking with walker and x1 assist as tolerated Continue trying to get her up and moving and to walk around more She had a meeting with family last Tuesday about placement after hospital since exposure to COVID has made it difficult for her to return to [facility] and they are going to try and have her admitted into one of the nursing homes Discharging is pending due to nursing homes being apprehensive about her being exposed to COVID and not having multiple tests done to prove that she is not infected Subjective Update: She is up in her chair this morning watching TV She did well through the night States that she is feeling good She is wearing glasses She is wearing O2 at 1L and discussed weaning her down so she can be possibly discharged without oxygen if she is stable and she has been trialing room air as tolerated She had a nose bleed last night and used saline for her nose States that she has been eating good She is still having a fast heart rate and still in atrial fibrillation Denies any tenderness while palpitating abdomen, dizziness, or chest pain She is walking with walker and x1 assist as tolerated Continue trying to get her up and moving and to walk around more She had a meeting with family last Tuesday about placement after hospital since exposure to COVID has made it difficult for her to return to [facility] and they are going to try and have her admitted into one of the nursing homes Discharging is pending due to nursing homes being apprehensive about her being exposed to COVID and not having multiple tests done to prove that she is not infected Functional Status: Reports: Pain Controlled - Review of Systems General: Reports: Weakness HEENT: Reports: No Symptoms, Glasses Pulmonary: Reports: No Symptoms Cardiovascular: Reports: No Symptoms Gastrointestinal: Reports: No Symptoms Genitourinary: Reports: No Symptoms Musculoskeletal: Reports: No Symptoms Skin: Reports: No Symptoms Neurological: Reports: Weakness Psychiatric: Reports: No Symptoms - Patient Data Vitals - Most Recent: Last Vital Signs Temp 97.3 F 06/06/19 08:56 Pulse 134 H 06/06/19 08:56 Resp 16 06/06/19 08:56 BP 134/88 06/06/19 08:56 Pulse Ox 97 06/06/19 08:56 Weight - Most Recent: 68.583 kg I&O - Last 24 Hours: Intake & Output 06/05/19 06/06/19 06/06/19 22:59 06:59 14:59 Intake Total 600 300 Output Total 550 500 Balance 50 -200 Lab Results Last 24 Hours: Laboratory Results - last 24 hr 06/05/19 Range/Units 12:08 NT-Pro-B Natriuret Pep 4775 H (0-450) pg/mL Jaime Results Last 24 Hours: Microbiology 06/07/19 12:00 Coronavirus RNA (PCR) - Final Nasopharyngeal Swab Med Orders - Current: Current Medications Acetaminophen (Tylenol) 650 mg PO Q4H PRN PRN Reason: Pain (Mild 1-3)/fever Last Admin: 06/05/19 21:44 Dose: 650 mg Albuterol (Proventil Neb Soln) 2.5 mg NEB Q2H PRN PRN Reason: Shortness Of Breath/wheezing Albuterol/Ipratropium (Duoneb 3.0-0.5 Mg/3 Ml) 3 ml NEB Q4H PRN PRN Reason: Shortness Of Breath/wheezing Last Admin: 05/28/19 19:52 Dose: 3 ml Aspirin (Halfprin) 81 mg PO DAILY [facility] Last Admin: 06/06/19 08:56 Dose: 81 mg Donepezil HCl (Aricept) 2.5 mg PO BEDTIME [facility] Last Admin: 06/05/19 21:45 Dose: 2.5 mg Folic Acid (Folic Acid) 1 mg PO DAILY [facility] Last Admin: 06/06/19 08:56 Dose: 1 mg Furosemide (Lasix) 40 mg PO DAILY [facility] Last Admin: 06/06/19 08:56 Dose: 40 mg Gabapentin (Neurontin) 100 mg PO BEDTIME [facility] Last Admin: 06/05/19 21:46 Dose: 100 mg Isosorbide Mononitrate (Imdur) 30 mg PO DAILY [facility] Last Admin: 06/06/19 08:53 Dose: 30 mg Losartan Potassium (Cozaar) 50 mg PO DAILY [facility] Last Admin: 06/06/19 08:55 Dose: 50 mg Metoprolol Succinate (Toprol Xl) 100 mg PO DAILY [facility] Last Admin: 06/06/19 08:56 Dose: 100 mg Metoprolol Tartrate (Lopressor) 5 mg IV Q6H PRN PRN Reason: HR > 110 Nitroglycerin (Nitrostat) 0.4 mg SL ASDIRECTED PRN PRN Reason: Chest Pain Ondansetron HCl (Zofran) 4 mg IVPUSH Q4H PRN PRN Reason: Nausea/Vomiting Last Admin: 06/05/19 21:50 Dose: 4 mg Pantoprazole Sodium (Protonix) 40 mg PO Q12H [facility] Last Admin: 06/06/19 08:56 Dose: 40 mg Simvastatin (Zocor) 40 mg PO BEDTIME [facility] Last Admin: 06/05/19 21:46 Dose: 40 mg Sodium Chloride (Saline Flush) 10 ml FLUSH ASDIRECTED PRN PRN Reason: Keep Vein Open Last Admin: 05/27/19 12:21 Dose: 10 ml Sodium Chloride ([place] Nasal [place]) 0 ml SYD QID PRN PRN Reason: nasal dryness. Venlafaxine HCl (Effexor) 75 mg PO BID [facility] Last Admin: 06/06/19 08:56 Dose: 75 mg Discontinued Medications Atenolol (Tenormin) 50 mg PO BID [facility] Atenolol (Tenormin) 50 mg PO DAILY [facility] Last Admin: 05/30/19 08:11 Dose: Not Given Diatrizoate Meglum/Diatrizoate Sod (Gastrografin 37%) 45 ml PO ONETIME ONE Stop: 06/01/19 11:16 Last Admin: 06/01/19 11:19 Dose: 45 ml Diltiazem HCl (Cardizem) 10 mg IVPUSH ONETIME ONE Stop: 05/29/19 21:03 Last Admin: 05/29/19 21:47 Dose: Not Given Diltiazem HCl (Cardizem) 5 mg IVPUSH ONETIME ONE Stop: 05/29/19 22:02 Last Admin: 05/29/19 22:05 Dose: 5 mg Furosemide (Lasix) 40 mg IVPUSH NOW ONE Stop: 05/27/19 14:08 Last Admin: 05/27/19 14:28 Dose: 40 mg Furosemide (Lasix) 40 mg IVPUSH BIDDIURETIC [facility] Last Admin: 05/29/19 13:29 Dose: 40 mg Furosemide (Lasix) 20 mg PO ONETIME ONE Stop: 05/31/19 09:02 Last Admin: 05/31/19 10:00 Dose: 20 mg Furosemide (Lasix) 40 mg IVPUSH NOW ONE Stop: 06/01/19 16:01 Last Admin: 06/01/19 18:21 Dose: 40 mg Furosemide (Lasix) 40 mg IVPUSH NOW ONE Stop: 06/03/19 10:27 Last Admin: 06/03/19 10:56 Dose: 40 mg Ceftriaxone Sodium 2 gm/ (Sodium Chloride) 100 mls @ 200 mls/hr IV ONETIME ONE Stop: 05/27/19 14:13 Last Admin: 05/27/19 14:03 Dose: 200 mls/hr Sodium Chloride (Normal Saline) 250 mls @ 100 mls/hr IV ASDIRECTED [facility] Last Admin: 05/28/19 08:33 Dose: 100 mls/hr Potassium Chloride 10 meq/ (Premix) 100 mls @ 100 mls/hr IV Q1H [facility] Stop: 05/28/19 11:59 Last Admin: 05/28/19 13:10 Dose: 100 mls/hr Magnesium Sulfate 4 gm/ Premix 50 mls @ 12.5 mls/hr IV ONETIME ONE Stop: 05/28/19 11:53 Last Admin: 05/28/19 08:32 Dose: 12.5 mls/hr Sodium Chloride (Normal Saline) 500 mls @ 999 mls/hr IV ONETIME ONE Stop: 05/29/19 21:31 Last Admin: 05/29/19 21:19 Dose: 999 mls/hr Sodium Chloride (Normal Saline) Confirm Administered Dose 1,000 mls @ as directed .ROUTE .STK-MED ONE Stop: 05/29/19 21:07 Last Admin: 05/29/19 21:23 Dose: Not Given Diltiazem HCl 100 mg/ Sodium (Chloride) 100 mls @ 5 mls/hr IV TITRATE [facility]; Protocol Last Titration: 05/30/19 09:00 Dose: 0 mg/hr, 0 mls/hr Sodium Chloride (Normal Saline) 1,000 mls @ 50 mls/hr IV ASDIRECTED [facility] Last Infusion: 05/29/19 22:00 Dose: 75 mls/hr Sodium Chloride (Normal Saline) 1,000 mls @ 30 mls/hr IV ASDIRECTED [facility] Last Admin: 05/30/19 22:56 Dose: 30 mls/hr Sodium Chloride (Normal Saline) 500 mls @ 25 mls/hr IV ASDIRECTED ONE Stop: 06/02/19 09:05 Last Admin: 06/01/19 15:23 Dose: 25 mls/hr Influenza Virus Vaccine (Pharmacy To Dose - Influenza Vaccine) 1 each IM ONETIME ONE Stop: 05/27/19 15:18 Magnesium Hydroxide (Milk Of Magnesia) 30 ml PO Q4H ONE Stop: 05/29/19 10:01 Last Admin: 05/29/19 10:50 Dose: 30 ml Magnesium Oxide (Magnesium Oxide) 400 mg PO BID [facility] Last Admin: 06/01/19 08:33 Dose: 400 mg Metoprolol Succinate (Toprol Xl) 100 mg PO DAILY [facility] Last Admin: 06/05/19 14:18 Dose: Not Given Metoprolol Tartrate (Lopressor) 50 mg PO Q12H [facility] Last Admin: 06/01/19 08:32 Dose: 50 mg Metoprolol Tartrate (Lopressor) 50 mg PO ONETIME ONE Stop: 05/31/19 11:55 Last Admin: 05/31/19 12:19 Dose: 50 mg Metoprolol Tartrate (Lopressor) 50 mg PO Q6H [facility] Last Admin: 06/05/19 09:01 Dose: 50 mg Ondansetron HCl (Zofran) Confirm Administered Dose 4 mg .ROUTE .STK-MED ONE Stop: 05/29/19 23:51 Last Admin: 05/29/19 23:57 Dose: Not Given Pantoprazole Sodium (Protonix Iv) 40 mg IVPUSH Q12H [facility] Last Admin: 05/28/19 06:25 Dose: 40 mg Pantoprazole Sodium (Protonix) 40 mg PO Q12H [facility] Last Admin: 05/28/19 11:03 Dose: 40 mg Potassium Chloride (Klor-Con M20) 40 meq PO ONETIME ONE Stop: 05/28/19 14:01 Last Admin: 05/28/19 13:19 Dose: 40 meq Potassium Chloride (Klor-Con M20) 20 meq PO ONETIME ONE Stop: 05/28/19 08:58 Last Admin: 05/28/19 09:10 Dose: 20 meq - Exam Quality Assessment: Supplemental Oxygen General: Alert, Oriented HEENT: Pupils Equal, Pupils Reactive, EOMI, Mucous Membr. Moist/[place] Neck: Supple Lungs: Clear to Auscultation, Normal Respiratory Effort Cardiovascular: Irregular Rhythm, Tachycardia, Other (irregular rate) GI/Abdominal Exam: Normal Bowel Sounds, Soft, Non-Tender, No Organomegaly, No Distention, No Abnormal Bruit, No Mass, Pelvis Stable (Female) Exam: Normal External Exam, Normal Speculum Exam, Normal Bimanual Exam Back Exam: Normal Inspection, Full Range of Motion Extremities: Normal Inspection, Normal Range of Motion, Non-Tender, No Pedal Edema, Normal Capillary Refill Skin: Warm, Dry, Intact Neurological: No New Focal Deficit Psy/Mental Status: Alert, Normal Affect, Normal Mood Sepsis Event Note - Evaluation Sepsis Screening Result: No Definite Risk - Focused Exam Vital Signs: Vital Signs Temp Temp Pulse Pulse Resp BP BP 06/06/19 08:56 97.3 F 134 H 16 134/88 06/06/19 08:55 134/88 06/06/19 08:53 134/88 06/06/19 03:00 97.6 F 102 H 16 125/78 Pulse Ox 06/06/19 08:56 97 06/06/19 08:55 06/06/19 08:53 06/06/19 03:00 93 L Date Exam was Performed: 06/08/19 Time Exam was Performed: 13:21 - Problem List & Annotations (1) CHF (congestive heart failure) SNOMED Code(s): 86576271 Code(s): I50.9 - HEART FAILURE, UNSPECIFIED Status: Acute Priority: High Current Visit: Yes Qualifiers: 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 no increased work of breathing. will give lasix 20 mg and central processing tech response. cont beta maria esther a nd monitor afib and rvr currently in 90s. (2) Atrial fibrillation with rapid ventricular response SNOMED Code(s): 220047396211947 Code(s): I48.91 - UNSPECIFIED ATRIAL FIBRILLATION Status: Acute Priority : Medium Current Visit: No Onset Date: 05/29/19 Annotation/Comment:: no conversion and likely will be rate controlled . no anticoag for now given rectal bleeding , will complete chads vasc. score. 06/02/19 REPEAT HGN 10.5 AFTER TRANSFUSION AND REPEAT HEMMOCCULT POS. BUT HAS SMALL NOSE BLEED LAST NIGHT . CONT BABY ASA. MONITOR HEMMOCCULTS AND HGN (3) Acute hypoxemic respiratory failure SNOMED Code(s): 337109178 Code(s): J96.01 - ACUTE RESPIRATORY FAILURE WITH HYPOXIA Status: Acute Priority: Low Current Visit: Yes Onset Date: 06/02/19 (4) Anemia SNOMED Code(s): 722232790 Code(s): D64.9 - ANEMIA, UNSPECIFIED Status: Acute Priority: Low Current Visit: Yes Onset Date: 06/04/19 Qualifiers: Anemia type: unspecified type Qualified Code(s): D64.9 - Anemia, unspecified Annotation/Comment:: heme pos stool and on baby asa/ anticoag stopped on admission . on ppi (5) Anticoagulation adequate SNOMED Code(s): 643972585, 990700037 Code(s): Z79.01 - VUL[employer]WMEMBER (CURRENT) USE OF ANTICOAGULANTS Status: Acute Priority: Low Current Visit: Yes Onset Date: 05/30/19 Annotation/Comment :: stable on baby aspirin/ heme positive on recheck but hgn 9.2 (6) CAD (coronary artery disease) SNOMED Code(s): 38820267 Code(s): I25.10 - ATHSCL HEART DISEASE OF [place] CORONARY ARTERY W/O ANG PCTRS Status: Acute Priority: Medium Current Visit: Yes Onset Date: Qualifiers: Coronary Disease-Associated Artery/Lesion type: [place] artery [place] vs. transplanted heart: [place] heart Associated angina: without angina Qualified Code(s): I25.10 - Atherosclerotic heart disease of [place] coronary artery without angina pectoris Annotation/Comment:: anemia and chf with abnormal chest xray on admission / tranfused one unit prbcs because extent of cad unknown and hgn 06/05/19 trop elavated mildly and no spike pattern and suspect no severe ischemia. on beta maria esther and baby asa and tolerating / anemia stable/ weaning down on o2 but weight increased and lasix started daily 40 mg day. (7) CHF (congestive heart failure), NYHA class II SNOMED Code(s): 314456131, 266932947 Code(s): I50.9 - HEART FAILURE, UNSPECIFIED Status: Acute Priority: High Current Visit: Yes Onset Date: 05/30/19 Qualifiers: Congestive heart failure type: combined Congestive heart failure chronicity : acute on chronic Qualified Code(s): I50.43 - Acute on chronic combined systolic (congestive) and diastolic (congestive) heart failure Annotation/Comment:: 06/04/19 restarted lasix / would be good candidate for [facility] nursing. weight up 4-5 lbs but doing better/ o2 weaned off and stable urine output and appetite. 06/05/19 back on o2 but walking around easily / chf class 2 / mitral regurge stable . weight down 2 lbs. 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 cont o2 until sats stable She is on droplet precautions due to exposure of someone with known positive COVID Discussed adding an NT BNP onto this mornings labs Discussed increasing dose of metoprolol if heart rate doesn't decrease after an hour of receiving medications Discussed doing a clock drawing test for memory/dementia/ and a formal screen . Looking at discharging to [facility] pending the quarantine parodical from the state. anemia stable and no desire of patient and to have colonoscopy and will recheck hemmoccult . nose bleed this a.m. now controlled . monitor nt bnp and i/s and hgn 06/01/2019 She did well through the night She didn't want to eat breakfast this morning because she wanted to sleep in Her last BM was 2 days ago She is wearing glasses She is wearing O2 She had some nausea this morning when she was up moving around and going to the bathroom but did not vomit Denies any tenderness while palpitating abdomen Denies any dizziness Denies any chest pain She had an EKG done Discussed an abdominal CT Discussed getting labs done She is having a meeting with family today about placement after hospital since exposure to COVID has made it difficult for her to return to [facility] 06/02/2019 She did well through the night She had a shower this morning She is wearing glasses She is wearing O2 at 2L and discussed weaning her down so she can be possibly discharged without oxygen if she is stable States that her appetite is good but she doesn't like the food here Denies any tenderness while palpitating abdomen Denies any dizziness Denies any chest pain She is having a meeting with family yesterday about placement after hospital since exposure to COVID has made it difficult for her to return to [facility] and they are going to try and have her admitted into one of the nursing homes 06/03/2019 She did well through the night States that she is feeling good She is wearing glasses She is wearing O2 at 1L and discussed weaning her down so she can be possibly discharged without oxygen if she is stable She was wearing 02 at 2L previously and started to wean yesterday and was even able to no wear the oxygen for a little while Her swelling is unchanged today Her heart failure test is up a bit Her heart rate is down a bit Denies any tenderness while palpitating abdomen Denies any dizziness Denies any chest pain Discussed trying to get her up and moving and to walk around more Discussed getting physical therapy and occupational therapy consults Discussed starting daily Lasix dose of 40 MG for swelling and heart failure She had a meeting with family Tuesday about placement after hospital since exposure to COVID has made it difficult for her to return to [facility] and they are going to try and have her admitted into one of the nursing homes So far it looks as if she will be discharging to [facility] but Daughter has stated that she would like to see her go to [facility] if possible, but more information will be found out on Tuesday06/04/2019 She did well through the night States that she is feeling good She is wearing glasses She is wearing O2 at 1L and discussed weaning her down so she can be possibly discharged without oxygen if she is stable and she has been trialing room air as tolerated States that she ate a good breakfast this morning Denies any tenderness while palpitating abdomen Denies any dizziness Denies any chest pain Nursing states that they were able to walk her up and down the cortés yesterday and she did well Nursing states that her urinary frequency has increased with starting Lasix Continue trying to get her up and moving and to walk around more She had a meeting with family Tuesday about placement after hospital since exposure to COVID has made it difficult for her to return to [facility] and they are going to try and have her admitted into one of the nursing homes Discharging is pending due to nursing homes being apprehensive about her being exposed to COVID and not having multiple tests done to prove that she is not infected 06/05/2019 She did well through the night States that she is feeling good She is wearing glasses She is wearing O2 at 1L and discussed weaning her down so she can be possibly discharged without oxygen if she is stable and she has been trialing room air as tolerated States that she ate a good breakfast this morning Denies any tenderness while palpitating abdomen, dizziness, or chest pain She is walking with walker and x1 assist as tolerated Continue trying to get her up and moving and to walk around more She had a meeting with family Tuesday about placement after hospital since exposure to COVID has made it difficult for her to return to [facility] and they are going to try and have her admitted into one of the nursing homes Discharging is pending due to nursing homes being apprehensive about her being exposed to COVID and not having multiple tests done to prove that she is not infected Discussed getting lab done today of NT BNP and CBC 06/06/2019 She is up in her chair this morning watching TV She did well through the night States that she is feeling good She is wearing glasses She is wearing O2 at 1L and discussed weaning her down so she can be possibly discharged without oxygen if she is stable and she has been trialing room air as tolerated She had a nose bleed last night and used saline for her nose States that she has been eating good She is still having a fast heart rate and still in atrial fibrillation Denies any tenderness while palpitating abdomen, dizziness, or chest pain She is walking with walker and x1 assist as tolerated Continue trying to get her up and moving and to walk around more She had a meeting with family last Tuesday about placement after hospital since exposure to COVID has made it difficult for her to return to [facility] and they are going to try and have her admitted into one of the nursing homes Discharging is pending due to nursing homes being apprehensive about her being exposed to COVID and not having multiple tests done to prove that she is not infected - Plan Plan:: Assessment [id number]-year-old female with history of coronary artery disease with new onset CHF * Hemoglobin of 7.5-->9.0 (1 unit PRBC)-->9.1 * Admission troponin negative at 0.025 * Admission proBNP 7487 * Chest x-ray with pleural effusions and atelectasis * No fever, white count, lactic acidosis or anion gap * On atenolol and isosorbide mononitrate * Fluid restriction to 1500 mL/day * Strict I's and O's and daily weights * Echocardiogram obtained 05/28/19 * 1. LVEF, by visual estimation, is 55-60% * 2. Mild concentric left ventricular hypertrophy * 3. Pseudonormal (Grade 2) pattern of LV diastolic filling * 4. Normal right ventricular systolic function * 5. There is moderate aortic valve sclerosis without stenosis * 6. Mild aortic valve regurgitation * 7. Mild to moderate mitral valve regurgiation * 8. Moderate tricuspid valve regurgitation * 9. The right ventricular systolic pressure is moderately elevated at 57.0 mmHg * 10. No regional wall motion abnormalities. Anemia, likely blood loss * History of GI bleed * History of anemia, progressive, with pancytopenia (currently normal white count and platelets) * Guaiac positive stool in ED * Confirms bright red blood per rectum, last episode 1 week ago * On full dose aspirin - hold * Pantoprazole 40 mg p.o. BID * No hematochezia or melena as inpatient * Hgb trend: 7.5 (given 1 unit) 9.0-->9.1-->8.9 Paroxysmal atrial fibrillation * Currently a fib * Switch to metoprolol tartrate 50 mg bid History of seronegative arthritis, colitis, depression, generalized weakness, polymyalgia rheumatica Plan * Admit to medical floor on telemetry * FiO2 to keep SpO2 > 90% * Hold lasix for now. Likely will need cautious diuresis * Pantoprazole 40 mg IV twice daily * Follow hemoglobin * Switch atenolol to metoprolol tartrate 50 mg BID for CHF exacerbation. She would likely benefit to switch over to metoprolol succinate when stable * Fluid restriction to 1500 mL/day * Strict I's and O's and daily weights * Have patient follow with surgery as outpatient after recovery from CHF for GI bleed. * VTE prophylaxis with SCDs. Anticoagulation contraindicated because of GI bleed * CODE STATUS: DNR/DNI 05/31/2019 Heart failure and Atrial fibrillation She is currently on fluid restrictions and discussed the possibility of going on Lasix She is currently wearing oxygen She is on droplet precautions due to exposure of someone with known positive COVID Discussed adding an NT BNP onto this mornings labs Discussed increasing dose of metoprolol if heart rate doesn't decrease after an hour of receiving medications Discussed doing a clock drawing test for memory/dementia Looking at discharging to [facility] pending the quarantine parodical from the state 06/01/2019 She did well through the night She didn't want to eat breakfast this morning because she wanted to sleep in Her last BM was 2 days ago She is wearing glasses She is wearing O2 She had some nausea this morning when she was up moving around and going to the bathroom but did not vomit Denies any tenderness while palpitating abdomen Denies any dizziness Denies any chest pain She had an EKG done Discussed an abdominal CT Discussed getting labs done She is having a meeting with family today about placement after hospital since exposure to COVID has made it difficult for her to return to [facility] 06/02/2019 She did well through the night She had a shower this morning She is wearing glasses She is wearing O2 at 2L and discussed weaning her down so she can be possibly discharged without oxygen if she is stable States that her appetite is good but she doesn't like the food here Denies any tenderness while palpitating abdomen Denies any dizziness Denies any chest pain She is having a meeting with family yesterday about placement after hospital since exposure to COVID has made it difficult for her to return to [facility] and they are going to try and have her admitted into one of the nursing homes 06/03/2019 She did well through the night States that she is feeling good She is wearing glasses She is wearing O2 at 1L and discussed weaning her down so she can be possibly discharged without oxygen if she is stable She was wearing 02 at 2L previously and started to wean yesterday and was even able to no wear the oxygen for a little while Her swelling is unchanged today Her heart failure test is up a bit Her heart rate is down a bit Denies any tenderness while palpitating abdomen Denies any dizziness Denies any chest pain Discussed trying to get her up and moving and to walk around more Discussed getting physical therapy and occupational therapy consults Discussed starting daily Lasix dose of 40 MG for swelling and heart failure She had a meeting with family Tuesday about placement after hospital since exposure to COVID has made it difficult for her to return to [facility] and they are going to try and have her admitted into one of the nursing [facility] So far it looks as if she will be discharging to [facility] but Daughter has stated that she would like to see her go to [facility] if possible, but more information will be found out on Tuesday06/04/2019 She did well through the night States that she is feeling good She is wearing glasses She is wearing O2 at 1L and discussed weaning her down so she can be possibly discharged without oxygen if she is stable and she has been trialing room air as tolerated States that she ate a good breakfast this morning Denies any tenderness while palpitating abdomen Denies any dizziness Denies any chest pain Nursing states that they were able to walk her up and down the cortés yesterday and she did well Nursing states that her urinary frequency has increased with starting Lasix Continue trying to get her up and moving and to walk around more She had a meeting with family Tuesday about placement after hospital since exposure to COVID has made it difficult for her to return to [facility] and they are going to try and have her admitted into one of the nursing homes Discharging is pending due to nursing homes being apprehensive about her being exposed to COVID and not having multiple tests done to prove that she is not infected 06/05/2019 She did well through the night States that she is feeling good She is wearing glasses She is wearing O2 at 1L and discussed weaning her down so she can be possibly discharged without oxygen if she is stable and she has been trialing room air as tolerated States that she ate a good breakfast this morning Denies any tenderness while palpitating abdomen, dizziness, or chest pain She is walking with walker and x1 assist as tolerated Continue trying to get her up and moving and to walk around more She had a meeting with family Tuesday about placement after hospital since exposure to COVID has made it difficult for her to return to [facility] and they are going to try and have her admitted into one of the nursing homes Discharging is pending due to nursing homes being apprehensive about her being exposed to COVID and not having multiple tests done to prove that she is not infected Discussed getting lab done today of NT BNP and CBC 06/06/2019 She is up in her chair this morning watching TV She did well through the night States that she is feeling good She is wearing glasses She is wearing O2 at 1L and discussed weaning her down so she can be possibly discharged without oxygen if she is stable and she has been trialing room air as tolerated She had a nose bleed last night and used saline for her nose States that she has been eating good She is still having a fast heart rate and still in atrial fibrillation Denies any tenderness while palpitating abdomen, dizziness, or chest pain She is walking with walker and x1 assist as tolerated Continue trying to get her up and moving and to walk around more She had a meeting with family last Tuesday about placement after hospital since exposure to COVID has made it difficult for her to return to [facility] and they are going to try and have her admitted into one of the nursing homes Discharging is pending due to nursing homes being apprehensive about her being exposed to COVID and not having multiple tests done to prove that she is not infected
--- NOTE | 2019-06-08 19:40 | PCM.PN ---
- General Info Date of Service: 06/08/19 Admission Dx/Problem (Free Text): Admission Diagnosis/Problem Admission Diagnosis/Problem Heart failure 05/31/2019 Heart failure and Atrial fibrillation She is currently on fluid restrictions and discussed the possibility of going on Lasix She is currently wearing oxygen She is on droplet precautions due to exposure of someone with known positive COVID Discussed adding an NT BNP onto this mornings labs Discussed increasing dose of metoprolol if heart rate doesn't decrease after an hour of receiving medications Discussed doing a clock drawing test for memory/dementia Looking at discharging to [facility] pending the quarantine parodical from the state 06/01/2019 She did well through the night She didn't want to eat breakfast this morning because she wanted to sleep in Her last BM was 2 days ago She is wearing glasses She is wearing O2 She had some nausea this morning when she was up moving around and going to the bathroom but did not vomit Denies any tenderness while palpitating abdomen Denies any dizziness Denies any chest pain She had an EKG done Discussed an abdominal CT Discussed getting labs done She is having a meeting with family today about placement after hospital since exposure to COVID has made it difficult for her to return to [facility] 06/02/2019 She did well through the night. SHE HAS NO CHEST PAIN/ARRYTHMIA OTHER THAN AFIB AND RVR. INCREASED BETA MARIA ESTHER AND DOING WELL. SERIAL TROPONINS ALL MILDLY ELAVATED .17-.32 AND BNP REPEATED AND PENDING. TRANSFUSED 1 UNIT OF PRBCS AND GIVEN LASIX AND HEART RATE 80S AND B.P 120-130 THIS AM. COG EVAL SHOWS MODERATE GENERALIZED IMPAIRMENT AND STARTED ARICEPT IN LOW DOSE TONIGHT She had a shower this morning She is wearing glasses She is wearing O2 at 2L and discussed weaning her down so she can be possibly discharged without oxygen if she is stable States that her appetite is good but she doesn't like the food here Denies any tenderness while palpitating abdomen Denies any dizziness Denies any chest pain She is having a meeting with family yesterday about placement after hospital since exposure to COVID has made it difficult for her to return to [facility] and they are going to try and have her admitted into one of the nursing homes 06/03/2019 She did well through the night States that she is feeling good She is wearing glasses She is wearing O2 at 1L and discussed weaning her down so she can be possibly discharged without oxygen if she is stable She was wearing 02 at 2L previously and started to wean yesterday and was even able to no wear the oxygen for a little while Her swelling is unchanged today Her heart failure test is up a bit Her heart rate is down a bit Denies any tenderness while palpitating abdomen Denies any dizziness Denies any chest pain Discussed trying to get her up and moving and to walk around more Discussed getting physical therapy and occupational therapy consults Discussed starting daily Lasix dose of 40 MG for swelling and heart failure She had a meeting with family Tuesday about placement after hospital since exposure to COVID has made it difficult for her to return to [facility] and they are going to try and have her admitted into one of the nursing homes So far it looks as if she will be discharging to [facility] but Daughter has stated that she would like to see her go to [facility] if possible, but more information will be found out on Tuesday06/04/2019 She did well through the night States that she is feeling good She is wearing glasses She is wearing O2 at 1L and discussed weaning her down so she can be possibly discharged without oxygen if she is stable and she has been trialing room air as tolerated States that she ate a good breakfast this morning Denies any tenderness while palpitating abdomen Denies any dizziness Denies any chest pain Nursing states that they were able to walk her up and down the cortés yesterday and she did well Nursing states that her urinary frequency has increased with starting Lasix Continue trying to get her up and moving and to walk around more She had a meeting with family Tuesday about placement after hospital since exposure to COVID has made it difficult for her to return to [facility] and they are going to try and have her admitted into one of the nursing homes Discharging is pending due to nursing homes being apprehensive about her being exposed to COVID and not having multiple tests done to prove that she is not infected 06/05/2019 She did well through the night States that she is feeling good She is wearing glasses She is wearing O2 at 1L and discussed weaning her down so she can be possibly discharged without oxygen if she is stable and she has been trialing room air as tolerated States that she ate a good breakfast this morning Denies any tenderness while palpitating abdomen, dizziness, or chest pain She is walking with walker and x1 assist as tolerated Continue trying to get her up and moving and to walk around more She had a meeting with family Tuesday about placement after hospital since exposure to COVID has made it difficult for her to return to [facility] and they are going to try and have her admitted into one of the nursing homes Discharging is pending due to nursing homes being apprehensive about her being exposed to COVID and not having multiple tests done to prove that she is not infected Discussed getting lab done today of NT BNP and CBC 06/06/2019 She is up in her chair this morning watching TV She did well through the night States that she is feeling good She is wearing glasses She is wearing O2 at 1L and discussed weaning her down so she can be possibly discharged without oxygen if she is stable and she has been trialing room air as tolerated She had a nose bleed last night and used saline for her nose States that she has been eating good She is still having a fast heart rate and still in atrial fibrillation Denies any tenderness while palpitating abdomen, dizziness, or chest pain She is walking with walker and x1 assist as tolerated Continue trying to get her up and moving and to walk around more She had a meeting with family last Tuesday about placement after hospital since exposure to COVID has made it difficult for her to return to [facility] and they are going to try and have her admitted into one of the nursing homes Discharging is pending due to nursing homes being apprehensive about her being exposed to COVID and not having multiple tests done to prove that she is not infected 06/07/2019 - Current weight 149lb, down from 152 yesterday - COVID test sent out, pending result to be able to place patient - Patient recommending SNF with PT/OT - Unable to wean off NC, will continue 1L - BM 06/05 - Monitor urine output - Increase on creatinine to 2.2 - Dietary recommending Ensure and high protein jello, only eating 50% of Ensure - Heart rate trend 102-135x' - Tmax 97.5, WBC count up from 8.16 to 16.6 - GFR down from 33 to 21 - BP trend 98-134/56-88 - O2 Sat > 93% on 1L NC 06/08/2019 She is up in bed watching TV She did well through the night States that she is feeling good She is wearing glasses She is wearing O2 at 1L States that she has been eating good She is on fluid restrictions She is still having a fast heart rate and in 90s today and still in atrial fibrillation Denies any tenderness while palpitating abdomen, dizziness, or chest pain She is walking with walker and x1 assist as tolerated Her COVID test came back negative today Continue trying to get her up and moving and to walk around more She had a meeting with family last Tuesday about placement after hospital since exposure to COVID has made it difficult for her to return to [facility] and they are going to try and have her admitted into one of the nursing homes Discharging is pending due to nursing homes being apprehensive about her being exposed to COVID and not having multiple tests done to prove that she is not infected Subjective Update: She is up in bed watching TV She did well through the night States that she is feeling good She is wearing glasses She is wearing O2 at 1L States that she has been eating good She is on fluid restrictions She is still having a fast heart rate and in 90s today and still in atrial fibrillation Denies any tenderness while palpitating abdomen, dizziness, or chest pain She is walking with walker and x1 assist as tolerated Her COVID test came back negative today Continue trying to get her up and moving and to walk around more She had a meeting with family last Tuesday about placement after hospital since exposure to COVID has made it difficult for her to return to [facility] and they are going to try and have her admitted into one of the nursing homes Discharging is pending due to nursing homes being apprehensive about her being exposed to COVID and not having multiple tests done to prove that she is not infected Functional Status: Reports: Pain Controlled - Review of Systems General: Reports: Weakness HEENT: Reports: No Symptoms, Glasses Pulmonary: Reports: No Symptoms Cardiovascular: Reports: No Symptoms Gastrointestinal: Reports: No Symptoms Genitourinary: Reports: No Symptoms Musculoskeletal: Reports: No Symptoms Skin: Reports: No Symptoms Neurological: Reports: Weakness Psychiatric: Reports: No Symptoms - Patient Data Vitals - Most Recent: Last Vital Signs Temp 97.5 F 06/08/19 07:07 Pulse 94 06/08/19 08:45 Resp 16 06/08/19 07:07 BP 113/83 06/08/19 08:46 Pulse Ox 98 06/08/19 07:07 Weight - Most Recent: 68.583 kg I&O - Last 24 Hours: Intake & Output 04/02/20 04/03/20 04/03/20 22:59 06:59 14:59 Intake Total 300 300 60 Output Total 600 Balance 300 -300 60 Lab Results Last 24 Hours: Laboratory Results - last 24 hr 06/08/19 06/08/19 Range/Units 08:13 08:13 WBC 11.19 H (3.98-10.04) K/mm3 RBC 3.47 L (3.98-5.22) M/mm3 Hgb 9.6 L (11.2-15.7) gm/dl Hct 33.1 L (34.1-44.9) % MCV 95.4 H (79.4-94.8) fl MCH 27.7 (25.6-32.2) pg MCHC 29.0 L (32.2-35.5) g/dl RDW Std Deviation 52.7 H (36.4-46.3) fL Plt Count 221 (182-369) K/mm3 MPV 12.8 H (9.4-12.3) fl Neut % (Auto) 73.8 H (34.0-71.1) % Lymph % (Auto) 16.7 L (19.3-51.7) % [place] % (Auto) 7.6 (4.7-12.5) % Eos % (Auto) 1.3 (0.7-5.8) Baso % (Auto) 0.3 (0.1-1.2) % Neut # (Auto) 8.26 H (1.56-6.13) K/mm3 Lymph # (Auto) 1.87 (1.18-3.74) K/mm3 [place] # (Auto) 0.85 H (0.24-0.36) K/mm3 Eos # (Auto) 0.15 (0.04-0.36) K/mm3 Baso # (Auto) 0.03 (0.01-0.08) K/mm3 Manual Slide Review Abnormal smear Sodium 136 (136-145) mEq/L Potassium 4.1 (3.5-5.1) mEq/L Chloride 94 L (98-107) mEq/L Carbon Dioxide 35 H (21-32) mEq/L Anion Gap 11.1 (5-15) BUN 50 H (7-18) mg/dL Creatinine 2.2 H (0.55-1.02) mg/dL Est Cr Clr Drug Dosing 12.70 mL/min Estimated GFR (MDRD) 21 (>60) mL/min BUN/Creatinine Ratio 22.7 H (14-18) Glucose 109 (83-115) mg/dL Calcium 9.2 (8.5-10.1) mg/dL Phosphorus 4.3 (2.6-4.7) mg/dL Magnesium 2.3 (1.8-2.4) mg/dl Jaime Results Last 24 Hours: Microbiology 06/07/19 12:00 Coronavirus RNA (PCR) - Final Nasopharyngeal Swab Med Orders - Current: Current Medications Acetaminophen (Tylenol) 650 mg PO Q4H PRN PRN Reason: Pain (Mild 1-3)/fever Last Admin: 06/05/19 21:44 Dose: 650 mg Albuterol (Proventil Neb Soln) 2.5 mg NEB Q2H PRN PRN Reason: Shortness Of Breath/wheezing Albuterol/Ipratropium (Duoneb 3.0-0.5 Mg/3 Ml) 3 ml NEB Q4H PRN PRN Reason: Shortness Of Breath/wheezing Last Admin: 05/28/19 19:52 Dose: 3 ml Aspirin (Halfprin) 81 mg PO DAILY [facility] Last Admin: 06/08/19 08:46 Dose: 81 mg Donepezil HCl (Aricept) 2.5 mg PO BEDTIME [facility] Last Admin: 06/07/19 20:14 Dose: 2.5 mg Folic Acid (Folic Acid) 1 mg PO DAILY [facility] Last Admin: 06/08/19 08:46 Dose: 1 mg Furosemide (Lasix) 40 mg PO DAILY [facility] Last Admin: 06/08/19 08:46 Dose: 40 mg Gabapentin (Neurontin) 100 mg PO BEDTIME [facility] Last Admin: 06/07/19 20:14 Dose: 100 mg Isosorbide Mononitrate (Imdur) 30 mg PO DAILY [facility] Last Admin: 06/08/19 08:46 Dose: 30 mg Losartan Potassium (Cozaar) 50 mg PO DAILY [facility] Last Admin: 06/08/19 08:46 Dose: 50 mg Metoprolol Succinate (Toprol Xl) 100 mg PO DAILY [facility] Last Admin: 06/08/19 08:45 Dose: 100 mg Metoprolol Tartrate (Lopressor) 5 mg IV Q6H PRN PRN Reason: HR > 110 Nitroglycerin (Nitrostat) 0.4 mg SL ASDIRECTED PRN PRN Reason: Chest Pain Ondansetron HCl (Zofran) 4 mg IVPUSH Q4H PRN PRN Reason: Nausea/Vomiting Last Admin: 06/05/19 21:50 Dose: 4 mg Pantoprazole Sodium (Protonix) 40 mg PO Q12H [facility] Last Admin: 06/08/19 08:46 Dose: 40 mg Simvastatin (Zocor) 40 mg PO BEDTIME [facility] Last Admin: 06/07/19 20:16 Dose: 40 mg Sodium Chloride (Saline Flush) 10 ml FLUSH ASDIRECTED PRN PRN Reason: Keep Vein Open Last Admin: 05/27/19 12:21 Dose: 10 ml Sodium Chloride ([place] Nasal Citra) 0 ml SYD QID PRN PRN Reason: nasal dryness. Venlafaxine HCl (Effexor) 75 mg PO BID [facility] Last Admin: 06/08/19 08:46 Dose: 75 mg Discontinued Medications Atenolol (Tenormin) 50 mg PO BID [facility] Atenolol (Tenormin) 50 mg PO DAILY [facility] Last Admin: 05/30/19 08:11 Dose: Not Given Diatrizoate Meglum/Diatrizoate Sod (Gastrografin 37%) 45 ml PO ONETIME ONE Stop: 06/01/19 11:16 Last Admin: 06/01/19 11:19 Dose: 45 ml Diltiazem HCl (Cardizem) 10 mg IVPUSH ONETIME ONE Stop: 05/29/19 21:03 Last Admin: 05/29/19 21:47 Dose: Not Given Diltiazem HCl (Cardizem) 5 mg IVPUSH ONETIME ONE Stop: 05/29/19 22:02 Last Admin: 05/29/19 22:05 Dose: 5 mg Furosemide (Lasix) 40 mg IVPUSH NOW ONE Stop: 05/27/19 14:08 Last Admin: 05/27/19 14:28 Dose: 40 mg Furosemide (Lasix) 40 mg IVPUSH BIDDIURETIC [facility] Last Admin: 05/29/19 13:29 Dose: 40 mg Furosemide (Lasix) 20 mg PO ONETIME ONE Stop: 05/31/19 09:02 Last Admin: 05/31/19 10:00 Dose: 20 mg Furosemide (Lasix) 40 mg IVPUSH NOW ONE Stop: 06/01/19 16:01 Last Admin: 06/01/19 18:21 Dose: 40 mg Furosemide (Lasix) 40 mg IVPUSH NOW ONE Stop: 06/03/19 10:27 Last Admin: 06/03/19 10:56 Dose: 40 mg Gabapentin (Neurontin) 100 mg PO BEDTIME [facility] Last Admin: 06/06/19 20:38 Dose: 100 mg Ceftriaxone Sodium 2 gm/ (Sodium Chloride) 100 mls @ 200 mls/hr IV ONETIME ONE Stop: 05/27/19 14:13 Last Admin: 05/27/19 14:03 Dose: 200 mls/hr Sodium Chloride (Normal Saline) 250 mls @ 100 mls/hr IV ASDIRECTED [facility] Last Admin: 05/28/19 08:33 Dose: 100 mls/hr Potassium Chloride 10 meq/ (Premix) 100 mls @ 100 mls/hr IV Q1H [facility] Stop: 05/28/19 11:59 Last Admin: 05/28/19 13:10 Dose: 100 mls/hr Magnesium Sulfate 4 gm/ Premix 50 mls @ 12.5 mls/hr IV ONETIME ONE Stop: 05/28/19 11:53 Last Admin: 05/28/19 08:32 Dose: 12.5 mls/hr Sodium Chloride (Normal Saline) 500 mls @ 999 mls/hr IV ONETIME ONE Stop: 05/29/19 21:31 Last Admin: 05/29/19 21:19 Dose: 999 mls/hr Sodium Chloride (Normal Saline) Confirm Administered Dose 1,000 mls @ as directed .ROUTE .STK-MED ONE Stop: 05/29/19 21:07 Last Admin: 05/29/19 21:23 Dose: Not Given Diltiazem HCl 100 mg/ Sodium (Chloride) 100 mls @ 5 mls/hr IV TITRATE [facility]; Protocol Last Titration: 05/30/19 09:00 Dose: 0 mg/hr, 0 mls/hr Sodium Chloride (Normal Saline) 1,000 mls @ 50 mls/hr IV ASDIRECTED [facility] Last Infusion: 05/29/19 22:00 Dose: 75 mls/hr Sodium Chloride (Normal Saline) 1,000 mls @ 30 mls/hr IV ASDIRECTED [facility] Last Admin: 05/30/19 22:56 Dose: 30 mls/hr Sodium Chloride (Normal Saline) 500 mls @ 25 mls/hr IV ASDIRECTED ONE Stop: 06/02/19 09:05 Last Admin: 06/01/19 15:23 Dose: 25 mls/hr Influenza Virus Vaccine (Pharmacy To Dose - Influenza Vaccine) 1 each IM ONETIME ONE Stop: 05/27/19 15:18 Magnesium Hydroxide (Milk Of Magnesia) 30 ml PO Q4H ONE Stop: 05/29/19 10:01 Last Admin: 05/29/19 10:50 Dose: 30 ml Magnesium Oxide (Magnesium Oxide) 400 mg PO BID [facility] Last Admin: 06/01/19 08:33 Dose: 400 mg Metoprolol Succinate (Toprol Xl) 100 mg PO DAILY [facility] Last Admin: 06/05/19 14:18 Dose: Not Given Metoprolol Tartrate (Lopressor) 50 mg PO Q12H [facility] Last Admin: 06/01/19 08:32 Dose: 50 mg Metoprolol Tartrate (Lopressor) 50 mg PO ONETIME ONE Stop: 05/31/19 11:55 Last Admin: 05/31/19 12:19 Dose: 50 mg Metoprolol Tartrate (Lopressor) 50 mg PO Q6H [facility] Last Admin: 06/05/19 09:01 Dose: 50 mg Octreotide Acetate (Octreotide) 100 mcg SUBCUT TID [facility] Ondansetron HCl (Zofran) Confirm Administered Dose 4 mg .ROUTE .STK-MED ONE Stop: 05/29/19 23:51 Last Admin: 05/29/19 23:57 Dose: Not Given Pantoprazole Sodium (Protonix Iv) 40 mg IVPUSH Q12H [facility] Last Admin: 05/28/19 06:25 Dose: 40 mg Pantoprazole Sodium (Protonix) 40 mg PO Q12H [facility] Last Admin: 05/28/19 11:03 Dose: 40 mg Potassium Chloride (Klor-Con M20) 40 meq PO ONETIME ONE Stop: 05/28/19 14:01 Last Admin: 05/28/19 13:19 Dose: 40 meq Potassium Chloride (Klor-Con M20) 20 meq PO ONETIME ONE Stop: 05/28/19 08:58 Last Admin: 05/28/19 09:10 Dose: 20 meq - Exam Quality Assessment: Supplemental Oxygen General: Alert, Oriented HEENT: Pupils Equal, Pupils Reactive, EOMI, Mucous Membr. Moist/[place]: Supple Lungs: Clear to Auscultation, Normal Respiratory Effort Cardiovascular: Irregular Rhythm, Tachycardia, Other (irregular rate) GI/Abdominal Exam: Normal Bowel Sounds, Soft, Non-Tender, No Organomegaly, No Distention, No Abnormal Bruit, No Mass, Pelvis Stable (Female) Exam: Normal External Exam, Normal Speculum Exam, Normal Bimanual Exam Back Exam: Normal Inspection, Full Range of Motion Extremities: Normal Inspection, Normal Range of Motion, Non-Tender, No Pedal Edema, Normal Capillary Refill Skin: Warm, Dry, Intact Neurological: No New Focal Deficit Psy/Mental Status: Alert, Normal Affect, Normal Mood Sepsis Event Note - Evaluation Sepsis Screening Result: No Definite Risk - Focused Exam Vital Signs: Vital Signs Temp Pulse Resp BP Pulse Ox 06/08/19 08:46 113/83 06/08/19 08:45 94 113/83 06/08/19 07:07 97.5 F 94 16 113/83 98 Date Exam was Performed: 06/08/19 Time Exam was Performed: 19:38 - Problem List & Annotations (1) CHF (congestive heart failure) SNOMED Code(s): 57172780 Code(s): I50.9 - HEART FAILURE, UNSPECIFIED Status: Acute Priority: High Current Visit: Yes Qualifiers: 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 no increased work of breathing. will give lasix 20 mg and debarker operator response. cont beta maria esther a nd monitor afib and rvr currently in 90s. (2) Atrial fibrillation with rapid ventricular response SNOMED Code(s): 495973493771703 Code(s): I48.91 - UNSPECIFIED ATRIAL FIBRILLATION Status: Acute Priority : Medium Current Visit: No Onset Date: 05/29/19 Annotation/Comment:: no conversion and likely will be rate controlled . no anticoag for now given rectal bleeding , will complete chads vasc. score. 06/02/19 REPEAT HGN 10.5 AFTER TRANSFUSION AND REPEAT HEMMOCCULT POS. BUT HAS SMALL NOSE BLEED LAST NIGHT . CONT BABY ASA. MONITOR HEMMOCCULTS AND HGN (3) Acute hypoxemic respiratory failure SNOMED Code(s): 132483555 Code(s): J96.01 - ACUTE RESPIRATORY FAILURE WITH HYPOXIA Status: Acute Priority: Low Current Visit: Yes Onset Date: 06/02/19 Annotation/Comment: : i liter o2 (4) Anemia SNOMED Code(s): 216658969 Code(s): D64.9 - ANEMIA, UNSPECIFIED Status: Acute Priority: Low Current Visit: Yes Onset Date: 06/04/19 Qualifiers: Anemia type: unspecified type Qualified Code(s): D64.9 - Anemia, unspecified Annotation/Comment:: heme pos stool and on baby asa/ anticoag stopped on admission . on ppi (5) CAD (coronary artery disease) SNOMED Code(s): 89467031 Code(s): I25.10 - ATHSCL HEART DISEASE OF [place] CORONARY ARTERY W/O ANG PCTRS Status: Acute Priority: Medium Current Visit: Yes Onset Date: Qualifiers: Coronary Disease-Associated Artery/Lesion type: [place] artery [place] vs. transplanted heart: [place] heart Associated angina: without angina Qualified Code(s): I25.10 - Atherosclerotic heart disease of [place] coronary artery without angina pectoris Annotation/Comment:: anemia and chf with abnormal chest xray on admission / tranfused one unit prbcs because extent of cad unknown and hgn 06/05/19 trop elavated mildly and no spike pattern and suspect no severe ischemia. on beta maria esther and baby asa and tolerating / anemia stable/ weaning down on o2 but weight increased and lasix started daily 40 mg day. (6) CHF (congestive heart failure), NYHA class II SNOMED Code(s): 185453707, 823276631 Code(s): I50.9 - HEART FAILURE, UNSPECIFIED Status: Acute Priority: High Current Visit: Yes Onset Date: 05/30/19 Qualifiers: Congestive heart failure type: combined Congestive heart failure chronicity : acute on chronic Qualified Code(s): I50.43 - Acute on chronic combined systolic (congestive) and diastolic (congestive) heart failure Annotation/Comment:: 06/04/19 restarted lasix / would be good candidate for entresto intermediate card tender. weight up 4-5 lbs but doing better/ o2 weaned off and stable urine output and appetite. 06/05/19 back on o2 but walking around easily / chf class 2 / mitral regurge stable . weight down 2 lbs. 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 cont o2 until sats stable She is on droplet precautions due to exposure of someone with known positive COVID Discussed adding an NT BNP onto this mornings labs Discussed increasing dose of metoprolol if heart rate doesn't decrease after an hour of receiving medications Discussed doing a clock drawing test for memory/dementia/ and a formal screen . Looking at discharging to [facility] pending the quarantine parodical from the state. anemia stable and no desire of patient and to have colonoscopy and will recheck hemmoccult . nose bleed this a.m. now controlled . monitor nt bnp and i/s and hgn 06/01/2019 She did well through the night She didn't want to eat breakfast this morning because she wanted to sleep in Her last BM was 2 days ago She is wearing glasses She is wearing O2 She had some nausea this morning when she was up moving around and going to the bathroom but did not vomit Denies any tenderness while palpitating abdomen Denies any dizziness Denies any chest pain She had an EKG done Discussed an abdominal CT Discussed getting labs done She is having a meeting with family today about placement after hospital since exposure to COVID has made it difficult for her to return to [facility] 06/02/2019 She did well through the night She had a shower this morning She is wearing glasses She is wearing O2 at 2L and discussed weaning her down so she can be possibly discharged without oxygen if she is stable States that her appetite is good but she doesn't like the food here Denies any tenderness while palpitating abdomen Denies any dizziness Denies any chest pain She is having a meeting with family yesterday about placement after hospital since exposure to COVID has made it difficult for her to return to [facility] and they are going to try and have her admitted into one of the nursing homes 06/03/2019 She did well through the night States that she is feeling good She is wearing glasses She is wearing O2 at 1L and discussed weaning her down so she can be possibly discharged without oxygen if she is stable She was wearing 02 at 2L previously and started to wean yesterday and was even able to no wear the oxygen for a little while Her swelling is unchanged today Her heart failure test is up a bit Her heart rate is down a bit Denies any tenderness while palpitating abdomen Denies any dizziness Denies any chest pain Discussed trying to get her up and moving and to walk around more Discussed getting physical therapy and occupational therapy consults Discussed starting daily Lasix dose of 40 MG for swelling and heart failure She had a meeting with family Tuesday about placement after hospital since exposure to COVID has made it difficult for her to return to [facility] and they are going to try and have her admitted into one of the [facility] So far it looks as if she will be discharging to [facility] but Daughter has stated that she would like to see her go to [facility] if possible, but more information will be found out on Tuesday06/04/2019 She did well through the night States that she is feeling good She is wearing glasses She is wearing O2 at 1L and discussed weaning her down so she can be possibly discharged without oxygen if she is stable and she has been trialing room air as tolerated States that she ate a good breakfast this morning Denies any tenderness while palpitating abdomen Denies any dizziness Denies any chest pain Nursing states that they were able to walk her up and down the cortés yesterday and she did well Nursing states that her urinary frequency has increased with starting Lasix Continue trying to get her up and moving and to walk around more She had a meeting with family Tuesday about placement after hospital since exposure to COVID has made it difficult for her to return to [facility] and they are going to try and have her admitted into one of the nursing homes Discharging is pending due to nursing homes being apprehensive about her being exposed to COVID and not having multiple tests done to prove that she is not infected 06/05/2019 She did well through the night States that she is feeling good She is wearing glasses She is wearing O2 at 1L and discussed weaning her down so she can be possibly discharged without oxygen if she is stable and she has been trialing room air as tolerated States that she ate a good breakfast this morning Denies any tenderness while palpitating abdomen, dizziness, or chest pain She is walking with walker and x1 assist as tolerated Continue trying to get her up and moving and to walk around more She had a meeting with family Tuesday about placement after hospital since exposure to COVID has made it difficult for her to return to [facility] and they are going to try and have her admitted into one of the nursing homes Discharging is pending due to nursing homes being apprehensive about her being exposed to COVID and not having multiple tests done to prove that she is not infected Discussed getting lab done today of NT BNP and CBC 06/06/2019 She is up in her chair this morning watching TV She did well through the night States that she is feeling good She is wearing glasses She is wearing O2 at 1L and discussed weaning her down so she can be possibly discharged without oxygen if she is stable and she has been trialing room air as tolerated She had a nose bleed last night and used saline for her nose States that she has been eating good She is still having a fast heart rate and still in atrial fibrillation Denies any tenderness while palpitating abdomen, dizziness, or chest pain She is walking with walker and x1 assist as tolerated Continue trying to get her up and moving and to walk around more She had a meeting with family last Tuesday about placement after hospital since exposure to COVID has made it difficult for her to return to [facility] and they are going to try and have her admitted into one of the nursing homes Discharging is pending due to nursing homes being apprehensive about her being exposed to COVID and not having multiple tests done to prove that she is not infected 06/07/2019 - Current weight 149lb, down from 152 yesterday - COVID test sent out, pending result to be able to place patient - Patient recommending SNF with PT/OT - Unable to wean off NC, will continue 1L - BM 06/05 - Monitor urine output - Increase on creatinine to 2.2 - Dietary recommending Ensure and high protein jello, only eating 50% of Ensure - Heart rate trend 102-135x' - Tmax 97.5, WBC count up from 8.16 to 16.6 - GFR down from 33 to 21 - BP trend 98-134/56-88 - O2 Sat > 93% on 1L NC 06/08/2019 She is up in bed watching TV She did well through the night States that she is feeling good She is wearing glasses She is wearing O2 at 1L States that she has been eating good She is on fluid restrictions She is still having a fast heart rate and in 90s today and still in atrial fibrillation Denies any tenderness while palpitating abdomen, dizziness, or chest pain She is walking with walker and x1 assist as tolerated Her COVID test came back negative today Continue trying to get her up and moving and to walk around more She had a meeting with family last Tuesday about placement after hospital since exposure to COVID has made it difficult for her to return to [facility] and they are going to try and have her admitted into one of the nursing homes Discharging is pending due to nursing homes being apprehensive about her being exposed to COVID and not having multiple tests done to prove that she is not infected - Plan Plan:: Assessment [id number]-year-old female with history of coronary artery disease with new onset CHF * Hemoglobin of 7.5-->9.0 (1 unit PRBC)-->9.1 * Admission troponin negative at 0.025 * Admission proBNP 7487 * Chest x-ray with pleural effusions and atelectasis * No fever, white count, lactic acidosis or anion gap * On atenolol and isosorbide mononitrate * Fluid restriction to 1500 mL/day * Strict I's and O's and daily weights * Echocardiogram obtained 05/28/19 * 1. LVEF, by visual estimation, is 55-60% * 2. Mild concentric left ventricular hypertrophy * 3. Pseudonormal (Grade 2) pattern of LV diastolic filling * 4. Normal right ventricular systolic function * 5. There is moderate aortic valve sclerosis without stenosis * 6. Mild aortic valve regurgitation * 7. Mild to moderate mitral valve regurgiation * 8. Moderate tricuspid valve regurgitation * 9. The right ventricular systolic pressure is moderately elevated at 57.0 mmHg * 10. No regional wall motion abnormalities. Anemia, likely blood loss * History of GI bleed * History of anemia, progressive, with pancytopenia (currently normal white count and platelets) * Guaiac positive stool in ED * Confirms bright red blood per rectum, last episode 1 week ago * On full dose aspirin - hold * Pantoprazole 40 mg p.o. BID * No hematochezia or melena as inpatient * Hgb trend: 7.5 (given 1 unit) 9.0-->9.1-->8.9 Paroxysmal atrial fibrillation * Currently a fib * Switch to metoprolol tartrate 50 mg bid History of seronegative arthritis, colitis, depression, generalized weakness, polymyalgia rheumatica Plan * Admit to medical floor on telemetry * FiO2 to keep SpO2 > 90% * Hold lasix for now. Likely will need cautious diuresis * Pantoprazole 40 mg IV twice daily * Follow hemoglobin * Switch atenolol to metoprolol tartrate 50 mg BID for CHF exacerbation. She would likely benefit to switch over to metoprolol succinate when stable * Fluid restriction to 1500 mL/day * Strict I's and O's and daily weights * Have patient follow with surgery as outpatient after recovery from CHF for GI bleed. * VTE prophylaxis with SCDs. Anticoagulation contraindicated because of GI bleed * CODE STATUS: DNR/DNI 05/31/2019 Heart failure and Atrial fibrillation She is currently on fluid restrictions and discussed the possibility of going on Lasix She is currently wearing oxygen She is on droplet precautions due to exposure of someone with known positive COVID Discussed adding an NT BNP onto this mornings labs Discussed increasing dose of metoprolol if heart rate doesn't decrease after an hour of receiving medications Discussed doing a clock drawing test for memory/dementia Looking at discharging to [facility] pending the quarantine parodical from the state 06/01/2019 She did well through the night She didn't want to eat breakfast this morning because she wanted to sleep in Her last BM was 2 days ago She is wearing glasses She is wearing O2 She had some nausea this morning when she was up moving around and going to the bathroom but did not vomit Denies any tenderness while palpitating abdomen Denies any dizziness Denies any chest pain She had an EKG done Discussed an abdominal CT Discussed getting labs done She is having a meeting with family today about placement after hospital since exposure to COVID has made it difficult for her to return to [facility] 06/02/2019 She did well through the night She had a shower this morning She is wearing glasses She is wearing O2 at 2L and discussed weaning her down so she can be possibly discharged without oxygen if she is stable States that her appetite is good but she doesn't like the food here Denies any tenderness while palpitating abdomen Denies any dizziness Denies any chest pain She is having a meeting with family yesterday about placement after hospital since exposure to COVID has made it difficult for her to return to [facility] and they are going to try and have her admitted into one of the nursing homes 06/03/2019 She did well through the night States that she is feeling good She is wearing glasses She is wearing O2 at 1L and discussed weaning her down so she can be possibly discharged without oxygen if she is stable She was wearing 02 at 2L previously and started to wean yesterday and was even able to no wear the oxygen for a little while Her swelling is unchanged today Her heart failure test is up a bit Her heart rate is down a bit Denies any tenderness while palpitating abdomen Denies any dizziness Denies any chest pain Discussed trying to get her up and moving and to walk around more Discussed getting physical therapy and occupational therapy consults Discussed starting daily Lasix dose of 40 MG for swelling and heart failure She had a meeting with family Tuesday about placement after hospital since exposure to COVID has made it difficult for her to return to [facility] and they are going to try and have her admitted into one of the nursing homes So far it looks as if she will be discharging to [facility] but Daughter has stated that she would like to see her go to [facility] if possible, but more information will be found out on Tuesday06/04/2019 She did well through the night States that she is feeling good She is wearing glasses She is wearing O2 at 1L and discussed weaning her down so she can be possibly discharged without oxygen if she is stable and she has been trialing room air as tolerated States that she ate a good breakfast this morning Denies any tenderness while palpitating abdomen Denies any dizziness Denies any chest pain Nursing states that they were able to walk her up and down the cortés yesterday and she did well Nursing states that her urinary frequency has increased with starting Lasix Continue trying to get her up and moving and to walk around more She had a meeting with family Tuesday about placement after hospital since exposure to COVID has made it difficult for her to return to [facility] and they are going to try and have her admitted into one of the nursing homes Discharging is pending due to nursing homes being apprehensive about her being exposed to COVID and not having multiple tests done to prove that she is not infected 06/05/2019 She did well through the night States that she is feeling good She is wearing glasses She is wearing O2 at 1L and discussed weaning her down so she can be possibly discharged without oxygen if she is stable and she has been trialing room air as tolerated States that she ate a good breakfast this morning Denies any tenderness while palpitating abdomen, dizziness, or chest pain She is walking with walker and x1 assist as tolerated Continue trying to get her up and moving and to walk around more She had a meeting with family Tuesday about placement after hospital since exposure to COVID has made it difficult for her to return to [facility] and they are going to try and have her admitted into one of the nursing homes Discharging is pending due to nursing homes being apprehensive about her being exposed to COVID and not having multiple tests done to prove that she is not infected Discussed getting lab done today of NT BNP and CBC 06/06/2019 She is up in her chair this morning watching TV She did well through the night States that she is feeling good She is wearing glasses She is wearing O2 at 1L and discussed weaning her down so she can be possibly discharged without oxygen if she is stable and she has been trialing room air as tolerated She had a nose bleed last night and used saline for her nose States that she has been eating good She is still having a fast heart rate and still in atrial fibrillation Denies any tenderness while palpitating abdomen, dizziness, or chest pain She is walking with walker and x1 assist as tolerated Continue trying to get her up and moving and to walk around more She had a meeting with family last Tuesday about placement after hospital since exposure to COVID has made it difficult for her to return to [facility] and they are going to try and have her admitted into one of the nursing homes Discharging is pending due to nursing homes being apprehensive about her being exposed to COVID and not having multiple tests done to prove that she is not infected 06/07/2019 - Current weight 149lb, down from 152 yesterday - COVID test sent out, pending result to be able to place patient - Patient recommending SNF with PT/OT - Unable to wean off NC, will continue 1L - BM 06/05 - Monitor urine output - Increase on creatinine to 2.2 - Dietary recommending Ensure and high protein jello, only eating 50% of Ensure - Heart rate trend 102-135x' - Tmax 97.5, WBC count up from 8.16 to 16.6 - GFR down from 33 to 21 - BP trend 98-134/56-88 - O2 Sat > 93% on 1L NC 06/08/2019 She is up in bed watching TV She did well through the night States that she is feeling good She is wearing glasses She is wearing O2 at 1L States that she has been eating good She is on fluid restrictions She is still having a fast heart rate and in 90s today and still in atrial fibrillation Denies any tenderness while palpitating abdomen, dizziness, or chest pain She is walking with walker and x1 assist as tolerated Her COVID test came back negative today Continue trying to get her up and moving and to walk around more She had a meeting with family last Tuesday about placement after hospital since exposure to COVID has made it difficult for her to return to [facility] and they are going to try and have her admitted into one of the nursing homes Discharging is pending due to nursing homes being apprehensive about her being exposed to COVID and not having multiple tests done to prove that she is not infected
[2019-06-08] MEDS: Simvastatin 40 MG Tab PO SCH (21:01)
[2019-06-08] MEDS: Gabapentin 100 MG Cap PO SCH (21:01)
[2019-06-08] MEDS: Donepezil 10 MG Tab PO SCH (21:01)
[2019-06-09] MEDS: Venlafaxine 37.5 MG Tab PO SCH ×2 (09:58→21:29)
[2019-06-09] MEDS: Folic Acid 1 MG Tab PO SCH (09:58)
[2019-06-09] MEDS: Losartan 25 MG Tab PO SCH (09:58)
[2019-06-09] MEDS: Aspirin 81 MG Tab.EC PO SCH (09:58)
[2019-06-09] MEDS: Pantoprazole 40 MG Tab.CR PO SCH ×2 (09:59→21:28)
[2019-06-09] MEDS: Furosemide 40 MG Tab PO SCH (09:59)
[2019-06-09] MEDS: Metoprolol Succinate 50 MG Tab.ER PO SCH (09:59)
[2019-06-09] MEDS: Isosorbide Mononitrate 30 MG Tab.ER PO SCH (09:59)
--- NOTE | 2019-06-09 13:43 | PCM.PN ---
- General Info Date of Service: 06/09/19 Admission Dx/Problem (Free Text): Admission Diagnosis/Problem Admission Diagnosis/Problem Heart failure 05/31/2019 Heart failure and Atrial fibrillation She is currently on fluid restrictions and discussed the possibility of going on Lasix She is currently wearing oxygen She is on droplet precautions due to exposure of someone with known positive COVID Discussed adding an NT BNP onto this mornings labs Discussed increasing dose of metoprolol if heart rate doesn't decrease after an hour of receiving medications Discussed doing a clock drawing test for memory/dementia Looking at discharging to [facility] pending the quarantine parodical from the state 06/01/2019 She did well through the night She didn't want to eat breakfast this morning because she wanted to sleep in Her last BM was 2 days ago She is wearing glasses She is wearing O2 She had some nausea this morning when she was up moving around and going to the bathroom but did not vomit Denies any tenderness while palpitating abdomen Denies any dizziness Denies any chest pain She had an EKG done Discussed an abdominal CT Discussed getting labs done She is having a meeting with family today about placement after hospital since exposure to COVID has made it difficult for her to return to [facility] 06/02/2019 She did well through the night. SHE HAS NO CHEST PAIN/ARRYTHMIA OTHER THAN AFIB AND RVR. INCREASED BETA MARIA ESTHER AND DOING WELL. SERIAL TROPONINS ALL MILDLY ELAVATED .17-.32 AND BNP REPEATED AND PENDING. TRANSFUSED 1 UNIT OF PRBCS AND GIVEN LASIX AND HEART RATE 80S AND B.P 120-130 THIS AM. COG EVAL SHOWS MODERATE GENERALIZED IMPAIRMENT AND STARTED ARICEPT IN LOW DOSE TONIGHT She had a shower this morning She is wearing glasses She is wearing O2 at 2L and discussed weaning her down so she can be possibly discharged without oxygen if she is stable States that her appetite is good but she doesn't like the food here Denies any tenderness while palpitating abdomen Denies any dizziness Denies any chest pain She is having a meeting with family yesterday about placement after hospital since exposure to COVID has made it difficult for her to return to [facility] and they are going to try and have her admitted into one of the nursing homes 06/03/2019 She did well through the night States that she is feeling good She is wearing glasses She is wearing O2 at 1L and discussed weaning her down so she can be possibly discharged without oxygen if she is stable She was wearing 02 at 2L previously and started to wean yesterday and was even able to no wear the oxygen for a little while Her swelling is unchanged today Her heart failure test is up a bit Her heart rate is down a bit Denies any tenderness while palpitating abdomen Denies any dizziness Denies any chest pain Discussed trying to get her up and moving and to walk around more Discussed getting physical therapy and occupational therapy consults Discussed starting daily Lasix dose of 40 MG for swelling and heart failure She had a meeting with family Tuesday about placement after hospital since exposure to COVID has made it difficult for her to return to [facility] and they are going to try and have her admitted into one of the nursing homes So far it looks as if she will be discharging to [facility] but Daughter has stated that she would like to see her go to [facility] if possible, but more information will be found out on Tuesday06/04/2019 She did well through the night States that she is feeling good She is wearing glasses She is wearing O2 at 1L and discussed weaning her down so she can be possibly discharged without oxygen if she is stable and she has been trialing room air as tolerated States that she ate a good breakfast this morning Denies any tenderness while palpitating abdomen Denies any dizziness Denies any chest pain Nursing states that they were able to walk her up and down the cortés yesterday and she did well Nursing states that her urinary frequency has increased with starting Lasix Continue trying to get her up and moving and to walk around more She had a meeting with family Tuesday about placement after hospital since exposure to COVID has made it difficult for her to return to [facility] and they are going to try and have her admitted into one of the nursing homes Discharging is pending due to nursing homes being apprehensive about her being exposed to COVID and not having multiple tests done to prove that she is not infected 06/05/2019 She did well through the night States that she is feeling good She is wearing glasses She is wearing O2 at 1L and discussed weaning her down so she can be possibly discharged without oxygen if she is stable and she has been trialing room air as tolerated States that she ate a good breakfast this morning Denies any tenderness while palpitating abdomen, dizziness, or chest pain She is walking with walker and x1 assist as tolerated Continue trying to get her up and moving and to walk around more She had a meeting with family Tuesday about placement after hospital since exposure to COVID has made it difficult for her to return to [facility] and they are going to try and have her admitted into one of the nursing homes Discharging is pending due to nursing homes being apprehensive about her being exposed to COVID and not having multiple tests done to prove that she is not infected Discussed getting lab done today of NT BNP and CBC 06/06/2019 She is up in her chair this morning watching TV She did well through the night States that she is feeling good She is wearing glasses She is wearing O2 at 1L and discussed weaning her down so she can be possibly discharged without oxygen if she is stable and she has been trialing room air as tolerated She had a nose bleed last night and used saline for her nose States that she has been eating good She is still having a fast heart rate and still in atrial fibrillation Denies any tenderness while palpitating abdomen, dizziness, or chest pain She is walking with walker and x1 assist as tolerated Continue trying to get her up and moving and to walk around more She had a meeting with family last Tuesday about placement after hospital since exposure to COVID has made it difficult for her to return to [facility] and they are going to try and have her admitted into one of the nursing homes Discharging is pending due to nursing homes being apprehensive about her being exposed to COVID and not having multiple tests done to prove that she is not infected 06/07/2019 - Current weight 149lb, down from 152 yesterday - COVID test sent out, pending result to be able to place patient - Patient recommending SNF with PT/OT - Unable to wean off NC, will continue 1L - BM 06/05 - Monitor urine output - Increase on creatinine to 2.2 - Dietary recommending Ensure and high protein jello, only eating 50% of Ensure - Heart rate trend 102-135x' - Tmax 97.5, WBC count up from 8.16 to 16.6 - GFR down from 33 to 21 - BP trend 98-134/56-88 - O2 Sat > 93% on 1L NC 06/08/2019 She is up in bed watching TV She did well through the night States that she is feeling good She is wearing glasses She is wearing O2 at 1L States that she has been eating good She is on fluid restrictions She is still having a fast heart rate and in 90s today and still in atrial fibrillation Denies any tenderness while palpitating abdomen, dizziness, or chest pain She is walking with walker and x1 assist as tolerated Her COVID test came back negative today Continue trying to get her up and moving and to walk around more She had a meeting with family last Tuesday about placement after hospital since exposure to COVID has made it difficult for her to return to [facility] and they are going to try and have her admitted into one of the nursing homes Discharging is pending due to nursing homes being apprehensive about her being exposed to COVID and not having multiple tests done to prove that she is not infected4 06/09/19 doing very well . decreased uo noted and weight stable .breathing well and desats when in bed but tolerates walking easily . . vss no chest pain or rosales she states. lungs clear cor irreg/irreg 70s. abd benign. nt bnp pending. bms normal and no gross bleding or findings on exam . assess: 1) afib stable 2)chf stable 3)cad stable not on anticoagulation sec to heme pos stools and gastritis. may try again in 2 weeks and addressed with her in terms of stroke risk and she understands . 4)heme pos stools and anemia stable on ppi. denies abd symptoms 5)dc planning to return to [place] if able as now assymptomatic and covid screen neg x 2 weeks . 6) dementia mild increase aricept to 5 mg tolerating well . boh Subjective Update: She is up in bed watching TV She did well through the night States that she is feeling good She is wearing glasses She is wearing O2 at 1L States that she has been eating good She is on fluid restrictions She is still having a fast heart rate and in 90s today and still in atrial fibrillation Denies any tenderness while palpitating abdomen, dizziness, or chest pain She is walking with walker and x1 assist as tolerated Her COVID test came back negative today Continue trying to get her up and moving and to walk around more She had a meeting with family last Tuesday about placement after hospital since exposure to COVID has made it difficult for her to return to [facility] and they are going to try and have her admitted into one of the nursing homes Discharging is pending due to nursing homes being apprehensive about her being exposed to COVID and not having multiple tests done to prove that she is not infected. 06/09/19 doing very well . decreased uo noted and weight stable .breathing well and desats when in bed but tolerates walking easily . . vss no chest pain or rosales she states. lungs clear cor irreg/irreg 70s. abd benign. nt bnp pending. bms normal and no gross bleding or findings on exam . assess: 1) afib stable 2)chf stable 3)cad stable not on anticoagulation sec to heme pos stools and gastritis. may try again in 2 weeks and addressed with her in terms of stroke risk and she understands . 4)heme pos stools and anemia stable on ppi. denies abd symptoms 5)dc planning to return to [place] if able as now assymptomatic and covid screen neg x 2 weeks . 6) dementia mi Functional Status: Reports: Pain Controlled - Review of Systems General: Reports: No Symptoms HEENT: Reports: No Symptoms Pulmonary: Reports: No Symptoms Cardiovascular: Reports: No Symptoms Gastrointestinal: Reports: No Symptoms Genitourinary: Reports: No Symptoms Musculoskeletal: Reports: No Symptoms Skin: Reports: No Symptoms Neurological: Reports: No Symptoms Psychiatric: Reports: No Symptoms - Patient Data Vitals - Most Recent: Last Vital Signs Temp 36.6 C 06/09/19 12:09 Pulse 104 H 06/09/19 12:09 Resp 14 06/09/19 12:09 BP 124/60 06/09/19 12:09 Pulse Ox 96 06/09/19 12:09 Weight - Most Recent: 67.948 kg I&O - Last 24 Hours: Intake & Output 06/08/19 06/09/19 06/09/19 22:59 06:59 14:59 Intake Total 520 300 120 Output Total 200 Balance 520 100 120 Jaime Results Last 24 Hours: Microbiology 06/07/19 12:00 Coronavirus RNA (PCR) - Final Nasopharyngeal Swab Med Orders - Current: Current Medications Acetaminophen (Tylenol) 650 mg PO Q4H PRN PRN Reason: Pain (Mild 1-3)/fever Last Admin: 06/05/19 21:44 Dose: 650 mg Albuterol (Proventil Neb Soln) 2.5 mg NEB Q2H PRN PRN Reason: Shortness Of Breath/wheezing Albuterol/Ipratropium (Duoneb 3.0-0.5 Mg/3 Ml) 3 ml NEB Q4H PRN PRN Reason: Shortness Of Breath/wheezing Last Admin: 05/28/19 19:52 Dose: 3 ml Aspirin (Halfprin) 81 mg PO DAILY [facility] Last Admin: 06/09/19 09:58 Dose: 81 mg Donepezil HCl (Aricept) 2.5 mg PO BEDTIME [facility] Last Admin: 06/08/19 21:01 Dose: 2.5 mg Folic Acid (Folic Acid) 1 mg PO DAILY [facility] Last Admin: 06/09/19 09:58 Dose: 1 mg Furosemide (Lasix) 40 mg PO DAILY [facility] Last Admin: 06/09/19 09:59 Dose: 20 mg Gabapentin (Neurontin) 100 mg PO BEDTIME [facility] Last Admin: 06/08/19 21:01 Dose: 100 mg Isosorbide Mononitrate (Imdur) 30 mg PO DAILY [facility] Last Admin: 06/09/19 09:59 Dose: 30 mg Losartan Potassium (Cozaar) 50 mg PO DAILY [facility] Last Admin: 06/09/19 09:58 Dose: 50 mg Metoprolol Succinate (Toprol Xl) 100 mg PO DAILY [facility] Last Admin: 06/09/19 09:59 Dose: 100 mg Metoprolol Tartrate (Lopressor) 5 mg IV Q6H PRN PRN Reason: HR > 110 Nitroglycerin (Nitrostat) 0.4 mg SL ASDIRECTED PRN PRN Reason: Chest Pain Ondansetron HCl (Zofran) 4 mg IVPUSH Q4H PRN PRN Reason: Nausea/Vomiting Last Admin: 06/05/19 21:50 Dose: 4 mg Pantoprazole Sodium (Protonix) 40 mg PO Q12H [facility] Last Admin: 06/09/19 09:59 Dose: 40 mg Simvastatin (Zocor) 40 mg PO BEDTIME [facility] Last Admin: 06/08/19 21:01 Dose: 40 mg Sodium Chloride (Saline Flush) 10 ml FLUSH ASDIRECTED PRN PRN Reason: Keep Vein Open Last Admin: 05/27/19 12:21 Dose: 10 ml Sodium Chloride ([place] Nasal [place]) 0 ml SYD QID PRN PRN Reason: nasal dryness. Venlafaxine HCl (Effexor) 75 mg PO BID [facility] Last Admin: 06/09/19 09:58 Dose: 75 mg Discontinued Medications Atenolol (Tenormin) 50 mg PO BID [facility] Atenolol (Tenormin) 50 mg PO DAILY [facility] Last Admin: 05/30/19 08:11 Dose: Not Given Diatrizoate Meglum/Diatrizoate Sod (Gastrografin 37%) 45 ml PO ONETIME ONE Stop: 06/01/19 11:16 Last Admin: 06/01/19 11:19 Dose: 45 ml Diltiazem HCl (Cardizem) 10 mg IVPUSH ONETIME ONE Stop: 05/29/19 21:03 Last Admin: 05/29/19 21:47 Dose: Not Given Diltiazem HCl (Cardizem) 5 mg IVPUSH ONETIME ONE Stop: 05/29/19 22:02 Last Admin: 05/29/19 22:05 Dose: 5 mg Furosemide (Lasix) 40 mg IVPUSH NOW ONE Stop: 05/27/19 14:08 Last Admin: 05/27/19 14:28 Dose: 40 mg Furosemide (Lasix) 40 mg IVPUSH BIDDIURETIC [facility] Last Admin: 05/29/19 13:29 Dose: 40 mg Furosemide (Lasix) 20 mg PO ONETIME ONE Stop: 05/31/19 09:02 Last Admin: 05/31/19 10:00 Dose: 20 mg Furosemide (Lasix) 40 mg IVPUSH NOW ONE Stop: 06/01/19 16:01 Last Admin: 06/01/19 18:21 Dose: 40 mg Furosemide (Lasix) 40 mg IVPUSH NOW ONE Stop: 06/03/19 10:27 Last Admin: 06/03/19 10:56 Dose: 40 mg Gabapentin (Neurontin) 100 mg PO BEDTIME [facility] Last Admin: 06/06/19 20:38 Dose: 100 mg Ceftriaxone Sodium 2 gm/ (Sodium Chloride) 100 mls @ 200 mls/hr IV ONETIME ONE Stop: 05/27/19 14:13 Last Admin: 05/27/19 14:03 Dose: 200 mls/hr Sodium Chloride (Normal Saline) 250 mls @ 100 mls/hr IV ASDIRECTED [facility] Last Admin: 05/28/19 08:33 Dose: 100 mls/hr Potassium Chloride 10 meq/ (Premix) 100 mls @ 100 mls/hr IV Q1H [facility] Stop: 05/28/19 11:59 Last Admin: 05/28/19 13:10 Dose: 100 mls/hr Magnesium Sulfate 4 gm/ Premix 50 mls @ 12.5 mls/hr IV ONETIME ONE Stop: 05/28/19 11:53 Last Admin: 05/28/19 08:32 Dose: 12.5 mls/hr Sodium Chloride (Normal Saline) 500 mls @ 999 mls/hr IV ONETIME ONE Stop: 05/29/19 21:31 Last Admin: 05/29/19 21:19 Dose: 999 mls/hr Sodium Chloride (Normal Saline) Confirm Administered Dose 1,000 mls @ as directed .ROUTE .STK-MED ONE Stop: 05/29/19 21:07 Last Admin: 05/29/19 21:23 Dose: Not Given Diltiazem HCl 100 mg/ Sodium (Chloride) 100 mls @ 5 mls/hr IV TITRATE [facility]; Protocol Last Titration: 05/30/19 09:00 Dose: 0 mg/hr, 0 mls/hr Sodium Chloride (Normal Saline) 1,000 mls @ 50 mls/hr IV ASDIRECTED [facility] Last Infusion: 05/29/19 22:00 Dose: 75 mls/hr Sodium Chloride (Normal Saline) 1,000 mls @ 30 mls/hr IV ASDIRECTED [facility] Last Admin: 05/30/19 22:56 Dose: 30 mls/hr Sodium Chloride (Normal Saline) 500 mls @ 25 mls/hr IV ASDIRECTED ONE Stop: 06/02/19 09:05 Last Admin: 06/01/19 15:23 Dose: 25 mls/hr Influenza Virus Vaccine (Pharmacy To Dose - Influenza Vaccine) 1 each IM ONETIME ONE Stop: 05/27/19 15:18 Magnesium Hydroxide (Milk Of Magnesia) 30 ml PO Q4H ONE Stop: 05/29/19 10:01 Last Admin: 05/29/19 10:50 Dose: 30 ml Magnesium Oxide (Magnesium Oxide) 400 mg PO BID [facility] Last Admin: 06/01/19 08:33 Dose: 400 mg Metoprolol Succinate (Toprol Xl) 100 mg PO DAILY [facility] Last Admin: 06/05/19 14:18 Dose: Not Given Metoprolol Tartrate (Lopressor) 50 mg PO Q12H [facility] Last Admin: 06/01/19 08:32 Dose: 50 mg Metoprolol Tartrate (Lopressor) 50 mg PO ONETIME ONE Stop: 05/31/19 11:55 Last Admin: 05/31/19 12:19 Dose: 50 mg Metoprolol Tartrate (Lopressor) 50 mg PO Q6H [facility] Last Admin: 06/05/19 09:01 Dose: 50 mg Octreotide Acetate (Octreotide) 100 mcg SUBCUT TID [facility] Ondansetron HCl (Zofran) Confirm Administered Dose 4 mg .ROUTE .STK-MED ONE Stop: 05/29/19 23:51 Last Admin: 05/29/19 23:57 Dose: Not Given Pantoprazole Sodium (Protonix Iv) 40 mg IVPUSH Q12H [facility] Last Admin: 05/28/19 06:25 Dose: 40 mg Pantoprazole Sodium (Protonix) 40 mg PO Q12H [facility] Last Admin: 05/28/19 11:03 Dose: 40 mg Potassium Chloride (Klor-Con M20) 40 meq PO ONETIME ONE Stop: 05/28/19 14:01 Last Admin: 05/28/19 13:19 Dose: 40 meq Potassium Chloride (Klor-Con M20) 20 meq PO ONETIME ONE Stop: 05/28/19 08:58 Last Admin: 05/28/19 09:10 Dose: 20 meq - Exam Quality Assessment: Supplemental Oxygen Cardiovascular: Irregular Rhythm, Murmurs Sepsis Event Note - Evaluation Sepsis Screening Result: No Definite Risk - Focused Exam Vital Signs: Vital Signs Temp Pulse Resp BP Pulse Ox 06/09/19 12:09 36.6 C 104 H 14 124/60 96 06/09/19 09:59 74 103/55 L 06/09/19 09:58 103/55 L 06/09/19 07:40 36.3 C 74 20 103/55 L 93 L 06/09/19 04:35 36.8 C 71 16 119/61 92 L Date Exam was Performed: 06/09/19 Time Exam was Performed: 13:37 - Problem List & Annotations (1) CHF (congestive heart failure) SNOMED Code(s): 67875230 Code(s): I50.9 - HEART FAILURE, UNSPECIFIED Status: Acute Priority: Medium Current Visit: Yes Onset Date: 06/01/19 Qualifiers: 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 no increased work of breathing. will give lasix 20 mg and administrative judge response. cont beta maria esther a nd monitor afib and rvr currently in 90s. 06/09/19 very stable decrease lasix to 20 mg day with 1500 cc fluid restriction creatinine climbing and weight stable (2) Atrial fibrillation with rapid ventricular response SNOMED Code(s): 204991370408015 Code(s): I48.91 - UNSPECIFIED ATRIAL FIBRILLATION Status: Acute Priority : Medium Current Visit: No Onset Date: 05/29/19 Annotation/Comment:: no conversion and likely will be rate controlled . no anticoag for now given rectal bleeding , will complete chads vasc. score. 06/02/19 REPEAT HGN 10.5 AFTER TRANSFUSION AND REPEAT HEMMOCCULT POS. BUT HAS SMALL NOSE BLEED LAST NIGHT . CONT BABY ASA. MONITOR HEMMOCCULTS . 06/09/19 doing well no further gross bleeding and hgn stable plat stable anticoag too risky currently and consider reduced dose restart in 2 weeks . on ppi (3) Acute hypoxemic respiratory failure SNOMED Code(s): 225319914 Code(s): J96.01 - ACUTE RESPIRATORY FAILURE WITH HYPOXIA Status: Acute Priority: Low Current Visit: Yes Onset Date: 06/02/19 Annotation/Comment: : i liter o2 (4) Anemia SNOMED Code(s): 467704172 Code(s): D64.9 - ANEMIA, UNSPECIFIED Status: Acute Priority: Low Current Visit: Yes Onset Date: 06/04/19 Qualifiers: Anemia type: unspecified type Qualified Code(s): D64.9 - Anemia, unspecified Annotation/Comment:: heme pos stool and on baby asa/ anticoag stopped on admission . on ppi (5) CAD (coronary artery disease) SNOMED Code(s): 53136321 Code(s): I25.10 - ATHSCL HEART DISEASE OF [place] CORONARY ARTERY W/O ANG PCTRS Status: Acute Priority: Medium Current Visit: Yes Onset Date: Qualifiers: Coronary Disease-Associated Artery/Lesion type: [place] artery [place] vs. transplanted heart: [place] heart Associated angina: without angina Qualified Code(s): I25.10 - Atherosclerotic heart disease of [place] coronary artery without angina pectoris Annotation/Comment:: anemia and chf with abnormal chest xray on admission / tranfused one unit prbcs because extent of cad unknown and hgn 06/05/19 trop elavated mildly and no spike pattern and suspect no severe ischemia. on beta maria esther and baby asa and tolerating / anemia stable/ weaning down on o2 but weight increased and lasix started daily 40 mg day. (6) CHF (congestive heart failure), NYHA class II SNOMED Code(s): 250359085, 708012407 Code(s): I50.9 - HEART FAILURE, UNSPECIFIED Status: Acute Priority: High Current Visit: Yes Onset Date: 05/30/19 Qualifiers: Congestive heart failure type: combined Congestive heart failure chronicity : acute on chronic Qualified Code(s): I50.43 - Acute on chronic combined systolic (congestive) and diastolic (congestive) heart failure Annotation/Comment:: 06/04/19 restarted lasix / [facility]. weight up 4-5 lbs but doing better/ o2 weaned off and stable urine output and appetite. 06/05/19 back on o2 but walking around easily / chf class 2 / mitral regurge stable . weight down 2 lbs. 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 cont o2 until sats stable She is on droplet precautions due to exposure of someone with known positive COVID Discussed adding an NT BNP onto this mornings labs Discussed increasing dose of metoprolol if heart rate doesn't decrease after an hour of receiving medications Discussed doing a clock drawing test for memory/dementia/ and a formal screen . Looking at discharging to [facility] pending the quarantine parodical from the [facility]. anemia stable and no desire of patient and to have colonoscopy and will recheck hemmoccult . nose bleed this a.m. now controlled . monitor nt bnp and i/s and hgn 06/01/2019 She did well through the night She didn't want to eat breakfast this morning because she wanted to sleep in Her last BM was 2 days ago She is wearing glasses She is wearing O2 She had some nausea this morning when she was up moving around and going to the bathroom but did not vomit Denies any tenderness while palpitating abdomen Denies any dizziness Denies any chest pain She had an EKG done Discussed an abdominal CT Discussed getting labs done She is having a meeting with family today about placement after hospital since exposure to COVID has made it difficult for her to return to [facility] 06/02/2019 She did well through the night She had a shower this morning She is wearing glasses She is wearing O2 at 2L and discussed weaning her down so she can be possibly discharged without oxygen if she is stable States that her appetite is good but she doesn't like the food here Denies any tenderness while palpitating abdomen Denies any dizziness Denies any chest pain She is having a meeting with family yesterday about placement after hospital since exposure to COVID has made it difficult for her to return to [facility] and they are going to try and have her admitted into one of the nursing homes 06/03/2019 She did well through the night States that she is feeling good She is wearing glasses She is wearing O2 at 1L and discussed weaning her down so she can be possibly discharged without oxygen if she is stable She was wearing 02 at 2L previously and started to wean yesterday and was even able to no wear the oxygen for a little while Her swelling is unchanged today Her heart failure test is up a bit Her heart rate is down a bit Denies any tenderness while palpitating abdomen Denies any dizziness Denies any chest pain Discussed trying to get her up and moving and to walk around more Discussed getting physical therapy and occupational therapy consults Discussed starting daily Lasix dose of 40 MG for swelling and heart failure She had a meeting with family Tuesday about placement after hospital since exposure to COVID has made it difficult for her to return to [facility] and they are going to try and have her admitted into one of the nursing homes So far it looks as if she will be discharging to [facility] but Daughter has stated that she would like to see her go to [facility] if possible, but more information will be found out on Tuesday06/04/2019 She did well through the night States that she is feeling good She is wearing glasses She is wearing O2 at 1L and discussed weaning her down so she can be possibly discharged without oxygen if she is stable and she has been trialing room air as tolerated States that she ate a good breakfast this morning Denies any tenderness while palpitating abdomen Denies any dizziness Denies any chest pain Nursing states that they were able to walk her up and down the cortés yesterday and she did well Nursing states that her urinary frequency has increased with starting Lasix Continue trying to get her up and moving and to walk around more She had a meeting with family Tuesday about placement after hospital since exposure to COVID has made it difficult for her to return to [facility] and they are going to try and have her admitted into one of the nursing homes Discharging is pending due to nursing homes being apprehensive about her being exposed to COVID and not having multiple tests done to prove that she is not infected 06/05/2019 She did well through the night States that she is feeling good She is wearing glasses She is wearing O2 at 1L and discussed weaning her down so she can be possibly discharged without oxygen if she is stable and she has been trialing room air as tolerated States that she ate a good breakfast this morning Denies any tenderness while palpitating abdomen, dizziness, or chest pain She is walking with walker and x1 assist as tolerated Continue trying to get her up and moving and to walk around more She had a meeting with family Tuesday about placement after hospital since exposure to COVID has made it difficult for her to return to [facility] and they are going to try and have her admitted into one of the nursing homes Discharging is pending due to nursing homes being apprehensive about her being exposed to COVID and not having multiple tests done to prove that she is not infected Discussed getting lab done today of NT BNP and CBC 06/06/2019 She is up in her chair this morning watching TV She did well through the night States that she is feeling good She is wearing glasses She is wearing O2 at 1L and discussed weaning her down so she can be possibly discharged without oxygen if she is stable and she has been trialing room air as tolerated She had a nose bleed last night and used saline for her nose States that she has been eating good She is still having a fast heart rate and still in atrial fibrillation Denies any tenderness while palpitating abdomen, dizziness, or chest pain She is walking with walker and x1 assist as tolerated Continue trying to get her up and moving and to walk around more She had a meeting with family last Tuesday about placement after hospital since exposure to COVID has made it difficult for her to return to [facility] and they are going to try and have her admitted into one of the nursing homes Discharging is pending due to nursing homes being apprehensive about her being exposed to COVID and not having multiple tests done to prove that she is not infected 06/07/2019 - Current weight 149lb, down from 152 yesterday - COVID test sent out, pending result to be able to place patient - Patient recommending SNF with PT/OT - Unable to wean off NC, will continue 1L - BM 06/05 - Monitor urine output - Increase on creatinine to 2.2 - Dietary recommending Ensure and high protein jello, only eating 50% of Ensure - Heart rate trend 102-135x' - Tmax 97.5, WBC count up from 8.16 to 16.6 - GFR down from 33 to 21 - BP trend 98-134/56-88 - O2 Sat > 93% on 1L NC 06/08/2019 She is up in bed watching TV She did well through the night States that she is feeling good She is wearing glasses She is wearing O2 at 1L States that she has been eating good She is on fluid restrictions She is still having a fast heart rate and in 90s today and still in atrial fibrillation Denies any tenderness while palpitating abdomen, dizziness, or chest pain She is walking with walker and x1 assist as tolerated Her COVID test came back negative today Continue trying to get her up and moving and to walk around more She had a meeting with family last Tuesday about placement after hospital since exposure to COVID has made it difficult for her to return to [facility] and they are going to try and have her admitted into one of the nursing homes Discharging is pending due to nursing homes being apprehensive about her being exposed to COVID and not having multiple tests done to prove that she is not infected 06/09/19 doing very well . decreased uo noted and weight stable .breathing well and desats when in bed but tolerates walking easily . . vss no chest pain or rosales she states. lungs clear cor irreg/irreg 70s. abd benign. nt bnp pending. bms normal and no gross bleding or findings on exam . assess: 1) afib stable 2)chf stable 3)cad stable not on anticoagulation sec to heme pos stools and gastritis. may try again in 2 weeks and addressed with her in terms of stroke risk and she understands . 4)heme pos stools and anemia stable on ppi. denies abd symptoms 5)dc planning to return to [place] if able as now assymptomatic and covid screen neg x 2 weeks . 6) dementia mi - Plan Plan:: Assessment [id number]-year-old female with history of coronary artery disease with new onset CHF * Hemoglobin of 7.5-->9.0 (1 unit PRBC)-->9.1 * Admission troponin negative at 0.025 * Admission proBNP 7487 * Chest x-ray with pleural effusions and atelectasis * No fever, white count, lactic acidosis or anion gap * On atenolol and isosorbide mononitrate * Fluid restriction to 1500 mL/day * Strict I's and O's and daily weights * Echocardiogram obtained 05/28/19 * 1. LVEF, by visual estimation, is 55-60% * 2. Mild concentric left ventricular hypertrophy * 3. Pseudonormal (Grade 2) pattern of LV diastolic filling * 4. Normal right ventricular systolic function * 5. There is moderate aortic valve sclerosis without stenosis * 6. Mild aortic valve regurgitation * 7. Mild to moderate mitral valve regurgiation * 8. Moderate tricuspid valve regurgitation * 9. The right ventricular systolic pressure is moderately elevated at 57.0 mmHg * 10. No regional wall motion abnormalities. Anemia, likely blood loss * History of GI bleed * History of anemia, progressive, with pancytopenia (currently normal white count and platelets) * Guaiac positive stool in ED * Confirms bright red blood per rectum, last episode 1 week ago * On full dose aspirin - hold * Pantoprazole 40 mg p.o. BID * No hematochezia or melena as inpatient * Hgb trend: 7.5 (given 1 unit) 9.0-->9.1-->8.9 Paroxysmal atrial fibrillation * Currently a fib * Switch to metoprolol tartrate 50 mg bid History of seronegative arthritis, colitis, depression, generalized weakness, polymyalgia rheumatica Plan * Admit to medical floor on telemetry * FiO2 to keep SpO2 > 90% * Hold lasix for now. Likely will need cautious diuresis * Pantoprazole 40 mg IV twice daily * Follow hemoglobin * Switch atenolol to metoprolol tartrate 50 mg BID for CHF exacerbation. She would likely benefit to switch over to metoprolol succinate when stable * Fluid restriction to 1500 mL/day * Strict I's and O's and daily weights * Have patient follow with surgery as outpatient after recovery from CHF for GI bleed. * VTE prophylaxis with SCDs. Anticoagulation contraindicated because of GI bleed * CODE STATUS: DNR/DNI 05/31/2019 Heart failure and Atrial fibrillation She is currently on fluid restrictions and discussed the possibility of going on Lasix She is currently wearing oxygen She is on droplet precautions due to exposure of someone with known positive COVID Discussed adding an NT BNP onto this mornings labs Discussed increasing dose of metoprolol if heart rate doesn't decrease after an hour of receiving medications Discussed doing a clock drawing test for memory/dementia Looking at discharging to [facility] pending the quarantine parodical from the state 06/01/2019 She did well through the night She didn't want to eat breakfast this morning because she wanted to sleep in Her last BM was 2 days ago She is wearing glasses She is wearing O2 She had some nausea this morning when she was up moving around and going to the bathroom but did not vomit Denies any tenderness while palpitating abdomen Denies any dizziness Denies any chest pain She had an EKG done Discussed an abdominal CT Discussed getting labs done She is having a meeting with family today about placement after hospital since exposure to COVID has made it difficult for her to return to [facility] 06/02/2019 She did well through the night She had a shower this morning She is wearing glasses She is wearing O2 at 2L and discussed weaning her down so she can be possibly discharged without oxygen if she is stable States that her appetite is good but she doesn't like the food here Denies any tenderness while palpitating abdomen Denies any dizziness Denies any chest pain She is having a meeting with family yesterday about placement after hospital since exposure to COVID has made it difficult for her to return to [facility] and they are going to try and have her admitted into one of the nursing homes 06/03/2019 She did well through the night States that she is feeling good She is wearing glasses She is wearing O2 at 1L and discussed weaning her down so she can be possibly discharged without oxygen if she is stable She was wearing 02 at 2L previously and started to wean yesterday and was even able to no wear the oxygen for a little while Her swelling is unchanged today Her heart failure test is up a bit Her heart rate is down a bit Denies any tenderness while palpitating abdomen Denies any dizziness Denies any chest pain Discussed trying to get her up and moving and to walk around more Discussed getting physical therapy and occupational therapy consults Discussed starting daily Lasix dose of 40 MG for swelling and heart failure She had a meeting with family Tuesday about placement after hospital since exposure to COVID has made it difficult for her to return to [facility] and they are going to try and have her admitted into one of the nursing homes So far it looks as if she will be discharging to [facility] but Daughter has stated that she would like to see her go to [facility] if possible, but more information will be found out on Tuesday06/04/2019 She did well through the night States that she is feeling good She is wearing glasses She is wearing O2 at 1L and discussed weaning her down so she can be possibly discharged without oxygen if she is stable and she has been trialing room air as tolerated States that she ate a good breakfast this morning Denies any tenderness while palpitating abdomen Denies any dizziness Denies any chest pain Nursing states that they were able to walk her up and down the cortés yesterday and she did well Nursing states that her urinary frequency has increased with starting Lasix Continue trying to get her up and moving and to walk around more She had a meeting with family Tuesday about placement after hospital since exposure to COVID has made it difficult for her to return to [facility] and they are going to try and have her admitted into one of the nursing homes Discharging is pending due to nursing homes being apprehensive about her being exposed to COVID and not having multiple tests done to prove that she is not infected 06/05/2019 She did well through the night States that she is feeling good She is wearing glasses She is wearing O2 at 1L and discussed weaning her down so she can be possibly discharged without oxygen if she is stable and she has been trialing room air as tolerated States that she ate a good breakfast this morning Denies any tenderness while palpitating abdomen, dizziness, or chest pain She is walking with walker and x1 assist as tolerated Continue trying to get her up and moving and to walk around more She had a meeting with family Tuesday about placement after hospital since exposure to COVID has made it difficult for her to return to [facility] and they are going to try and have her admitted into one of the nursing homes Discharging is pending due to nursing homes being apprehensive about her being exposed to COVID and not having multiple tests done to prove that she is not infected Discussed getting lab done today of NT BNP and CBC 06/06/2019 She is up in her chair this morning watching TV She did well through the night States that she is feeling good She is wearing glasses She is wearing O2 at 1L and discussed weaning her down so she can be possibly discharged without oxygen if she is stable and she has been trialing room air as tolerated She had a nose bleed last night and used saline for her nose States that she has been eating good She is still having a fast heart rate and still in atrial fibrillation Denies any tenderness while palpitating abdomen, dizziness, or chest pain She is walking with walker and x1 assist as tolerated Continue trying to get her up and moving and to walk around more She had a meeting with family last Tuesday about placement after hospital since exposure to COVID has made it difficult for her to return to [facility] and they are going to try and have her admitted into one of the nursing homes Discharging is pending due to nursing homes being apprehensive about her being exposed to COVID and not having multiple tests done to prove that she is not infected 06/07/2019 - Current weight 149lb, down from 152 yesterday - COVID test sent out, pending result to be able to place patient - Patient recommending SNF with PT/OT - Unable to wean off NC, will continue 1L - BM 06/05 - Monitor urine output - Increase on creatinine to 2.2 - Dietary recommending Ensure and high protein jello, only eating 50% of Ensure - Heart rate trend 102-135x' - Tmax 97.5, WBC count up from 8.16 to 16.6 - GFR down from 33 to 21 - BP trend 98-134/56-88 - O2 Sat > 93% on 1L NC 06/08/2019 She is up in bed watching TV She did well through the night States that she is feeling good She is wearing glasses She is wearing O2 at 1L States that she has been eating good She is on fluid restrictions She is still having a fast heart rate and in 90s today and still in atrial fibrillation Denies any tenderness while palpitating abdomen, dizziness, or chest pain She is walking with walker and x1 assist as tolerated Her COVID test came back negative today Continue trying to get her up and moving and to walk around more She had a meeting with family last Tuesday about placement after hospital since exposure to COVID has made it difficult for her to return to [facility] and they are going to try and have her admitted into one of the nursing homes Discharging is pending due to nursing homes being apprehensive about her being exposed to COVID and not having multiple tests done to prove that she is not infected. 06/09/19 doing very well . decreased uo noted and weight stable .breathing well and desats when in bed but tolerates walking easily . . vss no chest pain or rosales she states. lungs clear cor irreg/irreg 70s. abd benign. nt bnp pending. bms normal and no gross bleding or findings on exam . assess: 1) afib stable 2)chf stable/ decrease lasix to 20 mg day 3)cad stable not on anticoagulation sec to heme pos stools and gastritis. may try again in 2 weeks and addressed with her in terms of stroke risk and she understands . 4)heme pos stools and anemia stable on ppi. denies abd symptoms 5)dc planning to return to [place] if able as now asymptomatic and covid screen neg x 2 weeks . 6) dementia mild on aricept 5 mg starting today . boh
[2019-06-09] MEDS: Donepezil 10 MG Tab PO SCH (21:28)
[2019-06-09] MEDS: Simvastatin 40 MG Tab PO SCH (21:28)
[2019-06-09] MEDS: Gabapentin 100 MG Cap PO SCH (21:29)
[2019-06-10] MEDS: Metoprolol Succinate 50 MG Tab.ER PO SCH (08:41)
[2019-06-10] MEDS: Isosorbide Mononitrate 30 MG Tab.ER PO SCH (08:41)
[2019-06-10] MEDS: Venlafaxine 37.5 MG Tab PO SCH ×2 (08:41→21:50)
[2019-06-10] MEDS: Furosemide 20 MG Tab PO SCH (08:42)
[2019-06-10] MEDS: Pantoprazole 40 MG Tab.CR PO SCH ×2 (08:42→21:50)
[2019-06-10] MEDS: Folic Acid 1 MG Tab PO SCH (08:42)
[2019-06-10] MEDS: Aspirin 81 MG Tab.EC PO SCH (08:42)
[2019-06-10] MEDS: Losartan 25 MG Tab PO SCH (08:42)
[2019-06-10] MEDS: Donepezil 10 MG Tab PO SCH (21:49)
[2019-06-10] MEDS: Simvastatin 40 MG Tab PO SCH (21:50)
[2019-06-10] MEDS: Gabapentin 100 MG Cap PO SCH (21:50)
[2019-06-11] MEDS: Ondansetron 4 MG/2 ML SDV IVPUSH PRN (08:48)
[2019-06-11] MEDS ORDERED: Ondansetron 4 MG Tab.DIS PO PRN (08:53)
--- NOTE | 2019-06-11 08:55 | PCM.PN ---
<Tacho Miles - Last Filed: 06/11/19 15:50> - General Info Date of Service: 06/11/19 Admission Dx/Problem (Free Text): Admission Diagnosis/Problem Admission Diagnosis/Problem Heart failure Functional Status: Reports: Pain Controlled, Tolerating Diet, Ambulating, Urinating. Denies: New Symptoms - Review of Systems General: Reports: No Symptoms HEENT: Reports: No Symptoms Pulmonary: Reports: No Symptoms Cardiovascular: Reports: No Symptoms Gastrointestinal: Reports: No Symptoms Genitourinary: Reports: No Symptoms Musculoskeletal: Reports: No Symptoms Skin: Reports: No Symptoms Neurological: Reports: No Symptoms Psychiatric: Reports: No Symptoms - Patient Data Vitals - Most Recent: Last Vital Signs Temp 97.9 F 06/11/19 08:05 Pulse 91 06/11/19 08:05 Resp 14 06/11/19 08:05 BP 119/91 H 06/11/19 08:05 Pulse Ox 99 06/11/19 08:05 Weight - Most Recent: 67.631 kg I&O - Last 24 Hours: Intake & Output 06/10/19 06/11/19 06/11/19 22:59 06:59 14:59 Intake Total 500 Balance 500 Med Orders - Current: Current Medications Acetaminophen (Tylenol) 650 mg PO Q4H PRN PRN Reason: Pain (Mild 1-3)/fever Last Admin: 06/05/19 21:44 Dose: 650 mg Albuterol (Proventil Neb Soln) 2.5 mg NEB Q2H PRN PRN Reason: Shortness Of Breath/wheezing Albuterol/Ipratropium (Duoneb 3.0-0.5 Mg/3 Ml) 3 ml NEB Q4H PRN PRN Reason: Shortness Of Breath/wheezing Last Admin: 05/28/19 19:52 Dose: 3 ml Aspirin (Aspirin) 162 mg PO DAILY [facility] Donepezil HCl (Aricept) 5 mg PO BEDTIME [facility] Last Admin: 06/10/19 21:49 Dose: 5 mg Folic Acid (Folic Acid) 1 mg PO DAILY [facility] Last Admin: 06/10/19 08:42 Dose: 1 mg Furosemide (Lasix) 20 mg PO DAILY [facility] Last Admin: 06/10/19 08:42 Dose: 20 mg Gabapentin (Neurontin) 100 mg PO BEDTIME [facility] Last Admin: 06/10/19 21:50 Dose: 100 mg Isosorbide Mononitrate (Imdur) 30 mg PO DAILY [facility] Last Admin: 06/10/19 08:41 Dose: 30 mg Losartan Potassium (Cozaar) 50 mg PO DAILY [facility] Last Admin: 06/10/19 08:42 Dose: 50 mg Metoprolol Succinate (Toprol Xl) 100 mg PO DAILY [facility] Last Admin: 06/10/19 08:41 Dose: 100 mg Metoprolol Tartrate (Lopressor) 5 mg IV Q6H PRN PRN Reason: HR > 110 Nitroglycerin (Nitrostat) 0.4 mg SL ASDIRECTED PRN PRN Reason: Chest Pain Ondansetron HCl (Zofran) 4 mg IVPUSH Q4H PRN PRN Reason: Nausea/Vomiting Last Admin: 06/11/19 08:48 Dose: 4 mg Ondansetron HCl (Zofran Odt) 4 mg PO Q6H PRN PRN Reason: Nausea/Vomiting Pantoprazole Sodium (Protonix) 40 mg PO Q12H [facility] Last Admin: 06/10/19 21:50 Dose: 40 mg Simvastatin (Zocor) 40 mg PO BEDTIME [facility] Last Admin: 06/10/19 21:50 Dose: 40 mg Sodium Chloride (Saline Flush) 10 ml FLUSH ASDIRECTED PRN PRN Reason: Keep Vein Open Last Admin: 05/27/19 12:21 Dose: 10 ml Sodium Chloride ([place] Nasal Rankin) 0 ml SYD QID PRN PRN Reason: nasal dryness. Venlafaxine HCl (Effexor) 75 mg PO BID [facility] Last Admin: 06/10/19 21:50 Dose: 75 mg Discontinued Medications Aspirin (Halfprin) 81 mg PO DAILY [facility] Last Admin: 06/10/19 08:42 Dose: 81 mg Atenolol (Tenormin) 50 mg PO BID [facility] Atenolol (Tenormin) 50 mg PO DAILY [facility] Last Admin: 05/30/19 08:11 Dose: Not Given Diatrizoate Meglum/Diatrizoate Sod (Gastrografin 37%) 45 ml PO ONETIME ONE Stop: 06/01/19 11:16 Last Admin: 06/01/19 11:19 Dose: 45 ml Diltiazem HCl (Cardizem) 10 mg IVPUSH ONETIME ONE Stop: 05/29/19 21:03 Last Admin: 05/29/19 21:47 Dose: Not Given Diltiazem HCl (Cardizem) 5 mg IVPUSH ONETIME ONE Stop: 05/29/19 22:02 Last Admin: 05/29/19 22:05 Dose: 5 mg Donepezil HCl (Aricept) 2.5 mg PO BEDTIME [facility] Last Admin: 06/08/19 21:01 Dose: 2.5 mg Furosemide (Lasix) 40 mg IVPUSH NOW ONE Stop: 05/27/19 14:08 Last Admin: 05/27/19 14:28 Dose: 40 mg Furosemide (Lasix) 40 mg IVPUSH BIDDIURETIC [facility] Last Admin: 05/29/19 13:29 Dose: 40 mg Furosemide (Lasix) 20 mg PO ONETIME ONE Stop: 05/31/19 09:02 Last Admin: 05/31/19 10:00 Dose: 20 mg Furosemide (Lasix) 40 mg IVPUSH NOW ONE Stop: 06/01/19 16:01 Last Admin: 06/01/19 18:21 Dose: 40 mg Furosemide (Lasix) 40 mg IVPUSH NOW ONE Stop: 06/03/19 10:27 Last Admin: 06/03/19 10:56 Dose: 40 mg Furosemide (Lasix) 40 mg PO DAILY [facility] Last Admin: 06/09/19 09:59 Dose: 20 mg Gabapentin (Neurontin) 100 mg PO BEDTIME [facility] Last Admin: 06/06/19 20:38 Dose: 100 mg Ceftriaxone Sodium 2 gm/ (Sodium Chloride) 100 mls @ 200 mls/hr IV ONETIME ONE Stop: 05/27/19 14:13 Last Admin: 05/27/19 14:03 Dose: 200 mls/hr Sodium Chloride (Normal Saline) 250 mls @ 100 mls/hr IV ASDIRECTED [facility] Last Admin: 05/28/19 08:33 Dose: 100 mls/hr Potassium Chloride 10 meq/ (Premix) 100 mls @ 100 mls/hr IV Q1H [facility] Stop: 05/28/19 11:59 Last Admin: 05/28/19 13:10 Dose: 100 mls/hr Magnesium Sulfate 4 gm/ Premix 50 mls @ 12.5 mls/hr IV ONETIME ONE Stop: 05/28/19 11:53 Last Admin: 05/28/19 08:32 Dose: 12.5 mls/hr Sodium Chloride (Normal Saline) 500 mls @ 999 mls/hr IV ONETIME ONE Stop: 05/29/19 21:31 Last Admin: 05/29/19 21:19 Dose: 999 mls/hr Sodium Chloride (Normal Saline) Confirm Administered Dose 1,000 mls @ as directed .ROUTE .STK-MED ONE Stop: 05/29/19 21:07 Last Admin: 05/29/19 21:23 Dose: Not Given Diltiazem HCl 100 mg/ Sodium (Chloride) 100 mls @ 5 mls/hr IV TITRATE KOMAL; Protocol Last Titration: 05/30/19 09:00 Dose: 0 mg/hr, 0 mls/hr Sodium Chloride (Normal Saline) 1,000 mls @ 50 mls/hr IV ASDIRECTED KOMAL Last Infusion: 05/29/19 22:00 Dose: 75 mls/hr Sodium Chloride (Normal Saline) 1,000 mls @ 30 mls/hr IV ASDIRECTED [facility] Last Admin: 05/30/19 22:56 Dose: 30 mls/hr Sodium Chloride (Normal Saline) 500 mls @ 25 mls/hr IV ASDIRECTED ONE Stop: 06/02/19 09:05 Last Admin: 06/01/19 15:23 Dose: 25 mls/hr Influenza Virus Vaccine (Pharmacy To Dose - Influenza Vaccine) 1 each IM ONETIME ONE Stop: 05/27/19 15:18 Magnesium Hydroxide (Milk Of Magnesia) 30 ml PO Q4H ONE Stop: 05/29/19 10:01 Last Admin: 05/29/19 10:50 Dose: 30 ml Magnesium Oxide (Magnesium Oxide) 400 mg PO BID [facility] Last Admin: 06/01/19 08:33 Dose: 400 mg Metoprolol Succinate (Toprol Xl) 100 mg PO DAILY [facility] Last Admin: 06/05/19 14:18 Dose: Not Given Metoprolol Tartrate (Lopressor) 50 mg PO Q12H [facility] Last Admin: 06/01/19 08:32 Dose: 50 mg Metoprolol Tartrate (Lopressor) 50 mg PO ONETIME ONE Stop: 05/31/19 11:55 Last Admin: 05/31/19 12:19 Dose: 50 mg Metoprolol Tartrate (Lopressor) 50 mg PO Q6H [facility] Last Admin: 06/05/19 09:01 Dose: 50 mg Octreotide Acetate (Octreotide) 100 mcg SUBCUT TID [facility] Ondansetron HCl (Zofran) Confirm Administered Dose 4 mg .ROUTE .STK-MED ONE Stop: 05/29/19 23:51 Last Admin: 05/29/19 23:57 Dose: Not Given Pantoprazole Sodium (Protonix Iv) 40 mg IVPUSH Q12H [facility] Last Admin: 05/28/19 06:25 Dose: 40 mg Pantoprazole Sodium (Protonix) 40 mg PO Q12H [facility] Last Admin: 05/28/19 11:03 Dose: 40 mg Potassium Chloride (Klor-Con M20) 40 meq PO ONETIME ONE Stop: 05/28/19 14:01 Last Admin: 05/28/19 13:19 Dose: 40 meq Potassium Chloride (Klor-Con M20) 20 meq PO ONETIME ONE Stop: 05/28/19 08:58 Last Admin: 05/28/19 09:10 Dose: 20 meq - Exam Quality Assessment: Supplemental Oxygen, DVT Prophylaxis General: Alert, Oriented, Cooperative, No Acute Distress HEENT: Pupils Equal, Pupils Reactive, Mucous Membr. Moist/[place] Neck: Supple, Trachea Midline Lungs: Clear to Auscultation, Normal Respiratory Effort Cardiovascular: Irregular Rhythm GI/Abdominal Exam: Normal Bowel Sounds, Soft, Non-Tender, No Distention (Female) Exam: Deferred Back Exam: Normal Inspection, Full Range of Motion Extremities: Normal Inspection, Normal Range of Motion, Non-Tender, No Pedal Edema, Normal Capillary Refill Skin: Warm, Dry, Intact Neurological: No New Focal Deficit Psy/Mental Status: Alert, Normal Affect, Normal Mood Sepsis Event Note - Evaluation Sepsis Screening Result: No Definite Risk - Focused Exam Vital Signs: Vital Signs Temp Pulse Resp BP Pulse Ox 06/11/19 08:05 97.9 F 91 14 119/91 H 99 06/11/19 04:47 98.1 F 85 13 119/58 L 99 06/10/19 21:49 98.1 F 65 12 122/84 99 Date Exam was Performed: 06/11/19 Time Exam was Performed: 15:50 - Problem List & Annotations (1) CHF (congestive heart failure) SNOMED Code(s): 49014976 Code(s): I50.9 - HEART FAILURE, UNSPECIFIED Status: Acute Priority: Medium Current Visit: Yes Onset Date: 06/01/19 Qualifiers: 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 no increased work of breathing. will give lasix 20 mg and diving judge response. cont beta maria esther a nd monitor afib and rvr currently in 90s. 06/09/19 very stable decrease lasix to 20 mg day with 1500 cc fluid restriction creatinine climbing and weight stable (2) Hypoxia SNOMED Code(s): 527843512 Code(s): R09.02 - HYPOXEMIA Status: Acute Priority: High Current Visit : Yes (3) Anemia SNOMED Code(s): 263137922 Code(s): D64.9 - ANEMIA, UNSPECIFIED Status: Acute Priority: Low Current Visit: Yes Onset Date: 06/04/19 Qualifiers: Anemia type: unspecified type Qualified Code(s): D64.9 - Anemia, unspecified Annotation/Comment:: heme pos stool and on baby asa/ anticoag stopped on admission . on ppi (4) Chronic kidney disease SNOMED Code(s): 743602114 Code(s): N18.9 - CHRONIC KIDNEY DISEASE, UNSPECIFIED Status: Chronic Priority: Medium Current Visit: No Qualifiers: Chronic kidney disease stage: stage 3 (moderate) Qualified Code(s): N18.3 - Chronic kidney disease, stage 3 (moderate) (5) Hemorrhoids SNOMED Code(s): 86476524 Code(s): K64.9 - UNSPECIFIED HEMORRHOIDS Status: Chronic Priority: Medium Current Visit: No Qualifiers: Hemorrhoid type: unspecified Qualified Code(s): K64.9 - Unspecified hemorrhoids (6) Hypokalemia SNOMED Code(s): 30252446 Code(s): E87.6 - HYPOKALEMIA Status: Resolved Priority: High Current Visit: Yes (7) Hypomagnesemia SNOMED Code(s): 252331221 Code(s): E83.42 - HYPOMAGNESEMIA Status: Resolved Priority: High Current Visit: Yes (8) Elevated brain natriuretic peptide (BNP) level SNOMED Code(s): 508381703, 833093020 Code(s): R79.89 - OTHER SPECIFIED ABNORMAL FINDINGS OF BLOOD CHEMISTRY Status: Acute Priority: High Current Visit: Yes (9) Paroxysmal A-fib SNOMED Code(s): 700383379 Code(s): I48.0 - PAROXYSMAL ATRIAL FIBRILLATION Status: Chronic Priority : Medium Current Visit: No (10) Arthritis SNOMED Code(s): 2119160 Code(s): M19.90 - UNSPECIFIED OSTEOARTHRITIS, UNSPECIFIED SITE Status: Chronic Priority: Low Current Visit: No (11) Generalized weakness SNOMED Code(s): 21254061 Code(s): R53.1 - WEAKNESS Status: Chronic Priority: Medium Current Visit: No (12) History of colitis SNOMED Code(s): 638206207 Code(s): Z87.19 - PERSONAL HISTORY OF OTHER DISEASES OF THE DIGESTIVE SYSTEM Status: Chronic Priority: Medium Current Visit: No (13) H/O polymyalgia rheumatica SNOMED Code(s): 345035956 Code(s): Z87.39 - PERSONAL HISTORY OF DISEASES OF THE MS SYS AND CONN TISS Status: Chronic Priority: Medium Current Visit: No (14) Acute hypoxemic respiratory failure SNOMED Code(s): 139077040 Code(s): J96.01 - ACUTE RESPIRATORY FAILURE WITH HYPOXIA Status: Acute Priority: Low Current Visit: Yes Onset Date: 06/02/19 Annotation/Comment: : i liter o2 (15) Acute kidney injury SNOMED Code(s): 96814064, 92140564 Code(s): N17.9 - ACUTE KIDNEY FAILURE, UNSPECIFIED Status: Acute Priority : High Current Visit: Yes (16) Anticoagulation adequate SNOMED Code(s): 632203515, 054124331 Code(s): Z79.01 - MARKETING INFORMATION MANAGER (CURRENT) USE OF ANTICOAGULANTS Status: Acute Priority: Low Current Visit: Yes Onset Date: 05/30/19 Annotation/Comment :: stable on baby aspirin/ heme positive on recheck but hgn 9.2 (17) CAD (coronary artery disease) SNOMED Code(s): 78153513 Code(s): I25.10 - ATHSCL HEART DISEASE OF [place] CORONARY ARTERY W/O ANG PCTRS Status: Acute Priority: Medium Current Visit: Yes Onset Date: Qualifiers: Coronary Disease-Associated Artery/Lesion type: [place] artery [place] vs. transplanted heart: [place] heart Associated angina: without angina Qualified Code(s): I25.10 - Atherosclerotic heart disease of [place] coronary artery without angina pectoris Annotation/Comment:: anemia and chf with abnormal chest xray on admission / tranfused one unit prbcs because extent of cad unknown and hgn 06/05/19 trop elavated mildly and no spike pattern and suspect no severe ischemia. on beta maria esther and baby asa and tolerating / anemia stable/ weaning down on o2 but weight increased and lasix started daily 40 mg day. (18) Dementia SNOMED Code(s): 71147181 Code(s): F03.90 - UNSPECIFIED DEMENTIA WITHOUT BEHAVIORAL DISTURBANCE Status: Acute Priority: Low Current Visit: Yes Onset Date: 06/03/19 Qualifiers: Dementia type: Alzheimer's disease Alzheimer's disease onset: early-onset Dementia behavioral disturbance: without behavioral disturbance Qualified Code(s): G30.0 - Alzheimer's disease with early onset; F02.80 - Dementia in other diseases classified elsewhere without behavioral disturbance Annotation/Comment:: started low dose donazepil (19) GI bleeding SNOMED Code(s): 86597639 Code(s): K92.2 - GASTROINTESTINAL HEMORRHAGE, UNSPECIFIED Status: Acute Priority: High Current Visit: Yes Onset Date: 05/29/19 Qualifiers: GI bleed type/associated pathology: unspecified gastrointestinal hemorrhage type Qualified Code(s): K92.2 - Gastrointestinal hemorrhage, unspecified Annotation/Comment:: on anticoagulation for afib/ hgn 6 (20) Leukocytosis SNOMED Code(s): 498146343, 035746975 Code(s): D72.829 - ELEVATED WHITE BLOOD CELL COUNT, UNSPECIFIED Status: Acute Current Visit: Yes (21) Metabolic alkalosis SNOMED Code(s): 1329540 Code(s): E87.3 - ALKALOSIS Status: Acute Current Visit: Yes (22) Atrial fibrillation with rapid ventricular response SNOMED Code(s): 168160522777331 Code(s): I48.91 - UNSPECIFIED ATRIAL FIBRILLATION Status: Acute Priority : Medium Current Visit: No Onset Date: 05/29/19 Annotation/Comment:: no conversion and likely will be rate controlled . no anticoag for now given rectal bleeding , will complete chads vasc. score. 06/02/19 REPEAT HGN 10.5 AFTER TRANSFUSION AND REPEAT HEMMOCCULT POS. BUT HAS SMALL NOSE BLEED LAST NIGHT . CONT BABY ASA. MONITOR HEMMOCCULTS . 06/09/19 doing well no further gross bleeding and hgn stable plat stable anticoag too risky currently and consider reduced dose restart in 2 weeks . 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 Qualified Code(s): 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 LVEF, by visual estimation, is 55-60% * 2. Mild concentric left ventricular hypertrophy * 3. Pseudonormal (Grade 2) pattern of LV diastolic filling * 4. Normal right ventricular systolic function * 5. There is moderate aortic valve sclerosis without stenosis * 6. Mild aortic valve regurgitation * 7. Mild to moderate mitral valve regurgiation * 8. Moderate tricuspid valve regurgitation * 9. The right ventricular systolic pressure is moderately elevated at 57.0 mmHg * 10. No regional wall motion abnormalities. Anemia, likely blood loss * History of GI bleed * History of anemia, progressive, with pancytopenia (currently normal white count and platelets) * Guaiac positive stool in ED * Confirms bright red blood per rectum, last episode 1 week ago * On full dose aspirin - hold * Pantoprazole 40 mg p.o. BID * No hematochezia or melena as inpatient * Hgb trend: 7.5 (given 1 unit) 9.0-->9.1-->8.9 Paroxysmal atrial fibrillation * Currently a fib * Switch to metoprolol tartrate 50 mg bid History of seronegative arthritis, colitis, depression, generalized weakness, polymyalgia rheumatica Plan * Admit to medical floor on telemetry * FiO2 to keep SpO2 > 90% * Hold lasix for now. Likely will need cautious diuresis * Pantoprazole 40 mg IV twice daily * Follow hemoglobin * Switch atenolol to metoprolol tartrate 50 mg BID for CHF exacerbation. She would likely benefit to switch over to metoprolol succinate when stable * Fluid restriction to 1500 mL/day * Strict I's and O's and daily weights * Have patient follow with surgery as outpatient after recovery from CHF for GI bleed. * VTE prophylaxis with SCDs. Anticoagulation contraindicated because of GI bleed * CODE STATUS: DNR/DNI 05/31/2019 Heart failure and Atrial fibrillation She is currently on fluid restrictions and discussed the possibility of going on Lasix She is currently wearing oxygen She is on droplet precautions due to exposure of someone with known positive COVID Discussed adding an NT BNP onto this mornings labs Discussed increasing dose of metoprolol if heart rate doesn't decrease after an hour of receiving medications Discussed doing a clock drawing test for memory/dementia Looking at discharging to [facility] pending the quarantine parodical from the state 06/01/2019 She did well through the night She didn't want to eat breakfast this morning because she wanted to sleep in Her last BM was 2 days ago She is wearing glasses She is wearing O2 She had some nausea this morning when she was up moving around and going to the bathroom but did not vomit Denies any tenderness while palpitating abdomen Denies any dizziness Denies any chest pain She had an EKG done Discussed an abdominal CT Discussed getting labs done She is having a meeting with family today about placement after hospital since exposure to COVID has made it difficult for her to return to [facility] 06/02/2019 She did well through the night She had a shower this morning She is wearing glasses She is wearing O2 at 2L and discussed weaning her down so she can be possibly discharged without oxygen if she is stable States that her appetite is good but she doesn't like the food here Denies any tenderness while palpitating abdomen Denies any dizziness Denies any chest pain She is having a meeting with family yesterday about placement after hospital since exposure to COVID has made it difficult for her to return to [facility] and they are going to try and have her admitted into one of the nursing homes 06/03/2019 She did well through the night States that she is feeling good She is wearing glasses She is wearing O2 at 1L and discussed weaning her down so she can be possibly discharged without oxygen if she is stable She was wearing 02 at 2L previously and started to wean yesterday and was even able to no wear the oxygen for a little while Her swelling is unchanged today Her heart failure test is up a bit Her heart rate is down a bit Denies any tenderness while palpitating abdomen Denies any dizziness Denies any chest pain Discussed trying to get her up and moving and to walk around more Discussed getting physical therapy and occupational therapy consults Discussed starting daily Lasix dose of 40 MG for swelling and heart failure She had a meeting with family Tuesday about placement after hospital since exposure to COVID has made it difficult for her to return to [facility] and they are going to try and have her admitted into one of the nursing homes So far it looks as if she will be discharging to [facility] but Daughter has stated that she would like to see her go to [facility] if possible, but more information will be found out on Tuesday06/04/2019 She did well through the night States that she is feeling good She is wearing glasses She is wearing O2 at 1L and discussed weaning her down so she can be possibly discharged without oxygen if she is stable and she has been trialing room air as tolerated States that she ate a good breakfast this morning Denies any tenderness while palpitating abdomen Denies any dizziness Denies any chest pain Nursing states that they were able to walk her up and down the cortés yesterday and she did well Nursing states that her urinary frequency has increased with starting Lasix Continue trying to get her up and moving and to walk around more She had a meeting with family Tuesday about placement after hospital since exposure to COVID has made it difficult for her to return to [facility] and they are going to try and have her admitted into one of the nursing homes Discharging is pending due to nursing homes being apprehensive about her being exposed to COVID and not having multiple tests done to prove that she is not infected 06/05/2019 She did well through the night States that she is feeling good She is wearing glasses She is wearing O2 at 1L and discussed weaning her down so she can be possibly discharged without oxygen if she is stable and she has been trialing room air as tolerated States that she ate a good breakfast this morning Denies any tenderness while palpitating abdomen, dizziness, or chest pain She is walking with walker and x1 assist as tolerated Continue trying to get her up and moving and to walk around more She had a meeting with family Tuesday about placement after hospital since exposure to COVID has made it difficult for her to return to [facility] and they are going to try and have her admitted into one of the nursing homes Discharging is pending due to nursing homes being apprehensive about her being exposed to COVID and not having multiple tests done to prove that she is not infected Discussed getting lab done today of NT BNP and CBC 06/06/2019 She is up in her chair this morning watching TV She did well through the night States that she is feeling good She is wearing glasses She is wearing O2 at 1L and discussed weaning her down so she can be possibly discharged without oxygen if she is stable and she has been trialing room air as tolerated She had a nose bleed last night and used saline for her nose States that she has been eating good She is still having a fast heart rate and still in atrial fibrillation Denies any tenderness while palpitating abdomen, dizziness, or chest pain She is walking with walker and x1 assist as tolerated Continue trying to get her up and moving and to walk around more She had a meeting with family last Tuesday about placement after hospital since exposure to COVID has made it difficult for her to return to [facility] and they are going to try and have her admitted into one of the nursing homes Discharging is pending due to nursing homes being apprehensive about her being exposed to COVID and not having multiple tests done to prove that she is not infected 06/07/2019 - Current weight 149lb, down from 152 yesterday - COVID test sent out, pending result to be able to place patient - Patient recommending SNF with PT/OT - Unable to wean off NC, will continue 1L - BM 06/05 - Monitor urine output - Increase on creatinine to 2.2 - Dietary recommending Ensure and high protein jello, only eating 50% of Ensure - Heart rate trend 102-135x' - Tmax 97.5, WBC count up from 8.16 to 16.6 - GFR down from 33 to 21 - BP trend 98-134/56-88 - O2 Sat > 93% on 1L NC 06/08/2019 She is up in bed watching TV She did well through the night States that she is feeling good She is wearing glasses She is wearing O2 at 1L States that she has been eating good She is on fluid restrictions She is still having a fast heart rate and in 90s today and still in atrial fibrillation Denies any tenderness while palpitating abdomen, dizziness, or chest pain She is walking with walker and x1 assist as tolerated Her COVID test came back negative today Continue trying to get her up and moving and to walk around more She had a meeting with family last Tuesday about placement after hospital since exposure to COVID has made it difficult for her to return to [facility] and they are going to try and have her admitted into one of the nursing homes Discharging is pending due to nursing homes being apprehensive about her being exposed to COVID and not having multiple tests done to prove that she is not infected. 06/09/19 doing very well . decreased uo noted and weight stable .breathing well and desats when in bed but tolerates walking easily . . vss no chest pain or rosales she states. lungs clear cor irreg/irreg 70s. abd benign. nt bnp pending. bms normal and no gross bleding or findings on exam . assess: 1) afib stable 2)chf stable/ decrease lasix to 20 mg day 3)cad stable not on anticoagulation sec to heme pos stools and gastritis. may try again in 2 weeks and addressed with her in terms of stroke risk and she understands . 4)heme pos stools and anemia stable on ppi. denies abd symptoms 5)dc planning to return to [facility] if able as now asymptomatic and covid screen neg x 2 weeks . 6) dementia mild on aricept 5 mg starting today . 06/11/19 Continues to do well clinically Weight and vital signs stable Denies any concerns Las BM was 06/10/19 No nursing concerns Mental status stable Assess/Plan: 1) Paroxismal A-fib - stable 2) Weight stable - continue daily lasix 3) Start ASA 162mg today 4) Hgb stable 5) Direct exposure to COVID-19. Initial screen negative 6) Repeat COVID-19 screen pending 7) Will be cleared for discharge once COVID sceen returns. 8) Mental status stable <Jeana Baez Em - Last Filed: 06/12/19 09:43> - Patient Data Vitals - Most Recent: Last Vital Signs Temp 97.5 F 06/12/19 07:51 Pulse 69 06/12/19 08:46 Resp 16 06/12/19 07:51 BP 117/63 06/12/19 08:47 Pulse Ox 97 06/12/19 07:51 I&O - Last 24 Hours: Intake & Output 06/11/19 06/12/19 06/12/19 22:59 06:59 14:59 Intake Total 480 300 Output Total 400 Balance 480 -100 Med Orders - Current: Current Medications Acetaminophen (Tylenol) 650 mg PO Q4H PRN PRN Reason: Pain (Mild 1-3)/fever Last Admin: 06/05/19 21:44 Dose: 650 mg Albuterol (Proventil Neb Soln) 2.5 mg NEB Q2H PRN PRN Reason: Shortness Of Breath/wheezing Albuterol/Ipratropium (Duoneb 3.0-0.5 Mg/3 Ml) 3 ml NEB Q4H PRN PRN Reason: Shortness Of Breath/wheezing Last Admin: 05/28/19 19:52 Dose: 3 ml Aspirin (Aspirin) 162 mg PO DAILY [facility] Last Admin: 06/12/19 08:47 Dose: 162 mg Donepezil HCl (Aricept) 5 mg PO BEDTIME [facility] Last Admin: 06/11/19 21:12 Dose: 5 mg Folic Acid (Folic Acid) 1 mg PO DAILY [facility] Last Admin: 06/12/19 08:47 Dose: 1 mg Furosemide (Lasix) 20 mg PO DAILY [facility] Last Admin: 06/12/19 08:46 Dose: 20 mg Gabapentin (Neurontin) 100 mg PO BEDTIME [facility] Last Admin: 06/11/19 21:11 Dose: 100 mg Isosorbide Mononitrate (Imdur) 30 mg PO DAILY [facility] Last Admin: 06/12/19 08:46 Dose: 30 mg Losartan Potassium (Cozaar) 50 mg PO DAILY [facility] Last Admin: 06/12/19 08:47 Dose: 50 mg Metoprolol Succinate (Toprol Xl) 100 mg PO DAILY [facility] Last Admin: 06/12/19 08:46 Dose: 100 mg Metoprolol Tartrate (Lopressor) 5 mg IV Q6H PRN PRN Reason: HR > 110 Nitroglycerin (Nitrostat) 0.4 mg SL ASDIRECTED PRN PRN Reason: Chest Pain Ondansetron HCl (Zofran Odt) 4 mg PO Q6H PRN PRN Reason: Nausea/Vomiting Last Admin: 06/11/19 09:05 Dose: 4 mg Pantoprazole Sodium (Protonix) 40 mg PO Q12H [facility] Last Admin: 06/12/19 08:47 Dose: 40 mg Simvastatin (Zocor) 40 mg PO BEDTIME [facility] Last Admin: 06/11/19 21:11 Dose: 40 mg Sodium Chloride (Saline Flush) 10 ml FLUSH ASDIRECTED PRN PRN Reason: Keep Vein Open Last Admin: 05/27/19 12:21 Dose: 10 ml Sodium Chloride ([place] Nasal Rankin) 0 ml SYD QID PRN PRN Reason: nasal dryness. Venlafaxine HCl (Effexor) 75 mg PO BID [facility] Last Admin: 06/12/19 08:46 Dose: 75 mg Discontinued Medications Aspirin (Halfprin) 81 mg PO DAILY [facility] Last Admin: 06/10/19 08:42 Dose: 81 mg Atenolol (Tenormin) 50 mg PO BID [facility] Atenolol (Tenormin) 50 mg PO DAILY [facility] Last Admin: 05/30/19 08:11 Dose: Not Given Diatrizoate Meglum/Diatrizoate Sod (Gastrografin 37%) 45 ml PO ONETIME ONE Stop: 06/01/19 11:16 Last Admin: 06/01/19 11:19 Dose: 45 ml Diltiazem HCl (Cardizem) 10 mg IVPUSH ONETIME ONE Stop: 05/29/19 21:03 Last Admin: 05/29/19 21:47 Dose: Not Given Diltiazem HCl (Cardizem) 5 mg IVPUSH ONETIME ONE Stop: 05/29/19 22:02 Last Admin: 05/29/19 22:05 Dose: 5 mg Donepezil HCl (Aricept) 2.5 mg PO BEDTIME [facility] Last Admin: 06/08/19 21:01 Dose: 2.5 mg Furosemide (Lasix) 40 mg IVPUSH NOW ONE Stop: 05/27/19 14:08 Last Admin: 05/27/19 14:28 Dose: 40 mg Furosemide (Lasix) 40 mg IVPUSH BIDDIURETIC [facility] Last Admin: 05/29/19 13:29 Dose: 40 mg Furosemide (Lasix) 20 mg PO ONETIME ONE Stop: 05/31/19 09:02 Last Admin: 05/31/19 10:00 Dose: 20 mg Furosemide (Lasix) 40 mg IVPUSH NOW ONE Stop: 06/01/19 16:01 Last Admin: 06/01/19 18:21 Dose: 40 mg Furosemide (Lasix) 40 mg IVPUSH NOW ONE Stop: 06/03/19 10:27 Last Admin: 06/03/19 10:56 Dose: 40 mg Furosemide (Lasix) 40 mg PO DAILY [facility] Last Admin: 06/09/19 09:59 Dose: 20 mg Gabapentin (Neurontin) 100 mg PO BEDTIME [facility] Last Admin: 06/06/19 20:38 Dose: 100 mg Ceftriaxone Sodium 2 gm/ (Sodium Chloride) 100 mls @ 200 mls/hr IV ONETIME ONE Stop: 05/27/19 14:13 Last Admin: 05/27/19 14:03 Dose: 200 mls/hr Sodium Chloride (Normal Saline) 250 mls @ 100 mls/hr IV ASDIRECTED [facility] Last Admin: 05/28/19 08:33 Dose: 100 mls/hr Potassium Chloride 10 meq/ (Premix) 100 mls @ 100 mls/hr IV Q1H [facility] Stop: 05/28/19 11:59 Last Admin: 05/28/19 13:10 Dose: 100 mls/hr Magnesium Sulfate 4 gm/ Premix 50 mls @ 12.5 mls/hr IV ONETIME ONE Stop: 05/28/19 11:53 Last Admin: 05/28/19 08:32 Dose: 12.5 mls/hr Sodium Chloride (Normal Saline) 500 mls @ 999 mls/hr IV ONETIME ONE Stop: 05/29/19 21:31 Last Admin: 05/29/19 21:19 Dose: 999 mls/hr Sodium Chloride (Normal Saline) Confirm Administered Dose 1,000 mls @ as directed .ROUTE .STK-MED ONE Stop: 05/29/19 21:07 Last Admin: 05/29/19 21:23 Dose: Not Given Diltiazem HCl 100 mg/ Sodium (Chloride) 100 mls @ 5 mls/hr IV TITRATE [facility]; Protocol Last Titration: 05/30/19 09:00 Dose: 0 mg/hr, 0 mls/hr Sodium Chloride (Normal Saline) 1,000 mls @ 50 mls/hr IV ASDIRECTED [facility] Last Infusion: 05/29/19 22:00 Dose: 75 mls/hr Sodium Chloride (Normal Saline) 1,000 mls @ 30 mls/hr IV ASDIRECTED [facility] Last Admin: 05/30/19 22:56 Dose: 30 mls/hr Sodium Chloride (Normal Saline) 500 mls @ 25 mls/hr IV ASDIRECTED ONE Stop: 06/02/19 09:05 Last Admin: 06/01/19 15:23 Dose: 25 mls/hr Influenza Virus Vaccine (Pharmacy To Dose - Influenza Vaccine) 1 each IM ONETIME ONE Stop: 05/27/19 15:18 Magnesium Hydroxide (Milk Of Magnesia) 30 ml PO Q4H ONE Stop: 05/29/19 10:01 Last Admin: 05/29/19 10:50 Dose: 30 ml Magnesium Oxide (Magnesium Oxide) 400 mg PO BID [facility] Last Admin: 06/01/19 08:33 Dose: 400 mg Metoprolol Succinate (Toprol Xl) 100 mg PO DAILY [facility] Last Admin: 06/05/19 14:18 Dose: Not Given Metoprolol Tartrate (Lopressor) 50 mg PO Q12H [facility] Last Admin: 06/01/19 08:32 Dose: 50 mg Metoprolol Tartrate (Lopressor) 50 mg PO ONETIME ONE Stop: 05/31/19 11:55 Last Admin: 05/31/19 12:19 Dose: 50 mg Metoprolol Tartrate (Lopressor) 50 mg PO Q6H [facility] Last Admin: 06/05/19 09:01 Dose: 50 mg Octreotide Acetate (Octreotide) 100 mcg SUBCUT TID [facility] Ondansetron HCl (Zofran) 4 mg IVPUSH Q4H PRN PRN Reason: Nausea/Vomiting Last Admin: 06/11/19 08:48 Dose: 4 mg Ondansetron HCl (Zofran) Confirm Administered Dose 4 mg .ROUTE .STK-MED ONE Stop: 05/29/19 23:51 Last Admin: 05/29/19 23:57 Dose: Not Given Pantoprazole Sodium (Protonix Iv) 40 mg IVPUSH Q12H [facility] Last Admin: 05/28/19 06:25 Dose: 40 mg Pantoprazole Sodium (Protonix) 40 mg PO Q12H [facility] Last Admin: 05/28/19 11:03 Dose: 40 mg Potassium Chloride (Klor-Con M20) 40 meq PO ONETIME ONE Stop: 05/28/19 14:01 Last Admin: 05/28/19 13:19 Dose: 40 meq Potassium Chloride (Klor-Con M20) 20 meq PO ONETIME ONE Stop: 05/28/19 08:58 Last Admin: 05/28/19 09:10 Dose: 20 meq Sepsis Event Note - Focused Exam Vital Signs: Vital Signs Temp Pulse Resp BP Pulse Ox 06/12/19 08:47 117/63 06/12/19 08:46 69 117/63 06/12/19 07:51 97.5 F 69 16 117/63 97 06/12/19 06:06 97.5 F 73 18 104/60 92 L Date Exam was Performed: 06/12/19 Time Exam was Performed: 09:43 - Problem List & Annotations (1) Acute hypoxemic respiratory failure SNOMED Code(s): 455105632 Code(s): J96.01 - ACUTE RESPIRATORY FAILURE WITH HYPOXIA Status: Acute Priority: Low Current Visit: Yes Onset Date: 06/02/19 Annotation/Comment: : i liter o2 (2) Leukocytosis SNOMED Code(s): 433966155, 877934678 Code(s): D72.829 - ELEVATED WHITE BLOOD CELL COUNT, UNSPECIFIED Status: Acute Current Visit: Yes (3) Metabolic alkalosis SNOMED Code(s): 3106684 Code(s): E87.3 - ALKALOSIS Status: Acute Current Visit: Yes (4) Acute kidney injury SNOMED Code(s): 94209631, 76215143 Code(s): N17.9 - ACUTE KIDNEY FAILURE, UNSPECIFIED Status: Acute Priority : High Current Visit: Yes (5) Anemia SNOMED Code(s): 026574358 Code(s): D64.9 - ANEMIA, UNSPECIFIED Status: Acute Priority: Low Current Visit: Yes Onset Date: 06/04/19 Qualifiers: Anemia type: unspecified type Qualified Code(s): D64.9 - Anemia, unspecified Annotation/Comment:: heme pos stool and on baby asa/ anticoag stopped on admission . on ppi (6) Anticoagulation adequate SNOMED Code(s): 934831321, 314361102 Code(s): Z79.01 - CUSTODIAL (CURRENT) USE OF ANTICOAGULANTS Status: Acute Priority: Low Current Visit: Yes Onset Date: 05/30/19 Annotation/Comment :: stable on baby aspirin/ heme positive on recheck but hgn 9.2 (7) CAD (coronary artery disease) SNOMED Code(s): 08583798 Code(s): I25.10 - ATHSCL HEART DISEASE OF [place] CORONARY ARTERY W/O ANG PCTRS Status: Acute Priority: Medium Current Visit: Yes Onset Date: Qualifiers: Coronary Disease-Associated Artery/Lesion type: [place] artery [place] vs. transplanted heart: [place] heart Associated angina: without angina Qualified Code(s): I25.10 - Atherosclerotic heart disease of [place] coronary artery without angina pectoris Annotation/Comment:: anemia and chf with abnormal chest xray on admission / tranfused one unit prbcs because extent of cad unknown and hgn 06/05/19 trop elavated mildly and no spike pattern and suspect no severe ischemia. on beta maria esther and baby asa and tolerating / anemia stable/ weaning down on o2 but weight increased and lasix started daily 40 mg day. 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 no increased work of breathing. will give lasix 20 mg and diving judge response. cont beta maria esther a nd monitor afib and rvr currently in 90s. 06/09/19 very stable decrease lasix to 20 mg day with 1500 cc fluid restriction creatinine climbing and weight stable (9) Dementia SNOMED Code(s): 78467309 Code(s): F03.90 - UNSPECIFIED DEMENTIA WITHOUT BEHAVIORAL DISTURBANCE Status: Acute Priority: Low Current Visit: Yes Onset Date: 06/03/19 Qualifiers: Dementia type: Alzheimer's disease Alzheimer's disease onset: early-onset Dementia behavioral disturbance: without behavioral disturbance Qualified Code(s): G30.0 - Alzheimer's disease with early onset; F02.80 - Dementia in other diseases classified elsewhere without behavioral disturbance Annotation/Comment:: started low dose donazepil (10) GI bleeding SNOMED Code(s): 30800863 Code(s): K92.2 - GASTROINTESTINAL HEMORRHAGE, UNSPECIFIED Status: Acute Priority: High Current Visit: Yes Onset Date: 05/29/19 Qualifiers: GI bleed type/associated pathology: unspecified gastrointestinal hemorrhage type Qualified Code(s): K92.2 - Gastrointestinal hemorrhage, unspecified Annotation/Comment:: on anticoagulation for afib/ hgn 6 (11) Atrial fibrillation with rapid ventricular response SNOMED Code(s): 908851189958508 Code(s): I48.91 - UNSPECIFIED ATRIAL FIBRILLATION Status: Acute Priority : Medium Current Visit: No Onset Date: 05/29/19 Annotation/Comment:: no conversion and likely will be rate controlled . no anticoag for now given rectal bleeding , will complete chads vasc. score. 06/02/19 REPEAT HGN 10.5 AFTER TRANSFUSION AND REPEAT HEMMOCCULT POS. BUT HAS SMALL NOSE BLEED LAST NIGHT . CONT BABY ASA. MONITOR HEMMOCCULTS . 06/09/19 doing well no further gross bleeding and hgn stable plat stable anticoag too risky currently and consider reduced dose restart in 2 weeks . 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
[2019-06-11] MEDS: Venlafaxine 37.5 MG Tab PO SCH ×2 (10:54→21:12)
[2019-06-11] MEDS: Metoprolol Succinate 50 MG Tab.ER PO SCH (10:55)
[2019-06-11] MEDS: Isosorbide Mononitrate 30 MG Tab.ER PO SCH (10:58)
[2019-06-11] MEDS: Pantoprazole 40 MG Tab.CR PO SCH ×2 (10:59→21:11)
[2019-06-11] MEDS: Losartan 25 MG Tab PO SCH (10:59)
[2019-06-11] MEDS: Furosemide 20 MG Tab PO SCH (10:59)
[2019-06-11] MEDS: Folic Acid 1 MG Tab PO SCH (11:00)
[2019-06-11] MEDS: Aspirin 81 MG Tab.Chew PO SCH (11:00)
[2019-06-11] MEDS: Simvastatin 40 MG Tab PO SCH (21:11)
[2019-06-11] MEDS: Gabapentin 100 MG Cap PO SCH (21:11)
[2019-06-11] MEDS: Donepezil 10 MG Tab PO SCH (21:12)
--- NOTE | 2019-06-12 07:56 | PCM.PN ---
Addendum entered and electronically signed by Jeana Baez MD 06/12/19 16:13: Major depressive diagnosis was entered in error for this patient and has been removed from the problem list on this chart Original Note: - General Info Date of Service: 06/12/19 Admission Dx/Problem (Free Text): Admission Diagnosis/Problem Admission Diagnosis/Problem Heart failure Functional Status: Reports: Pain Controlled, Tolerating Diet, Ambulating, Urinating. Denies: New Symptoms - Review of Systems General: Reports: No Symptoms. Denies: Fever, Weakness, Chills HEENT: Reports: No Symptoms. Denies: Sore Throat Pulmonary: Reports: No Symptoms. Denies: Shortness of Breath, Pleuritic Chest Pain, Cough, Sputum, Wheezing Cardiovascular: Reports: No Symptoms. Denies: Chest Pain, Palpitations, Dyspnea on Exertion Gastrointestinal: Reports: No Symptoms. Denies: Abdominal Pain, Constipation, Diarrhea, Nausea, Vomiting Genitourinary: Reports: No Symptoms. Denies: Pain Musculoskeletal: Reports: No Symptoms Skin: Reports: No Symptoms. Denies: Cyanosis Neurological: Reports: No Symptoms Psychiatric: Reports: No Symptoms - Patient Data Vitals - Most Recent: Last Vital Signs Temp 97.5 F 06/12/19 06:06 Pulse 73 06/12/19 06:06 Resp 18 06/12/19 06:06 BP 104/60 06/12/19 06:06 Pulse Ox 92 L 06/12/19 06:06 Weight - Most Recent: 149 lb 14.4 oz I&O - Last 24 Hours: Intake & Output 06/11/19 06/12/19 06/12/19 22:59 06:59 14:59 Intake Total 480 300 Output Total 400 Balance 480 -100 Med Orders - Current: Current Medications Acetaminophen (Tylenol) 650 mg PO Q4H PRN PRN Reason: Pain (Mild 1-3)/fever Last Admin: 06/05/19 21:44 Dose: 650 mg Albuterol (Proventil Neb Soln) 2.5 mg NEB Q2H PRN PRN Reason: Shortness Of Breath/wheezing Albuterol/Ipratropium (Duoneb 3.0-0.5 Mg/3 Ml) 3 ml NEB Q4H PRN PRN Reason: Shortness Of Breath/wheezing Last Admin: 05/28/19 19:52 Dose: 3 ml Aspirin (Aspirin) 162 mg PO DAILY [facility] Last Admin: 06/11/19 11:00 Dose: 162 mg Donepezil HCl (Aricept) 5 mg PO BEDTIME [facility] Last Admin: 06/11/19 21:12 Dose: 5 mg Folic Acid (Folic Acid) 1 mg PO DAILY [facility] Last Admin: 06/11/19 11:00 Dose: 1 mg Furosemide (Lasix) 20 mg PO DAILY [facility] Last Admin: 06/11/19 10:59 Dose: 20 mg Gabapentin (Neurontin) 100 mg PO BEDTIME [facility] Last Admin: 06/11/19 21:11 Dose: 100 mg Isosorbide Mononitrate (Imdur) 30 mg PO DAILY [facility] Last Admin: 06/11/19 10:58 Dose: 30 mg Losartan Potassium (Cozaar) 50 mg PO DAILY [facility] Last Admin: 06/11/19 10:59 Dose: 50 mg Metoprolol Succinate (Toprol Xl) 100 mg PO DAILY [facility] Last Admin: 06/11/19 10:55 Dose: 100 mg Metoprolol Tartrate (Lopressor) 5 mg IV Q6H PRN PRN Reason: HR > 110 Nitroglycerin (Nitrostat) 0.4 mg SL ASDIRECTED PRN PRN Reason: Chest Pain Ondansetron HCl (Zofran Odt) 4 mg PO Q6H PRN PRN Reason: Nausea/Vomiting Last Admin: 06/11/19 09:05 Dose: 4 mg Pantoprazole Sodium (Protonix) 40 mg PO Q12H [facility] Last Admin: 06/11/19 21:11 Dose: 40 mg Simvastatin (Zocor) 40 mg PO BEDTIME [facility] Last Admin: 06/11/19 21:11 Dose: 40 mg Sodium Chloride (Saline Flush) 10 ml FLUSH ASDIRECTED PRN PRN Reason: Keep Vein Open Last Admin: 05/27/19 12:21 Dose: 10 ml Sodium Chloride ([place] Nasal [place]) 0 ml SYD QID PRN PRN Reason: nasal dryness. Venlafaxine HCl (Effexor) 75 mg PO BID [facility] Last Admin: 06/11/19 21:12 Dose: 75 mg Discontinued Medications Aspirin (Halfprin) 81 mg PO DAILY [facility] Last Admin: 06/10/19 08:42 Dose: 81 mg Atenolol (Tenormin) 50 mg PO BID [facility] Atenolol (Tenormin) 50 mg PO DAILY [facility] Last Admin: 05/30/19 08:11 Dose: Not Given Diatrizoate Meglum/Diatrizoate Sod (Gastrografin 37%) 45 ml PO ONETIME ONE Stop: 06/01/19 11:16 Last Admin: 06/01/19 11:19 Dose: 45 ml Diltiazem HCl (Cardizem) 10 mg IVPUSH ONETIME ONE Stop: 05/29/19 21:03 Last Admin: 05/29/19 21:47 Dose: Not Given Diltiazem HCl (Cardizem) 5 mg IVPUSH ONETIME ONE Stop: 05/29/19 22:02 Last Admin: 05/29/19 22:05 Dose: 5 mg Donepezil HCl (Aricept) 2.5 mg PO BEDTIME [facility] Last Admin: 06/08/19 21:01 Dose: 2.5 mg Furosemide (Lasix) 40 mg IVPUSH NOW ONE Stop: 05/27/19 14:08 Last Admin: 05/27/19 14:28 Dose: 40 mg Furosemide (Lasix) 40 mg IVPUSH BIDDIURETIC [facility] Last Admin: 05/29/19 13:29 Dose: 40 mg Furosemide (Lasix) 20 mg PO ONETIME ONE Stop: 05/31/19 09:02 Last Admin: 05/31/19 10:00 Dose: 20 mg Furosemide (Lasix) 40 mg IVPUSH NOW ONE Stop: 06/01/19 16:01 Last Admin: 06/01/19 18:21 Dose: 40 mg Furosemide (Lasix) 40 mg IVPUSH NOW ONE Stop: 06/03/19 10:27 Last Admin: 06/03/19 10:56 Dose: 40 mg Furosemide (Lasix) 40 mg PO DAILY [facility] Last Admin: 06/09/19 09:59 Dose: 20 mg Gabapentin (Neurontin) 100 mg PO BEDTIME [facility] Last Admin: 06/06/19 20:38 Dose: 100 mg Ceftriaxone Sodium 2 gm/ (Sodium Chloride) 100 mls @ 200 mls/hr IV ONETIME ONE Stop: 05/27/19 14:13 Last Admin: 05/27/19 14:03 Dose: 200 mls/hr Sodium Chloride (Normal Saline) 250 mls @ 100 mls/hr IV ASDIRECTED [facility] Last Admin: 05/28/19 08:33 Dose: 100 mls/hr Potassium Chloride 10 meq/ (Premix) 100 mls @ 100 mls/hr IV Q1H [facility] Stop: 05/28/19 11:59 Last Admin: 05/28/19 13:10 Dose: 100 mls/hr Magnesium Sulfate 4 gm/ Premix 50 mls @ 12.5 mls/hr IV ONETIME ONE Stop: 05/28/19 11:53 Last Admin: 05/28/19 08:32 Dose: 12.5 mls/hr Sodium Chloride (Normal Saline) 500 mls @ 999 mls/hr IV ONETIME ONE Stop: 05/29/19 21:31 Last Admin: 05/29/19 21:19 Dose: 999 mls/hr Sodium Chloride (Normal Saline) Confirm Administered Dose 1,000 mls @ as directed .ROUTE .STK-MED ONE Stop: 05/29/19 21:07 Last Admin: 05/29/19 21:23 Dose: Not Given Diltiazem HCl 100 mg/ Sodium (Chloride) 100 mls @ 5 mls/hr IV TITRATE [facility]; Protocol Last Titration: 05/30/19 09:00 Dose: 0 mg/hr, 0 mls/hr Sodium Chloride (Normal Saline) 1,000 mls @ 50 mls/hr IV ASDIRECTED [facility] Last Infusion: 05/29/19 22:00 Dose: 75 mls/hr Sodium Chloride (Normal Saline) 1,000 mls @ 30 mls/hr IV ASDIRECTED [facility] Last Admin: 05/30/19 22:56 Dose: 30 mls/hr Sodium Chloride (Normal Saline) 500 mls @ 25 mls/hr IV ASDIRECTED ONE Stop: 06/02/19 09:05 Last Admin: 06/01/19 15:23 Dose: 25 mls/hr Influenza Virus Vaccine (Pharmacy To Dose - Influenza Vaccine) 1 each IM ONETIME ONE Stop: 05/27/19 15:18 Magnesium Hydroxide (Milk Of Magnesia) 30 ml PO Q4H ONE Stop: 05/29/19 10:01 Last Admin: 05/29/19 10:50 Dose: 30 ml Magnesium Oxide (Magnesium Oxide) 400 mg PO BID [facility] Last Admin: 06/01/19 08:33 Dose: 400 mg Metoprolol Succinate (Toprol Xl) 100 mg PO DAILY [facility] Last Admin: 06/05/19 14:18 Dose: Not Given Metoprolol Tartrate (Lopressor) 50 mg PO Q12H [facility] Last Admin: 06/01/19 08:32 Dose: 50 mg Metoprolol Tartrate (Lopressor) 50 mg PO ONETIME ONE Stop: 05/31/19 11:55 Last Admin: 05/31/19 12:19 Dose: 50 mg Metoprolol Tartrate (Lopressor) 50 mg PO Q6H [facility] Last Admin: 06/05/19 09:01 Dose: 50 mg Octreotide Acetate (Octreotide) 100 mcg SUBCUT TID [facility] Ondansetron HCl (Zofran) 4 mg IVPUSH Q4H PRN PRN Reason: Nausea/Vomiting Last Admin: 06/11/19 08:48 Dose: 4 mg Ondansetron HCl (Zofran) Confirm Administered Dose 4 mg .ROUTE .STK-MED ONE Stop: 05/29/19 23:51 Last Admin: 05/29/19 23:57 Dose: Not Given Pantoprazole Sodium (Protonix Iv) 40 mg IVPUSH Q12H [facility] Last Admin: 05/28/19 06:25 Dose: 40 mg Pantoprazole Sodium (Protonix) 40 mg PO Q12H [facility] Last Admin: 05/28/19 11:03 Dose: 40 mg Potassium Chloride (Klor-Con M20) 40 meq PO ONETIME ONE Stop: 05/28/19 14:01 Last Admin: 05/28/19 13:19 Dose: 40 meq Potassium Chloride (Klor-Con M20) 20 meq PO ONETIME ONE Stop: 05/28/19 08:58 Last Admin: 05/28/19 09:10 Dose: 20 meq - Exam Quality Assessment: Supplemental Oxygen General: Alert, Cooperative, No Acute Distress HEENT: Pupils Equal, Pupils Reactive, Mucous Membr. Moist/[place] Neck: Supple, Trachea Midline Lungs: Clear to Auscultation, Normal Respiratory Effort Cardiovascular: Irregular Rhythm GI/Abdominal Exam: Normal Bowel Sounds, Soft, Non-Tender, No Organomegaly (Female) Exam: Deferred Back Exam: Normal Inspection Extremities: Normal Inspection, Normal Range of Motion, Non-Tender, No Pedal Edema, Normal Capillary Refill Skin: Warm, Dry, Intact Neurological: No New Focal Deficit Psy/Mental Status: Alert Sepsis Event Note - Evaluation Sepsis Screening Result: No Definite Risk - Focused Exam Vital Signs: Vital Signs Temp Pulse Resp BP Pulse Ox 06/12/19 06:06 97.5 F 73 18 104/60 92 L 06/11/19 21:09 98.1 F 82 18 116/81 100 Date Exam was Performed: 06/12/19 Time Exam was Performed: 13:36 - Problem List & Annotations (1) CHF (congestive heart failure) SNOMED Code(s): 26174115 Code(s): I50.9 - HEART FAILURE, UNSPECIFIED Status: Acute Priority: Medium Current Visit: Yes Onset Date: 06/01/19 Qualifiers: 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 no increased work of breathing. 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 cont beta maria esther a nd monitor afib and rvr currently in 90s. 06/09/19 very stable decrease lasix to 20 mg day with 1500 cc fluid restriction creatinine climbing and weight stable (2) Hypoxia SNOMED Code(s): 052164555 Code(s): R09.02 - HYPOXEMIA Status: Acute Priority: High Current Visit : Yes (3) Anemia SNOMED Code(s): 868292160 Code(s): D64.9 - ANEMIA, UNSPECIFIED Status: Acute Priority: Low Current Visit: Yes Onset Date: 06/04/19 Qualifiers: Anemia type: unspecified type Qualified Code(s): D64.9 - Anemia, unspecified Annotation/Comment:: heme pos stool and on baby asa/ anticoag stopped on admission . on ppi (4) Chronic kidney disease SNOMED Code(s): 592051261 Code(s): N18.9 - CHRONIC KIDNEY DISEASE, UNSPECIFIED Status: Chronic Priority: Medium Current Visit: No Qualifiers: Chronic kidney disease stage: stage 3 (moderate) Qualified Code(s): N18.3 - Chronic kidney disease, stage 3 (moderate) (5) Hemorrhoids SNOMED Code(s): 45646402 Code(s): K64.9 - UNSPECIFIED HEMORRHOIDS Status: Chronic Priority: Medium Current Visit: No Qualifiers: Hemorrhoid type: unspecified Qualified Code(s): K64.9 - Unspecified hemorrhoids (6) Hypokalemia SNOMED Code(s): 83917325 Code(s): E87.6 - HYPOKALEMIA Status: Resolved Priority: High Current Visit: Yes (7) Hypomagnesemia SNOMED Code(s): 678618661 Code(s): E83.42 - HYPOMAGNESEMIA Status: Resolved Priority: High Current Visit: Yes (8) Elevated brain natriuretic peptide (BNP) level SNOMED Code(s): 132663993, 201640278 Code(s): R79.89 - OTHER SPECIFIED ABNORMAL FINDINGS OF BLOOD CHEMISTRY Status: Acute Priority: High Current Visit: Yes (9) Paroxysmal A-fib SNOMED Code(s): 837123030 Code(s): I48.0 - PAROXYSMAL ATRIAL FIBRILLATION Status: Chronic Priority : Medium Current Visit: No (10) Arthritis SNOMED Code(s): 5070950 Code(s): M19.90 - UNSPECIFIED OSTEOARTHRITIS, UNSPECIFIED SITE Status: Chronic Priority: Low Current Visit: No (11) Generalized weakness SNOMED Code(s): 77121248 Code(s): R53.1 - WEAKNESS Status: Chronic Priority: Medium Current Visit: No (12) History of colitis SNOMED Code(s): 788051475 Code(s): Z87.19 - PERSONAL HISTORY OF OTHER DISEASES OF THE DIGESTIVE SYSTEM Status: Chronic Priority: Medium Current Visit: No (13) H/O polymyalgia rheumatica SNOMED Code(s): 341492881 Code(s): Z87.39 - PERSONAL HISTORY OF DISEASES OF THE MS SYS AND CONN TISS Status: Chronic Priority: Medium Current Visit: No (14) Acute hypoxemic respiratory failure SNOMED Code(s): 154752759 Code(s): J96.01 - ACUTE RESPIRATORY FAILURE WITH HYPOXIA Status: Acute Priority: Low Current Visit: Yes Onset Date: 06/02/19 Annotation/Comment: : i liter o2 (15) Acute kidney injury SNOMED Code(s): 45751408, 10463907 Code(s): N17.9 - ACUTE KIDNEY FAILURE, UNSPECIFIED Status: Acute Priority : High Current Visit: Yes (16) Anticoagulation adequate SNOMED Code(s): 007551771, 972015531 Code(s): Z79.01 - ENTERPRISE INTEGRATION ARCHITECT (CURRENT) USE OF ANTICOAGULANTS Status: Acute Priority: Low Current Visit: Yes Onset Date: 05/30/19 Annotation/Comment :: stable on baby aspirin/ heme positive on recheck but hgn 9.2 (17) CAD (coronary artery disease) SNOMED Code(s): 57796122 Code(s): I25.10 - ATHSCL HEART DISEASE OF [place] CORONARY ARTERY W/O ANG PCTRS Status: Acute Priority: Medium Current Visit: Yes Onset Date: Qualifiers: Coronary Disease-Associated Artery/Lesion type: [place] artery [place] vs. transplanted heart: [place] heart Associated angina: without angina Qualified Code(s): I25.10 - Atherosclerotic heart disease of [place] coronary artery without angina pectoris Annotation/Comment:: anemia and chf with abnormal chest xray on admission / tranfused one unit prbcs because extent of cad unknown and hgn 06/05/19 trop elavated mildly and no spike pattern and suspect no severe ischemia. on beta maria esther and baby asa and tolerating / anemia stable/ weaning down on o2 but weight increased and lasix started daily 40 mg day. (18) Dementia SNOMED Code(s): 70828067 Code(s): F03.90 - UNSPECIFIED DEMENTIA WITHOUT BEHAVIORAL DISTURBANCE Status: Acute Priority: Low Current Visit: Yes Onset Date: 06/03/19 Qualifiers: Dementia type: Alzheimer's disease Alzheimer's disease onset: early-onset Dementia behavioral disturbance: without behavioral disturbance Qualified Code(s): G30.0 - Alzheimer's disease with early onset; F02.80 - Dementia in other diseases classified elsewhere without behavioral disturbance Annotation/Comment:: started low dose donazepil (19) GI bleeding SNOMED Code(s): 55712410 Code(s): K92.2 - GASTROINTESTINAL HEMORRHAGE, UNSPECIFIED Status: Acute Priority: High Current Visit: Yes Onset Date: 05/29/19 Qualifiers: GI bleed type/associated pathology: unspecified gastrointestinal hemorrhage type Qualified Code(s): K92.2 - Gastrointestinal hemorrhage, unspecified Annotation/Comment:: on anticoagulation for afib/ hgn 6 (20) Leukocytosis SNOMED Code(s): 047122105, 819531016 Code(s): D72.829 - ELEVATED WHITE BLOOD CELL COUNT, UNSPECIFIED Status: Acute Current Visit: Yes (21) Metabolic alkalosis SNOMED Code(s): 6681793 Code(s): E87.3 - ALKALOSIS Status: Acute Current Visit: Yes (22) Atrial fibrillation with rapid ventricular response SNOMED Code(s): 905591710320778 Code(s): I48.91 - UNSPECIFIED ATRIAL FIBRILLATION Status: Acute Priority : Medium Current Visit: No Onset Date: 05/29/19 Annotation/Comment:: no conversion and likely will be rate controlled . no anticoag for now given rectal bleeding , will complete chads vasc. score. 06/02/19 REPEAT HGN 10.5 AFTER TRANSFUSION AND REPEAT HEMMOCCULT POS. BUT HAS SMALL NOSE BLEED LAST NIGHT . CONT BABY ASA. MONITOR HEMMOCCULTS . 06/09/19 doing well no further gross bleeding and hgn stable plat stable anticoag too risky currently and consider reduced dose restart in 2 weeks . 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 cont o2 until sats stable She is on droplet precautions due to exposure of someone with known positive COVID Discussed adding an NT BNP onto this mornings labs Discussed increasing dose of metoprolol if heart rate doesn't decrease after an hour of receiving medications Discussed doing a clock drawing test for memory/dementia/ and a formal screen . Looking at discharging to [facility] pending the quarantine parodical from the state. anemia stable and no desire of patient and to have colonoscopy and will recheck hemmoccult . nose bleed this a.m. now controlled . monitor nt bnp and i/s and hgn 06/01/2019 She did well through the night She didn't want to eat breakfast this morning because she wanted to sleep in Her last BM was 2 days ago She is wearing glasses She is wearing O2 She had some nausea this morning when she was up moving around and going to the bathroom but did not vomit Denies any tenderness while palpitating abdomen Denies any dizziness Denies any chest pain She had an EKG done Discussed an abdominal CT Discussed getting labs done She is having a meeting with family today about placement after hospital since exposure to COVID has made it difficult for her to return to [facility] 06/02/2019 She did well through the night She had a shower this morning She is wearing glasses She is wearing O2 at 2L and discussed weaning her down so she can be possibly discharged without oxygen if she is stable States that her appetite is good but she doesn't like the food here Denies any tenderness while palpitating abdomen Denies any dizziness Denies any chest pain She is having a meeting with family yesterday about placement after hospital since exposure to COVID has made it difficult for her to return to [facility] and they are going to try and have her admitted into one of the nursing homes 06/03/2019 She did well through the night States that she is feeling good She is wearing glasses She is wearing O2 at 1L and discussed weaning her down so she can be possibly discharged without oxygen if she is stable She was wearing 02 at 2L previously and started to wean yesterday and was even able to no wear the oxygen for a little while Her swelling is unchanged today Her heart failure test is up a bit Her heart rate is down a bit Denies any tenderness while palpitating abdomen Denies any dizziness Denies any chest pain Discussed trying to get her up and moving and to walk around more Discussed getting physical therapy and occupational therapy consults Discussed starting daily Lasix dose of 40 MG for swelling and heart failure She had a meeting with family Tuesday about placement after hospital since exposure to COVID has made it difficult for her to return to [facility] and they are going to try and have her admitted into one of the nursing homes So far it looks as if she will be discharging to [facility] but Daughter has stated that she would like to see her go to [facility] if possible, but more information will be found out on Tuesday06/04/2019 She did well through the night States that she is feeling good She is wearing glasses She is wearing O2 at 1L and discussed weaning her down so she can be possibly discharged without oxygen if she is stable and she has been trialing room air as tolerated States that she ate a good breakfast this morning Denies any tenderness while palpitating abdomen Denies any dizziness Denies any chest pain Nursing states that they were able to walk her up and down the cortés yesterday and she did well Nursing states that her urinary frequency has increased with starting Lasix Continue trying to get her up and moving and to walk around more She had a meeting with family Tuesday about placement after hospital since exposure to COVID has made it difficult for her to return to [facility] and they are going to try and have her admitted into one of the nursing homes Discharging is pending due to nursing homes being apprehensive about her being exposed to COVID and not having multiple tests done to prove that she is not infected 06/05/2019 She did well through the night States that she is feeling good She is wearing glasses She is wearing O2 at 1L and discussed weaning her down so she can be possibly discharged without oxygen if she is stable and she has been trialing room air as tolerated States that she ate a good breakfast this morning Denies any tenderness while palpitating abdomen, dizziness, or chest pain She is walking with walker and x1 assist as tolerated Continue trying to get her up and moving and to walk around more She had a meeting with family Tuesday about placement after hospital since exposure to COVID has made it difficult for her to return to [facility] and they are going to try and have her admitted into one of the nursing homes Discharging is pending due to nursing homes being apprehensive about her being exposed to COVID and not having multiple tests done to prove that she is not infected Discussed getting lab done today of NT BNP and CBC 06/06/2019 She is up in her chair this morning watching TV She did well through the night States that she is feeling good She is wearing glasses She is wearing O2 at 1L and discussed weaning her down so she can be possibly discharged without oxygen if she is stable and she has been trialing room air as tolerated She had a nose bleed last night and used saline for her nose States that she has been eating good She is still having a fast heart rate and still in atrial fibrillation Denies any tenderness while palpitating abdomen, dizziness, or chest pain She is walking with walker and x1 assist as tolerated Continue trying to get her up and moving and to walk around more She had a meeting with family last Tuesday about placement after hospital since exposure to COVID has made it difficult for her to return to [facility] and they are going to try and have her admitted into one of the nursing homes Discharging is pending due to nursing homes being apprehensive about her being exposed to COVID and not having multiple tests done to prove that she is not infected 06/07/2019 - Current weight 149lb, down from 152 yesterday - COVID test sent out, pending result to be able to place patient - Patient recommending SNF with PT/OT - Unable to wean off NC, will continue 1L - BM 06/05 - Monitor urine output - Increase on creatinine to 2.2 - Dietary recommending Ensure and high protein jello, only eating 50% of Ensure - Heart rate trend 102-135x' - Tmax 97.5, WBC count up from 8.16 to 16.6 - GFR down from 33 to 21 - BP trend 98-134/56-88 - O2 Sat > 93% on 1L NC 06/08/2019 She is up in bed watching TV She did well through the night States that she is feeling good She is wearing glasses She is wearing O2 at 1L States that she has been eating good She is on fluid restrictions She is still having a fast heart rate and in 90s today and still in atrial fibrillation Denies any tenderness while palpitating abdomen, dizziness, or chest pain She is walking with walker and x1 assist as tolerated Her COVID test came back negative today Continue trying to get her up and moving and to walk around more She had a meeting with family last Tuesday about placement after hospital since exposure to COVID has made it difficult for her to return to [facility] and they are going to try and have her admitted into one of the nursing homes Discharging is pending due to nursing homes being apprehensive about her being exposed to COVID and not having multiple tests done to prove that she is not infected 06/09/19 doing very well . decreased uo noted and weight stable .breathing well and desats when in bed but tolerates walking easily . . vss no chest pain or rosales she states. lungs clear cor irreg/irreg 70s. abd benign. nt bnp pending. bms normal and no gross bleding or findings on exam . assess: 1) afib stable 2)chf stable 3)cad stable not on anticoagulation sec to heme pos stools and gastritis. may try again in 2 weeks and addressed with her in terms of stroke risk and she understands . 4)heme pos stools and anemia stable on ppi. denies abd symptoms 5)dc planning to return to [place] if able as now assymptomatic and covid screen neg x 2 weeks . 6) dementia mi - Plan Plan:: Assessment [id number]-year-old female with history of coronary artery disease with new onset CHF * Hemoglobin of 7.5-->9.0 (1 unit PRBC)-->9.1 * Admission troponin negative at 0.025 * Admission proBNP 7487 * Chest x-ray with pleural effusions and atelectasis * No fever, white count, lactic acidosis or anion gap * On atenolol and isosorbide mononitrate * Fluid restriction to 1500 mL/day * Strict I's and O's and daily weights * Echocardiogram obtained 05/28/19 * 1. LVEF, by visual estimation, is 55-60% * 2. Mild concentric left ventricular hypertrophy * 3. Pseudonormal (Grade 2) pattern of LV diastolic filling * 4. Normal right ventricular systolic function * 5. There is moderate aortic valve sclerosis without stenosis * 6. Mild aortic valve regurgitation * 7. Mild to moderate mitral valve regurgiation * 8. Moderate tricuspid valve regurgitation * 9. The right ventricular systolic pressure is moderately elevated at 57.0 mmHg * 10. No regional wall motion abnormalities. Anemia, likely blood loss * History of GI bleed * History of anemia, progressive, with pancytopenia (currently normal white count and platelets) * Guaiac positive stool in ED * Confirms bright red blood per rectum, last episode 1 week ago * On full dose aspirin - hold * Pantoprazole 40 mg p.o. BID * No hematochezia or melena as inpatient * Hgb trend: 7.5 (given 1 unit) 9.0-->9.1-->8.9 Paroxysmal atrial fibrillation * Currently a fib * Switch to metoprolol tartrate 50 mg bid History of seronegative arthritis, colitis, depression, generalized weakness, polymyalgia rheumatica Plan * Admit to medical floor on telemetry * FiO2 to keep SpO2 > 90% * Hold lasix for now. Likely will need cautious diuresis * Pantoprazole 40 mg IV twice daily * Follow hemoglobin * Switch atenolol to metoprolol tartrate 50 mg BID for CHF exacerbation. She would likely benefit to switch over to metoprolol succinate when stable * Fluid restriction to 1500 mL/day * Strict I's and O's and daily weights * Have patient follow with surgery as outpatient after recovery from CHF for GI bleed. * VTE prophylaxis with SCDs. Anticoagulation contraindicated because of GI bleed * CODE STATUS: DNR/DNI 05/31/2019 Heart failure and Atrial fibrillation She is currently on fluid restrictions and discussed the possibility of going on Lasix She is currently wearing oxygen She is on droplet precautions due to exposure of someone with known positive COVID Discussed adding an NT BNP onto this mornings labs Discussed increasing dose of metoprolol if heart rate doesn't decrease after an hour of receiving medications Discussed doing a clock drawing test for memory/dementia Looking at discharging to [facility] pending the quarantine parodical from the state 06/01/2019 She did well through the night She didn't want to eat breakfast this morning because she wanted to sleep in Her last BM was 2 days ago She is wearing glasses She is wearing O2 She had some nausea this morning when she was up moving around and going to the bathroom but did not vomit Denies any tenderness while palpitating abdomen Denies any dizziness Denies any chest pain She had an EKG done Discussed an abdominal CT Discussed getting labs done She is having a meeting with family today about placement after hospital since exposure to COVID has made it difficult for her to return to [facility] 06/02/2019 She did well through the night She had a shower this morning She is wearing glasses She is wearing O2 at 2L and discussed weaning her down so she can be possibly discharged without oxygen if she is stable States that her appetite is good but she doesn't like the food here Denies any tenderness while palpitating abdomen Denies any dizziness Denies any chest pain She is having a meeting with family yesterday about placement after hospital since exposure to COVID has made it difficult for her to return to [facility] and they are going to try and have her admitted into one of the nursing homes 06/03/2019 She did well through the night States that she is feeling good She is wearing glasses She is wearing O2 at 1L and discussed weaning her down so she can be possibly discharged without oxygen if she is stable She was wearing 02 at 2L previously and started to wean yesterday and was even able to no wear the oxygen for a little while Her swelling is unchanged today Her heart failure test is up a bit Her heart rate is down a bit Denies any tenderness while palpitating abdomen Denies any dizziness Denies any chest pain Discussed trying to get her up and moving and to walk around more Discussed getting physical therapy and occupational therapy consults Discussed starting daily Lasix dose of 40 MG for swelling and heart failure She had a meeting with family Tuesday about placement after hospital since exposure to COVID has made it difficult for her to return to [facility] and they are going to try and have her admitted into one of the nursing homes So far it looks as if she will be discharging to [facility] but Daughter has stated that she would like to see her go to [facility] if possible, but more information will be found out on Tuesday06/04/2019 She did well through the night States that she is feeling good She is wearing glasses She is wearing O2 at 1L and discussed weaning her down so she can be possibly discharged without oxygen if she is stable and she has been trialing room air as tolerated States that she ate a good breakfast this morning Denies any tenderness while palpitating abdomen Denies any dizziness Denies any chest pain Nursing states that they were able to walk her up and down the cortés yesterday and she did well Nursing states that her urinary frequency has increased with starting Lasix Continue trying to get her up and moving and to walk around more She had a meeting with family Tuesday about placement after hospital since exposure to COVID has made it difficult for her to return to [facility] and they are going to try and have her admitted into one of the nursing homes Discharging is pending due to nursing homes being apprehensive about her being exposed to COVID and not having multiple tests done to prove that she is not infected 06/05/2019 She did well through the night States that she is feeling good She is wearing glasses She is wearing O2 at 1L and discussed weaning her down so she can be possibly discharged without oxygen if she is stable and she has been trialing room air as tolerated States that she ate a good breakfast this morning Denies any tenderness while palpitating abdomen, dizziness, or chest pain She is walking with walker and x1 assist as tolerated Continue trying to get her up and moving and to walk around more She had a meeting with family Tuesday about placement after hospital since exposure to COVID has made it difficult for her to return to [facility] and they are going to try and have her admitted into one of the nursing homes Discharging is pending due to nursing homes being apprehensive about her being exposed to COVID and not having multiple tests done to prove that she is not infected Discussed getting lab done today of NT BNP and CBC 06/06/2019 She is up in her chair this morning watching TV She did well through the night States that she is feeling good She is wearing glasses She is wearing O2 at 1L and discussed weaning her down so she can be possibly discharged without oxygen if she is stable and she has been trialing room air as tolerated She had a nose bleed last night and used saline for her nose States that she has been eating good She is still having a fast heart rate and still in atrial fibrillation Denies any tenderness while palpitating abdomen, dizziness, or chest pain She is walking with walker and x1 assist as tolerated Continue trying to get her up and moving and to walk around more She had a meeting with family last Tuesday about placement after hospital since exposure to COVID has made it difficult for her to return to [facility] and they are going to try and have her admitted into one of the nursing homes Discharging is pending due to nursing homes being apprehensive about her being exposed to COVID and not having multiple tests done to prove that she is not infected 06/07/2019 - Current weight 149lb, down from 152 yesterday - COVID test sent out, pending result to be able to place patient - Patient recommending SNF with PT/OT - Unable to wean off NC, will continue 1L - BM 06/05 - Monitor urine output - Increase on creatinine to 2.2 - Dietary recommending Ensure and high protein jello, only eating 50% of Ensure - Heart rate trend 102-135x' - Tmax 97.5, WBC count up from 8.16 to 16.6 - GFR down from 33 to 21 - BP trend 98-134/56-88 - O2 Sat > 93% on 1L NC 06/08/2019 She is up in bed watching TV She did well through the night States that she is feeling good She is wearing glasses She is wearing O2 at 1L States that she has been eating good She is on fluid restrictions She is still having a fast heart rate and in 90s today and still in atrial fibrillation Denies any tenderness while palpitating abdomen, dizziness, or chest pain She is walking with walker and x1 assist as tolerated Her COVID test came back negative today Continue trying to get her up and moving and to walk around more She had a meeting with family last Tuesday about placement after hospital since exposure to COVID has made it difficult for her to return to [facility] and they are going to try and have her admitted into one of the nursing homes Discharging is pending due to nursing homes being apprehensive about her being exposed to COVID and not having multiple tests done to prove that she is not infected. 06/09/19 doing very well . decreased uo noted and weight stable .breathing well and desats when in bed but tolerates walking easily . . vss no chest pain or rosales she states. lungs clear cor irreg/irreg 70s. abd benign. nt bnp pending. bms normal and no gross bleding or findings on exam . assess: 1) afib stable 2)chf stable/ decrease lasix to 20 mg day 3)cad stable not on anticoagulation sec to heme pos stools and gastritis. may try again in 2 weeks and addressed with her in terms of stroke risk and she understands . 4)heme pos stools and anemia stable on ppi. denies abd symptoms 5)dc planning to return to [place] if able as now asymptomatic and covid screen neg x 2 weeks . 6) dementia mild on aricept 5 mg starting today . 06/11/19 Continues to do well clinically Weight and vital signs stable Denies any concerns Las BM was 06/10/19 No nursing concerns Mental status stable Assess/Plan: 1) Paroxysmal A-fib - stable 2) Weight stable - continue daily lasix 3) Start ASA 162mg today 4) Hgb stable 5) Direct exposure to COVID-19. Initial screen negative 6) Repeat COVID-19 screen pending 7) Will be cleared for discharge once COVID sceen returns. 8) Mental status stable 06/12/19 Remains clinically stable Weight and vital signs stable Denies any concerns Last BM today No nursing concerns Mental status stable Paroxysmal A-fib - stable Direct exposure to COVID-19. Initial screen negative Assess/Plan: 1) Continue daily Lasix 3) Continue ASA 4) Repeat COVID-19 screen pending 5) Will be cleared for discharge once COVID sceen returns. 6) Planning for discharge 06/13/19
[2019-06-12] MEDS: Isosorbide Mononitrate 30 MG Tab.ER PO SCH (08:46)
[2019-06-12] MEDS: Furosemide 20 MG Tab PO SCH (08:46)
[2019-06-12] MEDS: Venlafaxine 37.5 MG Tab PO SCH ×2 (08:46→21:06)
[2019-06-12] MEDS: Metoprolol Succinate 50 MG Tab.ER PO SCH (08:46)
[2019-06-12] MEDS: Losartan 25 MG Tab PO SCH (08:47)
[2019-06-12] MEDS: Aspirin 81 MG Tab.Chew PO SCH (08:47)
[2019-06-12] MEDS: Folic Acid 1 MG Tab PO SCH (08:47)
[2019-06-12] MEDS: Pantoprazole 40 MG Tab.CR PO SCH ×2 (08:47→21:06)
[2019-06-12] MEDS: Gabapentin 100 MG Cap PO SCH (21:06)
[2019-06-12] MEDS: Donepezil 10 MG Tab PO SCH (21:06)
[2019-06-12] MEDS: Simvastatin 40 MG Tab PO SCH (21:06)
--- NOTE | 2019-06-13 08:04 | PCM.DCSUM1 ---
Discharge Summary - Hospital Course HPI Initial Comments: 89-year-old female with history of myocardial infarction 4 to 5 months ago treated medically, generalized weakness, anemia (progressive )with pancytopenia , juvenile seronegative polyarthritis, polyarthralgia rheumatica, history of colitis, history of GI bleed, paroxysmal atrial fibrillation, exertional angina , hyponatremia, coronary artery disease, depression presented to the emergency room with right lower chest pain. When EMS arrived she had oxygen saturations as 77% and when she was placed on oxygen her pain went away. Pain was similar to the last time she had an [place]. She lives at [facility]. She states that she has had a cough but no fever, chills, night sweats, orthopnea, or PND. Patient is a poor historian. Pain occurred acutely this morning. Patient is currently without any chest pain. Initial labs in the emergency department: WBC 7.65, hemoglobin 7.5, platelet count 217, Sodium 144, potassium 3.4, BUN 25, creatinine 1.3, proBNP 7487, troponin I 0.025, lactic acid 0.6. Chest x-ray showed symmetric lower lobe consolidation most likely atelectasis and small pleural effusions. Patient was given 1 unit packed red blood cells and 40 mg IV Lasix. Emergency room physician performed a rectal exam which showed brown stool and a weakly guaiac positive stool. Patient states that she has never had a colonoscopy. She does admit to hemorrhoids and occasionally has bright red blood in the toilet. Last time was last week. She states that she has had bright red blood for approximately 3 years off and on. She does have a history of a GI bleed. Diagnosis: Stroke: No Modified [place] Scale: No Symptoms at All Modified [place] Scale Score: 0 - Discharge Data Discharge Date: 06/13/19 (Admit date: 05/27/19) Discharge Disposition: DC/Tfer to SNF 03 Condition: Stable - Referral to Home Health Primary Care Physician: Robson Cardoza Jr, MD - Discharge Diagnosis/Problem(s) (1) CHF (congestive heart failure) SNOMED Code(s): 26776341 ICD Code: I50.9 - HEART FAILURE, UNSPECIFIED Status: Acute Priority: Medium Current Visit: Yes Onset Date: 06/01/19 Problem Details: heart failure stable / nt bnp 2650 and few crackles rt base as prev. no increased work of breathing. will give lasix 20 mg and senior hris analyst response. cont beta maria esther a nd monitor afib and rvr currently in 90s. 06/09/19 very stable decrease lasix to 20 mg day with 1500 cc fluid restriction creatinine climbing and weight stable Qualifiers: Heart failure type: combined systolic and diastolic Heart failure chronicity: acute Qualified Code(s): I50.41 - Acute combined systolic ( congestive) and diastolic (congestive) heart failure (2) Hypoxia SNOMED Code(s): 209090993 ICD Code: R09.02 - HYPOXEMIA Status: Acute Priority: High Current Visit : Yes (3) Anemia SNOMED Code(s): 500374173 ICD Code: D64.9 - ANEMIA, UNSPECIFIED Status: Acute Priority: Low Current Visit: Yes Onset Date: 06/04/19 Problem Details: heme pos stool and on baby asa/ anticoag stopped on admission . on ppi Qualifiers: Anemia type: unspecified type Qualified Code(s): D64.9 - Anemia, unspecified (4) Chronic kidney disease SNOMED Code(s): 322323213 ICD Code: N18.9 - CHRONIC KIDNEY DISEASE, UNSPECIFIED Status: Chronic Priority: Medium Current Visit: No Qualifiers: Chronic kidney disease stage: stage 3 (moderate) Qualified Code(s): N18.3 - Chronic kidney disease, stage 3 (moderate) (5) Hemorrhoids SNOMED Code(s): 38994183 ICD Code: K64.9 - UNSPECIFIED HEMORRHOIDS Status: Chronic Priority: Medium Current Visit: No Qualifiers: Hemorrhoid type: unspecified Qualified Code(s): K64.9 - Unspecified hemorrhoids (6) Hypokalemia SNOMED Code(s): 65614933 ICD Code: E87.6 - HYPOKALEMIA Status: Resolved Priority: High Current Visit: Yes (7) Hypomagnesemia SNOMED Code(s): 572629148 ICD Code: E83.42 - HYPOMAGNESEMIA Status: Resolved Priority: High Current Visit: Yes (8) Elevated brain natriuretic peptide (BNP) level SNOMED Code(s): 783188226, 938209140 ICD Code: R79.89 - OTHER SPECIFIED ABNORMAL FINDINGS OF BLOOD CHEMISTRY Status: Acute Priority: High Current Visit: Yes (9) Paroxysmal A-fib SNOMED Code(s): 090957406 ICD Code: I48.0 - PAROXYSMAL ATRIAL FIBRILLATION Status: Chronic Priority : Medium Current Visit: No (10) Arthritis SNOMED Code(s): 4876940 ICD Code: M19.90 - UNSPECIFIED OSTEOARTHRITIS, UNSPECIFIED SITE Status: Chronic Priority: Low Current Visit: No (11) Generalized weakness SNOMED Code(s): 36790454 ICD Code: R53.1 - WEAKNESS Status: Resolved Priority: Medium Current Visit: No (12) History of colitis SNOMED Code(s): 158290450 ICD Code: Z87.19 - PERSONAL HISTORY OF OTHER DISEASES OF THE DIGESTIVE SYSTEM Status: Chronic Priority: Medium Current Visit: No (13) H/O polymyalgia rheumatica SNOMED Code(s): 374672896 ICD Code: Z87.39 - PERSONAL HISTORY OF DISEASES OF THE MS SYS AND CONN TISS Status: Chronic Priority: Medium Current Visit: No (14) Acute hypoxemic respiratory failure SNOMED Code(s): 870198921 ICD Code: J96.01 - ACUTE RESPIRATORY FAILURE WITH HYPOXIA Status: Acute Priority: Low Current Visit: Yes Onset Date: 06/02/19 Problem Details: i liter o2 (15) Acute kidney injury SNOMED Code(s): 50218215, 61609030 ICD Code: N17.9 - ACUTE KIDNEY FAILURE, UNSPECIFIED Status: Acute Priority: High Current Visit: Yes (16) Anticoagulation adequate SNOMED Code(s): 002885259, 953484787 ICD Code: Z79.01 - PARAPROFESSIONAL EDUCATION ASSISTANT (CURRENT) USE OF ANTICOAGULANTS Status: Acute Priority: Low Current Visit: Yes Onset Date: 05/30/19 Problem Details: stable on baby aspirin/ heme positive on recheck but hgn 9.2 (17) CAD (coronary artery disease) SNOMED Code(s): 71026689 ICD Code: I25.10 - ATHSCL HEART DISEASE OF [place] CORONARY ARTERY W/O ANG PCTRS Status: Acute Priority: Medium Current Visit: Yes Onset Date: Problem Details: anemia and chf with abnormal chest xray on admission / tranfused one unit prbcs because extent of cad unknown and hgn 06/05/19 trop elavated mildly and no spike pattern and suspect no severe ischemia. on beta maria esther and baby asa and tolerating / anemia stable/ weaning down on o2 but weight increased and lasix started daily 40 mg day. Qualifiers: Coronary Disease-Associated Artery/Lesion type: [place] artery [place] vs. transplanted heart: [place] heart Associated angina: without angina Qualified Code(s): I25.10 - Atherosclerotic heart disease of [place] coronary artery without angina pectoris (18) Dementia SNOMED Code(s): 26588015 ICD Code: F03.90 - UNSPECIFIED DEMENTIA WITHOUT BEHAVIORAL DISTURBANCE Status: Acute Priority: Low Current Visit: Yes Onset Date: 06/03/19 Problem Details: started low dose donazepil Qualifiers: Dementia type: Alzheimer's disease Alzheimer's disease onset: early-onset Dementia behavioral disturbance: without behavioral disturbance Qualified Code(s): G30.0 - Alzheimer's disease with early onset; F02.80 - Dementia in other diseases classified elsewhere without behavioral disturbance (19) GI bleeding SNOMED Code(s): 60844061 ICD Code: K92.2 - GASTROINTESTINAL HEMORRHAGE, UNSPECIFIED Status: Acute Priority: High Current Visit: Yes Onset Date: 05/29/19 Problem Details: on anticoagulation for afib/ hgn 6 Qualifiers: GI bleed type/associated pathology: unspecified gastrointestinal hemorrhage type Qualified Code(s): K92.2 - Gastrointestinal hemorrhage, unspecified (20) Leukocytosis SNOMED Code(s): 699976886, 512036972 ICD Code: D72.829 - ELEVATED WHITE BLOOD CELL COUNT, UNSPECIFIED Status: Acute Current Visit: Yes (21) Metabolic alkalosis SNOMED Code(s): 5576023 ICD Code: E87.3 - ALKALOSIS Status: Acute Current Visit: Yes (22) Atrial fibrillation with rapid ventricular response SNOMED Code(s): 164436749825546 ICD Code: I48.91 - UNSPECIFIED ATRIAL FIBRILLATION Status: Resolved Priority: Medium Current Visit: No Onset Date: 05/29/19 Problem Details: no conversion and likely will be rate controlled . no anticoag for now given rectal bleeding , will complete chads vasc. score. 06/02/19 REPEAT HGN 10.5 AFTER TRANSFUSION AND REPEAT HEMMOCCULT POS. BUT HAS SMALL NOSE BLEED LAST NIGHT . CONT BABY ASA. MONITOR HEMMOCCULTS . 06/09/19 doing well no further gross bleeding and hgn stable plat stable anticoag too risky currently and consider reduced dose restart in 2 weeks . 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 Qualified Code(s): G60.3 - Idiopathic progressive neuropathy - Patient Summary/Data Consults: Consultations 05/31/19 08:59 Consult to Case Management/It Audit Manager [CONS] Routine 05/31/19 14:16 Consult to Speech Language Pathology [POSTDOCTORAL RESEARCH ASSOCIATE Evaluation and Treatment] [CONS] Routine 06/03/19 10:30 Consult to Occupational Therapy [OT Evaluation and Treatment] [CONS] Routine PT Evaluation and Treatment [CONS] Routine 06/07/19 15:55 OT Evaluation and Treatment [CONS] Routine Labs Pending at D/C: None Recommended Follow-up Testing/Procedures: Follow-up with Primary care provider within 7-10 days of discharge. Hospital Course: Leigha Gaspar was admitted to the floor with suspected new onset CHF. Noted to have an elevated BNP. Echocardiogram was obtained 1n 05/28/2019 showing 1. Left ventricular ejection fraction, by visual estimation, is 55 to 60%. 2. Mild concentric left ventricular hypertrophy. 3. Pseudo-normal (Grade 2) pattern of LV diastolic filling. 4. Normal right ventricular systolic function 5. There is moderate aortic valve sclerosis without stenosis. 6. Mild aortic valve regurgitation. 7. Mild to moderate mitral valve regurgitation. 8. Moderate tricuspid valve regurgitation. 9. The right ventricular systolic pressure is moderately elevated at 57.0 mmHg. 10. No regional wall motion abnormalities. She was placed on fluid restrictions. She was started on Lasix for diuresis and unfortunately went into an episode of atrial fibrillation with RVR, likely due to volume contracture. She was then moved to the ICU and started on a Cardizem drip which was able to be weaned off. Throughout her stay she required oxygen and multiple attempts were made to wean her off but we were unsuccessful. She had a lengthy hospital stay due to her A. fib with RVR episode and so having a known COVID-19 exposure. Because of this she was placed in droplet isolation and two COVID tests were obtained, with both results returning negative. Patient did work with PT/OT who are recommending SNF placement. Have an episode of emesis and so a CT of the abdomen and pelvis was obtained showing a liver cyst and very small bilateral pleural effusions, however nothing acute was appreciated. Her nausea did resolve. Electrolytes were supplemented. Social work was ultimately able to get the patient placed at [facility]. She was discharged on 2 L of oxygen as mentioned prior. During her stay she was noted to be anemic and was given 2 units of blood with good response. She did have a positive occult but noted she has a history of hemorrhoids and has occasionally had some blood in her stool. Posttransfusion her hemoglobin remained stable. She was advised to follow-up with general surgery should this continue. Dr. Padron made multiple home medication adjustments. This including switching the patient to 162 mg p.o. daily aspirin and starting her on 5 mg of bedtime Aricept. She was started on 20 mg daily of Lasix and her metoprolol was switched to 100 mg of metoprolol succinate daily. She is also given some Zofran tablets for as needed nausea and vomiting. Recommend she follow-up with her primary care provider within 7 to 10 days of discharge. Recommend rechecking a CBC, CMP, and magnesium at that appointment. She was instructed to take her weight daily and recorded in a journal, bring this with to all medical appointments. Structured to return to the emergency room should symptoms return or worsen. She was also instructed to follow-up with general surgery as needed for rectal bleeding. - Patient Instructions Diet: Heart Healthy Diet, Fluid Restriction Fluid Restriction: 1500 mL Activity: As Tolerated Driving: Do Not Drive Showering/Bathing: May Shower Notify Provider of: Fever, Increased Pain, Nausea and/or Vomiting Other/Special Instructions: Follow-up with primary care provider within 7-10 days of discharge, sooner if needed. Resume home medications as directed. Some of your medication dosing has changed. Be sure to follow directions provided with the nurse. Should symptoms return or worsen contact primary care provider or return to the Emergency Department. - Discharge Plan *PRESCRIPTION DRUG MONITORING PROGRAM REVIEWED*: No *COPY OF PRESCRIPTION DRUG MONITORING REPORT IN PATIENT RUTH: No Prescriptions/Med Rec: Aspirin 162 mg PO DAILY #60 tab.chew Donepezil [Aricept] 5 mg PO BEDTIME #20 tab Furosemide [Lasix] 20 mg PO DAILY #20 tablet Metoprolol Succinate [Toprol XL 50mg] 100 mg PO DAILY #40 tab.er Ondansetron [Zofran ODT] 4 mg PO Q6H PRN #12 tab.dis PRN Reason: Nausea/Vomiting Home Medications: Home Meds Folic Acid 1 mg PO DAILY 01/01/15 [History] Isosorbide Mononitrate [Isosorbide Mononitrate ER] 30 mg PO DAILY 01/01/15 [ History] Nitroglycerin [Nitrostat] 0.4 mg PO ASDIRECTED PRN 01/01/15 [History] Gabapentin [Neurontin] 100 mg PO BEDTIME #30 cap 09/03/16 [Rx] Pantoprazole Sodium [Protonix] 40 mg PO DAILY 09/03/16 [History] Simvastatin [Zocor] 40 mg PO BEDTIME 11/10/17 [History] Venlafaxine [Effexor] 75 mg PO BID 04/13/19 [History] Acetaminophen [Tylenol] 325 mg PO Q4H PRN 05/27/19 [History] Bismuth Subsalicylate [Pepto Bismol] 262 mg PO Q8H PRN 05/27/19 [History] Calcium Carbonate [Antacid] 1 tab PO Q2H PRN 05/27/19 [History] Hydrocortisone [Proctozone-HC 2.5% Crm] 1 dose RECTAL QID PRN 05/27/19 [History] Losartan [Cozaar] 50 mg PO DAILY 05/27/19 [History] Menthol/Zinc Oxide [Calmoseptine Ointment Packet] 1 applic TOP BID PRN 05/27/19 [History] Simethicone 80 mg PO BID PRN 05/27/19 [History] Aspirin 162 mg PO DAILY #60 tab.chew 06/13/19 [Rx] Donepezil [Aricept] 5 mg PO BEDTIME #20 tab 06/13/19 [Rx] Furosemide [Lasix] 20 mg PO DAILY #20 tablet 06/13/19 [Rx] Metoprolol Succinate [Toprol XL 50mg] 100 mg PO DAILY #40 tab.er 06/13/19 [Rx] Ondansetron [Zofran ODT] 4 mg PO Q6H PRN #12 tab.dis 06/13/19 [Rx] Oxygen Therapy Mode: Nasal Cannula Oxygen Flow Rate (L/min): 2 Maintain SPO2% less than: 90 Patient Handouts: Hypoxia, Blood Transfusion, Adult, [id number], Heart Failure, Coronavirus Information 05/21/19 Forms: ED Department Discharge Referrals: Robson Cardoza Jr, MD [Primary Care Provider] - 06/19/19 2:00 pm (please attend the scheduled follow up appointment with your primary care provider as listed.) - Discharge Summary/Plan Comment DC Time >30 min.: Yes (45 mins ) - General Info Date of Service: 06/13/19 Admission Dx/Problem (Free Text: Admission Diagnosis/Problem Admission Diagnosis/Problem Heart failure Functional Status: Reports: Pain Controlled, Tolerating Diet, Ambulating, Urinating. Denies: New Symptoms - Review of Systems General: Reports: No Symptoms. Denies: Fever, Weakness, Fatigue, Malaise, Chills HEENT: Reports: No Symptoms. Denies: Headaches, Sore Throat Pulmonary: Reports: No Symptoms. Denies: Shortness of Breath, Cough, Sputum, Hemoptysis, Wheezing Cardiovascular: Reports: No Symptoms. Denies: Chest Pain, Palpitations, Edema Gastrointestinal: Reports: No Symptoms. Denies: Abdominal Pain, Constipation, Diarrhea, Nausea, Vomiting Genitourinary: Reports: No Symptoms. Denies: Pain Musculoskeletal: Reports: No Symptoms Skin: Reports: No Symptoms. Denies: Cyanosis Neurological: Reports: No Symptoms. Denies: Difficulty Walking, Gait Disturbance Psychiatric: Reports: No Symptoms - Patient Data Vitals - Most Recent: Last Vital Signs Temp 97.9 F 06/13/19 04:28 Pulse 100 06/13/19 04:28 Resp 18 06/13/19 04:28 BP 117/69 06/13/19 04:28 Pulse Ox 95 06/13/19 04:28 Weight - Most Recent: 149 lb I&O - Last 24 hours: Intake & Output 06/12/19 06/13/19 06/13/19 22:59 06:59 14:59 Intake Total 300 200 Output Total 300 Balance 0 200 JOHANA Results - Last 24 hrs: Microbiology 06/10/19 12:00 Coronavirus RNA (PCR) - Final Nasopharynx, Unspecified Med Orders - Current: Current Medications Acetaminophen (Tylenol) 650 mg PO Q4H PRN PRN Reason: Pain (Mild 1-3)/fever Last Admin: 03/31/20 21:44 Dose: 650 mg Albuterol (Proventil Neb Soln) 2.5 mg NEB Q2H PRN PRN Reason: Shortness Of Breath/wheezing Albuterol/Ipratropium (Duoneb 3.0-0.5 Mg/3 Ml) 3 ml NEB Q4H PRN PRN Reason: Shortness Of Breath/wheezing Last Admin: 05/28/19 19:52 Dose: 3 ml Aspirin (Aspirin) 162 mg PO DAILY [facility] Last Admin: 06/12/19 08:47 Dose: 162 mg Donepezil HCl (Aricept) 5 mg PO BEDTIME [facility] Last Admin: 06/12/19 21:06 Dose: 5 mg Folic Acid (Folic Acid) 1 mg PO DAILY [facility] Last Admin: 06/12/19 08:47 Dose: 1 mg Furosemide (Lasix) 20 mg PO DAILY [facility] Last Admin: 06/12/19 08:46 Dose: 20 mg Gabapentin (Neurontin) 100 mg PO BEDTIME [facility] Last Admin: 06/12/19 21:06 Dose: 100 mg Influenza Virus Vaccine (Fluzone High-Dose Syringe) 180 mcg IM .ONCE ONE Stop: 06/13/19 10:01 Isosorbide Mononitrate (Imdur) 30 mg PO DAILY [facility] Last Admin: 06/12/19 08:46 Dose: 30 mg Losartan Potassium (Cozaar) 50 mg PO DAILY [facility] Last Admin: 06/12/19 08:47 Dose: 50 mg Metoprolol Succinate (Toprol Xl) 100 mg PO DAILY [facility] Last Admin: 06/12/19 08:46 Dose: 100 mg Metoprolol Tartrate (Lopressor) 5 mg IV Q6H PRN PRN Reason: HR > 110 Nitroglycerin (Nitrostat) 0.4 mg SL ASDIRECTED PRN PRN Reason: Chest Pain Ondansetron HCl (Zofran Odt) 4 mg PO Q6H PRN PRN Reason: Nausea/Vomiting Last Admin: 06/11/19 09:05 Dose: 4 mg Pantoprazole Sodium (Protonix) 40 mg PO Q12H [facility] Last Admin: 06/12/19 21:06 Dose: 40 mg Simvastatin (Zocor) 40 mg PO BEDTIME [facility] Last Admin: 06/12/19 21:06 Dose: 40 mg Sodium Chloride (Saline Flush) 10 ml FLUSH ASDIRECTED PRN PRN Reason: Keep Vein Open Last Admin: 05/27/19 12:21 Dose: 10 ml Sodium Chloride ([place] Nasal [place]) 0 ml SYD QID PRN PRN Reason: nasal dryness. Venlafaxine HCl (Effexor) 75 mg PO BID [facility] Last Admin: 06/12/19 21:06 Dose: 75 mg Discontinued Medications Aspirin (Halfprin) 81 mg PO DAILY [facility] Last Admin: 06/10/19 08:42 Dose: 81 mg Atenolol (Tenormin) 50 mg PO BID [facility] Atenolol (Tenormin) 50 mg PO DAILY [facility] Last Admin: 05/30/19 08:11 Dose: Not Given Diatrizoate Meglum/Diatrizoate Sod (Gastrografin 37%) 45 ml PO ONETIME ONE Stop: 06/01/19 11:16 Last Admin: 06/01/19 11:19 Dose: 45 ml Diltiazem HCl (Cardizem) 10 mg IVPUSH ONETIME ONE Stop: 05/29/19 21:03 Last Admin: 05/29/19 21:47 Dose: Not Given Diltiazem HCl (Cardizem) 5 mg IVPUSH ONETIME ONE Stop: 05/29/19 22:02 Last Admin: 05/29/19 22:05 Dose: 5 mg Donepezil HCl (Aricept) 2.5 mg PO BEDTIME [facility] Last Admin: 06/08/19 21:01 Dose: 2.5 mg Furosemide (Lasix) 40 mg IVPUSH NOW ONE Stop: 05/27/19 14:08 Last Admin: 05/27/19 14:28 Dose: 40 mg Furosemide (Lasix) 40 mg IVPUSH BIDDIURETIC [facility] Last Admin: 05/29/19 13:29 Dose: 40 mg Furosemide (Lasix) 20 mg PO ONETIME ONE Stop: 05/31/19 09:02 Last Admin: 05/31/19 10:00 Dose: 20 mg Furosemide (Lasix) 40 mg IVPUSH NOW ONE Stop: 06/01/19 16:01 Last Admin: 06/01/19 18:21 Dose: 40 mg Furosemide (Lasix) 40 mg IVPUSH NOW ONE Stop: 06/03/19 10:27 Last Admin: 06/03/19 10:56 Dose: 40 mg Furosemide (Lasix) 40 mg PO DAILY KOMAL Last Admin: 06/09/19 09:59 Dose: 20 mg Gabapentin (Neurontin) 100 mg PO BEDTIME KOMAL Last Admin: 06/06/19 20:38 Dose: 100 mg Ceftriaxone Sodium 2 gm/ (Sodium Chloride) 100 mls @ 200 mls/hr IV ONETIME ONE Stop: 05/27/19 14:13 Last Admin: 05/27/19 14:03 Dose: 200 mls/hr Sodium Chloride (Normal Saline) 250 mls @ 100 mls/hr IV ASDIRECTED KOMAL Last Admin: 05/28/19 08:33 Dose: 100 mls/hr Potassium Chloride 10 meq/ (Premix) 100 mls @ 100 mls/hr IV Q1H KOMAL Stop: 05/28/19 11:59 Last Admin: 05/28/19 13:10 Dose: 100 mls/hr Magnesium Sulfate 4 gm/ Premix 50 mls @ 12.5 mls/hr IV ONETIME ONE Stop: 05/28/19 11:53 Last Admin: 05/28/19 08:32 Dose: 12.5 mls/hr Sodium Chloride (Normal Saline) 500 mls @ 999 mls/hr IV ONETIME ONE Stop: 05/29/19 21:31 Last Admin: 05/29/19 21:19 Dose: 999 mls/hr Sodium Chloride (Normal Saline) Confirm Administered Dose 1,000 mls @ as directed .ROUTE .STK-MED ONE Stop: 05/29/19 21:07 Last Admin: 05/29/19 21:23 Dose: Not Given Diltiazem HCl 100 mg/ Sodium (Chloride) 100 mls @ 5 mls/hr IV TITRATE KOMAL; Protocol Last Titration: 05/30/19 09:00 Dose: 0 mg/hr, 0 mls/hr Sodium Chloride (Normal Saline) 1,000 mls @ 50 mls/hr IV ASDIRECTED KOMAL Last Infusion: 05/29/19 22:00 Dose: 75 mls/hr Sodium Chloride (Normal Saline) 1,000 mls @ 30 mls/hr IV ASDIRECTED KOMAL Last Admin: 05/30/19 22:56 Dose: 30 mls/hr Sodium Chloride (Normal Saline) 500 mls @ 25 mls/hr IV ASDIRECTED ONE Stop: 06/02/19 09:05 Last Admin: 06/01/19 15:23 Dose: 25 mls/hr Influenza Virus Vaccine (Pharmacy To Dose - Influenza Vaccine) 1 each IM ONETIME ONE Stop: 05/27/19 15:18 Magnesium Hydroxide (Milk Of Magnesia) 30 ml PO Q4H ONE Stop: 05/29/19 10:01 Last Admin: 05/29/19 10:50 Dose: 30 ml Magnesium Oxide (Magnesium Oxide) 400 mg PO BID [facility] Last Admin: 06/01/19 08:33 Dose: 400 mg Metoprolol Succinate (Toprol Xl) 100 mg PO DAILY [facility] Last Admin: 06/05/19 14:18 Dose: Not Given Metoprolol Tartrate (Lopressor) 50 mg PO Q12H [facility] Last Admin: 06/01/19 08:32 Dose: 50 mg Metoprolol Tartrate (Lopressor) 50 mg PO ONETIME ONE Stop: 05/31/19 11:55 Last Admin: 05/31/19 12:19 Dose: 50 mg Metoprolol Tartrate (Lopressor) 50 mg PO Q6H [facility] Last Admin: 06/05/19 09:01 Dose: 50 mg Octreotide Acetate (Octreotide) 100 mcg SUBCUT TID [facility] Ondansetron HCl (Zofran) 4 mg IVPUSH Q4H PRN PRN Reason: Nausea/Vomiting Last Admin: 06/11/19 08:48 Dose: 4 mg Ondansetron HCl (Zofran) Confirm Administered Dose 4 mg .ROUTE .STK-MED ONE Stop: 05/29/19 23:51 Last Admin: 05/29/19 23:57 Dose: Not Given Pantoprazole Sodium (Protonix Iv) 40 mg IVPUSH Q12H [facility] Last Admin: 05/28/19 06:25 Dose: 40 mg Pantoprazole Sodium (Protonix) 40 mg PO Q12H [facility] Last Admin: 05/28/19 11:03 Dose: 40 mg Potassium Chloride (Klor-Con M20) 40 meq PO ONETIME ONE Stop: 05/28/19 14:01 Last Admin: 05/28/19 13:19 Dose: 40 meq Potassium Chloride (Klor-Con M20) 20 meq PO ONETIME ONE Stop: 05/28/19 08:58 Last Admin: 05/28/19 09:10 Dose: 20 meq - Exam Quality Assessment: Reports: Supplemental Oxygen (2L), DVT Prophylaxis General: Reports: Alert, Oriented, Cooperative, No Acute Distress HEENT: Reports: Pupils Equal, Pupils Reactive, Mucous Membr. Moist/[place] Neck: Reports: Supple, Trachea Midline Lungs: Reports: Clear to Auscultation, Normal Respiratory Effort Cardiovascular: Reports: Irregular Rhythm GI/Abdominal Exam: Normal Bowel Sounds, Soft, Non-Tender, No Distention (Female) Exam: Deferred Rectal (Female) Exam: Deferred Back Exam: Reports: Normal Inspection, Full Range of Motion Extremities: Normal Inspection, Normal Range of Motion, Non-Tender, No Pedal Edema, Normal Capillary Refill Skin: Reports: Warm, Dry, Intact Neurological: Reports: No New Focal Deficit Psy/Mental Status: Reports: Alert, Normal Affect, Normal Mood
[2019-06-13 09:20] VITALS: PULSE 95
[2019-06-13] MEDS: Aspirin 81 MG Tab.Chew PO SCH (09:32)
[2019-06-13] MEDS: Venlafaxine 37.5 MG Tab PO SCH (09:33)
[2019-06-13] MEDS: Folic Acid 1 MG Tab PO SCH (09:33)
[2019-06-13] MEDS: Pantoprazole 40 MG Tab.CR PO SCH (09:34)
[2019-06-13] MEDS: Isosorbide Mononitrate 30 MG Tab.ER PO SCH (09:34)
[2019-06-13] MEDS: Furosemide 20 MG Tab PO SCH (09:34)
[2019-06-13] MEDS: Losartan 25 MG Tab PO SCH (09:37)
[2019-06-13] MEDS: Metoprolol Succinate 50 MG Tab.ER PO SCH (09:38)
[2019-06-13 09:41] VITALS: BP 115/76
== END 2019-06-13 14:05 | DRG 291 ==
LOC: JD.ED 11:31 → JD.MS 14:36 → JD.ICU 05-29 21:35 → JD.MS 05-31 14:17
PROVIDERS: ADMIT Family Medicine; ATTEND Family Medicine
PROC: 30233N1 Transfusion of Nonautologous Red Blood Cells into Peripheral Vein, Percutaneous Approach (ICD-10-PCS; principal; 2019-05-31)
PROC: 8E0ZXY6 Isolation (ICD-10-PCS; 2019-06-13)
PROC: 3E02340 Introduction of Influenza Vaccine into Muscle, Percutaneous Approach (ICD-10-PCS; 2019-06-13)
DX: I13.0 Hypertensive heart and chronic kidney disease with heart failure and stage 1 through stage 4 chronic kidney disease, or unspecified chronic kidney disease (principal); I50.41 Acute combined systolic (congestive) and diastolic (congestive) heart failure; R09.02 Hypoxemia; H54.7 Unspecified visual loss; I48.91 Unspecified atrial fibrillation; J96.01 Acute respiratory failure with hypoxia; I11.0 Hypertensive heart disease with heart failure; K92.2 Gastrointestinal hemorrhage, unspecified; Z86.718 Personal history of other venous thrombosis and embolism; E87.3 Alkalosis; E87.1 Hypo-osmolality and hyponatremia; M11.9 Crystal arthropathy, unspecified; M06.9 Rheumatoid arthritis, unspecified; N17.9 Acute kidney failure, unspecified; M85.80 Other specified disorders of bone density and structure, unspecified site; E61.1 Iron deficiency; Z90.49 Acquired absence of other specified parts of digestive tract; Z90.710 Acquired absence of both cervix and uterus; Z20.818 Contact with and (suspected) exposure to other bacterial communicable diseases; Z66 Do not resuscitate; N18.3 Chronic kidney disease, stage 3 (moderate); K64.9 Unspecified hemorrhoids; E87.6 Hypokalemia; E83.42 Hypomagnesemia; I48.0 Paroxysmal atrial fibrillation; M19.90 Unspecified osteoarthritis, unspecified site; I25.10 Atherosclerotic heart disease of native coronary artery without angina pectoris; D63.1 Anemia in chronic kidney disease; G30.0 Alzheimer's disease with early onset; F02.80 Dementia in other diseases classified elsewhere, unspecified severity, without behavioral disturbance, psychotic disturbance, mood disturbance, and anxiety; G60.3 Idiopathic progressive neuropathy; I08.3 Combined rheumatic disorders of mitral, aortic and tricuspid valves; E78.00 Pure hypercholesterolemia, unspecified; F32.9 Major depressive disorder, single episode, unspecified; Z87.19 Personal history of other diseases of the digestive system; Z87.39 Personal history of other diseases of the musculoskeletal system and connective tissue; Z79.01 Long term (current) use of anticoagulants; Z88.8 Allergy status to other drugs, medicaments and biological substances; Z79.82 Long term (current) use of aspirin; Z79.899 Other long term (current) drug therapy; I25.2 Old myocardial infarction; Z87.891 Personal history of nicotine dependence; Z23 Encounter for immunization
CPT/HCPCS: 36415; 71045; 80053; 83605; 83880; 84484; 85025; 86850; 86900; 86901; 86922; 87040; 93005; 96374; 96375; 99285; J0696; J1940; J7050; 36430; 74176; 74176-26; 80048; 82272; 82553; 83735; 84100; 85610; 87641; 90662; 92523-GN; 93010; 93306; 94640; 94760; 94761; 97110-GP; 97116-GP; 97162-GP; 97165-GO; 97530-GP; 97535-GO; 99223; 99232; 99239; 99284; A9270-GY; C9113; G0008; J2405; J3475; J3480; J3490; J7030; J7620-GY; P9016; U0002

== ENCOUNTER 2019-06-26 10:18 | Emergency (ER) | payer MEDICARE, BC ==
[2019-06-26] MEDS ORDERED: Sodium Chloride 0.9% 10 ML Syringe FLUSH PRN (10:46)
[2019-06-26] MEDS ORDERED: Pantoprazole 40 MG Vial IVPUSH ONE (10:47)
[2019-06-26] MEDS ORDERED: Ondansetron 4 MG/2 ML SDV IVPUSH ONE (10:48)
--- NOTE | 2019-06-26 10:51 | EDM.PDOC ---
ED HPI GENERAL MEDICAL PROBLEM - General Chief Complaint: General Stated Complaint: [facility] Time Seen by Provider: 06/26/19 10:25 Source of Information: Reports: Patient, Penitentiary Records History Limitations: Reports: No Limitations - History of Present Illness INITIAL COMMENTS - FREE TEXT/NARRATIVE: The patient presents by [facility] for a low Hgb. The patient comes to us from [facility]. She was in our hospital last month for a GI bleed. She was discharged to [facility] 06/12. She says she has been having some black stools and weak. This morning she did have some chest pain and that is gone now. She has some nausea also. She has no fever, chills, cough, congestion, or runny nose. She has no dysuria. She denies having any abdominal pain. Onset: Gradual Duration: Day(s): Location: Reports: Chest Quality: Reports: Sharp Severity: Mild Improves with: Reports: None Worsens with: Reports: None Associated Symptoms: Reports: Chest Pain, Nausea/Vomiting. Denies: Cough, Fever /Chills, Headaches, Shortness of Breath - Related Data Allergies Allergy/AdvReac Type Severity Reaction Status Date / Time niacin Allergy Hives Verified 06/26/19 10:31 Home Meds: Home Meds Isosorbide Mononitrate [Isosorbide Mononitrate ER] 30 mg PO DAILY 01/01/15 [ History] Nitroglycerin [Nitrostat] 0.4 mg PO ASDIRECTED PRN 01/01/15 [History] Gabapentin [Neurontin] 100 mg PO BEDTIME #30 cap 09/03/16 [Rx] Pantoprazole Sodium [Protonix] 40 mg PO DAILY 09/03/16 [History] Simvastatin [Zocor] 40 mg PO BEDTIME 11/10/17 [History] Venlafaxine [Effexor] 75 mg PO BID 04/13/19 [History] Acetaminophen [Tylenol] 325 mg PO Q4H PRN 05/27/19 [History] Hydrocortisone [Proctozone-HC 2.5% Crm] 1 dose RECTAL QID PRN 05/27/19 [History] Losartan [Cozaar] 50 mg PO DAILY 05/27/19 [History] Simethicone 80 mg PO BID PRN 03/22/20 [History] Aspirin 162 mg PO DAILY #60 tab.chew 06/13/19 [Rx] Donepezil [Aricept] 5 mg PO BEDTIME #20 tab 06/13/19 [Rx] Metoprolol Succinate [Toprol XL 50mg] 100 mg PO DAILY #40 tab.er 06/13/19 [Rx] Ondansetron [Zofran ODT] 4 mg PO Q6H PRN #12 tab.dis 06/13/19 [Rx] Acetaminophen [Tylenol] 650 mg PO BID 06/26/19 [History] Furosemide [Lasix] 20 mg PO Q48H 06/26/19 [History] Past Medical History HEENT History: Reports: Impaired Vision Other HEENT History: wears glasses Cardiovascular History: Reports: Afib, Angina, Blood Clots/VTE/DVT, CAD, High Cholesterol, Hypertension, AR Respiratory History: Reports: SOB Gastrointestinal History: Reports: GI Bleed, Hemorrhoids, Other (See Below) Other Gastrointestinal History: colitis [employer] History: Reports: Musculoskeletal History: Reports: Osteoarthritis, RA Other Musculoskeletal History: spondylosis, generalized weakness Psychiatric History: Reports: Depression Endocrine/Metabolic History: Reports: Osteopenia Hematologic History: Reports: Anemia, Iron Deficiency Dermatologic History: Reports: Other (See Below) Other Dermatologic History: hemorrhoids, rashes - Infectious Disease History Infectious Disease History: Reports: Chicken Pox, Measles, Mumps - Past Surgical History HEENT Surgical History: Reports: None Cardiovascular Surgical History: Reports: None Respiratory Surgical History: Reports: None GI Surgical History: Reports: Appendectomy, Cholecystectomy Female Surgical History: Reports: Section, Hysterectomy Endocrine Surgical History: Reports: None Musculoskeletal Surgical History: Reports: None Social & Family History - Family History Family Medical History: Noncontributory Cardiac: Reports: AR - Tobacco Use Smoking Status *Q: Never Smoker - Caffeine Use Caffeine Use: Reports: None Other Caffeine Use: but states very little of it Caffeine Use Comment: drinks tea a couple times or less a week - Living Situation & Occupation Living situation: Reports: , Alone Occupation: Retired ED ROS GENERAL - Review of Systems Review Of Systems: See Below Constitutional: Reports: No Symptoms HEENT: Reports: No Symptoms Respiratory: Reports: No Symptoms Cardiovascular: Reports: Chest Pain Endocrine: Reports: No Symptoms GI/Abdominal: Reports: Black Stool, Nausea. Denies: Abdominal Pain, Diarrhea, Vomiting ED EXAM, GENERAL - Physical Exam Exam: See Below Exam Limited By: No Limitations General Appearance: Alert, No Apparent Distress Ears: Normal External Exam Nose: Normal Inspection Head: Atraumatic, Normocephalic Neck: Normal Inspection Respiratory/Chest: No Respiratory Distress, Lungs Clear, Normal Breath Sounds Cardiovascular: Regular Rate, Rhythm, No Edema, No Murmur GI/Abdominal: Soft, Non-Tender, No Organomegaly, No Mass Extremities: Normal Inspection Course - Vital Signs Last Recorded V/S: Last Vital Signs Temp 96.9 F 06/26/19 17:35 Pulse 99 06/26/19 17:35 Resp 16 06/26/19 17:35 BP 128/71 06/26/19 17:35 Pulse Ox 96 06/26/19 10:27 - Orders/Labs/Meds Orders: Active Orders 24 hr Category Date Time Status Cardiac Monitoring [RC] . DIRECTED Care 06/26/19 10:46 Active EKG Documentation Completion [RC] STAT Care 06/26/19 10:47 Active Peripheral IV Care [RC] . DIRECTED Care 06/26/19 10:47 Active Sodium Chloride 0.9% [Normal Saline] 1,000 ml Med 06/26/19 11:00 Active IV ASDIRECTED Sodium Chloride 0.9% [Saline Flush] Med 06/26/19 10:46 Active 10 ml FLUSH ASDIRECTED PRN Peripheral IV Insertion Adult [OM.PC] Stat Oth 06/26/19 10:46 Ordered Transfuse PRBC [Transfuse Red Blood Cells] [COMM] Stat Oth 06/26/19 10:48 Ordered Medication Orders Sodium Chloride (Normal Saline) 1,000 mls @ 125 mls/hr IV ASDIRECTED KOMAL Last Admin: 06/26/19 11:07 Dose: 125 mls/hr Sodium Chloride (Saline Flush) 10 ml FLUSH ASDIRECTED PRN PRN Reason: Keep Vein Open Last Admin: 06/26/19 10:40 Dose: 10 ml Labs: Laboratory Tests 06/26/19 06/26/19 06/26/19 Range/Units 10:40 10:40 10:40 WBC 8.41 (3.98-10.04) K/mm3 RBC 2.75 L (3.98-5.22) M/mm3 Hgb 7.2 L* D (11.2-15.7) gm/dl Hct 25.7 L (34.1-44.9) % MCV 93.5 (79.4-94.8) fl MCH 26.2 (25.6-32.2) pg MCHC 28.0 L (32.2-35.5) g/dl RDW Std Deviation 50.8 H (36.4-46.3) fL Plt Count 296 D (182-369) K/mm3 MPV 11.4 (9.4-12.3) fl Neut % (Auto) 74.3 H (34.0-71.1) % Lymph % (Auto) 15.5 L (19.3-51.7) % Mes[place] % (Auto) 9.5 (4.7-12.5) % Eos % (Auto) 0.5 L (0.7-5.8) Baso % (Auto) 0.2 (0.1-1.2) % Neut # (Auto) 6.25 H (1.56-6.13) K/mm3 Lymph # (Auto) 1.30 (1.18-3.74) K/mm3 Mes[place] # (Auto) 0.80 H (0.24-0.36) K/mm3 Eos # (Auto) 0.04 (0.04-0.36) K/mm3 Baso # (Auto) 0.02 (0.01-0.08) K/mm3 Manual Slide Review Abnormal smear PT 11.5 (9.7-12.0) SECONDS INR 1.06 APTT 23 D (22-31) SECONDS Sodium 139 (136-145) mEq/L Potassium 3.3 L (3.5-5.1) mEq/L Chloride 96 L (98-107) mEq/L Carbon Dioxide 37 H (21-32) mEq/L Anion Gap 9.3 (5-15) BUN 35 H (7-18) mg/dL Creatinine 2.2 H (0.55-1.02) mg/dL Est Cr Clr Drug Dosing 12.70 mL/min Estimated GFR (MDRD) 21 (>60) mL/min BUN/Creatinine Ratio 15.9 (14-18) Glucose 137 H (83-115) mg/dL Calcium 9.2 (8.5-10.1) mg/dL Total Bilirubin 0.3 (0.2-1.0) mg/dL AST 18 (15-37) U/L ALT 17 (14-59) U/L Alkaline Phosphatase 78 (46-116) U/L Troponin I 0.027 (0.00-0.056) ng/mL Total Protein 6.8 (6.4-8.2) g/dl Albumin 3.6 (3.4-5.0) g/dl Globulin 3.2 gm/dL Albumin/Globulin Ratio 1.1 (1-2) Blood Type Gel Antibody Screen Crossmatch 06/26/19 Range/Units 10:40 WBC (3.98-10.04) K/mm3 RBC (3.98-5.22) M/mm3 Hgb (11.2-15.7) gm/dl Hct (34.1-44.9) % MCV (79.4-94.8) fl MCH (25.6-32.2) pg MCHC (32.2-35.5) g/dl RDW Std Deviation (36.4-46.3) fL Plt Count (182-369) K/mm3 MPV (9.4-12.3) fl Neut % (Auto) (34.0-71.1) % Lymph % (Auto) (19.3-51.7) % Mesa % (Auto) (4.7-12.5) % Eos % (Auto) (0.7-5.8) Baso % (Auto) (0.1-1.2) % Neut # (Auto) (1.56-6.13) K/mm3 Lymph # (Auto) (1.18-3.74) K/mm3 Mes[place] # (Auto) (0.24-0.36) K/mm3 Eos # (Auto) (0.04-0.36) K/mm3 Baso # (Auto) (0.01-0.08) K/mm3 Manual Slide Review PT (9.7-12.0) SECONDS INR APTT (22-31) SECONDS Sodium (136-145) mEq/L Potassium (3.5-5.1) mEq/L Chloride (98-107) mEq/L Carbon Dioxide (21-32) mEq/L Anion Gap (5-15) BUN (7-18) mg/dL Creatinine (0.55-1.02) mg/dL Est Cr Clr Drug Dosing mL/min Estimated GFR (MDRD) (>60) mL/min BUN/Creatinine Ratio (14-18) Glucose (83-115) mg/dL Calcium (8.5-10.1) mg/dL Total Bilirubin (0.2-1.0) mg/dL AST (15-37) U/L ALT (14-59) U/L Alkaline Phosphatase (46-116) U/L Troponin I (0.00-0.056) ng/mL Total Protein (6.4-8.2) g/dl Albumin (3.4-5.0) g/dl Globulin gm/dL Albumin/Globulin Ratio (1-2) Blood Type O POSITIVE Gel Antibody Screen Negative Crossmatch See Detail Meds: Medications Generic Name Dose Route Start Last Admin Trade Name Freq PRN Reason Stop Dose Admin Sodium Chloride 1,000 mls @ 125 mls/hr 06/26/19 11:00 06/26/19 11:07 Normal Saline IV 125 mls/hr ASDIRECTED KOMAL Administration Sodium Chloride 10 ml 06/26/19 10:46 06/26/19 10:40 Saline Flush FLUSH 10 ml ASDIRECTED PRN Administration Keep Vein Open Discontinued Medications Generic Name Dose Route Start Last Admin Trade Name Freq PRN Reason Stop Dose Admin Acetaminophen 650 mg 06/26/19 12:26 06/26/19 12:49 Tylenol PO 06/26/19 12:27 650 mg NOW ONE Administration Ondansetron HCl 4 mg 06/26/19 10:48 06/26/19 10:58 Zofran IVPUSH 06/26/19 10:49 4 mg ONETIME ONE Administration Pantoprazole Sodium 80 mg 06/26/19 10:47 06/26/19 11:00 Protonix Iv IVPUSH 06/26/19 10:48 80 mg BOLUS ONE Administration - Re-Assessments/Exams Free Text/Narrative Re-Assessment/Exam: 06/26/19 10:54 I ordered an IV NS at 125ml/hr, EKG, CXR, labs, and 3 units of PRBCs. 06/26/19 11:51 Her Hgb was low again at 7.2. I did do a rectal exam and it was black stool that was guiac positive. Her PT and PTT are negative. Her K is 3.3. Her creatinine is 2.2. That appears to be her baseline in the past. Her troponin is negative. Her EKG shows atrial fibrillation at a rate of 98. Her CXR shows nothing acute. I have ordered 3 units of PRBCs. 06/26/19 18:[address] Flores and I told him I was going to give her 3 units of PRBCs and hold her aspirin for a week. He was okay with that. She has been here for over 8 hours getting the transfusion. I will discharge her home after the 3rd unit. Departure - Departure Time of Disposition: 19:00 Disposition: DC/Tfer to Live In Caregiver [facility] 64 Condition: Fair Clinical Impression: Generalized weakness, Upper GI bleed Anemia Qualifiers: Anemia type: unspecified type Qualified Code(s): D64.9 - Anemia, unspecified - Discharge Information *PRESCRIPTION DRUG MONITORING PROGRAM REVIEWED*: Not Applicable *COPY OF PRESCRIPTION DRUG MONITORING REPORT IN PATIENT RUTH: Not Applicable Referrals: Wai Flores MD [Primary Care Provider] - 1 Week Forms: ED Department Discharge Additional Instructions: Take your medications as prescribed but no aspirin for 1 week. Follow up with Dr Flores. Please return if you are worse. Sepsis Event Note - Evaluation Sepsis Screening Result: No Definite Risk - Focused Exam Vital Signs: Vital Signs Temp Temp Pulse Resp BP Pulse Ox 06/26/19 17:35 96.9 F 99 16 128/71 06/26/19 15:39 97.1 F 96 16 110/64 06/26/19 15:15 97.2 F 98 16 119/62 06/26/19 13:17 97.8 F 110 H 16 109/74 06/26/19 13:02 97.8 F 98 16 125/74 06/26/19 12:47 97.6 F 108 H 16 118/59 L 06/26/19 10:27 97.6 F 89 16 96/50 L 96 Date Exam was Performed: 06/26/19 Time Exam was Performed: 18:55 - My Orders Last 24 Hours: My Active Orders 06/26/19 10:46 Cardiac Monitoring [RC] . DIRECTED Sodium Chloride 0.9% [Saline Flush] 10 ml FLUSH ASDIRECTED PRN Peripheral IV Insertion Adult [OM.PC] Stat 06/26/19 10:47 EKG Documentation Completion [RC] STAT Peripheral IV Care [RC] . DIRECTED 06/26/19 10:48 Transfuse PRBC [Transfuse Red Blood Cells] [COMM] Stat 06/26/19 11:00 Sodium Chloride 0.9% [Normal Saline] 1,000 ml IV ASDIRECTED - Assessment/Plan Last 24 Hours: My Active Orders 06/26/19 10:46 Cardiac Monitoring [RC] . DIRECTED Sodium Chloride 0.9% [Saline Flush] 10 ml FLUSH ASDIRECTED PRN Peripheral IV Insertion Adult [OM.PC] Stat 06/26/19 10:47 EKG Documentation Completion [RC] STAT Peripheral IV Care [RC] . DIRECTED 06/26/19 10:48 Transfuse PRBC [Transfuse Red Blood Cells] [COMM] Stat 06/26/19 11:00 Sodium Chloride 0.9% [Normal Saline] 1,000 ml IV ASDIRECTED
[2019-06-26] MEDS ORDERED: Sodium Chloride 0.9% 1,000 ML IV SCH (11:00)
--- NOTE | 2019-06-26 11:26 | CR ---
Chest: Portable view of the chest was obtained. Comparison: Prior chest x-ray of 05/27/19. Haziness is noted within the left retrocardiac region. Some of this appears chronic but findings have slightly increased raising the possibility of atelectasis or even a small area of pneumonia. Lungs show no other acute findings. Heart size and mediastinum are normal. Bony structures are grossly intact. Impression: 1. Haziness within the left retrocardiac region as described above. 2. Nothing acute is otherwise seen. Diagnostic code #3 This report was dictated in MDT
[2019-06-26] MEDS ORDERED: Acetaminophen 325 MG Tab PO ONE (12:26)
[2019-06-26 21:17] VITALS: BP 132/76; PULSE 101
== END 2019-06-26 20:55 ==
LOC: JD.ED 10:18
DX: D64.9 Anemia, unspecified (principal); K92.2 Gastrointestinal hemorrhage, unspecified; R53.1 Weakness; I10 Essential (primary) hypertension; I48.91 Unspecified atrial fibrillation; I25.10 Atherosclerotic heart disease of native coronary artery without angina pectoris; E78.00 Pure hypercholesterolemia, unspecified; M06.9 Rheumatoid arthritis, unspecified; F32.9 Major depressive disorder, single episode, unspecified; Z86.718 Personal history of other venous thrombosis and embolism; I25.2 Old myocardial infarction; Z88.8 Allergy status to other drugs, medicaments and biological substances; Z79.899 Other long term (current) drug therapy; Z79.82 Long term (current) use of aspirin
CPT/HCPCS: 36415; 36430; 71045; 80053; 84484; 85025; 85610; 85730; 86850; 86900; 86901; 86922; 93005; 96361; 96374; 96375; 99285; A9270; C9113; J2405; J7030; P9016; 93010; 99284

== ENCOUNTER 2020-10-27 06:43 | Emergency (ER) | payer MEDICARE, BC ==
[2020-10-27 06:55] VITALS: BP 137/86; PULSE 78
[2020-10-27] MEDS ORDERED: Sodium Chloride 0.9% 10 ML Syringe FLUSH PRN (06:57)
--- NOTE | 2020-10-27 07:10 | EDM.PDOC ---
<Jamin Moreno - Last Filed: 10/27/20 07:03> ED HPI GENERAL MEDICAL PROBLEM - General Chief Complaint: Neuro Symptoms/Deficits Stated Complaint: [facility] Time Seen by Provider: 10/27/20 06:50 Source of Information: Reports: Patient, EMS - History of Present Illness INITIAL COMMENTS - FREE TEXT/NARRATIVE: Patient arrived to ED via ambulance She was referred from the [facility] for evaluation Staff report patient is leaning to the left and having difficulty with speech output, which are both newly observed today She has also been having jerking movements affecting her body Patient states that symptoms began yesterday while she was playing bridge Symptoms improved temporarily, then recurred again last night She denies headache or other pain complaints Denies yash weakness of extremities - Related Data Allergies Allergy/AdvReac Type Severity Reaction Status Date / Time niacin Allergy Hives Verified 06/26/19 10:31 Home Meds: Home Meds Isosorbide Mononitrate [Isosorbide Mononitrate ER] 30 mg PO DAILY 01/01/15 [History] Gabapentin [Neurontin] 100 mg PO BEDTIME #30 cap 09/03/16 [Rx] Pantoprazole Sodium [Protonix] 40 mg PO 0800 09/03/16 [History] Simvastatin [Zocor] 40 mg PO BEDTIME 11/10/17 [History] Venlafaxine [Effexor] 75 mg PO BID 04/13/19 [History] Losartan [Cozaar] 25 mg PO 0800 05/27/19 [History] Metoprolol Succinate [Toprol XL 50mg] 100 mg PO DAILY #40 tab.er 06/13/19 [Rx] Acetaminophen [Tylenol] 650 mg PO BID 06/26/19 [History] Furosemide [Lasix] 60 mg PO 0800,1130 06/26/19 [History] Diltiazem [Cardizem CD] 240 mg PO BEDTIME 10/27/20 [History] Iron Ag,Ps/C/Fa6/B12/Zn/SA/Sto [Niferex Tablet] 150 mg PO 0800 10/27/20 [History] Potassium Chloride 20 meq PO BID 10/27/20 [History] levETIRAcetam [Keppra] 500 mg PO BID #60 tablet 10/27/20 [Rx] metOLazone [Metolazone] 2.5 mg PO MOWEFR 10/27/20 [History] Past Medical History HEENT History: Reports: Impaired Vision Other HEENT History: wears glasses Cardiovascular History: Reports: Afib, Angina, Blood Clots/VTE/DVT, CAD, High Cholesterol, Hypertension, CT Respiratory History: Reports: SOB Gastrointestinal History: Reports: GI Bleed, Hemorrhoids, Other (See Below) Other Gastrointestinal History: colitis 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: Reports: Musculoskeletal History: Reports: Osteoarthritis, RA Other Musculoskeletal History: spondylosis, generalized weakness Psychiatric History: Reports: Depression Endocrine/Metabolic History: Reports: Osteopenia Hematologic History: Reports: Anemia, Iron Deficiency Dermatologic History: Reports: Other (See Below) Other Dermatologic History: hemorrhoids, rashes - Infectious Disease History Infectious Disease History: Reports: Chicken Pox, Measles, Mumps - Past Surgical History HEENT Surgical History: Reports: None Cardiovascular Surgical History: Reports: None Respiratory Surgical History: Reports: None GI Surgical History: Reports: Appendectomy, Cholecystectomy Female Surgical History: Reports: Section, Hysterectomy Endocrine Surgical History: Reports: None Musculoskeletal Surgical History: Reports: None Social & Family History - Family History Family Medical History: No Pertinent Family History Cardiac: Reports: CT - Tobacco Use Tobacco Use Status *Q: Never Tobacco User - Caffeine Use Caffeine Use: Reports: None Other Caffeine Use: but states very little of it Caffeine Use Comment: drinks tea a couple times or less a week - Recreational Drug Use Recreational Drug Use: No - Living Situation & Occupation Living situation: Reports: , Alone Occupation: Retired ED ROS GENERAL - Review of Systems Review Of Systems: See Below Free Text/Narrative/Comment: Constitutional - no fever Eyes - no eye pain; no visual disturbance ENT - no rhinorrhea; no congestion; no epistaxis Cardiovascular - no chest pain Respiratory - no shortness of breath; no cough Gastrointestinal - no abdominal pain; no nausea; no vomiting; no diarrhea Genitourinary - no dysuria Musculoskeletal - no neck pain; back pain; no extremity injury Neurological - no headache; speech disturbance; no weakness; shaking/tremor Integumentary - no laceration ED EXAM, GENERAL - Physical Exam Exam: See Below Free Text/Narrative:: Constitutional - awake; alert; no acute distress; mild leaning to left Head - no facial swelling or weakness Eyes - extra ocular motion intact; conjunctiva normal; pupils equal and reactive to light ENT - no nasal deformity; no epistaxis; normal phonation; mucus membranes moist Neck - no swelling Respiratory - normal respiratory effort; no crackles or wheezing; no stridor Cardiovascular - irregular rhythm; normal rate; S1; S2; grade 1/6 systolic murmur GI/Abdomen - normal bowel sounds; soft; no tenderness; no rebound; no guarding; no mass Musculoskeletal - no gross swelling or deformity - functional range of motion of extremities Skin - warm; dry Neurologic - mildly stuttering speech - frequent, intermittent, gross jerking/twitching affecting predominantly trunk and upper extremities - no gross weakness of extremities, drift assessment limited by jerking/twitching - no ataxia of finger-nose movement - no neglect Psychiatric - normal mood and affect; normal attention; memory functionally intact Course - Vital Signs Text/Narrative:: . Considered etiologies included: CVA, intracranial lesion, intracranial hemorrhage, movement disorder, limb- shaking TIA, metabolic derangement Patient was seen immediately upon arrival to ED She was taken promptly to radiology for head CT Lab investigations were obtained after return from CT Further care was endorsed with Dr. Ramirez at 0715 Departure - Departure Disposition: DC/Tfer to [facility] 03 Clinical Impression: Seizure disorder - Discharge Information Referrals: Wai Flores MD [Primary Care Provider] - Forms: ED Department Discharge Additional Instructions: Return to the emergency room with any questions problems or worsening symptoms. Follow-up with Dr. Flores this next week. You will need to follow-up with neurology through [facility]. They recommend you have a outpatient EEG done. You have been started on Keppra this is an antiseizure medication take 1 twice daily. Sepsis Event Note (ED) - Evaluation Sepsis Screening Result: No Definite Risk <Bautista Ramirez - Last Filed: 10/27/20 14:21> #1 Interpretation EKG Date: 10/27/20 Rhythm: A-Fib Rate (Beats/Min): 99 (Rate range 66-136) [place]: Normal P-Wave: Absent QRS: Other (Low voltage) ST-T: Normal QT: Prolonged (Borderline) Comparison: No Change (No significant change from June 26, 2019) EKG Interpretation Comments: Abnormal EKG Course - Vital Signs Last Recorded V/S: Last Vital Signs Temp 36.7 C 10/27/20 06:52 Pulse 78 10/27/20 06:52 Resp 18 10/27/20 06:52 BP 137/86 10/27/20 06:52 Pulse Ox 98 10/27/20 06:52 - Orders/Labs/Meds Orders: Active Orders 24 hr Category Date Time Status Peripheral IV Care [RC] . DIRECTED Care 10/27/20 06:58 Active Sodium Chloride 0.9% [Saline Flush] Med 10/27/20 06:57 Active 10 ml FLUSH ASDIRECTED PRN Peripheral IV Insertion Adult [OM.PC] Stat Oth 10/27/20 06:57 Ordered EKG 12 Lead [EK] Stat Ther 10/27/20 06:58 Ordered Medication Orders Sodium Chloride (Sodium Chloride 0.9% 10 Ml Syringe) 10 ml FLUSH ASDIRECTED PRN PRN Reason: Keep Vein Open Last Admin: 10/27/20 07:12 Dose: 10 ml Documented by: FREDA Labs: Laboratory Tests 10/27/20 10/27/20 10/27/20 Range/Units 07:08 07:08 07:08 WBC 7.02 (3.98-10.04) K/mm3 RBC 3.39 L (3.98-5.22) M/mm3 Hgb 11.5 D (11.2-15.7) gm/dl Hct 35.5 (34.1-44.9) % MCV 104.7 H D (79.4-94.8) fl MCH 33.9 H (25.6-32.2) pg MCHC 32.4 (32.2-35.5) g/dl RDW Std Deviation 48.5 H (36.4-46.3) fL Plt Count 167 L D (182-369) K/mm3 MPV 11.0 (9.4-12.3) fl Neut % (Auto) 64.6 (34.0-71.1) % Lymph % (Auto) 18.8 L (19.3-51.7) % [place] % (Auto) 12.1 (4.7-12.5) % Eos % (Auto) 3.8 (0.7-5.8) Baso % (Auto) 0.4 (0.1-1.2) % Neut # (Auto) 4.53 (1.56-6.13) K/mm3 Lymph # (Auto) 1.32 (1.18-3.74) K/mm3 [place] # (Auto) 0.85 H (0.24-0.36) K/mm3 Eos # (Auto) 0.27 (0.04-0.36) K/mm3 Baso # (Auto) 0.03 (0.01-0.08) K/mm3 PT 10.6 (9.7-12.0) SECONDS INR 0.99 APTT (21.7-31.4) SECONDS Sodium 139 (136-145) mEq/L Potassium 3.6 (3.5-5.1) mEq/L Chloride 98 (98-107) mEq/L Carbon Dioxide 36 H (21-32) mEq/L Anion Gap 8.6 (5-15) BUN 65 H D (7-18) mg/dL Creatinine 2.2 H (0.55-1.02) mg/dL Est Cr Clr Drug Dosing 13.71 mL/min Estimated GFR (MDRD) 21 (>60) mL/min BUN/Creatinine Ratio 29.5 H (14-18) Glucose 102 H (70-99) mg/dL Calcium 9.1 (8.5-10.1) mg/dL Total Bilirubin 0.3 (0.2-1.0) mg/dL AST 21 (15-37) U/L ALT 19 (14-59) U/L Alkaline Phosphatase 98 (46-116) U/L Troponin I < 0.017 (0.00-0.056) ng/mL Total Protein 7.7 (6.4-8.2) g/dl Albumin 4.1 (3.4-5.0) g/dl Globulin 3.6 gm/dL Albumin/Globulin Ratio 1.1 (1-2) SARS-CoV-2 RNA ([place]) (NEGATIVE) 10/27/20 10/27/20 Range/Units 07:08 07:45 WBC (3.98-10.04) K/mm3 RBC (3.98-5.22) M/mm3 Hgb (11.2-15.7) gm/dl Hct (34.1-44.9) % MCV (79.4-94.8) fl MCH (25.6-32.2) pg MCHC (32.2-35.5) g/dl RDW Std Deviation (36.4-46.3) fL Plt Count (182-369) K/mm3 MPV (9.4-12.3) fl Neut % (Auto) (34.0-71.1) % Lymph % (Auto) (19.3-51.7) % [place] % (Auto) (4.7-12.5) % Eos % (Auto) (0.7-5.8) Baso % (Auto) (0.1-1.2) % Neut # (Auto) (1.56-6.13) K/mm3 Lymph # (Auto) (1.18-3.74) K/mm3 [place] # (Auto) (0.24-0.36) K/mm3 Eos # (Auto) (0.04-0.36) K/mm3 Baso # (Auto) (0.01-0.08) K/mm3 PT (9.7-12.0) SECONDS INR APTT 26.2 (21.7-31.4) SECONDS Sodium (136-145) mEq/L Potassium (3.5-5.1) mEq/L Chloride (98-107) mEq/L Carbon Dioxide (21-32) mEq/L Anion Gap (5-15) BUN (7-18) mg/dL Creatinine (0.55-1.02) mg/dL Est Cr Clr Drug Dosing mL/min Estimated GFR (MDRD) (>60) mL/min BUN/Creatinine Ratio (14-18) Glucose (70-99) mg/dL Calcium (8.5-10.1) mg/dL Total Bilirubin (0.2-1.0) mg/dL AST (15-37) U/L ALT (14-59) U/L Alkaline Phosphatase (46-116) U/L Troponin I (0.00-0.056) ng/mL Total Protein (6.4-8.2) g/dl Albumin (3.4-5.0) g/dl Globulin gm/dL Albumin/Globulin Ratio (1-2) SARS-CoV-2 RNA ([place]) Negative (NEGATIVE) Meds: Medications Generic Name Dose Route Start Last Admin Trade Name Freq PRN Reason Stop Dose Admin Sodium Chloride 10 ml 10/27/20 06:57 10/27/20 07:12 Sodium Chloride 0.9% 10 Ml Syringe FLUSH 10 ml ASDIRECTED PRN Administration Keep Vein Open Discontinued Medications Generic Name Dose Route Start Last Admin Trade Name Jackie PRN Reason Stop Dose Admin Levetiracetam 500 mg/ Sodium 105 mls @ 400 mls/hr 10/27/20 11:49 10/27/20 12:08 Chloride IV 10/27/20 12:03 400 mls/hr ONETIME ONE Administration Lorazepam 0.5 mg 10/27/20 08:02 10/27/20 08:08 Lorazepam 2 Mg/Ml Sdv IVPUSH 10/27/20 08:03 0.5 mg ONETIME ONE Administration - Re-Assessments/Exams Free Text/Narrative Re-Assessment/Exam: 10/27/20 08:03 Assumed care at change of shift from Dr. Moreno. Stroke alert was called on the patient. The patient indeed has very atypical findings for CVA. I have checked both hospitals in [place] and they have no bed availability at this time [facility] is anticipating some availability this afternoon. I have reviewed the situation with , on-call neurologist at [facility] in [place]. His thoughts are possible focal aware seizure. Since neurology cannot evaluate the patient right now working to start the work-up here. If we can get her to control her movements we will check an MRI. I will give her half milligram of Ativan and see how she does the neurologist did recommend if she responds favorably to the Ativan to load her up with Keppra. 10/27/20 11:50 Her MRI was unremarkable for any diffusion abnormalities. Case again was discussed with I reviewed the MRI findings with him we will start her on Keppra. At this point the patient remains stable they can pursue further work-up as an outpatient. The patient be placed on Keppra 500 mg twice daily 10/27/20 14:16 The patient has done well on the Keppra [facility] I discussed situation with the patient's son and he is in agreement further outpatient evaluation for this. She is in need an EEG and follow-up with neurology. Neurology recognize the potential for a focal awake seizure Departure - Departure Time of Disposition: 14:19 Sepsis Event Note (ED) - Focused Exam Vital Signs: Vital Signs Temp Pulse Resp BP Pulse Ox 10/27/20 06:52 36.7 C 78 18 137/86 98
--- NOTE | 2020-10-27 07:11 | CT ---
Head CT Technique: Multiple axial sections through the brain were obtained. Intravenous contrast was not utilized. Reconstructed coronal and sagittal images were obtained. Comparison: No prior intracranial imaging is available. Findings: Ventricles along with basal cisterns and sulci over the convexities are moderately prominent. Diminished density is noted within the periventricular and subcortical white matter as well as within the basal ganglia compatible with small vessel ischemic demyelination change. No other abnormal parenchymal densities are seen. No evidence of intracranial hemorrhage is seen. No midline shift or mass-effect is seen. Diffuse atherosclerotic calcification is seen within the vertebral vessels and within the carotid siphon. Bone window settings were reviewed. No acute calvarial abnormality is appreciated. Visualized mastoid sinuses and paranasal sinuses show nothing acute. Impression: 1. Diffuse senescent change as described above. 2. Nothing acute is identified on noncontrast head CT study. 3. If patient's symptoms warrant further evaluation, recommend MRI. Diagnostic code #2
[2020-10-27] MEDS ORDERED: LORazepam 2 MG/ML SDV IVPUSH ONE (08:02)
--- NOTE | 2020-10-27 11:31 | MR ---
MRI brain Technique: T1 sagittal; T2, T2 FLAIR, T1 and diffusion axial; T1 FLAIR coronal images were obtained. Comparison: Previous head CT study performed earlier on same day (6:47 AM). Findings: Ventricles along with basal cisterns and sulci over the convexities are moderately prominent. Mild areas of increased signal are seen with periventricular white matter compatible with minimal small vessel ischemic demyelination change. No other abnormal signal is seen within the brain parenchyma. Normal signal void is seen within the major cerebral arteries within the skull base. No abnormal diffusion is seen within the brain parenchyma. Visualized paranasal sinuses and mastoid sinuses show nothing acute. Impression: 1. Slight senescent change as noted above. 2. No acute diffusion abnormalities are seen. Diagnostic code #2
[2020-10-27] MEDS ORDERED: levETIRAcetam 500 MG in Sodium Chloride 0.9% 100 ML IV ONE (11:49)
== END 2020-10-27 14:35 ==
LOC: JD.ED 06:43
DX: G40.909 Epilepsy, unspecified, not intractable, without status epilepticus (principal); I48.91 Unspecified atrial fibrillation; I25.10 Atherosclerotic heart disease of native coronary artery without angina pectoris; E78.00 Pure hypercholesterolemia, unspecified; I10 Essential (primary) hypertension; I25.2 Old myocardial infarction; M06.9 Rheumatoid arthritis, unspecified; D50.9 Iron deficiency anemia, unspecified; Z88.1 Allergy status to other antibiotic agents; Z79.899 Other long term (current) drug therapy; Z20.822 Contact with and (suspected) exposure to COVID-19
CPT/HCPCS: 36415; 70450; 70551; 80053; 82947; 84484; 85025; 85610; 85730; 93005; 96365; 96375; 99285; J1953; J2060; U0002; 93010; 99284